=== PATIENT | male | born 1940 | race Caucasian/White ===

== ENCOUNTER 2017-09-09 20:33 | Observation (INO) | payer MEDICARE ==
[2017-09-09] MEDS ORDERED: ASPIRIN 81 MG PO STA (21:13)
[2017-09-09 21:38] LABS: Basophils % (A) 1 %; Eosinophils # (A) 0.2 k/uL (0-0.7); Eosinophils % (A) 3 %; HCT 48.9 % (39.0-53.0); HGB 17.1 gm/dL (13.0-17.5); Lymphocytes # (A) 2.1 k/uL (1.0-4.8); Lymphocytes % (A) 27 %; MCH 33.2 pg (25.0-35.0); MCV 94.9 fL (80.0-100.0); Mean Platelet Volume 7.1; Monocytes # (A) 0.6 k/uL (0-1.0); Monocytes % (A) 8 %; Neutrophils # (A) 4.5 k/uL (1.3-7.7); Neutrophils % (A) 59 %; Platelet Count 186 k/uL (150-450); RBC 5.15 m/uL (4.30-5.90); RDW 12.4 % (11.5-15.5); WBC 7.6 k/uL (3.8-10.6)
[2017-09-09 21:47] LABS: Partial Thromboplastin Time 24.9 sec (22.0-30.0); Prothrombin Time 10.1 sec (9.0-12.0)
--- NOTE | 2017-09-09 21:57 | XR ---
EXAMINATION TYPE: XR chest 2V DATE OF EXAM: 09/09/2017 COMPARISON: NONE HISTORY: Chest pain TECHNIQUE: Frontal and lateral views of the chest are obtained. FINDINGS: Heart is normal. Lungs are clear of consolidation. Costophrenic angles are clear. Thoracic aorta is atheromatous. There is relative poor inspiration. IMPRESSION: Poor inspiration. Otherwise negative exam.
[2017-09-09 22:01] LABS: Albumin 4.1 g/dL (3.5-5.0); Calcium 10.6 mg/dL (8.4-10.2); Potassium 4.4 mmol/L (3.5-5.1); Total Bilirubin 0.5 mg/dL (0.2-1.3); Total Protein 6.6 g/dL (6.3-8.2)
--- NOTE | 2017-09-09 22:06 | ED ---
Chest Pain HPI - General Chief Complaint: Chest Pain Stated Complaint: Chest pain Time Seen by Provider: 09/09/17 20:59 Source: patient, family Mode of arrival: wheelchair Limitations: no limitations - History of Present Illness Initial Comments: This is a 77-year-old male with no past medical history who presents emergency department for right-sided chest pain. He states it started earlier today. He states it feels like a pulled muscle in his right chest. He states it's worse with movements of his right arm and twisting of his body. He states that one away however then returned this evening. It is not associated with exertion. He has no shortness of breath. He states he decided he wanted to get checked for acute coronary syndrome. He decided to come emergency department. His last stress test was over 5 years ago - Related Data Home Medications Medication Instructions Recorded Confirmed Citalopram Hydrobromide [CeleXA] 10 mg PO DAILY 09/09/17 09/09/17 Allergies Allergy/AdvReac Type Severity Reaction Status Date / Time No Known Allergies Allergy Verified 09/09/17 21:45 Review of Systems ROS Statement: Those systems with pertinent positive or pertinent negative responses have been documented in the HPI. ROS Other: All systems not noted in ROS Statement are negative. EKG Findings - EKG Comments: EKG Findings:: EKG showing normal sinus rhythm with a rate of 84. No abnormal ST segment changes or T-wave inversions. QTC is 441. Other intervals normal. No ectopy. Past Medical History Past Medical History: No Reported History History of Any Multi-Drug Resistant Organisms: None Reported Past Surgical History: Appendectomy, Orthopedic Surgery, Prostate Surgery Past Psychological History: No Psychological Hx Reported Smoking Status: Former smoker Past Alcohol Use History: None Reported Past Drug Use History: None Reported General Exam - General Exam Comments Initial Comments: Constitutional: [Awake alert] [Appears comfortable] Head: [Normocephalic atraumatic] Eyes: [no conjunctival injection] [No scleral icterus] [EOMI] Neck: [No JVD] [Supple] Heart: [Regular rate rhythm] [normal S1-S2] [no murmurs] Lungs: [Clear to auscultation bilaterally] [No wheezing] [No rales] Abdomen: [Soft] [nondistended] [nontender] Extremities: [Non edematous] [DP pulses intact] [Radial pulses intact] Neuro: [A&Ox3] [No focal neurologic deficits] Psych: [Appropriate mood and affect] Limitations: no limitations Course Vital Signs 09/09/17 20:35 Temperature 97.9 F Pulse Rate 77 Respiratory 16 Rate Blood Pressure 140/74 O2 Sat by Pulse 96 Oximetry Chest Pain MDM - MDM This is a 77-year-old male who presents emergency report for intermittent right- sided chest discomfort. The patient did have intermittent episodes while in the emergency department. Troponin was negative. EKG was unremarkable. Due to the patient's age I feel that it's prudent to keep him in the hospital for further cardiac workup. It's atypical chest pain however unable to completely rule out acute coronary syndrome based on testing done tonight. I spoke with the patient and his family at length about this and they agreed with staying overnight for further evaluation. The patient will be admitted. Disposition Clinical Impression: Chest pain Disposition: ADMITTED IP TO THIS HOSP Condition: Stable
[2017-09-09 22:35] LABS: Creatine Kinase MB 1.2 ng/mL (0.0-2.4); Troponin I <0.012 ng/mL (0.000-0.034)
[2017-09-09] MEDS ORDERED: NITROGLYCERIN SL TABS 0.4 MG TAB SUBLINGUAL PRN (23:02)
[2017-09-09] MEDS ORDERED: HEPARIN SOD,PORK IN 0.45% NACL 25,000 UNIT in 0.45% NACL 1 500ML.BAG IV SCH (23:15)
[2017-09-09] MEDS ORDERED: HEPARIN SODIUM,PORCINE 5,000 UNIT/ML 1 ML VIAL IV PRN (23:30)
[2017-09-10 03:01] LABS: Creatine Kinase 34 U/L (55-170)
[2017-09-10 03:10] LABS: Cholesterol 131 mg/dL (<200); HDL Cholesterol 44 mg/dL (40-60); LDL Cholesterol,Calculated 67 mg/dL (0-99); Triglycerides 98 mg/dL (<150)
[2017-09-10 03:14] LABS: Troponin I <0.012 ng/mL (0.000-0.034)
[2017-09-10 07:56] LABS: Creatine Kinase 37 U/L (55-170)
[2017-09-10 08:06] LABS: Creatine Kinase MB 1.2 ng/mL (0.0-2.4); Troponin I <0.012 ng/mL (0.000-0.034)
[2017-09-10 08:53] VITALS: TEMP 97.5
[2017-09-10] MEDS ORDERED: CITALOPRAM HYDROBROMIDE 10 MG TAB PO SCH (09:00)
[2017-09-10] MEDS ORDERED: ASPIRIN 325 MG TAB PO SCH (09:00)
[2017-09-10] MEDS ORDERED: RX INFO: IV CONTRAST WAS GIVEN 1 EACH MISC MISCELLANE PRN (11:37)
[2017-09-10 12:30] VITALS: BP 156/80; PULSE 72; RESP 18
--- NOTE | 2017-09-10 13:01 | CT ---
EXAMINATION TYPE: CT chest angio for PE DATE OF EXAM: 09/10/2017 COMPARISON: NONE HISTORY: Patient complains of episode of left shoulder pain. CT DLP: 572 mGycm. Automated Exposure Control for Dose Reduction was Utilized. CONTRAST: CTA scan of the thorax is performed with IV Contrast, patient injected with 80 mL of Visipaque 320, p ulmonary embolism protocol. MIP Images are created on CT scanner and reviewed. FINDINGS: LUNGS: There is some patchy bibasilar linear scarring and/or atelectasis. No suspicious consolidation is seen. No concerning parenchymal nodularity or masses. No pleural effusion or pneumothorax is pres ent. Tracheobronchial tree is patent. MEDIASTINUM: There is satisfactory enhancement of the pulmonary artery and its branches, there is no CT evidence for pulmonary embolism. There are no greater than 1 cm hilar or mediastinal lymph nodes. No cardiomegaly or pericardial effusion is seen. There is coronary artery calcification in the LAD which is noted marker for coronary artery disease. There is calcification at level of aortic valve. OTHER: There are multiple simple appearing cysts scattered throughout visualized liver. There is smal l left hepatic lobe There are a few simple appearing cysts in the left kidney. Suspect some vascular calcification in left kidney, nonobstructing calculus felt less likely. There is small size hiatal he rnia. There is moderate to advanced degenerative change bilateral glenohumeral joints, left worse tucker n right. Small degree of bilateral gynecomastia is seen. Slight underlying scoliosis is present. IMPRESSION: 1. No CT evidence for acute pulmonary embolism. No suspicious acute pulmonary process.
--- NOTE | 2017-09-10 13:16 | CONS ---
CONSULTATION Mr. Varghese is a 77-year-old male patient who started having right-sided chest discomfort off and on and since it was recurrent, he came to the hospital because he was worried about having a heart attack. In the hospital, he has been pain free. His cardiac enzymes have been normal x3. His ECGs were completely normal. His electrolytes are normal. Hemoglobin is 17.1, BUN is 25, creatinine is 1.2. REVIEW OF SYSTEMS: No fever, chills, or rigors. No cough or expectoration. No nausea, vomiting, diarrhea, hematuria, dysuria. No strokes, seizures or skin lesions. No musculoskeletal complaints. PAST HISTORY: He denies any hypertension, diabetes on dyslipidemia. MEDICATIONS: He is on Celexa. ALLERGIES: No known drug allergies. PAST HISTORY: He was a former smoker. He stopped smoking in the 1970s. PAST SURGICAL HISTORY: Appendectomy, orthopedic surgery, prostate surgery. He has an enlarged prostate with an elevated PSA level and is seeing urologist next week. EXAMINATION: His blood pressure is 126/83 mmHg. Pulse rate in the 50s. Afebrile 97.5 degrees Fahrenheit. Head and neck examination are normal. Heart sounds are normal. Lungs are clear to auscultation. Extremities are warm. No edema. IMPRESSION: Right-sided atypical chest discomfort. His cardiac enzymes are normal. ECGs are normal. I sent a D-dimer, which is abnormal. He does have a high PSA level according to him and seeing the urologist for this. The CT scan has been ordered by his admitting physician. If this is normal, he may go home from a cardiac standpoint and follow up with me as an outpatient. Lipid panel has been ordered. MMODL / IJN: [id number] /
--- NOTE | 2017-09-10 13:18 | HP ---
HISTORY AND PHYSICAL DATE OF ADMISSION: 09/09/17. PRESENTING COMPLAINT: Chest pain. HISTORY OF PRESENTING COMPLAINT: This is a pleasant 77-year-old patient of Dr. Pandey. Unremarkable past medical history except patient has stable condition includes depression. The patient yesterday during his regular chores developed right upper chest wall pain and pain was much worse with moving his arms reproducible. No short of breath. No dizziness. No lightheadedness. No nausea. No perspiration. The pain went away, came back again, much worse with moving his particular arm, able to reproduce the pain. The patient was able to get around and do his activity. Not worse with activity. The patient was admitted to rule out a cardiac cause. REVIEW OF SYSTEMS: CONSTITUTIONAL: None. HEENT: None. RESPIRATORY: None. CARDIOVASCULAR: No precordial pain. GASTROINTESTINAL: None. MUSCULOSKELETAL: As above. DERMATOLOGICAL, HEMATOLOGIC, LYMPHATICS: None. PSYCHIATRY: Depression controlled. NEUROLOGICAL: None. PAST HISTORY: Prostate cancer treated with laser surgery, depression. PAST SURGICAL HISTORY: Appendectomy, prostate surgery. SOCIAL HISTORY: The patient smoked for about 25 years, stopped 40 years ago. . 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 FAMILY HISTORY: Possible coronary artery disease. HOME MEDICATIONS: Celexa 10 mg a day. ALLERGIES: None. PHYSICAL EXAMINATION: Temperature 97.5, pulse 92, respiratory 18, blood pressure 126/83, pulse ox 97% on room air. GENERAL APPEARANCE: Average built, sitting up, comfortable. EYES: Pupils equal. Conjunctivae normal. HEENT: External appearance of nose and ears normal. Oral cavity normal. NECK: JVD not raised. Mass not palpable. RESPIRATORY: Effort, lungs are clear. CARDIOVASCULAR: First and second sounds normal. No edema. ABDOMEN: Soft, nontender. Liver and spleen not palpable. LYMPHATIC: No lymph node palpable in neck or axillae. PSYCHIATRY: Alert and oriented x3. Mood and affect normal. NEUROLOGICAL: Pupils equal. Cranial nerves grossly intact. Power and sensation grossly intact. INVESTIGATIONS: White count 7.6, hemoglobin 7.1, platelets 26, potassium 4.4, BUN 25, creatinine 1.20, troponin x3 negative. LDL 57. D-dimer 1.13. ASSESSMENT: 1. Right chest wall pain, reproducible by the patient, probably musculoskeletal. Does not appear to be cardiac in nature. The patient has a negative troponin and unremarkable EKG. 2. Elevated D-dimer. The patient has clinical low probability of pulmonary embolism, but we will rule out pulmonary emboli via CT scan. 3. Depression, not otherwise specified, controlled. PLAN: Cardiology was consulted. Dr. Yu ordered a D-dimer. We will order a CT scan of the chest to rule out a PE. Home medications are to continue. MMODL / IJN: [id number] /
--- NOTE | 2017-09-11 11:43 | DS ---
DISCHARGE SUMMARY DATE OF ADMISSION: 09/09/2017. DATE OF DISCHARGE: 09/10/2017. FINAL DIAGNOSES: 1. Right chest wall pain probably musculoskeletal. 2. Pulmonary embolism ruled out. 3. Depression not otherwise specified. HOSPITAL COURSE: This patient presents with right-sided history chest wall pain that was reproducible by moving his arm. Troponins were negative. CT angiogram was negative for PE. Seen by Dr. Yu from Cardiology. Okayed the patient to be discharged. Care was discussed with the patient. EXAM: Lungs are clear. Cardiovascular: First and second sounds normal. DC MEDICATIONS: Celexa 10 mg a day. FOLLOWUP: Follow up with Dr. Jacinto Pandey in 3 days, follow Dr. Yu in 1 week. MMODL / IJN: [id number] /
== END 2017-09-10 13:37 | disposition home or self-care (01) ==
LOC: EC 20:33 → 3OBS 23:02
PROVIDERS: ADMIT Hospitalist; ATTEND Hospitalist
DX: R07.89 Other chest pain (principal); R79.89 Other specified abnormal findings of blood chemistry; F32.9 Major depressive disorder, single episode, unspecified; N40.0 Benign prostatic hyperplasia without lower urinary tract symptoms; R97.20 Elevated prostate specific antigen [PSA]; Z85.46 Personal history of malignant neoplasm of prostate; Z79.899 Other long term (current) drug therapy; Z87.891 Personal history of nicotine dependence
CPT/HCPCS: 99285 ×2; 96365; 96366; 36415; 93005; 85379; 80061; 80053; 82550; 82553 ×2; 84484 ×2; 85025; 85610; 85730 ×2; 71046; 71275; G0378 ×2; Q9967; J1644

== ENCOUNTER → 2017-09-12 | Outpatient (CLI) | payer MEDICARE | END | disposition home or self-care (01) | LOC: LABWHC1 12:35 | PROVIDERS: ATTEND Radiology Radiation Oncology | DX: C61 Malignant neoplasm of prostate (principal) | CPT/HCPCS: 36415; 84153 ==

== ENCOUNTER → 2017-09-15 | Outpatient (CLI) | payer MEDICARE ==
--- NOTE | 2017-09-15 23:22 | MR ---
EXAMINATION TYPE: MR pelvis wo/w con DATE OF EXAM: 09/15/2017 COMPARISON: NONE HISTORY: Malignant neoplasm of prostate CONTRAST: Standard multiplanar, multisequence MRI departmental protocol utilizing 8.5 mL intravenous Gadavist g adolinium contrast. FINDINGS: Urinary bladder appears normal. Prostate gland appears small and consistent with surgery. T here is no evidence of a bladder mass. I see no pelvic lymphadenopathy. Bowel in the pelvis appears n ormal. There is no free fluid. I see no bony destructive process. There is a first-degree L5-S1 spond ylolisthesis. I see no pathologic enhancement. IMPRESSION: Negative MR scan of the pelvis. No evidence of metastatic disease or recurrent tumor. There is a firs t-degree L5-S1 spondylolisthesis.
== END | disposition home or self-care (01) ==
LOC: RADMRIMAIN 11:56
PROVIDERS: ATTEND Radiology Radiation Oncology
DX: C61 Malignant neoplasm of prostate (principal); Z90.79 Acquired absence of other genital organ(s)
CPT/HCPCS: 72197; A9581

== ENCOUNTER → 2017-09-19 | Outpatient (CLI) | payer MEDICARE ==
--- NOTE | 2017-09-19 14:13 | NM ---
EXAMINATION TYPE: NM bone scan whole body DATE OF EXAM: 09/19/2017 COMPARISON: NONE HISTORY: Prostate cancer Delayed whole-body scanning was performed following the injection of 25.1 mCi Tc 99m MDP. Images acq uired 3 hours post injection. FINDINGS: There is abnormal uptake involving the shoulders and sternoclavicular joint greater on the right comp atible with post arthritic changes. Abnormal uptake throughout the lower lumbar, thoracic spine, and lower cervical spine is nonspecific but likely degenerative and could be correlated with x-ray. Photopenic defect involving left knee compatible with previous surgery. Normal uptake involving the right femoral neck is nonspecific. There is heterogeneous uptake througho ut the rib cage.. This is a nonspecific finding. Recent CT scan demonstrated no diagnostic evidence o f metastases in this region. IMPRESSION: 1. Abnormal uptake throughout the cervical thoracic and lumbar spine is nonspecific. Findings are mos t likely degenerative and could be correlated with x-ray recent CT scan didn't demonstrate hypertroph ic and degenerative disc disease involving the thoracic spine. 2. Nonspecific uptake involving the right femoral neck. Recent MRI report demonstrate no diagnostic e vidence of metastases. 3. Heterogeneous pattern of the rib cage is nonspecific. Recent CT scan demonstrates no diagnostic ev idence of metastases.
== END | disposition home or self-care (01) ==
LOC: RADNMMAIN 09:46
PROVIDERS: ATTEND Radiology Radiation Oncology
DX: C61 Malignant neoplasm of prostate (principal)
CPT/HCPCS: 78306; A9503

== ENCOUNTER → 2018-03-22 | Outpatient (CLI) | payer MEDICARE | END | disposition home or self-care (01) | LOC: LABWHC1 10:06 | PROVIDERS: ATTEND Radiology Radiation Oncology | DX: C61 Malignant neoplasm of prostate (principal) | CPT/HCPCS: 36415; 84153 ==

== ENCOUNTER 2018-08-24 08:18 | Day surgery (SDC) | payer MEDICARE ==
[2018-08-22 15:46] VITALS: BMI 25.1
[~2018-08-24 08:18] MED LIST: LACTATED RINGERS 1,000 ML IV SCH
[2018-08-24 08:55] VITALS: TEMP 97.6
[2018-08-24] MEDS ORDERED: LIDOCAINE 1% 20 ML VIAL (10MG/ML) FOR IV START INTRADERMA ONE (09:01)
[2018-08-24] MEDS ORDERED: PROPOFOL 10 MG/ML 20 ML VIAL IV ONE (09:54)
[2018-08-24] MEDS ORDERED: LIDOCAINE 1% INJ 10MG/ML (20 ML MDV) ONE (09:54)
--- NOTE | 2018-08-24 10:20 | P.PCN ---
Date of Procedure: 08/24/18 Procedure(s) Performed: Procedure: Esophagogastroduodenoscopy and biopsy. Preoperative diagnosis: Abdominal pain and suspected peptic ulcer disease. Postoperative diagnosis: 1. Small hiatal hernia with no obvious esophagitis or complicated reflux disease. 2. Mild gastritis and duodenitis. 3. Multiple biopsies obtained from the duodenum, antrum and esophagus. Preparation and sedation: Was provided by anesthesia. Brief clinical history: The patient is a 78-year-old male with history of chronic reflux for which he self medicated with [id number] antacids over the years. The patient is referred because of history of abdominal pain few weeks ago that has since subsided. He has been started on acid suppressive therapy. He has no alarm symptoms including any evidence of bleeding. This evaluation is to assess for possible peptic ulcer disease. Procedure: With the patient on his left lateral decubitus position and after informed consent and adequate sedation, I passed the Olympus GIF-H 190 video upper endoscope through the cricopharyngeus down the esophagus. GE junction was around 40 cm from the incisors and there was a small sliding hiatal hernia but no obvious esophagitis or complicated reflux disease. The endoscope was then passed into the stomach which was insufflated with air and inspected in detail including the retroflex view in the cardia. There was minimal mottling and erythema in the antrum but no ulcers or erosions. Pyloric channel did not show any ulcers. Duodenal bulb showed erythema and some mottling but no ulcers , erosions or bleeding. Post bulbar area and descending duodenum did not show obvious abnormalities. I obtained biopsies from the duodenum, antrum and esophagus then the endoscope was withdrawn. The patient tolerated the procedure well. Plan: The patient was reassured. He will continue antireflux diet and measures. Will await biopsy results and make additional recommendations. He will follow up with you as planned and I'll be happy to see in the office of his symptoms recur.
[2018-08-24 10:55] VITALS: BP 112/72; PULSE 72; RESP 18
== END 2018-08-24 10:55 | disposition home or self-care (01) ==
LOC: ORWHC2ENDO 08:18
DX: K44.9 Diaphragmatic hernia without obstruction or gangrene (principal); K29.50 Unspecified chronic gastritis without bleeding; K29.80 Duodenitis without bleeding; K21.0 Gastro-esophageal reflux disease with esophagitis; F39 Unspecified mood [affective] disorder; Z79.899 Other long term (current) drug therapy
CPT/HCPCS: 88305; 43239; J2001; J2704

== ENCOUNTER → 2018-09-26 | Outpatient (CLI) | payer MEDICARE ==
--- NOTE | 2018-09-26 23:29 | CONS ---
CONSULTATION . REASON FOR CONSULTATION: Secondary erythrocytosis. This 78-year-old male patient, currently being investigated for secondary erythrocytosis. The patient was found to have elevated hemoglobin and for that reason, he was referred to me. He denies having any symptoms to suggest obstructive sleep apnea. He denies having any snore. No witnessed apneas. No waking up in the middle of night choking or gasping for air. No nocturia no hypersomnia or sleepiness during the day. He goes to bed around 10:30 p.m., wakes up 7:00 am in the morning. He is not obese and denies having any recent weight gain or weight loss. Furthermore, the patient does not have any chronic lung disease. His room-air pulse ox is 96%. No history of cardiac disease. No history of disease. No history of any restrictive lung disease such as scoliosis or any other form of neuromuscular weakness. PAST MEDICAL HISTORY: Depression currently on anti depression therapy and the patient is using Celexa on a daily basis. He has also osteoarthritis and impaired hearing an the patient wearing a hearing aid in his right ear. SURGICAL HISTORY: Knee replacement surgery. Appendectomy and prostate surgery for BPH. DRUG ALLERGIES: Not known. OUTPATIENT MEDICATION LIST: Includes Celexa. SOCIAL HISTORY: The patient is a nonsmoker. No history of alcohol. No history of IV drugs. 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 FAMILY HISTORY: Negative for sleep apnea. REVIEW OF SYSTEMS: 12-point review of system was done. No reported excessive fatigue or sleepiness. No grinding of the teeth. No sleepwalking or sleep talking. No restlessness in lower extremities. No problems with memory or concentration. No irritability or depression. No falling asleep during the day. No claustrophobia, anxiety or anxiety. REVIEW OF SYMPTOMS: 14-point review of system was done and positive findings as mentioned above in history of present illness. PHYSICAL EXAMINATION: His current vitals BP is 140/82, pulse is 70, respirations 16, temperature 98.1, saturation 96% on room air. Height is 5 feet 7 inches weight is 179, and BMI is 28.0, neck size 15.5 inches. GENERAL APPEARANCE is calm and comfortable. Head is atraumatic, normocephalic. NECK: Supple. No JVD. No goiter or neck masses. Mallampati class I. LUNGS: Clear to auscultation. HEART: Sounds regular rate and rhythm. Normal S1, S2. No S3. No murmurs. ABDOMEN: Soft, nontender. No organomegaly. EXTREMITIES: No edema. No cyanosis or clubbing. NEUROLOGIC: Alert and oriented x3. No focal neurological deficits. PSYCHIATRIC: Negative for anxiety or depression. SKIN: Negative for any wounds or ulceration. IMPRESSION: 1. 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 Rule out nocturnal oxygen desaturation. 2. Chronic depression currently on Celexa. 3. Degenerative arthritis. 4. Impaired hearing. PLAN: We will proceed with a home sleep study. Overall suspicion for obstructive sleep apnea or nocturnal oxygen desaturation is low. We will investigate this patient and will make further recommendations should there be any abnormalities in the home sleep study. MMHOWARDL / IJN: [id number] /
== END ==
LOC: SLEEP 14:52
PROVIDERS: ATTEND Internal Medicine Critical Care Medicine
DX: D75.1 Secondary polycythemia (principal); F32.9 Major depressive disorder, single episode, unspecified; M19.90 Unspecified osteoarthritis, unspecified site; H91.90 Unspecified hearing loss, unspecified ear; Z79.899 Other long term (current) drug therapy
CPT/HCPCS: 99211

== ENCOUNTER → 2018-11-20 | Day surgery (SDC) | payer MEDICARE ==
[2018-11-17 13:24] VITALS: BMI 26.6
[~2018-11-20] MED LIST changes: +GLYCOPYRROLATE 0.2 MG/ML 2 ML VIAL ONE; +LIDOCAINE 1% 20 ML VIAL (10MG/ML) FOR IV START INTRADERMA ONE; +ONDANSETRON 4 MG/2 ML VIAL ONE; +PROPOFOL 10 MG/ML 20 ML VIAL IV ONE
[2018-11-20 09:29] VITALS: RESP 16; TEMP 97.8
--- NOTE | 2018-11-20 11:17 | P.PCN ---
Date of Procedure: 11/20/18 Description of Procedure: BRIEF HISTORY: Pleasant 78-year-old male who presents for outpatient colonoscopy for evaluation of a positive cologuard. The patient reports multiple attempts at colonoscopies in the past which he was unable to perform secondary to intolerance the prep. He denies any family history of colon cancer. He denies any abdominal pain and change in bowel habits or blood per rectum. PROCEDURE PERFORMED: Colonoscopy with polypectomy. PREOPERATIVE DIAGNOSIS: Positive Cologuard, No prior colonoscopy. ESTIMATED BLOOD LOSS: Minimal. IV sedation per Anesthesia. PROCEDURE: After informed consent was obtained, the patient, was brought into the endoscopy unit. IV sedation was administered by Anesthesia under continuous monitoring. Digital rectal examination was normal. Initially the Olympus CF-190 flexible video colonoscope was then inserted in the rectum, gradually advanced into the cecum without any difficulty. Careful examination was performed as the scope was gradually being withdrawn. Ileocecal valve and the appendiceal orifice were visualized and appeared normal. Prep was poor with a large amount of liquid and solid stool throughout the colon, copious lavage was attempted however the stool continually clogged the endoscope. Visualized mucosa of the cecum, ascending colon, transverse colon, descending colon, sigmoid colon, and rectum appeared normal. One diminutive 6 mm sessile sigmoid polyp with cold snare polypectomy. Retroflexion was performed in the rectum and no lesions were seen. The patient tolerated the procedure well. IMPRESSION: Poor prep, severely limiting visualization of the colon mucosa. Sigmoid polyp removed with cold snare polypectomy. Radiation proctitis. RECOMMENDATIONS: Findings of this examination were discussed with the patient and his . Recommend repeat colonoscopy in 3-6 months with prolonged prep. Await pathology from biopsies. Follow up as previously scheduled.
[2018-11-20 11:45] VITALS: BP 156/79; PULSE 82
== END | disposition home or self-care (01) ==
LOC: ORWHC2ENDO 09:15
PROVIDERS: ATTEND Internal Medicine
DX: K62.7 Radiation proctitis (principal); D12.5 Benign neoplasm of sigmoid colon; Z85.46 Personal history of malignant neoplasm of prostate; K21.9 Gastro-esophageal reflux disease without esophagitis; Z79.899 Other long term (current) drug therapy
CPT/HCPCS: 88305; 45385; J2405; J2704

== ENCOUNTER → 2019-02-01 | Outpatient (CLI) | payer MEDICARE ==
--- NOTE | 2019-02-01 12:09 | SFUN ---
SLEEP CENTER FOLLOW UP NOTE DATE OF SERVICE: 02/01/2019 A 78-year-old gentleman who has been followed in the Sleep Center for treatment of obstructive sleep apnea-hypopnea syndrome. Recently, patient had a home sleep apnea test which showed severe sleep apnea with apnea-hypopnea index 37.9. Also test demonstrated 200 obstructive apneas but is also 74 mixed apneas. The patient was started on treatment with the AutoPap with a range of pressure 5-20 cm of water. Today is his first visit after he was started on treatment with machine. He is using a full-face mask. He believes that he sleeps better with the machine and he feels better during the day, [place] Sleepiness Scale today is 3. I checked patient's CPAP unit, range of the pressure 5-20, average pressure for the last month 13.3. Apnea-hypopnea index reading for the last 9.9 with acceptable leak 14 L/minute. From the 9.9 index, 6.2 related to central apnea index. MEDICATIONS: Celexa, anticholesterol medication, simvastatin, medication for acid reflux. PHYSICAL EXAM: Patient in no distress. BP 129/84, HR 64, RR 16, weight 192 pounds. Temp 98.0, oxygen saturation at room air 97%. OROPHARYNX: Low position of soft palate. Mallampati 3 - 4. Neck Supple, no JVD. Thyroid is not palpable. LUNGS Clear to percussion and to auscultation. Good air exchange. No wheezing or rhonchi. HEART S1, S2 regular. No murmurs, gallops, or rubs. ABDOMEN Soft and nontender. Bowel sounds are present. No organomegaly appreciated. EXTREMITIES No clubbing or cyanosis. 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 Cranial nerves 2 to 7 intact. There is no fasciculation or atrophy. noted. No focal deficits observed. IMPRESSION: 1. 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 Patient demonstrated great compliance with treatment, 100% usage of the machine for more than 4 hours with average usage 8.3 hours. Breathing on CPAP improved but not fully normalized because patient still has some central apneas by reading from the CPAP unit. 2. History of erythrocytosis. 3. Acid reflux. 4. History of depression. 5. History of degenerative arthritis. 6. History of impaired hearing. PLAN: 1. Patient will continue to use CPAP equipment every night for the whole night. I will change maximal CPAP pressure down to 15 cm of water. 2. Patient should have CPAP if necessary BiPAP titration for correction of central abnormalities of respiration during the sleep, which was documented during the home sleep apnea test and also by the reading from his machine at the present time. 3. Precautions related to driving. No driving if feeling sleepiness. 4. Sleep hygiene with regular time in bed for at least 7.5 hours. Thank you very much for allowing me to participate in the management of your patient. Sincerely, Rai Fried MD, PhD, FAASM Diplomat of [employer] Program Proposals Coordinator of [facility] [place] MMODL / IJN: [id number] /
== END | disposition home or self-care (01) ==

== ENCOUNTER → 2019-03-20 | Outpatient (CLI) | payer MEDICARE | END | disposition home or self-care (01) | LOC: LABWHC1 10:03 | PROVIDERS: ATTEND Radiology Radiation Oncology | DX: C61 Malignant neoplasm of prostate (principal); F17.220 Nicotine dependence, chewing tobacco, uncomplicated; Z00.6 Encounter for examination for normal comparison and control in clinical research program | CPT/HCPCS: 36415; 84153 ==

== ENCOUNTER 2019-05-16 11:37 | Day surgery (SDC) | payer MEDICARE ==
[2019-05-14 14:16] VITALS: BMI 26.6
[~2019-05-16 11:37] MED LIST changes: -GLYCOPYRROLATE 0.2 MG/ML 2 ML VIAL ONE; -LIDOCAINE 1% 20 ML VIAL (10MG/ML) FOR IV START INTRADERMA ONE; +LIDOCAINE 1% 20 ML VIAL (10MG/ML) FOR IV START INTRADERMA PRN; +MOXIFLOXACIN HCL 0.5% DROPS 3 ML BTL OP ONE; -ONDANSETRON 4 MG/2 ML VIAL ONE; -PROPOFOL 10 MG/ML 20 ML VIAL IV ONE; +TETRACAINE 0.5% OPHTH (PF) DROPS 4 ML BTL OP NR; +TIMOLOL 0.5% OPHTH DROPS 5 ML BTL OP ONE
[2019-05-16 12:26] VITALS: TEMP 97.4
[2019-05-16] MEDS: CYCLOPENTOLATE 1% OPHTH SOLN 2 ML BTL OP NR ×3 (12:29→12:43)
[2019-05-16] MEDS: PHENYLEPHRINE 2.5% OPHTH DRP 2ML OP NR ×3 (12:33→12:46)
[2019-05-16] MEDS ORDERED: MIDAZOLAM 2 MG/2 ML VIAL ONE (14:12)
[2019-05-16] MEDS ORDERED: fentaNYL (PF) 50 MCG/ML 2 ML AMP ONE (14:12)
[2019-05-16] MEDS ORDERED: BALANCED SALT IRRIG SOLN COMB2 15 ML IRRIG.SOLN IRRIGATION ONE (14:15)
[2019-05-16] MEDS ORDERED: HYALURONATE SODIUM INTRAOCULAR 1 EACH SYRINGE (12MG/ML) INTRAOCULA ONE (14:15)
[2019-05-16] MEDS ORDERED: LIDOCAINE 1% (PF) 10MG/ML VIAL SQ ONE (14:16)
[2019-05-16] MEDS ORDERED: EPINEPHrine (PF) 0.3 ML in BALANCED SALT IRRIG SOLN COMB2 500 ML IRRIGATION ONE (14:26)
[2019-05-16] MEDS ORDERED: EPINEPHrine 1 MG/ML 1 ML AMP IRRIGATION ONE (14:28)
--- NOTE | 2019-05-16 14:40 | P.OP ---
Date of Procedure: 05/16/19 Preoperative Diagnosis: NS & CS Postoperative Diagnosis: same Procedure(s) Performed: PIOL, OS Implants: PCB00 24.00 Anesthesia: MAC Surgeon: Guero Rao Estimated Blood Loss (ml): 0 Pathology: none sent Condition: stable Disposition: same day Indications for Procedure: blurry vision Operative Findings: no complications
[2019-05-16 14:48] VITALS: RESP 16
[2019-05-16 14:59] VITALS: BP 129/80; PULSE 61
--- NOTE | 2019-05-17 06:23 | OP ---
OPERATIVE REPORT DATE OF SURGERY: 05/16/2019. SURGEON: Guero Rao MD PREOPERATIVE DIAGNOSIS: Nuclear sclerosis. POSTOPERATIVE DIAGNOSIS: Same. OPERATION: Phacoemulsification of cataract and intraocular lens implant of the left eye. ESTIMATED BLOOD LOSS: Zero. SPECIMEN TAKEN: None. NARRATIVE: After obtaining the appropriate consent, the patient was brought to the Operating Room where the patient was placed under cardiac monitoring and prepped and draped in the usual sterile manner. At the 5 o'clock position a 15 degree super sharp blade was used to create a paracentesis followed by instillation of 1% lidocaine MPF with 1:1000 epinephrine MPF and balanced salt solution in a ratio of 1:2:1 into the anterior chamber. This was followed by Amvisc to stabilize the anterior chamber. At the 3 o'clock position a self-sealing corneal flap incision was created using 2.8 mm fredrick keratome. A cystotome was used to initiate a continuous tear capsulorrhexis which was completed with the Utrata forceps. A Binkhorst cannula was used to hydrodissect the lens nucleus followed by hydrodelineation. Phacoemulsification of the lens was performed utilizing phaco chop in 9.46 seconds at 19% power. The remaining cortical material was removed using the irrigation aspiration mode followed by additional 1% lidocaine MPF into the anterior chamber followed by viscoelastic to stabilize the capsular bag. An Ankush and Ankush [id number], 24.0 diopters posterior chamber lens was placed into the capsular bag without difficulty. The remaining viscoelastic material was removed from the anterior chamber with the irrigation/aspiration. Balanced salt solution was used to normalize the intraocular pressure. The incision was checked for watertight integrity. The patient then received two drops of 0.5% timolol followed by two drops Vigamox, was lightly patched and shielded in the usual manner. There were no complications from the procedure. The patient tolerated the procedure well and was returned to recovery in good condition. MMODL / IJN: [id number] /
== END 2019-05-16 15:27 | disposition home or self-care (01) ==
LOC: OR 11:37
PROVIDERS: ATTEND Ophthalmology
DX: H25.13 Age-related nuclear cataract, bilateral (principal); H25.013 Cortical age-related cataract, bilateral; H35.033 Hypertensive retinopathy, bilateral; H52.03 Hypermetropia, bilateral; H52.4 Presbyopia; K21.9 Gastro-esophageal reflux disease without esophagitis; F32.9 Major depressive disorder, single episode, unspecified; H91.90 Unspecified hearing loss, unspecified ear; Z97.3 Presence of spectacles and contact lenses; Z85.46 Personal history of malignant neoplasm of prostate; Z87.891 Personal history of nicotine dependence; Z96.652 Presence of left artificial knee joint; Z90.79 Acquired absence of other genital organ(s); Z79.899 Other long term (current) drug therapy
CPT/HCPCS: 66984; C1780; J2250; J0171 ×2; J3010; J2001

== ENCOUNTER → 2019-07-09 | Outpatient (CLI) | payer MEDICARE ==
--- NOTE | 2019-07-09 09:12 | CT ---
EXAMINATION TYPE: CT chest w con DATE OF EXAM: 07/09/2019 COMPARISON: 09/10/2017 HISTORY: 79-year-old male Pneumonia, cough TECHNIQUE: Contiguous axial scanning of the chest after the administration of 80 mL of Isovue 300. C oronal/sagittal reconstructions performed. CT DLP: 341.1mGycm. Automatic exposure control utilized for a dose reduction. FINDINGS: Heart normal size. There is a small pericardial effusion measuring 9 mm thick. Scattered coronary ves barrett calcifications. 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 Conventional) benign. Possible necrotic subcarinal lymph node showing central low density measuring 1.4 cm. Some calcified right hilar lymph nodes compatible with prior granulomatous disease. Enlarged left tracheobronchial angle and AP window lymph nodes measure 1.4 and 1.6 cm, respectively. Prevascular space lymph nodes measure up to 1.0 cm and right peritracheal lymph nodes measure up to 1 .3 cm. Left hilar lymph node measuring 1.5 cm. 1.1 cm lower right paraesophageal Extensive right hilar, suprahilar, and medial right upper lobe opacity. Density encases the right kyle nstem bronchus, right upper lobe and segmental bronchi, in the bronchus medius as well. Some interstitial changes and septal lines throughout the right lung. No pleural effusion. Tiny hiatal hernia. Multiple hepatic cysts redemonstrated measuring up to 7.5 cm, increased from 09/10 where it measured up to 5.5 cm. Bilateral renal cysts measuring up to 3.5 cm on the left. Partially visualized large right renal cyst measuring up to 5.7 cm and appears simple back on the 10/16/2010 renal ultrasound. This is only parti ally visualized currently. Nonobstructive left renal calculus measuring 5 years. Moderate stool burde n. Bones: Moderate degenerative disc disease throughout the thoracic spine. No osseous destructive proce ss. IMPRESSION: 1. New extensive opacity right hilar, right suprahilar, and medial right upper lobe encasing the righ t mainstem and right upper lobe bronchi as well as the bronchus intermedius and segmental right upper lobe branches. While some of the consolidation may represent pneumonia, underlying concurrent neopla sm needs to be excluded. 2. Mediastinal and left hilar lymphadenopathy measuring up to 1.6 cm. Reactive versus metastatic dise ase. 3. Small pericardial effusion measuring 9 mm thick. 4. Septal lines throughout the right lung may reflect mild venous congestion.
== END | disposition home or self-care (01) ==
LOC: RADCTMAIN 06:49
PROVIDERS: ATTEND Internal Medicine
DX: R59.0 Localized enlarged lymph nodes (principal); I31.3 Pericardial effusion (noninflammatory); J98.4 Other disorders of lung
CPT/HCPCS: 82565; 84520; 71260; 36415; Q9967

== ENCOUNTER 2019-07-12 15:14 | Inpatient (IN) | payer MEDICARE ==
[2019-07-12] MEDS ORDERED: cefTRIAXone IN SWFI 1,000 MG/10 ML SYRINGE IVP STA (16:12)
[2019-07-12] MEDS ORDERED: AZITHROMYCIN 500 MG in SODIUM CHLORIDE 0.9% 250 ML IVPB STA (16:12)
[2019-07-12 16:58] LABS: Albumin 3.8 g/dL (3.5-5.0); Calcium 9.3 mg/dL (8.4-10.2); Potassium 4.5 mmol/L (3.5-5.1); Total Bilirubin 0.6 mg/dL (0.2-1.3); Total Protein 6.2 g/dL (6.3-8.2)
[2019-07-12 17:03] LABS: Partial Thromboplastin Time 25.4 sec (22.0-30.0); Prothrombin Time 10.8 sec (9.0-12.0)
--- NOTE | 2019-07-12 17:15 | XR ---
EXAMINATION: XR chest 2V DATE AND TIME: 07/12/2019 4:48 PM CLINICAL INDICATION: PHH; cough TECHNIQUE: Departmental protocol COMPARISON: CT 07/09/2019 and 09/09/2017 radiograph FINDINGS: Demonstration of the mass-like consolidation extending from right suprahilar position upward into the right upper lobe, characterized on CT 07/09/2019. There is a fine reticular pattern of increased density, which can correlate with a clinical diagnosis of mild interstitial phase pulmonary edema. No other lung parenchymal findings. The pleural spaces are negative. The cardiac silhouette is not enlarged. The skeletal structures and soft tissues are negative for acute findings. IMPRESSION: 1. Right suprahilar/right upper lobe process demonstrated. 2. Subtle bilateral interstitial pattern.
[2019-07-12] MEDS: SODIUM CHLORIDE 0.9% 500 ML 500 ML IV SCH (17:18)
--- NOTE | 2019-07-12 17:36 | ED ---
General Adult HPI - General Chief complaint: Upper Respiratory Infection Stated complaint: pneumonia/abd pain Time Seen by Provider: 07/12/19 15:42 Source: patient, RN notes reviewed Mode of arrival: wheelchair Limitations: no limitations - History of Present Illness Initial comments: 79-year-old male with a past medical history of prostate cancer, hyperlipidemia, GERD presents to the emergency determine for chief complaint of cough. Patient states he has had a cough for about 2 weeks. States he saw his primary care provider and was initially given an antacid minutes did not help. States when he saw his primary care provider again they did a chest x-ray and saw pneumonia however got a CT to further evaluate. Patient is on his sixth day of Levaquin without improvement in symptoms. He has not had any fevers. He has had mild shortness of breath and his cough has been unimproved. No chest pain.Patient has no other complaints at this time including chest pain, abdominal pain, nausea or vomiting, headache, or visual changes. - Related Data Home Medications Medication Instructions Recorded Confirmed Citalopram Hydrobromide [CeleXA] 20 mg PO DAILY 09/09/17 05/14/19 Multivitamins, Thera [Multivitamin 1 tab PO DAILY 08/22/18 05/14/19 (formulary)] Atorvastatin [Lipitor] 20 mg PO HS 11/17/18 05/14/19 Ranitidine HCl [Zantac] 150 mg PO BID 05/14/19 05/14/19 Allergies Allergy/AdvReac Type Severity Reaction Status Date / Time No Known Allergies Allergy Verified 07/12/19 15:38 Review of Systems ROS Statement: Those systems with pertinent positive or pertinent negative responses have been documented in the HPI. ROS Other: All systems not noted in ROS Statement are negative. Past Medical History Past Medical History: Cancer, GERD/Reflux, Hyperlipidemia, Prostate Disorder Additional Past Medical History / Comment(s): Prostate cancer with surgery (2012) & radiation tx spring 2017, History of Any Multi-Drug Resistant Organisms: None Reported Past Surgical History: Appendectomy, Joint Replacement, Prostate Surgery Additional Past Surgical History / Comment(s): TOTAL LEFT KNEE, EGD, colonoscopy. Past Anesthesia/Blood Transfusion Reactions: Motion Sickness Past Psychological History: Anxiety Smoking Status: Former smoker Past Alcohol Use History: None Reported Past Drug Use History: None Reported - Past Family History Mother Family Medical History: No Reported History Additional Family Medical History / Comment(s): passed in her 90's Father Family Medical History: Coronary Artery Disease (CAD) Sister(s) Family Medical History: No Reported History Son(s) Family Medical History: No Reported History Daughter(s) Family Medical History: No Reported History General Exam Limitations: no limitations General appearance: alert, in no apparent distress Head exam: Present: atraumatic, normocephalic, normal inspection Eye exam: Present: normal appearance, PERRL, EOMI. Absent: scleral icterus, co njunctival injection, periorbital swelling ENT exam: Present: normal exam, mucous membranes moist Neck exam: Present: normal inspection, full ROM. Absent: tenderness, meningismus, lymphadenopathy Respiratory exam: Present: normal lung sounds bilaterally, wheezes (Wheezing noted in left lung). Absent: respiratory distress, rales, rhonchi, stridor Cardiovascular Exam: Present: regular rate, normal rhythm, normal heart sounds. Absent: systolic murmur, diastolic murmur, rubs, gallop, clicks GI/Abdominal exam: Present: soft, normal bowel sounds. Absent: distended, tende rness, guarding, rebound, rigid Neurological exam: Present: alert Course Vital Signs 07/12/19 07/12/19 07/12/19 15:32 17:11 17:31 Temperature 98.2 F 98.1 F Pulse Rate 96 73 Respiratory 22 16 Rate Blood Pressure 124/77 117/76 O2 Sat by Pulse 96 93 L 92 L Oximetry EKG Findings - EKG Comments: EKG Findings:: Normal sinus rhythm, ventricular rate 81, [place] interval 152, QTC 427 Medical Decision Making - Medical Decision Making Chest CT from 3 days ago shows a new extensive opacity right hilar, right suprahilar, medial right upper lobe encasing the right mainstem and right upper lobe bronchi as well as the bronchus intermedius and segmental right upper lobe branches. While some of the consolidation may represent pneumonia, underlying concurrent neoplasm needs to be excluded. There are also evidence of lymphadenopathy and a small pericardial effusion Chest x-ray was repeated today which shows a right suprahilar/right upper lobe process. Subtle bilateral interstitial pattern noted. CBC shows a left shift with a neutrophil count of 8.5. CMP shows evidence of dehydration. Influenza is negative. Patient was initially started on azithromycin and Rocephin however will be changed to Vanc/cefepime. Patient will be admitted for failure of outpatient treatment. Patient also in acute hypoxic respiratory failure within 92% pulse ox on room air, started on oxygen. - Lab Data Result diagrams: 07/12/19 16:37 07/12/19 16:37 Lab Results 07/12/19 07/12/19 07/12/19 Range/Units 16:37 16:37 16:37 WBC 9.9 (3.8-10.6) k/uL RBC 4.62 (4.30-5.90) m/uL Hgb 15.7 (13.0-17.5) gm/dL Hct 45.1 (39.0-53.0) % MCV 97.6 (80.0-100.0) fL MCH 34.0 (25.0-35.0) pg MCHC 34.8 (31.0-37.0) g/dL RDW 12.5 (11.5-15.5) % Plt Count 244 (150-450) k/uL Neutrophils % 86 % Lymphocytes % 5 % Monocytes % 7 % Eosinophils % 1 % Basophils % 0 % Neutrophils # 8.5 H (1.3-7.7) k/uL Lymphocytes # 0.5 L (1.0-4.8) k/uL Monocytes # 0.7 (0-1.0) k/uL Eosinophils # 0.1 (0-0.7) k/uL Basophils # 0.0 (0-0.2) k/uL PT (9.0-12.0) sec INR (<1.2) APTT (22.0-30.0) sec Sodium 136 L (137-145) mmol/L Potassium 4.5 (3.5-5.1) mmol/L Chloride 103 (98-107) mmol/L Carbon Dioxide 27 (22-30) mmol/L Anion Gap 6 mmol/L BUN 28 H (9-20) mg/dL Creatinine 1.11 (0.66-1.25) mg/dL Est GFR (CKD-EPI)AfAm 73 (>60 ml/min/1.73 sqM) Est GFR (CKD-EPI)NonAf 63 (>60 ml/min/1.73 sqM) Glucose 105 H (74-99) mg/dL Plasma Lactic Acid Segun (0.7-2.0) mmol/L Calcium 9.3 (8.4-10.2) mg/dL Total Bilirubin 0.6 (0.2-1.3) mg/dL AST 31 (17-59) U/L ALT 17 (4-49) U/L Alkaline Phosphatase 77 (38-126) U/L Total Protein 6.2 L (6.3-8.2) g/dL Albumin 3.8 (3.5-5.0) g/dL Influenza Type A RNA Not Detected (Not Detectd) Influenza Type B (PCR) Not Detected (Not Detectd) 07/12/19 07/12/19 Range/Units 16:37 16:37 WBC (3.8-10.6) k/uL RBC (4.30-5.90) m/uL Hgb (13.0-17.5) gm/dL Hct (39.0-53.0) % MCV (80.0-100.0) fL MCH (25.0-35.0) pg MCHC (31.0-37.0) g/dL RDW (11.5-15.5) % Plt Count (150-450) k/uL Neutrophils % % Lymphocytes % % Monocytes % % Eosinophils % % Basophils % % Neutrophils # (1.3-7.7) k/uL Lymphocytes # (1.0-4.8) k/uL Monocytes # (0-1.0) k/uL Eosinophils # (0-0.7) k/uL Basophils # (0-0.2) k/uL PT 10.8 (9.0-12.0) sec INR 1.0 (<1.2) APTT 25.4 (22.0-30.0) sec Sodium (137-145) mmol/L Potassium (3.5-5.1) mmol/L Chloride (98-107) mmol/L Carbon Dioxide (22-30) mmol/L Anion Gap mmol/L BUN (9-20) mg/dL Creatinine (0.66-1.25) mg/dL Est GFR (CKD-EPI)AfAm (>60 ml/min/1.73 sqM) Est GFR (CKD-EPI)NonAf (>60 ml/min/1.73 sqM) Glucose (74-99) mg/dL Plasma Lactic Acid Segun 1.3 (0.7-2.0) mmol/L Calcium (8.4-10.2) mg/dL Total Bilirubin (0.2-1.3) mg/dL AST (17-59) U/L ALT (4-49) U/L Alkaline Phosphatase (38-126) U/L Total Protein (6.3-8.2) g/dL Albumin (3.5-5.0) g/dL Influenza Type A RNA (Not Detectd) Influenza Type B (PCR) (Not Detectd) Disposition Clinical Impression: Pneumonia, Failure of outpatient treatment Disposition: ADMITTED IP TO THIS HOSP Condition: Fair Is patient prescribed a controlled substance at d/c from ED?: No Referrals: Jacinto Pandey MD [Primary Care Provider] - 1-2 days Time of Disposition: 18:27
[2019-07-12 17:40] LABS: Basophils % (A) 0 %; Eosinophils # (A) 0.1 k/uL (0-0.7); Eosinophils % (A) 1 %; HCT 45.1 % (39.0-53.0); HGB 15.7 gm/dL (13.0-17.5); Lymphocytes # (A) 0.5 k/uL (1.0-4.8); Lymphocytes % (A) 5 %; MCHC 34.8 g/dL (31.0-37.0); MCV 97.6 fL (80.0-100.0); Mean Platelet Volume 7.3; Monocytes # (A) 0.7 k/uL (0-1.0); Monocytes % (A) 7 %; Neutrophils # (A) 8.5 k/uL (1.3-7.7); Neutrophils % (A) 86 %; Platelet Count 244 k/uL (150-450); RBC 4.62 m/uL (4.30-5.90); RDW 12.5 % (11.5-15.5); WBC 9.9 k/uL (3.8-10.6)
[2019-07-12] MEDS ORDERED: PNEUMONIA PROTOCOL UTILIZED 1 EACH MISC PO PRN (18:14)
[2019-07-12] MEDS ORDERED: VANCOMYCIN IV PER PHARMACY 1 EACH MISC MISCELLANE PRN (18:24)
[2019-07-12] MEDS ORDERED: VANCOMYCIN 1,500 MG in SODIUM CHLORIDE 0.9% 250 ML IVPB ONE (18:45)
[2019-07-12] MEDS: IPRATROPIUM-ALBUTEROL 3 ML NEB INHALATION SCH (19:54)
[2019-07-12] MEDS: SODIUM CHLORIDE 0.9% 1,000 ML IV SCH (20:22)
[2019-07-12] MEDS: CEFEPIME 2 GM in SODIUM CHLORIDE 0.9% 100 ML IVPB SCH (23:50)
[2019-07-13] MEDS ORDERED: PIPERACILLIN-TAZOBACTAM 3.375 GM in SODIUM CHLORIDE 0.9% 100 ML IVPB SCH ×2
[2019-07-13] MEDS: IPRATROPIUM-ALBUTEROL 3 ML NEB INHALATION SCH ×4 (07:02→19:43)
[2019-07-13] MEDS: CEFEPIME 2 GM in SODIUM CHLORIDE 0.9% 100 ML IVPB SCH ×2 (07:34→20:14)
[2019-07-13] MEDS: VANCOMYCIN 1,500 MG in SODIUM CHLORIDE 0.9% 250 ML IVPB SCH (11:05)
[2019-07-13 13:50] VITALS: BMI 25.8
[2019-07-13] MEDS: SODIUM CHLORIDE 0.9% 1,000 ML IV SCH (14:08)
[2019-07-13] MEDS ORDERED: ONDANSETRON 4 MG/2 ML VIAL IVP PRN (14:52)
--- NOTE | 2019-07-13 17:33 | P.CNPUL ---
History of Present Illness Consult date: 07/13/19 Reason for consult: lung mass History of present illness: 79-year-old male patient was been having respiratory difficulties for almost a month. His June of last year, the patient has been having episodes of cough and congestion and shortness of breath and wheeze. He has seen his primary care physician. He was given antibiotics. He was given an outpatient chest x-ray and he was told to have pneumonia. His condition was getting worse and he came into the hospital. Note that prior to his hospitalization had a CAT scan of the chest that was done on 07/09/2019 and a CAT scan showed an extensive opacity in the right hilar and suprahilar area and the medial right upper lobe encasing the right mainstem and right upper lobe bronchi as well as the bronchus intermedius and the segmental right upper lobe branches. There was some consolidation in the right upper lobe. There was also evidence of mediastinal lymphadenopathy, left hilar lymphadenopathy as large as 1.6 cm and a small pericardial effusion measuring 9 mm in size. The findings are very much worsen for malignancy. Currently, the patient is in a combination of bronchodilators steroids and antibiotics. No hemoptysis. No other constitutional symptoms. He is an ex-sm oker. He quit smoking 40 years ago. No nausea. No vomiting. No abdominal pain. No chest pain. No altered mentation. Review of Systems Constitutional: Reports weakness Eyes: denies as per HPI, denies blurred vision, denies bulging eye, denies decreased vision, denies diplopia, denies discharge, denies dry eye, denies irritation, denies itching, denies pain, denies photophobia, denies loss of peripheral vision, denies loss of vision, denies tunnel vision/blind spots Ears: deny: decreased hearing, ear discharge, earache, tinnitus Ears, nose, mouth and throat: Reports as per HPI Breasts: absent: as per HPI, gynecomastia Cardiovascular: Reports decreased exercise tolerance, Reports dyspnea on exertion Respiratory: Reports cough, Reports dyspnea, Reports wheezing Gastrointestinal: Reports as per HPI Genitourinary: Reports as per HPI Musculoskeletal: Reports as per HPI Musculoskeletal: absent: ankle pain, ankle stiffness, ankle swelling, as per HPI, elbow pain, elbow stiffness, elbow swelling, foot pain, foot stiffness, foot swelling, hand pain, hand stiffness, hand swelling, hip pain, hip stif fness, hip swelling, knee pain, knee stiffness, knee swelling, shoulder pain, shoulder stiffness, shoulder swelling, wrist pain, wrist stiffness, wrist swelling Integumentary: Reports as per HPI Neurological: Reports as per HPI Psychiatric: Reports as per HPI Endocrine: Reports as per HPI Hematologic/Lymphatic: Reports as per HPI Allergic/Immunologic: Reports as per HPI Past Medical History Past Medical History: Cancer, COPD, GERD/Reflux, Hyperlipidemia, Prostate Disorder Additional Past Medical History / Comment(s): Prostate cancer with surgery (2012) & radiation tx spring 2017, History of Any Multi-Drug Resistant Organisms: None Reported Past Surgical History: Appendectomy, Joint Replacement, Prostate Surgery Additional Past Surgical History / Comment(s): TOTAL LEFT KNEE, EGD, colonoscopy. Past Anesthesia/Blood Transfusion Reactions: Motion Sickness Past Psychological History: Anxiety Smoking Status: Former smoker Past Alcohol Use History: None Reported Additional Past Alcohol Use History / Comment(s): QUIT SMOKING 1979, SMOKED 1 PPD, SMOKED 20-25 YEARS. Past Drug Use History: None Reported - Past Family History Mother Family Medical History: No Reported History Additional Family Medical History / Comment(s): passed in her 90's Father Family Medical History: Coronary Artery Disease (CAD) Sister(s) Family Medical History: No Reported History Son(s) Family Medical History: No Reported History Daughter(s) Family Medical History: No Reported History Medications and Allergies Home Medications Medication Instructions Recorded Confirmed Type Atorvastatin [Lipitor] 20 mg PO HS 11/17/18 07/12/19 History Benzonatate [Tessalon Perles] 200 mg PO TID PRN 07/12/19 07/12/19 History Citalopram Hydrobromide [CeleXA] 20 mg PO DIRECTED 07/12/19 07/12/19 History Levofloxacin [Levaquin] 500 mg PO DAILY 07/12/19 07/12/19 History Allergies Allergy/AdvReac Type Severity Reaction Status Date / Time No Known Allergies Allergy Verified 07/12/19 18:40 Physical Exam Vitals: Vital Signs Temp Pulse Pulse Resp BP Pulse Ox 07/13/19 16:04 72 07/13/19 16:00 80 16 07/13/19 15:45 68 07/13/19 12:12 98.1 F 80 16 132/62 95 07/13/19 11:20 72 07/13/19 11:14 72 07/13/19 08:00 68 16 07/13/19 07:15 76 07/13/19 07:04 72 07/13/19 05:00 97.5 F L 68 16 112/69 93 L 07/12/19 20:28 98.0 F 79 18 126/60 92 L 07/12/19 20:04 76 07/12/19 19:54 73 97 07/12/19 17:31 92 L Intake and Output 07/13/19 07/13/19 07/13/19 06:59 14:59 22:59 Intake Total 400 2630 Balance 400 2630 Intake: Intake, IV Titration 400 950 Amount Cefepime 2 gm In Sodium 100 Chloride 0.9% 100 ml @ 200 mls/hr IVPB Q12HR [facility] Rx#:[id number] Sodium Chloride 0.9% 1, 400 600 000 ml @ 50 mls/hr IV . Q20H [facility] Rx#:[id number] Vancomycin 1,500 mg In 250 Sodium Chloride 0.9% 250 ml @ 125 mls/hr IVPB Q16H [facility] Rx#:[id number] Oral 1680 Other: Voiding Method Toilet Toilet Toilet # Voids 3 3 Weight 79.379 kg Gen. appearance, comfortable not in acute distress Head exam was generally normal. There was no scleral icterus or corneal arcus. Mucous membranes were moist. Neck examination reveals lymphadenopathy in his right supraclavicular area and the patient has several enlarged rubbery lymph nodes the largest probably measuring around 1-1-1/2 cm in size and a small lymph node in the left supraclavicular area. Lungs sounds are diminished and there is scattered expiratory wheezing throughout the lung mccracken bilaterally. Some few expiratory rhonchi and prolongation of exhalation phase of breathing. Cardiac exam revealed the PMI to be normally situated and sized. The rhythm was regular and no extrasystoles were noted during several minutes of auscultation. The first and second heart sounds were normal and physiologic splitting of the second heart sound was noted. There were no murmurs, rubs, clicks, or gallops. Abdominal exam revealed normal bowel sounds. The abdomen was soft, non-tender, and without masses, organomegaly, or appreciable enlargement of the abdominal aorta. Examination of the extremities revealed easily palpable radial, femoral and pedal pulses. There was no cyanosis, clubbing or edema. Examination of the skin revealed no evidence of significant rashes, suspicious appearing nevi or other concerning lesions. Neurologically is awake and alert and there is no focal neurological deficit. Examination of the skin revealed no evidence of significant rashes, suspicious appearing nevi or other concerning lesions. Results - Laboratory Findings CBC and BMP: 07/12/19 16:37 07/12/19 16:37 ABG WBC 9.9 k/uL (3.8-10.6) 07/12/19 16:37 RBC 4.62 m/uL (4.30-5.90) 07/12/19 16:37 Hgb 15.7 gm/dL (13.0-17.5) 07/12/19 16:37 Hct 45.1 % (39.0-53.0) 07/12/19 16:37 MCV 97.6 fL (80.0-100.0) 07/12/19 16:37 MCH 34.0 pg (25.0-35.0) 07/12/19 16:37 MCHC 34.8 g/dL (31.0-37.0) 07/12/19 16:37 RDW 12.5 % (11.5-15.5) 07/12/19 16:37 Plt Count 244 k/uL (150-450) 07/12/19 16:37 Neutrophils % 86 % 07/12/19 16:37 Lymphocytes % 5 % 07/12/19 16: Monocytes % 7 % 07/12/19 16:37 Eosinophils % 1 % 07/12/19 16:37 Basophils % 0 % 07/12/19 16:37 Neutrophils # 8.5 k/uL (1.3-7.7) H 07/12/19 16:37 Lymphocytes # 0.5 k/uL (1.0-4.8) L 07/12/19 16:37 Monocytes # 0.7 k/uL (0-1.0) 07/12/19 16:37 Eosinophils # 0.1 k/uL (0-0.7) 07/12/19 16:37 Basophils # 0.0 k/uL (0-0.2) 07/12/19 16:37 PT 10.8 sec (9.0-12.0) 07/12/19 16:37 INR 1.0 (<1.2) 07/12/19 16:37 APTT 25.4 sec (22.0-30.0) 07/12/19 16:37 Sodium 136 mmol/L (137-145) L 07/12/19 16:37 Potassium 4.5 mmol/L (3.5-5.1) 07/12/19 16:37 Chloride 103 mmol/L (98-107) 07/12/19 16:37 Carbon Dioxide 27 mmol/L (22-30) 07/12/19 16:37 Anion Gap 6 mmol/L 07/12/19 16:37 BUN 28 mg/dL (9-20) H 07/12/19 16:37 Creatinine 1.11 mg/dL (0.66-1.25) 07/12/19 16:37 Est GFR (CKD-EPI)AfAm 73 (>60 ml/min/1.73 sqM) 07/12/19 16:37 Est GFR (CKD-EPI)NonAf 63 (>60 ml/min/1.73 sqM) 07/12/19 16:37 Glucose 105 mg/dL (74-99) H 07/12/19 16:37 Plasma Lactic Acid Segun 1.3 mmol/L (0.7-2.0) 07/12/19 16:37 Calcium 9.3 mg/dL (8.4-10.2) 07/12/19 16:37 Total Bilirubin 0.6 mg/dL (0.2-1.3) 07/12/19 16:37 AST 31 U/L (17-59) 07/12/19 16:37 ALT 17 U/L (4-49) 07/12/19 16:37 Alkaline Phosphatase 77 U/L (38-126) 07/12/19 16:37 Total Protein 6.2 g/dL (6.3-8.2) L 07/12/19 16:37 Albumin 3.8 g/dL (3.5-5.0) 07/12/19 16:37 Influenza Type A RNA Not Detected (Not Detectd) 07/12/19 16:37 Influenza Type B (PCR) Not Detected (Not Detectd) 07/12/19 16:37 PT/INR, D-dimer PT 10.8 sec (9.0-12.0) 07/12/19 16:37 INR 1.0 (<1.2) 07/12/19 16:37 Abnormal lab findings: Abnormal Labs 07/12/19 07/12/19 16:37 16:37 Neutrophils # 8.5 H Lymphocytes # 0.5 L Sodium 136 L BUN 28 H Glucose 105 H Total Protein 6.2 L Assessment and Plan Plan: 1 right lung opacity involving the right hilar and suprahilar area encasing the right main stem and the right upper lobe bronchi as well as the bronchus intermedius with possible endobronchial extension addition to mediastinal lymphadenopathy and the findings are very much worsen for lung cancer 2 right upper lobe consolidation apical segment, could be a combination of tumor versus postobstructive pneumonia 3 bilateral supraclavicular lymphadenopathy highly suggestive of malignancy 4 COPD exacerbation secondary to above 5 history of ex-smoker 6 hyperlipidemia Plan Continue current antibiotic coverage IV Solu-Medrol Flexible bronchoscopy in a.m. with airway inspection and biopsies and lavage of the right upper lobe. We'll may need fluoroscopy at the time of the biopsy. Procedure including the potential complication with extended to the patient at length. My concern for malignancy was discussed with the patient and he understands the purpose of the procedure and he is willing to undertake the procedure. He is going to contact his family members who will come in the morning and have further information about the procedure. His son is a surgical endoscopist that works locally in [facility] and I'm going to communicate with him. Further recommendations are to follow based on the findings
[2019-07-13] MEDS: methylPREDNISolone SOD SUCCI 125 MG/2 ML VIAL IV SCH ×2 (18:07→23:37)
[2019-07-13] MEDS: ATORVASTATIN 20 MG TAB PO SCH (20:14)
[2019-07-13] MEDS ORDERED: RX INFO: IV CONTRAST WAS GIVEN 1 EACH MISC MISCELLANE PRN (23:56)
--- NOTE | 2019-07-14 00:07 | P.HPIM ---
History of Present Illness H&P Date: 07/13/19 Chief Complaint: Cough History of presenting complaint: This is a pleasant 79-year-old patient of Dr. Jacinto Hermosillo. Normally in good health. 3 weeks ago started of with bouts of coughing. Is fluent. No obvious fever and chills. Decreased appetite. Patient was prescribed Levaquin by his family doctor. Not much help. Continues to have bouts of coughing. Some shortness of breath and some wheezing. Patient checks x-ray was abnormal. Admitted for the same. Started antibiotics bronchodilator steroids. Review of systems: GEN.: Tired, decreased appetite EYES: None HEENT: [Decreased hearing NECK: None RESPIRATORY: As above CARDIOVASCULAR: None GASTROINTESTINAL: None GENITOURINARY: None MUSCULOSKELETAL: None LYMPHATICS: None HEMATOLOGICAL: None PSYCHIATRY: None NEUROLOGICAL: None Past medical history to include: COPD, GERD, hyperlipidemia, prostate cancer with surgery and radiation in 2018 Social history: , smoked for 25 years in the past. 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 EYES: Pupils equal. Conjunctiva normal. HEENT: External appearance of nose and ears normal, oral cavity grossly normal. Decreased hearing NECK: JVD not raised; masses not palpable. HEART: First and second heart sounds are normal; no edema. LUNGS: Respiratory rate increased, decreased breath sounds posteriorly. ABDOMEN: Soft, nontender, liver spleen not palpable, no masses palpable. PSYCH: Alert and oriented x3; mood and affect normal. NEUROLOGICAL: Cranial nerves grossly intact; no facial asymmetry, power and sensation grossly intact. 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 Does know white count no fever. Patient has been having clear sputum . Has decreased appetite. Clinical picture and x-ray findings are strongly suggestive underlying malignancy. Post obstructive pneumonia possible -Possible postobstructive pneumonia -COPD in an ex-smoker Plan: Pulmonary was consulted. Patient is put on IV antibiotics. Patient being scheduled for bronchoscopy tomorrow. We'll also do computed tomography scan of the chest with contrast. Lovenox for DVT prophylaxis. Care was discussed with the patient. Past Medical History Past Medical History: Cancer, GERD/Reflux, Hyperlipidemia, Prostate Disorder Additional Past Medical History / Comment(s): Prostate cancer with surgery (2012) & radiation tx spring 2017, History of Any Multi-Drug Resistant Organisms: None Reported Past Surgical History: Appendectomy, Joint Replacement, Prostate Surgery Additional Past Surgical History / Comment(s): TOTAL LEFT KNEE, EGD, colonoscopy. Past Anesthesia/Blood Transfusion Reactions: Motion Sickness Past Psychological History: Anxiety Smoking Status: Former smoker Past Alcohol Use History: None Reported Additional Past Alcohol Use History / Comment(s): QUIT SMOKING 1979, SMOKED 1 PPD, SMOKED 20-25 YEARS. Past Drug Use History: None Reported - Past Family History Mother Family Medical History: No Reported History Additional Family Medical History / Comment(s): passed in her 90's Father Family Medical History: Coronary Artery Disease (CAD) Sister(s) Family Medical History: No Reported History Son(s) Family Medical History: No Reported History Daughter(s) Family Medical History: No Reported History Medications and Allergies Home Medications Medication Instructions Recorded Confirmed Type Atorvastatin [Lipitor] 20 mg PO HS 11/17/18 07/12/19 History Benzonatate [Tessalon Perles] 200 mg PO TID PRN 07/12/19 07/12/19 History Citalopram Hydrobromide [CeleXA] 20 mg PO DIRECTED 07/12/19 07/12/19 History Levofloxacin [Levaquin] 500 mg PO DAILY 07/12/19 07/12/19 History Allergies Allergy/AdvReac Type Severity Reaction Status Date / Time No Known Allergies Allergy Verified 07/12/19 18:40 Physical Exam Vitals: Vital Signs Temp Pulse Pulse Resp BP BP Pulse Ox 07/13/19 08:00 68 16 07/13/19 07:15 76 07/13/19 07:04 72 07/13/19 05:00 97.5 F L 68 16 112/69 93 L 07/12/19 20:28 98.0 F 79 18 126/60 92 L 07/12/19 20:04 76 07/12/19 19:54 73 97 07/12/19 17:31 92 L 07/12/19 17:11 98.1 F 73 16 117/76 93 L 07/12/19 15:32 98.2 F 96 22 124/77 96 Intake and Output 07/12/19 07/13/19 07/13/19 22:59 06:59 14:59 Intake Total 250 400 480 Balance 250 400 480 Intake: Intake, IV Titration 250 400 Amount Sodium Chloride 0.9% 1, 400 000 ml @ 50 mls/hr IV . Q20H [facility] Rx#:[id number] Vancomycin 1,500 mg In 250 Sodium Chloride 0.9% 250 ml @ 125 mls/hr IVPB Q16H [facility] Rx#:[id number] Oral 480 Other: Voiding Method Toilet Toilet Weight 79.379 kg Results CBC & Chem 7: 07/12/19 16:37 07/12/19 16:37 Labs: Abnormal Lab Results - Last 24 Hours (Table) 07/12/19 07/12/19 Range/Units 16:37 16:37 Neutrophils # 8.5 H (1.3-7.7) k/uL Lymphocytes # 0.5 L (1.0-4.8) k/uL Sodium 136 L (137-145) mmol/L BUN 28 H (9-20) mg/dL Glucose 105 H (74-99) mg/dL Total Protein 6.2 L (6.3-8.2) g/dL Thrombosis Risk Factor Assmnt - Choose All That Apply Any of the Below Risk Factors Present?: Yes Each Factor Represents 1 point: Abnormal pulmonary function (COPD) Other Risk Factors: Yes Each Risk Factor Represents 2 Points: Malignancy Each Risk Factor Represents 3 Points: Age 75 years or older Thrombosis Risk Factor Assessment Total Risk Factor Score: 6 Thrombosis Risk Factor Assessment Level: High Risk
[2019-07-14] MEDS: ENOXAPARIN 40 MG/0.4 ML SYRINGE SQ SCH ×2 (00:12→21:13)
[2019-07-14] MEDS: VANCOMYCIN 1,500 MG in SODIUM CHLORIDE 0.9% 250 ML IVPB SCH ×2 (02:36→13:11)
[2019-07-14] MEDS: methylPREDNISolone SOD SUCCI 125 MG/2 ML VIAL IV SCH ×4 (05:39→23:46)
[2019-07-14 07:14] LABS: African American GFR (CKD) >90 (>60 ml/min/1.73 sqM); Non-African American GFR(CKD) 83 (>60 ml/min/1.73 sqM)
--- NOTE | 2019-07-14 08:01 | CT ---
EXAMINATION TYPE: CT chest w con DATE OF EXAM: 07/14/2019 COMPARISON: Previous study dated 07/09/2019. HISTORY: Persistent Cough CT DLP: 344.9 mGycm Automated exposure control for dose reduction was used. CONTRAST: CT scan of the chest is performed with IV Contrast, patient injected with 100 mL of Isovue 300. FINDINGS: Diffuse right-sided suprahilar prominence remains and has worsened from previous. This is e ncasing the main bronchi on the right and narrowing the right middle lobe bronchus. There is diffuse interstitial change within the right lung which May represent lymphangitic spread of carcinoma. There is mild atelectatic change at the left lung base. There are small, bilateral pleural effusions. Ther e is a stable, 9 mm pericardial effusion. The heart is not enlarged. There is mediastinal adenopathy, particularly in the aortopulmonary window. The largest of these krish ures 10.7 mm. There are multiple lytic lesions throughout all lobes of the liver. The largest measures 7.4 cm, unch anged from previous. There is a large, 6 cm simple appearing cyst in the lower pole of the right kidney which is incomplet olivier imaged on the previous study. There is hypertrophic spondylosis within the spine. IMPRESSION: 1. WORSENING OPACITY IN THE RIGHT SUPRAHILAR REGION WITH ENCASEMENT AND NARROWING OF THE BRONCHI. 2. STABLE AORTOPULMONARY WINDOW ADENOPATHY. 3. INTERSTITIAL CHANGE IN THE RIGHT LUNG MAY REPRESENT LYMPHANGITIC SPREAD OF CARCINOMA. 4. CYSTIC DISEASE OF THE LIVER AND RIGHT KIDNEY. 5. SMALL PERICARDIAL EFFUSION. 6. DEGENERATIVE CHANGES WITHIN THE SPINE.
[2019-07-14] MEDS: IPRATROPIUM-ALBUTEROL 3 ML NEB INHALATION SCH ×4 (08:17→20:52)
[2019-07-14] MEDS: CEFEPIME 2 GM in SODIUM CHLORIDE 0.9% 100 ML IVPB SCH ×2 (08:57→21:12)
--- NOTE | 2019-07-14 11:52 | P.PN ---
Subjective Progress Note Date: 07/14/19 79-year-old male patient was been having respiratory difficulties for almost a month. His June last year, the patient has been having episodes of cough and congestion and shortness of breath and wheeze. He has seen his primary care physician. He was given antibiotics. He was given an outpatient chest x-ray and he was told to have pneumonia. His condition was getting worse and he came into the hospital. Note that prior to his hospitalization had a CAT scan of the chest that was done on 07/09/2019 and a CAT scan showed an extensive opacity in the right hilar and suprahilar area and the medial right upper lobe encasing the right mainstem and right upper lobe bronchi as well as the bronchus intermedius and the segmental right upper lobe branches. There was some consolidation in the right upper lobe. There was also evidence of mediastinal lymphadenopathy, left hilar lymphadenopathy as large as 1.6 cm and a small pericardial effusion measuring 9 mm in size. The findings are very much worsen for malignancy. Currently, the patient is in a combination of bronchodilators steroids and antibiotics. No hemoptysis. No other constitutional symptoms. He is an ex- smoker. He quit smoking 40 years ago. No nausea. No vomiting. No abdominal pain. No chest pain. No altered mentation. On 07/14/2019, the patient is feeling slightly better compared to yesterday and less bronchospastic and wheezy. A repeat CAT scan of the chest was done that showed worsening in the pneumonic changes in the right upper lobe and as mentioned earlier does not obvious concern for malignancy based on the findings on the CAT scan of the chest. There is worsening of the opacity in the right suprahilar region along with encasement and narrowing of the bronchi. The patient is to undergo bronchoscopy today. No hemoptysis. He is still nothing by mouth. Objective - Vital Signs Vital signs: Vital Signs Temp 97.9 F 07/14/19 10:13 Pulse 89 07/14/19 10:13 Resp 17 07/14/19 10:13 BP 136/77 07/14/19 10:13 Pulse Ox 95 07/14/19 10:13 Intake & Output 07/13/19 07/14/19 07/14/19 18:59 06:59 18:59 Intake Total 2630 Balance 2630 Weight 79.379 kg Intake: Intake, IV Titration 950 Amount Cefepime 2 gm In Sodium 100 Chloride 0.9% 100 ml @ 200 mls/hr IVPB Q12HR [facility] Rx#:[id number] Sodium Chloride 0.9% 1, 600 000 ml @ 50 mls/hr IV . Q20H [facility] Rx#:[id number] Vancomycin 1,500 mg In 250 Sodium Chloride 0.9% 250 ml @ 125 mls/hr IVPB Q16H [facility] Rx#:[id number] Oral 1680 Other: Voiding Method Toilet Toilet Toilet # Voids 3 1 - Exam Gen. appearance, comfortable not in acute distress Head exam was generally normal. There was no scleral icterus or corneal arcus. Mucous membranes were moist. Neck examination reveals lymphadenopathy in his right supraclavicular area and the patient has several enlarged rubbery lymph nodes the largest probably m easuring around 1-1-1/2 cm in size and a small lymph node in the left supraclavicular area. Lungs sounds are diminished and there is scattered expiratory wheezing throughout the lung mccracken bilaterally. Some few expiratory rhonchi and prolongation of exhalation phase of breathing. Cardiac exam revealed the PMI to be normally situated and sized. The rhythm was regular and no extrasystoles were noted during several minutes of auscultation. The first and second heart sounds were normal and physiologic splitting of the second heart sound was noted. There were no murmurs, rubs, clicks, or gallops. Abdominal exam revealed normal bowel sounds. The abdomen was soft, non-tender, and without masses, organomegaly, or appreciable enlargement of the abdominal aorta. Examination of the extremities revealed easily palpable radial, femoral and pedal pulses. There was no cyanosis, clubbing or edema. Examination of the skin revealed no evidence of significant rashes, suspicious appearing nevi or other concerning lesions. Neurologically is awake and alert and there is no focal neurological deficit. Examination of the skin revealed no evidence of significant rashes, suspicious appearing nevi or other concerning lesions. - Labs CBC & Chem 7: 07/12/19 16:37 07/14/19 06:22 Labs: Microbiology - Last 24 Hours (Table) 07/13/19 11:00 Gram Stain - Preliminary Sputum Sputum Culture - Preliminary 07/12/19 16:37 Blood Culture - Preliminary Blood No Growth after 24 hours Assessment and Plan Plan: 1 right lung opacity involving the right hilar and suprahilar area encasing the right main stem and the right upper lobe bronchi as well as the bronchus intermedius with possible endobronchial extension addition to mediastinal lymphadenopathy and the findings are very much worsen for lung cancer 2 right upper lobe consolidation apical segment, could be a combination of tumor versus postobstructive pneumonia 3 bilateral supraclavicular lymphadenopathy highly suggestive of malignancy 4 COPD exacerbation secondary to above 5 history of ex-smoker 6 hyperlipidemia Plan Today same treatment. The patient has developed some skeletal pain over the right lower abdominal area related to cough . The follow-up CAT scan of the chest ordered by primary care team was noted and reviewed. We are going to proceed with a bronchoscopy. The patient is nothing by mouth. Further recommendations to follow based on the findings.
[2019-07-14] MEDS ORDERED: IV FLUID CONTINUATION 600 ML IV ONE (11:58)
[2019-07-14] MEDS ORDERED: PROPOFOL 10 MG/ML 20 ML VIAL IV ONE (12:08)
[2019-07-14] MEDS ORDERED: MIDAZOLAM 2 MG/2 ML VIAL ONE (12:08)
[2019-07-14] MEDS ORDERED: KETAMINE 10 MG/ML 20 ML VIAL ONE (12:08)
[2019-07-14] MEDS ORDERED: fentaNYL (PF) 50 MCG/ML 2 ML AMP ONE (12:08)
[2019-07-14] MEDS ORDERED: LIDOCAINE 2% INJ 20 MG/ML INTRATRACH ONE (12:14)
[2019-07-14] MEDS: SODIUM CHLORIDE 0.9% 1,000 ML IV SCH ×2 (12:22→13:09)
--- NOTE | 2019-07-14 12:31 | P.PCN ---
Date of Procedure: 07/14/19 Preoperative Diagnosis: Right upper lobe mass Postoperative Diagnosis: Right upper lobe mass Procedure(s) Performed: Flexible bronchoscopy right upper lobe bronchoalveolar lavage, right upper lobe endobronchial biopsy, right upper lobe endobronchial brushings Anesthesia: MAC Surgeon: Sav Reyna Barn Hand #1: Nely Guan Estimated Blood Loss (ml): 0 Pathology: other Condition: stable Disposition: floor Operative Findings: THIS PROCEDURE WAS DONE IN THE ENDOSCOPY ROOM. PROCEDURE INCLUDING THE POTENTIAL COMPLICATION WITH BASHIR THE PATIENT AT LENGTH. After achieving adequate sedation, the flexible bronchoscope was introduced through the right nostril was advanced into the upper airway. Examination of the posterior oropharynx, larynx, epiglottis, arytenoids, vallecula and the vocal cords was done. All of the upper airway structures were within normal limits. a total of 2 mL of 1% lidocaine was applied to the vocal cords and following that the bronchoscope was advanced into the upper trachea. Airway inspection was done. The tracheobronchial tree was INSPECTED. Trachea was within normal limits. The bilateral mainstem bronchi were patent and within normal limits. Right upper lobe bronchus was extrinsically compressed and he h as a bronchus with an in the distal right upper lobe bronchus, there was endobronchial irregularities that was extending into the radius segments of the right upper lobe. These endobronchial irregularities and abnormalities were consistent with possible malignancy as there was friable tissue, vascularity, mucosal lumps and lesions consistent with possible cancer. Bronchus intermedius, right middle lobe bronchus, the right lower lobe bronchus, the left mainstem bronchus, left upper bronchus and left lower lobe bronchus were all patent within normal limits. The bronchus was then moved to the right upper lobe and a BAL was done. A total of 80 mL of fluid was infused and 25-30 mL of aspirate was obtained. Under direct visualization, endobronchial biopsies of the irregularities in the right upper lobe was done and a total of 8-9 biopsies were obtained. At the completion of the procedure, endobronchial brushings of the right upper lobe was also done. The residual secretions were all suctioned out with the was completed without any complications. The patient will be chest and back to his room. We'll continue to follow make further recommendations based on results. High likelihood for malignancy.
[2019-07-14] MEDS: CITALOPRAM HYDROBROMIDE 20 MG TAB PO SCH (13:04)
[2019-07-14 13:31] LABS: Appearance,BF Blood Tinged
[2019-07-14 13:32] LABS: Color,BF Pink; Nucleated Cells, Body Fluid 40 /uL; RBC, Body Fluid 8020 /uL
[2019-07-14 13:35] LABS: Mononuclear WBC,Body Fluid 27 %; Polynuclear WBC,Body Fluid 73 %; Total Cells Counted,Body Fluid 100
[2019-07-14] MEDS: ATORVASTATIN 20 MG TAB PO SCH (21:13)
--- NOTE | 2019-07-14 23:25 | P.PN ---
Progress Note - Text Progress Note Date: 07/14/19 Chief Complaint: Cough interval history: This is a pleasant 79-year-old patient of Dr. Jacinto Hermosillo. Normally in good health. 3 weeks ago started of with bouts of coughing. Is fluent. No obvious fever and chills. Decreased appetite. Patient was prescribed Levaquin by his family doctor. Not much help. Continues to have bouts of coughing. Some shortness of breath and some wheezing. Patient checks x-ray was abnormal. Admitted for the same. Started antibiotics bronchodilator steroids. today-patient esophagus" on for bronchoscopy. Still getting bouts of coughing. Patient's and daughter the bedside. Findings are strongly suggestive of underlying malignancy with possible underlying postobstructive pneumonia. Progress review of systems Active Medications Albuterol/Ipratropium (Duoneb 0.5 Mg-3 Mg/3 Ml Soln) 3 ml INHALATION RT-QID [facility] Last Admin: 07/14/19 20:52 Dose: 3 ml Documented by: Atorvastatin Calcium (Lipitor) 20 mg PO HS [facility] Last Admin: 07/14/19 21:13 Dose: 20 mg Documented by: Citalopram Hydrobromide (Celexa) 20 mg PO DAILY [facility] Last Admin: 07/14/19 13:04 Dose: Not Given Documented by: Enoxaparin Sodium (Lovenox) 40 mg SQ DAILY@2100 [facility] Last Admin: 07/14/19 21:13 Dose: 40 mg Documented by: Sodium Chloride (Saline 0.9%) 1,000 mls @ 50 mls/hr IV .Q20H [facility] Last Admin: 07/14/19 13:09 Dose: 50 mls/hr Documented by: Cefepime HCl 2 gm/ Sodium (Chloride) 100 mls @ 200 mls/hr IVPB Q12HR [facility] Last Admin: 07/14/19 21:12 Dose: 200 mls/hr Documented by: Vancomycin HCl 1,500 mg/ (Sodium Chloride) 250 mls @ 125 mls/hr IVPB Q12H [facility] Last Admin: 07/14/19 13:11 Dose: 125 mls/hr Documented by: Methylprednisolone Sodium Succinate (Solu-Medrol) 60 mg IV Q6HR [facility] Last Admin: 07/14/19 17:47 Dose: 60 mg Documented by: Miscellaneous Information (Pneumonia Protocol Utilized) 1 each PO ONCE PRN PRN Reason: Per Protocol Miscellaneous Information (Rx Info: Iv Contrast Was Given) 1 each MISCELLANE DAILY PRN PRN Reason: Per Protocol Stop: 07/15/19 23:57 Miscellaneous Information (Vancomycin Trough Due) 0 each MISCELLANE DIRECTED ONE Stop: 07/15/19 13:01 Ondansetron HCl (Zofran) 4 mg IVP Q6HR PRN PRN Reason: Nausea And Vomiting Last Admin: 07/13/19 15:11 Dose: 4 mg Documented by: Physical examination: VITAL SIGNS: 97.7, 90, 20, 140/95, 93% room air GENERAL: laying in bed comfortable EYES: Pupils equal. Conjunctiva normal. HEENT: External appearance of nose and ears normal, oral cavity grossly normal. Decreased hearing NECK: JVD not raised; masses not palpable. HEART: First and second heart sounds are normal; no edema. LUNGS: Respiratory rate increased, decreased breath sounds posteriorly. ABDOMEN: Soft, nontender, liver spleen not palpable, no masses palpable. PSYCH: Alert and oriented x3; mood and affect normal. 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 Does know white count no fever. Patient has been having clear sputum. Has decreased appetite. Clinical picture and x-ray findings are strongly suggestive underlying malignancy. Post obstructive pneumonia possible -Possible postobstructive pneumonia -COPD in an ex-smoker -Lung cancer evident on bronchoscopy done later this afternoon. As discussed with Dr. Reyna Plan: continue current medication treatment plan. Status post bronchoscopy done later this afternoon. Possible discharge home tomorrow and follow up with results as an outpatient. bronchial washings were carried out. Earlier care was discussed with the patient and his and daughter. Also discussed with Dr. Reyna followed after procedure. Total time spent today was about 40 minutes with over 25 minutes of discussion.
[2019-07-15] MEDS: VANCOMYCIN 1,500 MG in SODIUM CHLORIDE 0.9% 250 ML IVPB SCH ×2 (02:40→13:12)
[2019-07-15] MEDS: methylPREDNISolone SOD SUCCI 125 MG/2 ML VIAL IV SCH ×2 (05:58→12:13)
[2019-07-15] MEDS: IPRATROPIUM-ALBUTEROL 3 ML NEB INHALATION SCH ×2 (07:44→13:31)
[2019-07-15 07:57] LABS: African American GFR (CKD) >90 (>60 ml/min/1.73 sqM); Non-African American GFR(CKD) 83 (>60 ml/min/1.73 sqM)
[2019-07-15] MEDS: CEFEPIME 2 GM in SODIUM CHLORIDE 0.9% 100 ML IVPB SCH (08:55)
[2019-07-15] MEDS: CITALOPRAM HYDROBROMIDE 20 MG TAB PO SCH (08:55)
[2019-07-15 11:53] VITALS: BP 151/80; PULSE 72; RESP 20; TEMP 97.8
[2019-07-15] MEDS ORDERED: VANCOMYCIN TROUGH DUE 1 EACH MISC MISCELLANE ONE (13:00)
[2019-07-15] MEDS ORDERED: predniSONE 20 MG TAB PO SCH (14:00)
--- NOTE | 2019-07-15 14:05 | P.PN ---
Subjective Progress Note Date: 07/15/19 Principal diagnosis: Right upper lobe mass 79-year-old male patient was been having respiratory difficulties for almost a month. His June last year, the patient has been having episodes of cough and congestion and shortness of breath and wheeze. He has seen his primary care physician. He was given antibiotics. He was given an outpatient chest x-ray and he was told to have pneumonia. His condition was getting worse and he came into the hospital. Note that prior to his hospitalization had a CAT scan of the chest that was done on 07/09/2019 and a CAT scan showed an extensive opacity in the right hilar and suprahilar area and the medial right upper lobe encasing the right mainstem and right upper lobe bronchi as well as the bronchus intermedius and the segmental right upper lobe branches. There was some consolidation in the right upper lobe. There was also evidence of mediastinal lymphadenopathy, left hilar lymphadenopathy as large as 1.6 cm and a small pericardial effusion measuring 9 mm in size. The findings are very much worsen for malignancy. Cur rently, the patient is in a combination of bronchodilators steroids and antibiotics. No hemoptysis. No other constitutional symptoms. He is an ex- smoker. He quit smoking 40 years ago. No nausea. No vomiting. No abdominal pain. No chest pain. No altered mentation. On 07/14/2019, the patient is feeling slightly better compared to yesterday and less bronchospastic and wheezy. A repeat CAT scan of the chest was done that showed worsening in the pneumonic changes in the right upper lobe and as mentioned earlier does not obvious concern for malignancy based on the findings on the CAT scan of the chest. There is worsening of the opacity in the right suprahilar region along with encasement and narrowing of the bronchi. The patient is to undergo bronchoscopy today. No hemoptysis. He is still nothing by mouth. The patient is seen today 07/15/2019 in follow-up on the regular medical floor. He is awake and alert in no acute distress. No worsening shortness of breath, cough or congestion. He did undergo bronchoscopy with biopsies of the right upper lobe mass. No hemoptysis. Maintaining good O2 saturations in the mid 90s on 2 L/m per nasal cannula. Afebrile. Hemodynamically stable. Blood and sputum culture reveals no growth. Pathology pending. He has been maintained on DuoNeb inhalations, prednisone, cefepime, vancomycin. Objective - Vital Signs Vital signs: Vital Signs Temp 97.8 F 07/15/19 11:52 Pulse 72 07/15/19 11:52 Resp 20 07/15/19 11:52 BP 151/80 07/15/19 11:52 Pulse Ox 95 07/15/19 11:52 Intake & Output 07/14/19 07/15/19 07/15/19 18:59 06:59 18:59 Intake Total 1000 2150 625 Balance 1000 2150 625 Intake: IV 550 Intake, IV Titration 450 950 625 Amount Cefepime 2 gm In Sodium 100 100 100 Chloride 0.9% 100 ml @ 200 mls/hr IVPB Q12HR [facility] Rx#:[id number] Sodium Chloride 0.9% 1, 350 600 275 000 ml @ 50 mls/hr IV . Q20H [facility] Rx#:[id number] Vancomycin 1,500 mg In 250 250 Sodium Chloride 0.9% 250 ml @ 125 mls/hr IVPB Q12H [facility] Rx#:[id number] Oral 1200 Other: Voiding Method Toilet Toilet # Voids 3 # Bowel Movements 1 - Labs CBC & Chem 7: 07/12/19 16:37 07/15/19 07:19 Labs: Microbiology - Last 24 Hours (Table) 07/13/19 11:00 Gram Stain - Final Sputum Sputum Culture - Final 07/12/19 16:37 Blood Culture - Preliminary Blood No Growth after 48 hours Assessment and Plan Assessment: 1 right lung opacity involving the right hilar and suprahilar area encasing the right main stem and the right upper lobe bronchi as well as the bronchus intermedius with possible endobronchial extension addition to mediastinal lymphadenopathy and the findings are very much worsen for lung cancer 2 right upper lobe consolidation apical segment, could be a combination of tumor versus postobstructive pneumonia 3 bilateral supraclavicular lymphadenopathy highly suggestive of malignancy 4 COPD exacerbation secondary to above 5 history of ex-smoker 6 hyperlipidemia Plan The patient was seen and evaluated by Dr. Reyna. He is cleared for discharge from the pulmonary standpoint. Follow-up in our office next week to review the biopsy results. He is aware that cancer is within the differential. I, the cosigning physician, performed a history & physical examination of the patient. Lungs sounds are clear. Maintaining good O2 saturations in the 90s on 2 L/m per nasal cannula. I discussed the assessment and plan of care with my nurse practitioner, Nely Guan. I attest to the above note as dictated by her.
--- NOTE | 2019-07-16 00:03 | P.DS ---
Providers Date of admission: 07/12/19 18:20 Expected date of discharge: 07/15/19 Attending physician: Jimbo Pickett Consults: 07/12/19 18:14 Consult Physician Routine Consulting Provider: Sav Reyna Consult Reason/Comments: consolidation vs mass Do you want consulting provider notified?: Yes Primary care physician: [facility] Course: Chief Complaint: Cough Hospital course: This is a pleasant 79-year-old patient of Dr. Jacinto Hermosillo. Normally in good health. 3 weeks ago started of with bouts of coughing. Is fluent. No obvious fever and chills. Decreased appetite. Patient was prescribed Levaquin by his family doctor. Not much help. Continues to have bouts of coughing. Some shortness of breath and some wheezing. Patient checks x-ray was abnormal. Admitted for the same. Started antibiotics bronchodilator steroids. Head bronchoscopy-Findings are strongly suggestive of underlying malignancy with possible underlying postobstructive pneumonia. Today-care was discussed with the patient and his daughter. Also Dr. Reyna. Patient's symptoms are much improved. He will follow with Dr. Reyna the office next week when results available. Questions were answered. Also follows with oncology. Discussion and discharge planning more than 35 minutes Consultation: Dr. Reyna from pulmonary Physical examination: VITAL SIGNS: At: 97.8, 72, 20, 151/80, 95% on 2 L GENERAL: Sitting up comfortable EYES: Pupils equal. Conjunctiva normal. HEENT: External appearance of nose and ears normal, oral cavity grossly normal. Decreased hearing NECK: JVD not raised; masses not palpable. HEART: First and second heart sounds are normal; no edema. LUNGS: Respiratory rate increased, decreased breath sounds posteriorly. ABDOMEN: Soft, nontender, liver spleen not palpable, no masses palpable. PSYCH: Alert and oriented x3; mood and affect normal. LYMPHATICS: supraclavicular lymph nodes palpable on both sides MUSCULOSKELETAL: Evidence of OA especially in the hands INVESTIGATIONS, reviewed in the clinical context: White count 9.9 hemoglobin 15.7 potassium 4.5 crit 1.11 Chest x-ray film personally reviewed by me shows possible presented right upper lobe/infiltrate and mass EKG tracing personally reviewed by me shows normal sinus rhythm Bronchoscopy-bronchial washings were done. Right upper bronchus externally compressed, more findings in Dr. Reyna's notes. Assessment: -Lung cancer. Type unknown. Pending biopsy results, POA - postobstructive pneumonia, POA -Acute COPD exacerbation in an ex-smoker Disposition: Home Patient Condition at Discharge: Undetermined Plan - Discharge Summary Discharge Rx Participant: No New Discharge Prescriptions: New Cefuroxime Axetil [Ceftin] 500 mg PO BID #14 tab Ipratropium-Albuterol Nebulize [Duoneb 0.5 mg-3 mg/3 ml Soln] 3 ml INHALATION TID #90 ampul.neb predniSONE 10 mg PO DAILY #30 tab Continue Atorvastatin [Lipitor] 20 mg PO HS Citalopram Hydrobromide [CeleXA] 20 mg PO DIRECTED Discontinued Levofloxacin [Levaquin] 500 mg PO DAILY Benzonatate [Tessalon Perles] 200 mg PO TID PRN PRN Reason: Cough Discharge Medication List Atorvastatin [Lipitor] 20 mg PO HS 11/17/18 [History] Citalopram Hydrobromide [CeleXA] 20 mg PO DIRECTED 07/12/19 [History] Cefuroxime Axetil [Ceftin] 500 mg PO BID #14 tab 07/15/19 [Rx] Ipratropium-Albuterol Nebulize [Duoneb 0.5 mg-3 mg/3 ml Soln] 3 ml INHALATION TID #90 ampul.neb 07/15/19 [Rx] predniSONE 10 mg PO DAILY #30 tab 07/15/19 [Rx] Follow up Appointment(s)/Referral(s): Chriss Peguero MD [STAFF PHYSICIAN] - 1 Week (Patient to call Dr. Peguero's office Tuesday to schedule follow up appointment. The office is closed at time of discharge. ) Jacinto Pandey MD [Primary Care Provider] - 1 Week (Patient to call Dr. Pandey's office Tuesday to schedule follow up appointment. The office is closed at time of discharge. ) Sav Reyna MD [STAFF PHYSICIAN] - 3 Days (Patient to call Dr. Reyna's office Tuesday to schedule follow up appointment. The office is closed at time of discharge. ) Patient Instructions/Handouts: Cefuroxime (By mouth), Prednisone (By mouth), Ipratropium/Albuterol (By breathing), Pneumonia (DC) Discharge Disposition: HOME SELF-CARE
== END 2019-07-15 15:30 | disposition home or self-care (01) | DRG 194 ==
LOC: EC 15:14 → 5NMEDONC 18:20
PROVIDERS: ADMIT Hospitalist; ATTEND Hospitalist
PROC: 0BB48ZX Excision of Right Upper Lobe Bronchus, Via Natural or Artificial Opening Endoscopic, Diagnostic (ICD-10-PCS; principal; 2019-07-14 10:30)
PROC: 0B9C8ZX Drainage of Right Upper Lung Lobe, Via Natural or Artificial Opening Endoscopic, Diagnostic (ICD-10-PCS; principal; 2019-07-14 10:30)
DX: J18.9 Pneumonia, unspecified organism (principal); J44.0 Chronic obstructive pulmonary disease with (acute) lower respiratory infection; J44.1 Chronic obstructive pulmonary disease with (acute) exacerbation; C34.90 Malignant neoplasm of unspecified part of unspecified bronchus or lung; I31.3 Pericardial effusion (noninflammatory); E78.5 Hyperlipidemia, unspecified; E86.0 Dehydration; F41.9 Anxiety disorder, unspecified; Z79.52 Long term (current) use of systemic steroids; Z79.899 Other long term (current) drug therapy; Z82.49 Family history of ischemic heart disease and other diseases of the circulatory system; Z85.46 Personal history of malignant neoplasm of prostate; Z87.891 Personal history of nicotine dependence
CPT/HCPCS: 31623; 31624; 31625; 36415; 71046; 71260; 80053; 80202; 82565; 83605; 85025; 85610; 85730; 87040; 87070; 87102; 87116; 87205; 87206; 87252; 87496; 87498; 87502; 87529; 87634; 87798; 88104; 88108; 88305; 88341; 88342; 89050; 93005; 94640; 94760; 96365; 96375; 99285

== ENCOUNTER → 2019-07-21 | Outpatient (CLI) | payer MEDICARE ==
--- NOTE | 2019-07-23 08:01 | PE ---
EXAMINATION TYPE: PET CT fusion skull to thigh DATE OF EXAM: 07/21/2019 COMPARISON: Chest CT July 14, 2019 and older CTs. HISTORY: Lung cancer TECHNIQUE: Following the intravenous administration of 13.608 mCi of F-18 FDG, whole body images are performed from the skull base to the midthigh. Images are reviewed on the computer in the coronal, axial, and sagittal planes. Reconstructed rotating images are created on independent workstation and reviewed on the computer. A noncontrast CT is performed in conjunction with the PET scan. SCAN: Initial Scan FINDINGS: SKULL BASE AND NECK: Prominent slightly hyper vascular but subcentimeter posterior cervical triangle s lymph nodes near level of vocal cord, for reference 9 x 7 mm lymph node on the left axial image 43 posteriorly with max SUV of 3.27. Additional prominent hypervascular lymph node posterior to the clav icle near thyroid gland level axial image 49, Max SUV is 3.38. CHEST, MEDIASTINUM, AND HILAR REGION: Large right suprahilar medial mass shows abnormal hypermetaboli c uptake extending to right lung apex measuring approximately 8.7 x 3.5 cm axial image 66, max SUV is 7.9. There are abnormal hypermetabolic lymph nodes, for reference AP window lymph node measures 2.0 x 1.0 cm axial image 78, max SUV is 6.31. There are abnormal hypermetabolic bilateral hilar lymph nodes for reference left hilar lymph node axial image 89 measures approximately 1.8 x 1.4 cm, max SUV is 5.42. Abnormal right hilar adenopathy is likely present. Suspicious prominent but subcentimeter prevascula r and paratracheal lymph nodes are also seen. Enlarged ametabolic subcarinal lymph node axial image 8 5 noted. Suspicious paraEsophageal lymph node just above the diaphragm axial image 113 measures 1.2 x 0.7 cm, max SUV is 2.98. ABDOMEN AND PELVIS: Single suspicious subcentimeter lymph node posterior to IVC axial image 130 measu ring 1.4 x 0.5 cm, max SUV 2.96. No additional areas of suspicious hypermetabolic uptake. No suspicious adrenal masses. OSSEOUS STRUCTURES: No areas of suspicious hypermetabolic uptake. OTHER CT: Background moderate emphysematous change with some moderate scattered pulmonary fibrotic ch anges bilaterally redemonstrated. Evidence of old granulomatous disease with calcified lymph nodes in the right hilar region. Ascending aortic aneurysm measures up to 4.2 cm diameter redemonstrated. Sma ll pericardial effusion is redemonstrated. There are multiple simple appearing thin-walled hepatic cysts and several simple-appearing thin-chad d renal cysts including few small nonobstructing bilateral renal calculi. Prominent 4.2 cm AAA at common iliac bifurcation. Small sized fat-containing umbilical hernia. Small sized fat-containing left inguinal hernia. Multilevel spurring in the spine. Grade 2 anterolisthesis of L5 on S1. IMPRESSION: High stage pulmonary neoplasm with large right hilar mass. Abnormal thoracic adenopathy w ith supraclavicular and neck adenopathy spread. Additional suspicious lymph nodes lower paraesophagea l region and upper abdominal retroperitoneum.
== END | disposition home or self-care (01) ==
LOC: RADPETMAIN 14:47
PROVIDERS: ATTEND Internal Medicine Critical Care Medicine
DX: C34.90 Malignant neoplasm of unspecified part of unspecified bronchus or lung (principal); C34.11 Malignant neoplasm of upper lobe, right bronchus or lung
CPT/HCPCS: 78815; A9552

== ENCOUNTER → 2019-07-23 | Outpatient (CLI) | payer MEDICARE ==
--- NOTE | 2019-07-23 20:29 | MR ---
EXAMINATION TYPE: MR brain wo/w con DATE OF EXAM: 07/23/2019 COMPARISON: None HISTORY: Lung ca TECHNIQUE: Multiplanar, multisequence images of the brain and brainstem is performed without and with IV contras t, utilizing 7.5 mL intravenous Gadavist . FINDINGS: Diffusion weighted images demonstrate no evidence of a recent infarct or other diffusion ab normality. Osas-an-vioqdndf generalized degenerative change. Confluent and focal areas of abnormal signal the white matter are nonspecific but most typical of rem ote microvascular ischemic change. Midline structures demonstrate normal morphology. The craniocervical junction appears within normal limits. Post contrast images demonstrate no abnormal enhancement. The dural venous sinuses appear pa tent. Changes of chronic sinusitis noted. Abnormal signal noted within the basal ganglia may represent prominent Virchow-Cuco space or remote lacunar infarct. IMPRESSION: 1. Degenerative and nonspecific white matter changes most typical remote ischemia. 2. No evidence of enhancing mass. No diagnostic evidence of metastases.
== END | disposition home or self-care (01) ==
LOC: RADMRIMAIN 18:56
PROVIDERS: ATTEND Internal Medicine Hematology & Oncology
DX: C34.90 Malignant neoplasm of unspecified part of unspecified bronchus or lung (principal); R90.82 White matter disease, unspecified
CPT/HCPCS: 70553; A9585

== ENCOUNTER 2019-07-31 13:35 | Inpatient (IN) | payer MEDICARE ==
[2019-07-31] MEDS ORDERED: IPRATROPIUM-ALBUTEROL 3 ML NEB INHALATION STA (14:12)
[2019-07-31] MEDS ORDERED: methylPREDNISolone SOD SUCCI 125 MG/2 ML VIAL IV STA (14:12)
[2019-07-31 14:36] LABS: Basophils # (A) 0.1 k/uL (0-0.2); Basophils % (A) 1 %; Eosinophils # (A) 0.1 k/uL (0-0.7); Eosinophils % (A) 1 %; HCT 48.2 % (39.0-53.0); HGB 15.9 gm/dL (13.0-17.5); Lymphocytes # (A) 0.6 k/uL (1.0-4.8); Lymphocytes % (A) 7 %; MCV 99.8 fL (80.0-100.0); Mean Platelet Volume 7.9; Monocytes # (A) 0.5 k/uL (0-1.0); Monocytes % (A) 6 %; Neutrophils # (A) 7.5 k/uL (1.3-7.7); Neutrophils % (A) 84 %; Platelet Count 162 k/uL (150-450); RBC 4.83 m/uL (4.30-5.90); RDW 13.1 % (11.5-15.5); WBC 8.9 k/uL (3.8-10.6)
[2019-07-31 14:52] LABS: Partial Thromboplastin Time 22.7 sec (22.0-30.0); Prothrombin Time 10.8 sec (9.0-12.0)
[2019-07-31 14:57] LABS: Albumin 3.5 g/dL (3.5-5.0); Calcium 9.5 mg/dL (8.4-10.2); Total Bilirubin 1.1 mg/dL (0.2-1.3); Total Protein 6.6 g/dL (6.3-8.2)
--- NOTE | 2019-07-31 14:58 | XR ---
EXAMINATION TYPE: XR chest 2V DATE OF EXAM: 07/31/2019 COMPARISON: Prior chest x-ray 07/12/2019 HISTORY: Difficulty breathing, shortness of breath TECHNIQUE: Frontal and lateral views of the chest are obtained. FINDINGS: Pleural parenchymal changes are similar to prior exam. Right paratracheal abnormal attenua tion persists extending from the right hilar region. No evident pneumothorax or pleural effusion. Int erstitium is diffusely increased. The heart is enlarged. IMPRESSION: Findings are similar to prior exam. Findings compatible with patient's history of lung c arcinoma.
[2019-07-31 15:01] LABS: Magnesium 2.1 mg/dL (1.6-2.3)
[2019-07-31] MEDS ORDERED: SODIUM CHLORIDE 0.9% 500 ML 500 ML IV STA (15:01)
[2019-07-31] MEDS ORDERED: ALBUTEROL NEBULIZED (CONC) 20 MG, SODIUM CHLORIDE 0.9% NEBULIZ 3 ML INHALATION ONE ×2 (15:01)
[2019-07-31] MEDS ORDERED: INSULIN REGULAR 100 UNIT/ML VIAL IV ONE (15:01)
[2019-07-31] MEDS ORDERED: CALCIUM CHLORIDE 100 MG/ML 10 ML SYRINGE IVP STA (15:02)
[2019-07-31] MEDS ORDERED: DEXTROSE 50% SYRINGE 50 ML IVP STA (15:02)
[2019-07-31] MEDS ORDERED: SODIUM BICARB 8.4% 50 ML SYR (1 MEQ/ML) IV STA (15:04)
--- NOTE | 2019-07-31 15:09 | ED ---
SOB HPI - General Chief Complaint: Shortness of Breath Stated Complaint: SOB-sent by Dr. Peguero Time Seen by Provider: 07/31/19 13:52 Source: patient, RN notes reviewed Mode of arrival: wheelchair Limitations: no limitations - History of Present Illness Initial Comments: Is a 79-year-old male with a history of recently diagnosed lung cancer who presents from his doctor's office with complaints of shortness of breath for the last week and he progressively worse with exertional dyspnea and not sleeping clear phlegm no fevers chills sweats or other symptoms some chest discomfort because of deep breathing and coughing. MD Complaint: shortness of breath - Related Data Home Medications Medication Instructions Recorded Confirmed Atorvastatin [Lipitor] 20 mg PO HS 11/17/18 07/31/19 Citalopram Hydrobromide [CeleXA] 20 mg PO DAILY 07/12/19 07/31/19 Omeprazole 40 mg PO DAILY 07/31/19 07/31/19 Allergies Allergy/AdvReac Type Severity Reaction Status Date / Time No Known Allergies Allergy Verified 07/31/19 16:23 Review of Systems ROS Statement: Those systems with pertinent positive or pertinent negative responses have been documented in the HPI. ROS Other: All systems not noted in ROS Statement are negative. Past Medical History Past Medical History: Cancer, GERD/Reflux, Hyperlipidemia, Prostate Disorder Additional Past Medical History / Comment(s): Prostate cancer with surgery (2012) & radiation tx spring 2017, lung CA History of Any Multi-Drug Resistant Organisms: None Reported Past Surgical History: Appendectomy, Joint Replacement, Prostate Surgery Additional Past Surgical History / Comment(s): TOTAL LEFT KNEE, EGD, colonoscopy. Past Anesthesia/Blood Transfusion Reactions: Motion Sickness Past Psychological History: Anxiety Smoking Status: Former smoker Past Alcohol Use History: None Reported Past Drug Use History: None Reported - Past Family History Mother Family Medical History: No Reported History Additional Family Medical History / Comment(s): passed in her 90's Father Family Medical History: Coronary Artery Disease (CAD) Sister(s) Family Medical History: No Reported History Son(s) Family Medical History: No Reported History Daughter(s) Family Medical History: No Reported History General Exam - General Exam Comments Initial Comments: This is a well-developed asthenic awake alert oriented 3 male Limitations: no limitations General appearance: alert, in no apparent distress Head exam: Present: atraumatic, normocephalic, normal inspection Eye exam: Present: normal appearance, PERRL, EOMI. Absent: scleral icterus, conjunctival injection, periorbital swelling ENT exam: Present: mucous membranes dry Neck exam: Present: normal inspection. Absent: tenderness, meningismus, lymphadenopathy Respiratory exam: Present: wheezes, decreased breath sounds. Absent: respiratory distress, rales, rhonchi, stridor Cardiovascular Exam: Present: regular rate, normal rhythm, normal heart sounds. Absent: systolic murmur, diastolic murmur, rubs, gallop, clicks GI/Abdominal exam: Present: soft, normal bowel sounds. Absent: distended, tenderness, guarding, rebound, rigid Extremities exam: Present: normal inspection, full ROM, normal capillary refill. Absent: tenderness, pedal edema, joint swelling, calf tenderness Back exam: Present: normal inspection Neurological exam: Present: alert, oriented X3, CN II-XII intact Psychiatric exam: Present: normal affect, normal mood Skin exam: Present: warm, dry, intact, normal color. Absent: rash Course Vital Signs 07/31/19 07/31/19 07/31/19 13:37 14:12 14:19 Pulse Rate 73 98 Respiratory 91 H 22 Rate Blood Pressure 111/71 O2 Sat by Pulse 97 Oximetry 07/31/19 07/31/19 14:28 17:18 Pulse Rate 92 86 Respiratory 16 Rate Blood Pressure 115/76 O2 Sat by Pulse 99 Oximetry - Reevaluation(s) Reevaluation #1: 07/31/19 17:53 I did discuss [employer] the patient multiple family members. Patient was seen by Dr. Goyal. Procedures - [place] Protocol (Time Out) Nurse: Fide Ortega Medical Decision Making - Lab Data Result diagrams: 07/31/19 14:03 07/31/19 14:03 Lab Results 07/31/19 07/31/19 07/31/19 Range/Units 14:03 14:03 14:03 WBC 8.9 (3.8-10.6) k/uL RBC 4.83 (4.30-5.90) m/uL Hgb 15.9 (13.0-17.5) gm/dL Hct 48.2 (39.0-53.0) % MCV 99.8 (80.0-100.0) fL MCH 33.0 (25.0-35.0) pg MCHC 33.0 (31.0-37.0) g/dL RDW 13.1 (11.5-15.5) % Plt Count 162 (150-450) k/uL Neutrophils % 84 % Lymphocytes % 7 % Monocytes % 6 % Eosinophils % 1 % Basophils % 1 % Neutrophils # 7.5 (1.3-7.7) k/uL Lymphocytes # 0.6 L (1.0-4.8) k/uL Monocytes # 0.5 (0-1.0) k/uL Eosinophils # 0.1 (0-0.7) k/uL Basophils # 0.1 (0-0.2) k/uL PT 10.8 (9.0-12.0) sec INR 1.0 (<1.2) APTT 22.7 (22.0-30.0) sec D-Dimer 12.18 H (<0.60) mg/L FEU Sodium 137 (137-145) mmol/L Potassium (3.5-5.1) mmol/L Chloride 104 (98-107) mmol/L Carbon Dioxide 23 (22-30) mmol/L Anion Gap 10 mmol/L BUN 24 H (9-20) mg/dL Creatinine 0.97 (0.66-1.25) mg/dL Est GFR (CKD-EPI)AfAm 86 (>60 ml/min/1.73 sqM) Est GFR (CKD-EPI)NonAf 75 (>60 ml/min/1.73 sqM) Glucose 102 H (74-99) mg/dL Plasma Lactic Acid Segun (0.7-2.0) mmol/L Calcium 9.5 (8.4-10.2) mg/dL Magnesium 2.1 (1.6-2.3) mg/dL Total Bilirubin 1.1 (0.2-1.3) mg/dL AST 53 (17-59) U/L ALT 30 (4-49) U/L Alkaline Phosphatase 79 (38-126) U/L Creatine Kinase 55 (55-170) U/L Troponin I (0.000-0.034) ng/mL NT-Pro-B Natriuret Pep pg/mL Total Protein 6.6 (6.3-8.2) g/dL Albumin 3.5 (3.5-5.0) g/dL 07/31/19 07/31/19 07/31/19 Range/Units 14:03 14:03 14:03 WBC (3.8-10.6) k/uL RBC (4.30-5.90) m/uL Hgb (13.0-17.5) gm/dL Hct (39.0-53.0) % MCV (80.0-100.0) fL MCH (25.0-35.0) pg MCHC (31.0-37.0) g/dL RDW (11.5-15.5) % Plt Count (150-450) k/uL Neutrophils % % Lymphocytes % % Monocytes % % Eosinophils % % Basophils % % Neutrophils # (1.3-7.7) k/uL Lymphocytes # (1.0-4.8) k/uL Monocytes # (0-1.0) k/uL Eosinophils # (0-0.7) k/uL Basophils # (0-0.2) k/uL PT (9.0-12.0) sec INR (<1.2) APTT (22.0-30.0) sec D-Dimer (<0.60) mg/L FEU Sodium (137-145) mmol/L Potassium (3.5-5.1) mmol/L Chloride (98-107) mmol/L Carbon Dioxide (22-30) mmol/L Anion Gap mmol/L BUN (9-20) mg/dL Creatinine (0.66-1.25) mg/dL Est GFR (CKD-EPI)AfAm (>60 ml/min/1.73 sqM) Est GFR (CKD-EPI)NonAf (>60 ml/min/1.73 sqM) Glucose (74-99) mg/dL Plasma Lactic Acid Segun 2.1 H* (0.7-2.0) mmol/L Calcium (8.4-10.2) mg/dL Magnesium (1.6-2.3) mg/dL Total Bilirubin (0.2-1.3) mg/dL AST (17-59) U/L ALT (4-49) U/L Alkaline Phosphatase (38-126) U/L Creatine Kinase (55-170) U/L Troponin I 0.384 H* (0.000-0.034) ng/mL NT-Pro-B Natriuret Pep 1570 pg/mL Total Protein (6.3-8.2) g/dL Albumin (3.5-5.0) g/dL - EKG Data -: EKG Interpreted by Me EKG shows normal: sinus rhythm EKG Comments: EKG shows sinus rhythm a 97 appear interval 136 QRS duration 82 QT since QTC 356/[address]-T wave changes are seen. - Radiology Data Radiology results: report reviewed (I did review the imaging and report is evidence of left side pulmonary embolism.), image reviewed Critical Care Time Critical Care Time: Yes Critical Care Time: 40 minutes of critical care time which includes initial presentation with history physical labs x-rays multiple reevaluation to responsive therapy and to discuss the findings with the multiple family members. I also discussed case with Dr. Montiel. Also Dr. Reyna. Disposition Clinical Impression: Pulmonary embolism on left, Metastatic non-small cell lung cancer, Non-STEMI (n on-ST elevated myocardial infarction) Disposition: ADMITTED IP TO THIS HOSP Condition: Fair Referrals: Jacinto Pandey MD [Primary Care Provider] - 1-2 days
[2019-07-31 15:11] LABS: D-Dimer 12.18 mg/L FEU (<0.60)
--- NOTE | 2019-07-31 16:16 | CT ---
EXAMINATION TYPE: CT angio chest DATE OF EXAM: 07/31/2019 COMPARISON: 07/14/2019 HISTORY: Shortness of breath. CT DLP: 346.5 mGycm CONTRAST: CT chest with contrast and 3D reconstruction with MIP imaging is performed with IV Contrast, patient injected with 100 mL of Isovue 370. Contrast-enhanced CT of the chest was performed through the course of the pulmonary arteries with marcie g and mediastinal window settings submitted. 3D reconstruction with MIP imaging was also performed. PULMONARY ARTERIES: There is thrombus noted within the distal left main pulmonary artery extending in to secondary and tertiary branches of the left upper and left lower lobes. No evidence for saddle com ponent. No right-sided PE seen at this time. LUNGS: Diffuse right-sided suprahilar prominence remains and has worsened from previous. This is enca sing the main bronchi on the right and narrowing the right middle lobe bronchus. There is diffuse int erstitial change within the right lung which May represent lymphangitic spread of carcinoma. There is mild atelectatic change at the left lung base. There are small, bilateral pleural effusions. There i s a stable, 9 mm pericardial effusion. MEDIASTINUM: There is mediastinal adenopathy, particularly in the aortopulmonary window. The largest of these measures 10.7 mm. HILAR STRUCTURES: No evidence for mass. No hilar lymph nodes greater than 1 cm. UPPER ABDOMEN: No significant abnormality is seen. IMPRESSION: 1. Interval development of left-sided pulmonary embolism as discussed above. 2. Stable opacity right suprahilar region with encasement and narrowing of the bronchi. Stable adenop athy since prior study.
[2019-07-31] MEDS ORDERED: ACETAMINOPHEN TAB 325 MG TAB PO PRN (17:39)
[2019-07-31] MEDS ORDERED: NALOXONE 0.4 MG/ML 1 ML VIAL IV PRN (17:39)
[2019-07-31] MEDS ORDERED: ALBUTEROL NEBULIZED 2.5 MG/3 ML INHALATION PRN (17:51)
--- NOTE | 2019-07-31 18:42 | P.HPIM ---
History of Present Illness Chief Complaint: Shortness of breath This is a very pleasant 79-year-old male who was unfortunately diagnosed with metastatic lung adenocarcinoma about a week ago after episode of protracted cough. He was today his oncologist office to discuss plan of care when it was noted that he is shortness of breath is worse than usual and he was sent to emergency department. He underwent CT angiogram of the chest that showed left main pulmonary artery embolus and also redemonstrated previously diagnosed lung cancer. Patient himself was slightly hypoxic emergency department but improved significantly with 2 L of nasal cannula. His blood pressure was stable without tachycardia. He had elevated troponin and lactic acid and proBNP. Currently he appears comfortable he has dry cough he denies any expectoration fever chills or malaise. He states that he has chronic shortness of breath that actually worsened over the last 1 week. Review of Systems Review of system was performed and is negative except mentioned in HPI Past Medical History Past Medical History: Cancer, GERD/Reflux, Hyperlipidemia, Prostate Disorder Additional Past Medical History / Comment(s): Prostate cancer with surgery (2012) & radiation tx spring 2017, lung CA History of Any Multi-Drug Resistant Organisms: None Reported Past Surgical History: Appendectomy, Joint Replacement, Prostate Surgery Additional Past Surgical History / Comment(s): TOTAL LEFT KNEE, EGD, colonoscopy. Past Anesthesia/Blood Transfusion Reactions: Motion Sickness Past Psychological History: Anxiety Smoking Status: Former smoker Past Alcohol Use History: None Reported Past Drug Use History: None Reported - Past Family History Mother Family Medical History: No Reported History Additional Family Medical History / Comment(s): passed in her 90's Father Family Medical History: Coronary Artery Disease (CAD) Sister(s) Family Medical History: No Reported History Son(s) Family Medical History: No Reported History Daughter(s) Family Medical History: No Reported History Medications and Allergies Home Medications Medication Instructions Recorded Confirmed Type Atorvastatin [Lipitor] 20 mg PO HS 11/17/18 07/31/19 History Citalopram Hydrobromide [CeleXA] 20 mg PO DAILY 07/12/19 07/31/19 History Omeprazole 40 mg PO DAILY 07/31/19 07/31/19 History Allergies Allergy/AdvReac Type Severity Reaction Status Date / Time No Known Allergies Allergy Verified 07/31/19 16:23 Physical Exam Vitals: Vital Signs Pulse Resp BP Pulse Ox 07/31/19 17:18 86 16 115/76 99 07/31/19 14:28 92 07/31/19 14:19 98 07/31/19 14:12 22 07/31/19 13:37 73 91 H 111/71 97 Intake and Output 07/31/19 07/31/19 07/31/19 06:59 14:59 22:59 Other: Weight 75.296 kg Vital Signs: I have reviewed the vital signs. GENERAL: Emaciated, mild distress due to cough, cooperative Eyes: PERRL, extraoculry movements intact, clear conjunctiva Head: : Atraumatic external nose and ears, oropharyngeal mucosa is moist without lesions or exudates Neck: Symmetric, trachea midline, No thyromegaly, no masses or neck vain pulsation, no neck rigidity, with bilateral supraclavicular lymph nodes CVS: +S1/S2, No murmurs or gallops. Peripheral pulses 2+ and equal in all extre mities. RESP: Unlabored respiratory effort. Clear to auscultation bilaterally. Abdomen: Bowel sounds present in all 4 quadrants, Soft to palpation, Nontender/Nondistended, No hepatosplenomegaly, no hernias or masses, no CVA tnderness Musculoskeletal: Extremities w/o deformity, No cyanosis or clubbing, no joint swelling Skin: Warm, Dry. No rashes or lesions Neuro: switch adjuster II-XII grossly intact, motor strenght 5/5 i upper and lower extremities, no clonus, patellar DTRs 2+ and sympetrical Psych: Awake, Alert, & Oriented (AAO) x3 Appropriate mood and affect Results CBC & Chem 7: 07/31/19 14:03 07/31/19 14:03 Labs: Abnormal Lab Results - Last 24 Hours (Table) 07/31/19 07/31/19 07/31/19 Range/Units 14:03 14:03 14:03 Lymphocytes # 0.6 L (1.0-4.8) k/uL D-Dimer 12.18 H (<0.60) mg/L FEU BUN 24 H (9-20) mg/dL Glucose 102 H (74-99) mg/dL Plasma Lactic Acid Segun (0.7-2.0) mmol/L Troponin I (0.000-0.034) ng/mL 07/31/19 07/31/19 Range/Units 14:03 14:03 Lymphocytes # (1.0-4.8) k/uL D-Dimer (<0.60) mg/L FEU BUN (9-20) mg/dL Glucose (74-99) mg/dL Plasma Lactic Acid Segun 2.1 H* (0.7-2.0) mmol/L Troponin I 0.384 H* (0.000-0.034) ng/mL Assessment and Plan Assessment: 1. Pulmonary embolism 2. Acute hypoxic respiratory failure 3. Stage IV adenocarcinoma of the lung 4. COPD on Plan: We'll start patient on Lovenox, dose is discussed with pharmacist Discussed with the pulmonary critical care service for admission to stepdown unit Consultation to oncology Echocardiogram Trend troponin Repeat lactic acid Supplemental oxygen Bronchodilators when necessary anti-tussics Patient is a full code is surrogate decision maker 2 or more midnights stay expected Plan of care was discussed with the patient's family, daughter and son and the vital syndrome
--- NOTE | 2019-07-31 19:10 | P.CNPUL ---
History of Present Illness Consult date: 07/31/19 Reason for consult: dyspnea, pulmonary embolism History of present illness: A 79-year-old male patient who got recently diagnosed with stage IV adenocarcinoma of the lung. I saw him in consultation approximately 3 weeks ago here in the hospital. He has a right upper lobe mass in addition to bilateral supraclavicular lymphadenopathy and mediastinal lymphadenopathy. Further workup with a biopsy of the right upper lobe confirmed the diagnosis of adenocarcinoma. PET scan indicated metastatic disease. MRI of the brain was negative. The p atient was being worked up by oncology and he has not initiated his treatment yet and he was being considered for immunotherapy. At this point the patient started getting progressively more short of breath over the week and he was having difficulty with breathing especially with limited amount of activity. He was sent over to the emergency department by his oncologist as his breathing was getting worse in the CAT scan of the chest was done and showed pulmonary embolism in the distal left main pulmonary artery extending into the secondary and tertiary branches of the left upper lobe and the left lower lobe. No pulmonary embolism on the right. There was findings consistent with lung cancer including a mass in the right suprahilar area causing narrowing of the right upper lobe and the right middle lobe bronchus. There was also interstitial changes in the right lung consistent with lymphangitic spread. There was 9 mm pericardial effusion. noted the patient also has abnormalities lymphadenopathy. The patient was started on Lovenox. He has no tachycardia. No pleurisy. No hemoptysis. No calf pain or tenderness. No previous history of DVT or pulmonary embolism. He is currently on 2 L of oxygen by nasal cannula. Lactic acid was 2.1. Down to 1.5. Aggressive blood work are all within normal limits. He is able to speak in full sentences. Review of Systems Constitutional: Reports weakness and along with that he has diminished appetite and weight loss Eyes: denies as per HPI, denies blurred vision, denies bulging eye, denies decreased vision, denies diplopia, denies discharge, denies dry eye, denies irritation, denies itching, denies pain, denies photophobia, denies loss of peripheral vision, denies loss of vision, denies tunnel vision/blind spots Ears: deny: decreased hearing, ear discharge, earache, tinnitus Ears, nose, mouth and throat: Reports as per HPI Breasts: absent: as per HPI, gynecomastia Cardiovascular: Reports decreased exercise tolerance, Reports dyspnea on exertion Respiratory: Reports cough, Reports dyspnea, Reports wheezing, the patient reports worsening shortness of breath over the past 24 hours mainly and was progressively getting worse over the past 1 week. Gastrointestinal: Reports as per HPI Genitourinary: Reports as per HPI Musculoskeletal: Reports as per HPI Musculoskeletal: absent: ankle pain, ankle stiffness, ankle swelling, as per HPI, elbow pain, elbow stiffness, elbow swelling, foot pain, foot stiffness, f oot swelling, hand pain, hand stiffness, hand swelling, hip pain, hip stiffness, hip swelling, knee pain, knee stiffness, knee swelling, shoulder pain, shoulder stiffness, shoulder swelling, wrist pain, wrist stiffness, wrist swelling Integumentary: Reports as per HPI Neurological: Reports as per HPI Psychiatric: Reports as per HPI Endocrine: Reports as per HPI Hematologic/Lymphatic: Reports as per HPI Allergic/Immunologic: Reports as per HPI Past Medical History Past Medical History: Cancer, GERD/Reflux, Hyperlipidemia, Prostate Disorder Additional Past Medical History / Comment(s): Prostate cancer with surgery (2012) & radiation tx spring 2017, stage IV adenocarcinoma of the lung, COPD, hyperlipidemia History of Any Multi-Drug Resistant Organisms: None Reported Past Surgical History: Appendectomy, Joint Replacement, Prostate Surgery Additional Past Surgical History / Comment(s): TOTAL LEFT KNEE, EGD, colonoscopy. Past Anesthesia/Blood Transfusion Reactions: Motion Sickness Past Psychological History: Anxiety Smoking Status: Former smoker Past Alcohol Use History: None Reported Past Drug Use History: None Reported - Past Family History Mother Family Medical History: No Reported History Additional Family Medical History / Comment(s): passed in her 90's Father Family Medical History: Coronary Artery Disease (CAD) Sister(s) Family Medical History: No Reported History Son(s) Family Medical History: No Reported History Daughter(s) Family Medical History: No Reported History Medications and Allergies Home Medications Medication Instructions Recorded Confirmed Type Atorvastatin [Lipitor] 20 mg PO HS 11/17/18 07/31/19 History Citalopram Hydrobromide [CeleXA] 20 mg PO DAILY 07/12/19 07/31/19 History Omeprazole 40 mg PO DAILY 07/31/19 07/31/19 History Allergies Allergy/AdvReac Type Severity Reaction Status Date / Time No Known Allergies Allergy Verified 07/31/19 16:23 Physical Exam Vitals: Vital Signs Pulse Resp BP Pulse Ox 07/31/19 18:51 94 18 116/84 95 07/31/19 17:18 86 16 115/76 99 07/31/19 14:28 92 07/31/19 14:19 98 07/31/19 14:12 22 07/31/19 13:37 73 91 H 111/71 97 Intake and Output 07/31/19 07/31/19 07/31/19 06:59 14:59 22:59 Other: Weight 75.296 kg Gen. appearance, comfortable not in acute distress Head exam was generally normal. There was no scleral icterus or corneal arcus. Mucous membranes were moist. Neck examination reveals lymphadenopathy in his right supraclavicular area and the patient has several enlarged rubbery lymph nodes the largest probably measuring around 1-1-1/2 cm in size and a small lymph node in the left supraclavicular area. Lungs sounds are diminished and there is scattered expiratory wheezing throughout the lung mccracken bilaterally. Some few expiratory rhonchi and prolongation of exhalation phase of breathing. Cardiac exam revealed the PMI to be normally situated and sized. The rhythm was regular and no extrasystoles were noted during several minutes of auscultation. The first and second heart sounds were normal and physiologic splitting of the second heart sound was noted. There were no murmurs, rubs, clicks, or gallops. Abdominal exam revealed normal bowel sounds. The abdomen was soft, non-tender, and without masses, organomegaly, or appreciable enlargement of the abdominal aorta. Examination of the extremities revealed easily palpable radial, femoral and pedal pulses. There was no cyanosis, clubbing or edema. Examination of the skin revealed no evidence of significant rashes, suspicious appearing nevi or other concerning lesions. Neurologically is awake and alert and there is no focal neurological deficit. Examination of the skin revealed no evidence of significant rashes, suspicious appearing nevi or other concerning lesions. Results - Laboratory Findings CBC and BMP: 07/31/19 14:03 07/31/19 14:03 PT/INR, D-dimer PT 10.8 sec (9.0-12.0) 07/31/19 14: INR 1.0 (<1.2) 07/31/19 14:03 D-Dimer 12.18 mg/L FEU (<0.60) H 07/31/19 14:03 Abnormal lab findings: Abnormal Labs 07/31/19 07/31/19 07/31/19 14:03 14:03 14:03 Lymphocytes # 0.6 L D-Dimer 12.18 H BUN 24 H Glucose 102 H Plasma Lactic Acid Segun Troponin I 07/31/19 07/31/19 14:03 14:03 Lymphocytes # D-Dimer BUN Glucose Plasma Lactic Acid Segun 2.1 H* Troponin I 0.384 H* - Diagnostic Findings CT scan - chest: image reviewed Assessment and Plan Plan: 1 acute pulmonary embolism involving the left lung with secondary shortness of breath causing further worsening in his chronic dyspnea and further decompensation in his overall pulmonary status. Consider underlying DVT. The patient is likely hypercoagulable secondary to his underlying malignancy. 2 stage IV adenocarcinoma of the lung, recent diagnosis, treatment has not been initiated 3 acute hypoxic respiratory failure currently on 2 L of oxygen by nasal cannula 4 COPD 5 hyperlipidemia 6 prostate cancer 7 ex-smoker 8 troponin leak secondary to pulmonary embolism 9 mild lactic acidosis, improved Plan Agree on Lovenox 1 mg per KG every 12 hours Doppler of the lower extremities Echocardiogram in a.m. Oxygen therapy at 2 L per minute nasal cannula Bronchodilators We'll follow, NO NEED FOR ICU TRANSFER, THE PATIENT CAN GO TO MEDICAL FLOOR WITH TELEMETRY.
[2019-07-31] MEDS: ALBUTEROL NEBULIZED 2.5 MG/3 ML INHALATION SCH (20:56)
--- NOTE | 2019-07-31 22:02 | US ---
EXAMINATION TYPE: US venous doppler duplex LE DATE OF EXAM: 07/31/2019 9:51 PM COMPARISON: CT angio chest for suspected PE CLINICAL HISTORY: PE. PE. SIDE PERFORMED: Bilateral TECHNIQUE: The lower extremity deep venous system is examined utilizing real time linear array sonog patito with graded compression, doppler sonography and color-flow sonography. VESSELS IMAGED: External Iliac Vein (EIV) Common Femoral Vein Deep Femoral Vein Greater Saphenous Vein * Femoral Vein Popliteal Vein Small Saphenous Vein * Proximal Calf Veins (* superficial vessels) Right Leg: No evidence of DVT at this time in veins imaged from prox calf veins to EIV. Left Leg: No evidence of DVT at this time in veins imaged from prox calf veins to EIV. IMPRESSION: No evidence of deep venous thrombosis in both legs.
[2019-07-31] MEDS: ENOXAPARIN 80 MG/0.8 ML SYRINGE SQ SCH (22:18)
[2019-08-01] MEDS: BENZONATATE 100 MG CAP PO PRN ×2 (06:11→14:35)
[2019-08-01] MEDS: PANTOPRAZOLE 40 MG TABLET PO SCH (06:11)
[2019-08-01] MEDS: ALBUTEROL NEBULIZED 2.5 MG/3 ML INHALATION SCH ×2 (07:27→11:09)
[2019-08-01 08:30] LABS: African American GFR (CKD) >90 (>60 ml/min/1.73 sqM); Anion Gap 8 mmol/L; Blood Urea Nitrogen 27 mg/dL (9-20); Carbon Dioxide 24 mmol/L (22-30); Chloride 104 mmol/L (98-107); Glucose 122 mg/dL (74-99); Magnesium 2.2 mg/dL (1.6-2.3); Non-African American GFR(CKD) 82 (>60 ml/min/1.73 sqM); Potassium 5.3 mmol/L (3.5-5.1); Sodium 136 mmol/L (137-145)
[2019-08-01 09:04] LABS: Basophils % (A) 0 %; Eosinophils # (A) 0.1 k/uL (0-0.7); Eosinophils % (A) 1 %; HCT 47.4 % (39.0-53.0); HGB 15.3 gm/dL (13.0-17.5); Lymphocytes # (A) 0.3 k/uL (1.0-4.8); Lymphocytes % (A) 3 %; MCH 32.4 pg (25.0-35.0); MCHC 32.3 g/dL (31.0-37.0); MCV 100.2 fL (80.0-100.0); Mean Platelet Volume 7.9; Monocytes # (A) 0.3 k/uL (0-1.0); Monocytes % (A) 3 %; Neutrophils # (A) 9.4 k/uL (1.3-7.7); Neutrophils % (A) 93 %; Platelet Count 168 k/uL (150-450); RBC 4.73 m/uL (4.30-5.90); WBC 10.1 k/uL (3.8-10.6)
[2019-08-01] MEDS: ENOXAPARIN 80 MG/0.8 ML SYRINGE SQ SCH ×2 (09:32→20:05)
[2019-08-01] MEDS ORDERED: CYANOCOBALAMIN 1,000 MCG/ML 1 ML VIAL IM ONE (09:45)
[2019-08-01] MEDS: ALPRAZolam 0.25 MG TAB PO PRN ×2 (10:05→20:05)
--- NOTE | 2019-08-01 13:00 | ECHOF ---
Referral Reason:PE MEASUREMENTS -------- HEIGHT: 175.3 cm WEIGHT: 74.8 kg BP: 113/86 RVIDd: 3.8 cm (< 3.3) IVSd: 1.5 cm (0.6 - 1.1) LVIDd: 4.2 cm (3.9 - 5.3) LVPWd: 1.3 cm (0.6 - 1.1) IVSs: 1.7 cm LVIDs: 3.0 cm LVPWs: 1.4 cm Ao Diam: 3.6 cm (2.0 - 3.7) MV EXCURSION: 17.180 mm (> 18.000) MV EF SLOPE: 63 mm/s (70 - 150) EPSS: 0.2 cm MV E Matt: 0.60 m/s MV DecT: 206 ms MV A Matt: 0.57 m/s MV E/A Ratio: 1.05 RAP: 5.00 mmHg RVSP: 34.27 mmHg FINDINGS -------- Sinus rhythm. This was a technically adequate study. LV size, wall thickness and systolic function are normal, with an EF greater than 55%. The left cecily tricular size is normal. Overall left ventricular systolic function is normal with, an EF between 5 5 - 60 %. The right ventricle is moderately enlarged. The left atrial size is normal. The right atrial size is normal. There is mild aortic valve sclerosis. There is no evidence of aortic regurgitation. Mild mitral annular calcification present. Mild mitral regurgitation is present. Mild tricuspid regurgitation present. Right ventricular systolic pressure is normal at < 35 mmHg. There is mild pulmonary hypertension. The pulmonic valve was not well visualized. The aortic root size is normal. There is a small, generalized pericardial effusion present. CONCLUSIONS -------- 1. Sinus rhythm. 2. This was a technically adequate study. 3. LV size, wall thickness and systolic function are normal, with an EF greater than 55%. 4. The left ventricular size is normal. 5. Overall left ventricular systolic function is normal with, an EF between 55 - 60 %. 6. The right ventricle is moderately enlarged. 7. The left atrial size is normal. 8. The right atrial size is normal. 9. There is mild aortic valve sclerosis. 10. Mild mitral annular calcification present. 11. Mild mitral regurgitation is present. 12. Mild tricuspid regurgitation present. 13. Right ventricular systolic pressure is normal at < 35 mmHg. 14. There is mild pulmonary hypertension. 15. The pulmonic valve was not well visualized. 16. The aortic root size is normal. 17. There is a small, generalized pericardial effusion present. DIET AID: Shawanda Layton RDCS
[2019-08-01] MEDS: FOLIC ACID 1 MG TAB PO SCH (14:28)
[2019-08-01] MEDS: BENZOCAINE/MENTHOL LOZENG 1 EACH LOZENGE MUCOUS MEM PRN (14:35)
--- NOTE | 2019-08-01 15:24 | P.PN ---
Subjective Progress Note Date: 08/01/19 A 79-year-old male patient who got recently diagnosed with stage IV adenocarcinoma of the lung. I saw him in consultation approximately 3 weeks ago here in the hospital. He has a right upper lobe mass in addition to bilateral supraclavicular lymphadenopathy and mediastinal lymphadenopathy. Further workup with a biopsy of the right upper lobe confirmed the diagnosis of adenocarcinoma. PET scan indicated metastatic disease. MRI of the brain was negative. The patient was being worked up by oncology and he has not initiated his treatment yet and he was being considered for immunotherapy. At this point the patient started getting progressively more short of breath over the week and he was having difficulty with breathing especially with limited amount of activity. He was sent over to the emergency department by his oncologist as his breathing was getting worse in the CAT scan of the chest was done and showed pulmonary embolism in the distal left main pulmonary artery extending into the secondary and tertiary branches of the left upper lobe and the left lower lobe. No pulmonary embolism on the right. There was findings consistent with lung cancer including a mass in the right suprahilar area causing narrowing of the right upper lobe and the right middle lobe bronchus. There was also interstitial changes in the right lung consistent with lymphangitic spread. There was 9 mm pericardial effusion. noted the patient also has abnormalities lymphadenopathy. The patient was started on Lovenox. He has no tachycardia. No pleurisy. No hemoptysis. No calf pain or tenderness. No previous history of DVT or pulmonary embolism. He is currently on 2 L of oxygen by nasal cannula. Lactic acid was 2.1. Down to 1.5. Aggressive blood work are all within normal limits. He is able to speak in full sentences. On 08/01/2019 the patient is being seen for a follow-up. The patient is feeling essentially the same probably slightly better compared to yesterday. Still on oxygen 2 L per minute nasal cannula. The patient is on Lovenox 1 mg per KG twice a day injections regarding a new onset left-sided pulmonary embolism. Doppler lower extremity is been negative. The echo was within normal limits. Echo shows no right ventricular strain pattern with significant pulmonary. They LV function is within normal limits. Valvular function is normal limits. Objective - Vital Signs Vital signs: Vital Signs Temp 97.0 F L 08/01/19 12:00 Pulse 96 08/01/19 12:00 Resp 20 08/01/19 12:00 BP 96/73 08/01/19 12:00 Pulse Ox 94 L 08/01/19 12:00 Intake & Output 07/31/19 08/01/19 08/01/19 18:59 06:59 18:59 Weight 75.296 kg 75 kg Other: # Voids 1 # Bowel Movements 1 - Exam Gen. appearance, comfortable not in acute distress Head exam was generally normal. There was no scleral icterus or corneal arcus. Mucous membranes were moist. Neck examination reveals lymphadenopathy in his right supraclavicular area and the patient has several enlarged rubbery lymph nodes the largest probably measuring around 1-1-1/2 cm in size and a small lymph node in the left supraclavicular area. Lungs sounds are diminished and there is scattered expiratory wheezing throughout the lung mccracken bilaterally. Some few expiratory rhonchi and prolongation of exhalation phase of breathing. Cardiac exam revealed the PMI to be normally situated and sized. The rhythm was regular and no extrasystoles were noted during several minutes of auscultation. The first and second heart sounds were normal and physiologic splitting of the second heart sound was noted. There were no murmurs, rubs, clicks, or gallops. Abdominal exam revealed normal bowel sounds. The abdomen was soft, non-tender, and without masses, organomegaly, or appreciable enlargement of the abdominal aorta. Examination of the extremities revealed easily palpable radial, femoral and pedal pulses. There was no cyanosis, clubbing or edema. Examination of the skin revealed no evidence of significant rashes, suspicious appearing nevi or other concerning lesions. Neurologically is awake and alert and there is no focal neurological deficit. Examination of the skin revealed no evidence of significant rashes, suspicious appearing nevi or other concerning lesions. - Labs CBC & Chem 7: 08/01/19 07:35 08/01/19 07:35 Labs: Abnormal Lab Results - Last 24 Hours (Table) 07/31/19 07/31/19 07/31/19 Range/Units 14:03 14:03 14:03 MCV (80.0-100.0) fL Neutrophils # (1.3-7.7) k/uL Lymphocytes # 0.6 L (1.0-4.8) k/uL D-Dimer 12.18 H (<0.60) mg/L FEU Sodium (137-145) mmol/L Potassium (3.5-5.1) mmol/L BUN 24 H (9-20) mg/dL Glucose 102 H (74-99) mg/dL Plasma Lactic Acid Segun (0.7-2.0) mmol/L Troponin I (0.000-0.034) ng/mL 07/31/19 07/31/19 07/31/19 Range/Units 14:03 14:03 19:15 MCV (80.0-100.0) fL Neutrophils # (1.3-7.7) k/uL Lymphocytes # (1.0-4.8) k/uL D-Dimer (<0.60) mg/L FEU Sodium (137-145) mmol/L Potassium (3.5-5.1) mmol/L BUN (9-20) mg/dL Glucose (74-99) mg/dL Plasma Lactic Acid Segun 2.1 H* (0.7-2.0) mmol/L Troponin I 0.384 H* 0.282 H* (0.000-0.034) ng/mL 08/01/19 08/01/19 Range/Units 07:35 07:35 MCV 100.2 H (80.0-100.0) fL Neutrophils # 9.4 H (1.3-7.7) k/uL Lymphocytes # 0.3 L (1.0-4.8) k/uL D-Dimer (<0.60) mg/L FEU Sodium 136 L (137-145) mmol/L Potassium 5.3 H (3.5-5.1) mmol/L BUN 27 H (9-20) mg/dL Glucose 122 H (74-99) mg/dL Plasma Lactic Acid Segun (0.7-2.0) mmol/L Troponin I (0.000-0.034) ng/mL Assessment and Plan Plan: 1 acute pulmonary embolism involving the left lung with secondary shortness of breath causing further worsening in his chronic dyspnea and further decompensation in his overall pulmonary status. Consider underlying DVT. The patient is likely hypercoagulable secondary to his underlying malignancy. 2 stage IV adenocarcinoma of the lung, recent diagnosis, treatment has not been initiated 3 acute hypoxic respiratory failure currently on 2 L of oxygen by nasal cannula 4 COPD 5 hyperlipidemia 6 prostate cancer 7 ex-smoker 8 troponin leak secondary to pulmonary embolism 9 mild lactic acidosis, improved Plan Doppler of the lower extremities negative. Echocardiogram also noted and there is no signs of any right-sided heart failure. Ejection fraction is within normal limits. Continue anticoagulation. Would like to put this patient on Xarelto on Eliquis time of discharge. We'll try to get authorization for this medication. We'll continue to follow.
[2019-08-01] MEDS: IPRATROPIUM-ALBUTEROL 3 ML NEB INHALATION SCH ×3 (15:49→23:21)
--- NOTE | 2019-08-01 20:12 | P.PN ---
Progress Note - Text Progress Note Date: 08/01/19 Presenting complaint: Short of breath Interval history: This is a pleasant 79-year-old patient of Dr. Jacinto Hermosillo. Was admitted here in in early July. Had a bronchoscopy. For lung mass. 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 Patient presents with increasing shortness of breath. Chest CTA confirmed left- sided palmar embolism. Started on Lovenox. Patient also has a cough. Today-feels a bit tired. Decreased appetite. On Lovenox. Some shortness of breath. Review of systems: Was done for constitutional, cardiovascular, GI, pulmonary. relevant finding as above Active Medications Acetaminophen (Tylenol Tab) 650 mg PO Q6HR PRN PRN Reason: Mild Pain or Fever > 100.5 Albuterol/Ipratropium (Duoneb 0.5 Mg-3 Mg/3 Ml Soln) 3 ml INHALATION RT-QID [facility] Last Admin: 08/01/19 19:13 Dose: 3 ml Documented by: Alprazolam (Xanax) 0.25 mg PO BID PRN PRN Reason: Anxiety Last Admin: 08/01/19 10:05 Dose: 0.25 mg Documented by: Benzocaine/Menthol (Cepacol Lozenge) 1 each MUCOUS MEM Q4HR PRN PRN Reason: Sore Throat Last Admin: 08/01/19 14:35 Dose: 1 each Documented by: Benzonatate (Tessalon Perles) 100 mg PO TID PRN PRN Reason: Cough Last Admin: 08/01/19 14:35 Dose: 100 mg Documented by: Enoxaparin Sodium (Lovenox) 75 mg SQ Q12HR [facility] Last Admin: 08/01/19 09:32 Dose: 75 mg Documented by: Folic Acid (Folic Acid) 1 mg PO DAILY [facility] Last Admin: 08/01/19 14:28 Dose: 1 mg Documented by: Naloxone HCl (Narcan) 0.2 mg IV Q2M PRN PRN Reason: Opioid Reversal Pantoprazole Sodium (Protonix) 40 mg PO AC-BRKFST [facility] Last Admin: 08/01/19 06:11 Dose: 40 mg Documented by: Physical examination: VITAL SIGNS: 97, 96, 20, 96/73, 94% on 2.5 L GENERAL: Sitting up tired, short of breath EYES: Pupils equal. Conjunctiva normal. HEENT: External appearance of nose and ears normal, oral cavity grossly normal. Decreased hearing NECK: JVD not raised; masses not palpable. HEART: First and second heart sounds are normal; no edema. LUNGS: Respiratory rate increased, decreased breath sounds posteriorly. Some wheezing ABDOMEN: Soft, nontender, liver spleen not palpable, no masses palpable. PSYCH: Alert and oriented x3; mood and affect normal. LYMPHATICS: supraclavicular lymph nodes palpable on both sides MUSCULOSKELETAL: Evidence of OA especially in the hands INVESTIGATIONS, reviewed in the clinical context: White count 10.1 hemoglobin 15.3 potassium 5.3 creatinine 0.87 Previous testing: Troponin I 0.282 2-D echo-EF 55-60%, right ventricular pressures normal CT angios a chest-encasing the main bronchi of the right and narrowing the right middle lobe bronchus. Diffuse his interstitial changes in the right lung. Small bilateral pleural effusion adenopathy in the mediastinum present. Thrombus in the distal left main pulmonary artery extending into the secondary and tertiary branches of the left upper and left lower lobes. Assessment: -Acute pulmonary embolism, and the distal left main pulmonary artery extending into the secondary and tertiary branches, slow to respond, patient should short of breath -Poorly differentiated adenocarcinoma of the lung, pending chemotherapy -Hyperkalemia -Acute COPD exacerbation in an ex-smoker Plan: DuoNeb as been added. We'll also add inhaled steroids. Other medications to continue. Lovenox for DVT prophylaxis. Patient is concerned about his functional status. We'll get PTOT involved. 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 Care was discussed with the patient. Oncology is already. Following the patient. And patient was due to start treatment shortly.
--- NOTE | 2019-08-01 22:53 | P.CONS ---
History of Present Illness - Reason for Consult Consult date: 08/01/19 Lung ca, PE - History of Present Illness Mr Varghese is a pleasant white male, with overall minor and well-controlled medical problems. The patient had routine labs done on 05/30/18 with his PCP, revealing hemoglobin of 17, with MCV 102 and MCH 34.5. Other CBC indices were within normal limits. Patient's hemoglobin had been borderline high since 09/18 at least, when it had been 17.1. On 05/20/18 it had been 16.4 with MCV 101.5. Other labs on 05/29/18 showed reticulocyte percentage to be 1.51, high B12 and folate. He was thus referred here for further evaluation and recommendation The patient quit smoking in 1972. He does use chewing tobacco off and on. No history of any chronic lung disease, or heart disease. No family history of any blood related problems. He denied any history of testosterone use. He had extensive w/u including gene testing , epo level, Hgb EP, and CO levels, which were all WNL. 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 Since early 06/21 he had been having episodes of cough, chest congestion, and increasing shortness of breath with wheezing. He was seen by his primary care physician and given a course of antibiotic and steroid with an outpatient chest x-ray felt to represent pneumonia. The patient however did not improve, and came into the hospital. Due to persistent symptoms he had a CT scan of the chest done on 07/09/19 that showed extensive consolidation in the right hilar and suprahilar area with encasement of the right mainstem, right upper lobe and segmental bronchi, and bronchus intermedius. He also had mediastinal adenopathy with the largest in the left hilar area measuring 1.6 cm. The patient was seen by pulmonary medicine, Dr. Reyna, and had a bronchoscopy on 07/14/19. This revealed evidence of compression an endobronchial lesion in the right upper lobe bronchi. Biopsies were positive for adenocarcinoma. The patient was therefore referred here. He had a PET scan done which showed uptake in the large right suprahilar medial mass measuring 8.7 x 3.5 cm. Other areas of uptake included left posterior cervical node, 9 x 7 mm with SUV 3.27, node posterior to the clavicle near thyroid gland with a CBC 0.38, multiple mediastinal nodes, including AP window by 1 cm, bilateral hilar nodes the left one measuring 1.8-1.4 cm with SUV of 5.42, along with likely abnormal right hilar adenopathy. In addition p rominent but subcentimeter prevascular and paratracheal nodes were also seen. Subcarinal node was enlarged but a metabolic. There was a paraesophageal node just above the diaphragm, 1.2 x 0.7 cm with SUV of 2.98. In addition there was a single suspicious node posterior to the IVC in the upper abdomen measuring 1.4 x 0.5 cm. No other areas of uptake were seen. The patient had a history of smoking about a pack a day for about 20 years, but quit in 1973. He did have subsequent secondhand smoking history for approximately on the 20 years after that from his . MRI of the brain was negative His case was discussed in the [facility] thoracic M[facility]. The upper abdominal node was felt to be borderline, but the paraesophageal notable definitely felt to be suspicious . Case was discussed with radiation oncology. The conclusion was thus, that the patient did seem to have distant disease, but probably limited He had noted marked increase in shortness of breath, as well as upper chest pressure over the last several hours, when seen in the office on 07/31/19. He was c/o increased weakness, and marked decrease in appetite. He was sent into the ER, and case d/w the ER physician in detail. He was found to have elevated troponins , and subsequently EDGAR PE on CTA. He was thus admitted for further management and consult placed. Review of Systems Constitutional: Reports fatigue, Reports poor appetite, Reports weakness Eyes: denies blurred vision, denies pain Ears: deny: decreased hearing, ear discharge, earache, tinnitus Ears, nose, mouth and throat: Denies headache, Denies sore throat Cardiovascular: Reports chest pain, Reports palpitations, Reports shortness of breath Respiratory: Reports cough with sputum, Reports dyspnea Gastrointestinal: Denies abdominal pain, Denies diarrhea, Denies nausea, Denies vomiting Genitourinary: Reports as per HPI Musculoskeletal: Reports muscle weakness Integumentary: Denies pruritus, Denies rash Neurological: Reports weakness Psychiatric: Reports anxiety Endocrine: Reports fatigue Hematologic/Lymphatic: Reports as per HPI Past Medical History Past Medical History: Cancer, GERD/Reflux, Hyperlipidemia, Prostate Disorder Additional Past Medical History / Comment(s): Prostate cancer with surgery (2012) & radiation tx spring 2017, stage IV adenocarcinoma of the lung- diagnosed 3 weeks ago, COPD, hyperlipidemia History of Any Multi-Drug Resistant Organisms: None Reported Past Surgical History: Appendectomy, Joint Replacement, Prostate Surgery Additional Past Surgical History / Comment(s): TOTAL LEFT KNEE, EGD, colonoscopy. Past Anesthesia/Blood Transfusion Reactions: Motion Sickness Smoking Status: Never smoker Past Alcohol Use History: None Reported Additional Past Alcohol Use History / Comment(s): QUIT SMOKING 1979, SMOKED 1 PPD, SMOKED 20-25 YEARS. Past Drug Use History: None Reported - Past Family History Mother Family Medical History: No Reported History Additional Family Medical History / Comment(s): passed in her 90's Father Family Medical History: Coronary Artery Disease (CAD) Sister(s) Family Medical History: No Reported History Son(s) Family Medical History: No Reported History Daughter(s) Family Medical History: No Reported History Medications and Allergies Home Medications Medication Instructions Recorded Confirmed Type Atorvastatin [Lipitor] 20 mg PO HS 11/17/18 07/31/19 History Citalopram Hydrobromide [CeleXA] 20 mg PO DAILY 07/12/19 07/31/19 History Omeprazole 40 mg PO DAILY 07/31/19 07/31/19 History Folic Acid 1 mg PO DAILY #90 tablet 08/01/19 Rx Rivaroxaban [Xarelto Starter Pack] 0 mg PO DIRECTED 30 Days #1 pack 08/01/19 Rx Allergies Allergy/AdvReac Type Severity Reaction Status Date / Time No Known Allergies Allergy Verified 07/31/19 16:23 Physical Exam Vitals: Vital Signs Temp Pulse Pulse Resp BP BP Pulse Ox 08/01/19 12:00 97.0 F L 96 20 96/73 94 L 08/01/19 11:18 89 08/01/19 11:09 90 08/01/19 08:00 96.9 F L 100 26 H 133/78 97 08/01/19 07:38 88 08/01/19 07:27 90 08/01/19 04:00 97.2 F L 89 16 113/86 94 L 07/31/19 23:30 97.6 F 96 16 117/79 93 L 07/31/19 21:09 94 16 07/31/19 20:57 97.0 F L 96 19 122/76 95 07/31/19 20:56 97 16 95 07/31/19 20:46 97.0 F L 96 18 122/76 95 07/31/19 18:51 94 18 116/84 95 07/31/19 17:18 86 16 115/76 99 07/31/19 14:28 92 07/31/19 14:19 98 07/31/19 14:12 22 07/31/19 13:37 73 91 H 111/71 97 Intake and Output 07/31/19 08/01/19 08/01/19 22:59 06:59 14:59 Other: # Voids 1 # Bowel Movements 1 Weight 75 kg - Constitutional General appearance: mild distress - EENT Eyes: EOMI, PERRLA ENT: hearing grossly normal, normal oropharynx - Neck Neck: no lymphadenopathy Thyroid: bilateral: normal size - Respiratory Respiratory: bilateral: diminished, prolonged expiration - Cardiovascular Rhythm: regular Heart sounds: normal: S1, S2 - Gastrointestinal General gastrointestinal: normal bowel sounds, soft - Integumentary Integumentary: normal - Neurologic Neurologic: CNII-XII intact - Musculoskeletal Musculoskeletal: generalized weakness, strength equal bilaterally - Psychiatric Psychiatric: A&O x's 3, appropriate affect Results CBC & Chem 7: 08/01/19 07:35 08/01/19 07:35 Labs: Abnormal Lab Results - Last 24 Hours (Table) 07/31/19 07/31/19 07/31/19 Range/Units 14:03 14:03 14:03 MCV (80.0-100.0) fL Neutrophils # (1.3-7.7) k/uL Lymphocytes # 0.6 L (1.0-4.8) k/uL D-Dimer 12.18 H (<0.60) mg/L FEU Sodium (137-145) mmol/L Potassium (3.5-5.1) mmol/L BUN 24 H (9-20) mg/dL Glucose 102 H (74-99) mg/dL Plasma Lactic Acid Segun (0.7-2.0) mmol/L Troponin I (0.000-0.034) ng/mL 07/31/19 07/31/19 07/31/19 Range/Units 14:03 14:03 19:15 MCV (80.0-100.0) fL Neutrophils # (1.3-7.7) k/uL Lymphocytes # (1.0-4.8) k/uL D-Dimer (<0.60) mg/L FEU Sodium (137-145) mmol/L Potassium (3.5-5.1) mmol/L BUN (9-20) mg/dL Glucose (74-99) mg/dL Plasma Lactic Acid Segun 2.1 H* (0.7-2.0) mmol/L Troponin I 0.384 H* 0.282 H* (0.000-0.034) ng/mL 08/01/19 08/01/19 Range/Units 07:35 07:35 MCV 100.2 H (80.0-100.0) fL Neutrophils # 9.4 H (1.3-7.7) k/uL Lymphocytes # 0.3 L (1.0-4.8) k/uL D-Dimer (<0.60) mg/L FEU Sodium 136 L (137-145) mmol/L Potassium 5.3 H (3.5-5.1) mmol/L BUN 27 H (9-20) mg/dL Glucose 122 H (74-99) mg/dL Plasma Lactic Acid Segun (0.7-2.0) mmol/L Troponin I (0.000-0.034) ng/mL Chest x-ray: report reviewed CT scan - chest: report reviewed Venous US: report reviewed Assessment and Plan (1) Pulmonary embolism on left Narrative/Plan: This appears to be the etiology of his new onset respiratory failures leading to his new symptoms, and this admission. The pt is still SOB, but improved, since starting Lovenox. Dopplers were negative. - Current choice of AC is appropriate. We will switch to one of the DOACs, depending on coverage, prior to discharge, based on efficacy data in cancer pts, as well as convenience. As the pt has advanced malignancy, he will need indefnite AC as long as he tolerates it well Current Visit: Yes Status: Acute Code(s): I26.99 - OTHER PULMONARY EMBOLISM WITHOUT ACUTE COR PULMONALE SNOMED Code(s): 22207778 (2) Non-STEMI (non-ST elevated myocardial infarction) Narrative/Plan: The pt had elevated troponins as noted, possibly due to rt heart strain from her PE, vs true NSTEMI. Cardiology on consult Current Visit: Yes Status: Acute Code(s): I21.4 - NON-ST ELEVATION (NSTEMI) MYOCARDIAL INFARCTION SNOMED Code(s): 16422400 (3) Metastatic non-small cell lung cancer Narrative/Plan: The pt has very limited metastatic disease ( 1 -2 sites only). After d/w Rad Onc it is felt that he can be a candidate for treatment with a curative intent. The plan is to start chemo with Carboplatin and Alimta ( + possibly Keytruda , depending on biomarkers) for about 4 cycles. If he has a good response, he would be considered for definitive RT to the involved sites. Plan d/w pt and family. He will be started on B12 IM, and folate Po in preparation for Alimta. He will start treatment post d/c, once acute condition is adequately resolved Current Visit: Yes Status: Acute Code(s): C34.90 - MALIGNANT NEOPLASM OF UNSP PART OF UNSP BRONCHUS OR LUNG SNOMED Code(s): 383946102
[2019-08-01] MEDS: BUDESONIDE 1 MG/2 ML NEBU INHALATION SCH (23:21)
[2019-08-02] MEDS: PANTOPRAZOLE 40 MG TABLET PO SCH (06:25)
[2019-08-02 07:09] LABS: Basophils % (A) 0 %; Eosinophils # (A) 0.1 k/uL (0-0.7); Eosinophils % (A) 1 %; Lymphocytes # (A) 0.7 k/uL (1.0-4.8); Lymphocytes % (A) 7 %; MCH 33.6 pg (25.0-35.0); MCHC 33.3 g/dL (31.0-37.0); MCV 100.8 fL (80.0-100.0); Macrocytosis Slight; Mean Platelet Volume 8.3; Monocytes # (A) 0.5 k/uL (0-1.0); Monocytes % (A) 5 %; Neutrophils % (A) 86 %; Platelet Count 166 k/uL (150-450); RBC 4.47 m/uL (4.30-5.90); RDW 13.2 % (11.5-15.5); WBC 9.3 k/uL (3.8-10.6)
[2019-08-02 07:23] LABS: Calcium 8.6 mg/dL (8.4-10.2); Magnesium 2.3 mg/dL (1.6-2.3); Potassium 4.6 mmol/L (3.5-5.1)
[2019-08-02] MEDS: IPRATROPIUM-ALBUTEROL 3 ML NEB INHALATION SCH ×4 (08:00→20:18)
[2019-08-02] MEDS: BUDESONIDE 1 MG/2 ML NEBU INHALATION SCH ×2 (08:01→20:18)
[2019-08-02] MEDS: BENZOCAINE/MENTHOL LOZENG 1 EACH LOZENGE MUCOUS MEM PRN (08:59)
[2019-08-02] MEDS: ENOXAPARIN 80 MG/0.8 ML SYRINGE SQ SCH (09:00)
[2019-08-02] MEDS: BENZONATATE 100 MG CAP PO PRN (09:00)
[2019-08-02] MEDS: ALPRAZolam 0.25 MG TAB PO PRN (09:00)
[2019-08-02] MEDS: FOLIC ACID 1 MG TAB PO SCH (09:00)
--- NOTE | 2019-08-02 10:11 | P.CRDCN ---
History of Present Illness History of present illness: This is Divine Gaytan PA-C dictating a consult on this patient The patient was interviewed and examined by me as well as by Dr. Yu Case discussed with Dr. Yu and he agrees with the plan of care HPI Patient is a 79-year-old male who was recently diagnosed with lung cancer and presented with shortness of breath. He is a patient of Dr. Yu. Patient has had a cough for the last month and has been undergoing workup and was recently found to have lung cancer. For the last week he has had progressively worsening shortness of breath especially on exertion. He was having difficulty climbing the stairs as he was so short of breath. Denied any chest pain, chest pressure, back pain, jaw pain, arm pain, palpitations, dizziness or syncope. Denies lower extremity edema. He was at Dr. Peguero's office and he continued to have these symptoms along with productive cough with clear phlegm so he was sent to the emergency department for further evaluation. EKG showed sinus mechanism with no acute ST or T-wave abnormalities. Chest CTA showed a left-sided pulmonary embolism. He has been started on IV Lovenox. Cardiology is consulted because he had an abnormal troponin. Patient seen and examined resting in bed. Continues to cough. States his breathing is about the same. Denies any chest pain, chest pressure, back pain, arm pain, neck pain, jaw pain. ROS: No fevers, chills or rigors, Positive for productive cough no nausea, vomiting or diarrhea, no hematuria, dysuria, no musculoskeletal complaints, no strokes or seizures, no skin lesions. EXAMINATION: Patient is afebrile, pulse in the 90s, respirations 18, blood pressure 113/72, oxygen saturation 95% on 3 L nasal cannula Patient seen and examined resting in bed, in no acute distress Lungs with few scattered rhonchi bilaterally Heart is regular, normal S1-S2, no audible murmurs No elevated JVD No lower extremity edema Abdomen soft and nontender to palpation REVIEW OF LABS, ECG & MEDICAL DATA WBC 9.3, hemoglobin 15.0, platelets 166, potassium 4.6, BUN 31, creatinine 0.95 Troponin 0.282, 0.34 Echocardiogram shows EF 55-60%, RV and large which is consistent with pulmonary embolism, mild generalized pericardial effusion Venous Doppler showed no evidence of DVT in both legs IMPRESSION / ASSESSMENT: Progressive worsening shortness of breath secondary to acute pulmonary embolism Abnormal troponins likely secondary to above, no EKG changes Recently diagnosed adenocarcinoma of the lung COPD Dyslipidemia Recent 2-D echo showing preserved LV systolic function, no regional wall motion abnormalities PLAN: No further cardiac workup at this time Management of multiple medical problems per primary care team and multiple consultants Past Medical History Past Medical History: Cancer, GERD/Reflux, Hyperlipidemia, Prostate Disorder Additional Past Medical History / Comment(s): Prostate cancer with surgery (2012) & radiation tx spring 2017, stage IV adenocarcinoma of the lung- diagnosed 3 weeks ago, COPD, hyperlipidemia History of Any Multi-Drug Resistant Organisms: None Reported Past Surgical History: Appendectomy, Joint Replacement, Prostate Surgery Additional Past Surgical History / Comment(s): TOTAL LEFT KNEE, EGD, colonoscopy. Past Anesthesia/Blood Transfusion Reactions: Motion Sickness Smoking Status: Never smoker Past Alcohol Use History: None Reported Additional Past Alcohol Use History / Comment(s): QUIT SMOKING 1979, SMOKED 1 PPD, SMOKED 20-25 YEARS. Past Drug Use History: None Reported - Past Family History Mother Family Medical History: No Reported History Additional Family Medical History / Comment(s): passed in her 90's Father Family Medical History: Coronary Artery Disease (CAD) Sister(s) Family Medical History: No Reported History Son(s) Family Medical History: No Reported History Daughter(s) Family Medical History: No Reported History Medications and Allergies Home Medications Medication Instructions Recorded Confirmed Type Atorvastatin [Lipitor] 20 mg PO HS 11/17/18 07/31/19 History Citalopram Hydrobromide [CeleXA] 20 mg PO DAILY 07/12/19 07/31/19 History Omeprazole 40 mg PO DAILY 07/31/19 07/31/19 History Folic Acid 1 mg PO DAILY #90 tablet 08/01/19 Rx Rivaroxaban [Xarelto Starter Pack] 0 mg PO DIRECTED 30 Days #1 pack 08/01/19 Rx Allergies Allergy/AdvReac Type Severity Reaction Status Date / Time No Known Allergies Allergy Verified 07/31/19 16:23 Physical Exam Vitals: Vital Signs Temp Pulse Pulse Resp BP Pulse Ox 08/02/19 08:18 92 08/02/19 08:03 90 95 08/02/19 03:10 98 F 73 18 113/72 93 L 08/01/19 23:10 98 F 84 20 108/71 93 L 08/01/19 19:50 97.8 F 95 24 109/54 94 L 08/01/19 19:26 90 08/01/19 19:15 88 08/01/19 16:06 92 08/01/19 15:51 88 95 08/01/19 14:19 96 18 107/72 95 08/01/19 12:00 97.0 F L 96 20 96/73 94 L 08/01/19 11:18 89 08/01/19 11:09 90 Intake and Output 08/01/19 08/02/19 08/02/19 22:59 06:59 14:59 Intake Total 120 225 Balance 120 225 Intake: Oral 120 225 Other: Weight 72.6 kg Results 08/02/19 06:10 08/02/19 06:10 CBC 08/02/19 Range/Units 06:10 WBC 9.3 (3.8-10.6) k/uL RBC 4.47 (4.30-5.90) m/uL Hgb 15.0 (13.0-17.5) gm/dL Hct 45.0 (39.0-53.0) % Plt Count 166 (150-450) k/uL Comprehensive Metabolic Panel 08/02/19 Range/Units 06:10 Sodium 139 (137-145) mmol/L Potassium 4.6 (3.5-5.1) mmol/L Chloride 108 H (98-107) mmol/L Carbon Dioxide 23 (22-30) mmol/L BUN 31 H (9-20) mg/dL Creatinine 0.95 (0.66-1.25) mg/dL Glucose 91 (74-99) mg/dL Calcium 8.6 (8.4-10.2) mg/dL Current Medications Generic Name Dose Route Start Last Admin Trade Name Freq PRN Reason Stop Dose Admin Acetaminophen 650 mg 07/31/19 17:39 Tylenol Tab PO Q6HR PRN Mild Pain or Fever > 100.5 Albuterol/Ipratropium 3 ml 08/01/19 14:00 08/02/19 08:00 Duoneb 0.5 Mg-3 Mg/3 Ml Soln INHALATION 3 ml RT-QID YASIR Administration Alprazolam 0.25 mg 08/01/19 09:44 08/02/19 09:00 Xanax PO 0.25 mg BID PRN Administration Anxiety Benzocaine/Menthol 1 each 07/31/19 17:39 08/02/19 08:59 Cepacol Lozenge MUCOUS MEM 1 each Q4HR PRN Administration Sore Throat Benzonatate 100 mg 07/31/19 18:36 08/02/19 09:00 Tessalon Perles PO 100 mg TID PRN Administration Cough Budesonide 1 mg 08/01/19 20:12 08/02/19 08:01 Pulmicort INHALATION 1 mg RT-BID YASIR Administration Enoxaparin Sodium 75 mg 07/31/19 21:00 08/02/19 09:00 Lovenox SQ 75 mg Q12HR YAS[facility] Administration Folic Acid 1 mg 08/01/19 09:45 08/02/19 09:00 Folic Acid PO 1 mg DAILY [facility] Administration Naloxone HCl 0.2 mg 07/31/19 17:39 Narcan IV Q2M PRN Opioid Reversal Pantoprazole Sodium 40 mg 08/01/19 07:30 08/02/19 06:25 Protonix PO 40 mg AC-BRKFST YASIR Administration Intake and Output 08/01/19 08/02/19 08/02/19 22:59 06:59 14:59 Intake Total 120 225 Balance 120 225 Intake: Oral 120 225 Other: Weight 72.6 kg 08/02/19 06:10 08/02/19 06:10
--- NOTE | 2019-08-02 12:11 | P.PN ---
Subjective Progress Note Date: 08/02/19 A 79-year-old male patient who got recently diagnosed with stage IV adenocarcinoma of the lung. I saw him in consultation approximately 3 weeks ago here in the hospital. He has a right upper lobe mass in addition to bilateral supraclavicular lymphadenopathy and mediastinal lymphadenopathy. Further workup with a biopsy of the right upper lobe confirmed the diagnosis of adenocarcinoma. PET scan indicated metastatic disease. MRI of the brain was negative. The patient was being worked up by oncology and he has not initiated his treatment yet and he was being considered for immunotherapy. At this point the patient started getting progressively more short of breath over the week and he was having difficulty with breathing especially with limited amount of activity. He was sent over to the emergency department by his oncologist as his breathing was getting worse in the CAT scan of the chest was done and showed pulmonary embolism in the distal left main pulmonary artery extending into the secondary and tertiary branches of the left upper lobe and the left lower lobe. No pulmonary embolism on the right. There was findings consistent with lung cancer including a mass in the right suprahilar area causing narrowing of the right upper lobe and the right middle lobe bronchus. There was also interstitial changes in the right lung consistent with lymphangitic spread. There was 9 mm pericardial effusion. noted the patient also has abnormalities lymphadenopathy. The patient was started on Lovenox. He has no tachycardia. No pleurisy. No hemoptysis. No calf pain or tenderness. No previous history of DVT or pulmonary embolism. He is currently on 2 L of oxygen by nasal cannula. Lactic acid was 2.1. Down to 1.5. Aggressive blood work are all within normal limits. He is able to speak in full sentences. On 08/01/2019 the patient is being seen for a follow-up. The patient is feeling essentially the same probably slightly better compared to yesterday. Still on oxygen 2 L per minute nasal cannula. The patient is on Lovenox 1 mg per KG twice a day injections regarding a new onset left-sided pulmonary embolism. Doppler lower extremity is been negative. The echo was within normal limits. Echo shows no right ventricular strain pattern with significant pulmonary. They LV function is within normal limits. Valvular function is normal limits. On 08/02/2019 and seeing the patient for a follow-up. He is anxious. He is weak. He desaturates with activity. He is unable to go home. The plan is to send him to rehabilitation. Note that he has stage IV non-small cell lung cancer in his prognosis is poor. There is very emotional and anxious as stated. He is on Lovenox regarding his new onset pulmonary embolism. The patient will be switched to Xarelto today and following that the Lovenox will be discontinued. Discharge planning is in progress. I'm not sure he'll be a good candidate systemic treatment regarding his lung cancer stage. Objective - Vital Signs Vital signs: Vital Signs Temp 98 F 08/02/19 03:10 Pulse 96 08/02/19 11:56 Resp 18 08/02/19 03:10 BP 113/72 08/02/19 03:10 Pulse Ox 95 08/02/19 08:03 Intake & Output 08/01/19 08/02/19 08/02/19 18:59 06:59 18:59 Intake Total 120 225 Output Total 100 Balance 20 225 Weight 72.6 kg Intake: Oral 120 225 Output: Urine 100 Other: # Bowel Movements 1 - Exam Gen. appearance, comfortable not in acute distress Head exam was generally normal. There was no scleral icterus or corneal arcus. Mucous membranes were moist. Neck examination reveals lymphadenopathy in his right supraclavicular area and the patient has several enlarged rubbery lymph nodes the largest probably measuring around 1-1-1/2 cm in size and a small lymph node in the left supraclavicular area. Lungs sounds are diminished and there is scattered expiratory wheezing throughout the lung mccracken bilaterally. Some few expiratory rhonchi and prolongation of exhalation phase of breathing. Cardiac exam revealed the PMI to be normally situated and sized. The rhythm was regular and no extrasystoles were noted during several minutes of auscultation. The first and second heart sounds were normal and physiologic splitting of the second heart sound was noted. There were no murmurs, rubs, clicks, or gallops. Abdominal exam revealed normal bowel sounds. The abdomen was soft, non-tender, and without masses, organomegaly, or appreciable enlargement of the abdominal aorta. Examination of the extremities revealed easily palpable radial, femoral and pedal pulses. There was no cyanosis, clubbing or edema. Examination of the skin revealed no evidence of significant rashes, suspicious appearing nevi or other concerning lesions. Neurologically is awake and alert and there is no focal neurological deficit. Examination of the skin revealed no evidence of significant rashes, suspicious appearing nevi or other concerning lesions. - Labs CBC & Chem 7: 08/02/19 06:10 08/02/19 06:10 Labs: Abnormal Lab Results - Last 24 Hours (Table) 08/02/19 08/02/19 Range/Units 06:10 06:10 MCV 100.8 H (80.0-100.0) fL Neutrophils # 8.0 H (1.3-7.7) k/uL Lymphocytes # 0.7 L (1.0-4.8) k/uL Chloride 108 H (98-107) mmol/L BUN 31 H (9-20) mg/dL Assessment and Plan Plan: 1 acute pulmonary embolism involving the left lung with secondary shortness of breath causing further worsening in his chronic dyspnea and further decompe nsation in his overall pulmonary status. Consider underlying DVT. The patient is likely hypercoagulable secondary to his underlying malignancy. 2 stage IV adenocarcinoma of the lung, recent diagnosis, treatment has not been initiated 3 acute hypoxic respiratory failure currently on 2 L of oxygen by nasal cannula 4 COPD 5 hyperlipidemia 6 prostate cancer 7 ex-smoker 8 troponin leak secondary to pulmonary embolism 9 mild lactic acidosis, improved Plan Doppler of the lower extremities negative. Echocardiogram also noted and there is no signs of any right-sided heart failure. Ejection fraction is within normal limits. Start Xarelto 50 mg twice a day for 3 weeks and then 20 mg by mouth daily Stop Lovenox Discharge planning is in progress to a rehabilitation Probably not a good candidate for systemic treatment based on progressive weakness and debility related to underlying stage IV lung cancer. We'll follow. Prognosis poor accordingly.
[2019-08-02] MEDS: RIVAROXABAN 15 MG TAB PO SCH ×2 (17:23→18:33)
--- NOTE | 2019-08-02 19:00 | P.PN ---
Progress Note - Text Progress Note Date: 08/02/19 Presenting complaint: Short of breath Interval history: This is a pleasant 79-year-old patient of Dr. Jacinto Hermosillo. Was admitted here in in early July. Had a bronchoscopy. For lung mass. 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 Patient presents with increasing shortness of breath. Chest CTA confirmed left- sided pulmonary embolism. Started on Lovenox. Patient also has a cough. Today-laying in bed. A bit tired. Breathing a bit better. Is being switched over to Xarelto. Review of systems: Was done for constitutional, cardiovascular, GI, pulmonary. relevant finding as above Active Medications Acetaminophen (Tylenol Tab) 650 mg PO Q6HR PRN PRN Reason: Mild Pain or Fever > 100.5 Albuterol/Ipratropium (Duoneb 0.5 Mg-3 Mg/3 Ml Soln) 3 ml INHALATION RT-QID [facility] Last Admin: 08/02/19 16:26 Dose: 3 ml Documented by: Alprazolam (Xanax) 0.25 mg PO BID PRN PRN Reason: Anxiety Last Admin: 08/02/19 09:00 Dose: 0.25 mg Documented by: Benzocaine/Menthol (Cepacol Lozenge) 1 each MUCOUS MEM Q4HR PRN PRN Reason: Sore Throat Last Admin: 08/02/19 08:59 Dose: 1 each Documented by: Benzonatate (Tessalon Perles) 100 mg PO TID PRN PRN Reason: Cough Last Admin: 08/02/19 09:00 Dose: 100 mg Documented by: Budesonide (Pulmicort) 1 mg INHALATION RT-BID [facility] Last Admin: 08/02/19 08:01 Dose: 1 mg Documented by: Folic Acid (Folic Acid) 1 mg PO DAILY [facility] Last Admin: 08/02/19 09:00 Dose: 1 mg Documented by: Naloxone HCl (Narcan) 0.2 mg IV Q2M PRN PRN Reason: Opioid Reversal Pantoprazole Sodium (Protonix) 40 mg PO AC-BRKFST [facility] Last Admin: 08/02/19 06:25 Dose: 40 mg Documented by: Rivaroxaban (Xarelto) 15 mg PO BID-W/MEALS [facility] Last Admin: 08/02/19 18:33 Dose: 15 mg Documented by: Physical examination: VITAL SIGNS: 98, 96, 18, 135/74, 95% on 2 L GENERAL: Propped up in bed, less short of breath. EYES: Pupils equal. Conjunctiva normal. HEENT: External appearance of nose and ears normal, oral cavity grossly normal. Decreased hearing NECK: JVD not raised; masses not palpable. HEART: First and second heart sounds are normal; no edema. LUNGS: Respiratory rate increased, decreased breath sounds posteriorly. Some wheezing ABDOMEN: Soft, nontender, liver spleen not palpable, no masses palpable. PSYCH: Alert and oriented x3; mood and affect normal. LYMPHATICS: supraclavicular lymph nodes palpable on both sides MUSCULOSKELETAL: Evidence of OA especially in the hands INVESTIGATIONS, reviewed in the clinical context: White count 9.3 hemoglobin 15 potassium 4.6 creatinine 0.95 Previous testing: Troponin I 0.282 2-D echo-EF 55-60%, right ventricular pressures normal CT angios a chest-encasing the main bronchi of the right and narrowing the right middle lobe bronchus. Diffuse his interstitial changes in the right lung. Small bilateral pleural effusion adenopathy in the mediastinum present. Thrombus in the distal left main pulmonary artery extending into the secondary and tertiary branches of the left upper and left lower lobes. Assessment: -Acute pulmonary embolism, and the distal left main pulmonary artery extending into the secondary and tertiary branches, slow to respond, patient should short of breath -Poorly differentiated adenocarcinoma of the lung,- for radiation and chemotherapy when patient stable from acute PE. -Hyperkalemia -Acute COPD exacerbation in an ex-smoker -Troponin leak from acute PE. No evidence of acute coronary syndrome. Plan: Continue current medication treatment. Patient has been switched over to to Xarelto. Awaiting placement at [facility]. We also will consult Dr. Wu for rehab. Care was discussed with the patient and Dr. Reyna.
--- NOTE | 2019-08-03 06:24 | P.CONS ---
History of Present Illness - Chief Complaint Medical debility - History of Present Illness I had the opportunity to see patient for inpatient rehab consultation with regard to medical debility. He was admitted to [facility] July 31 with shortness of breath and recently diagnosed pulmonary cancer, metastatic and no CVA. Admitted by Dr. Pickett and seen by Dr. Reyna who notes right upper lobe mass and left side PE. Seen by Dr. Peguero for same. Also seen by cardiology. Workup includes venous Doppler which was negative right and left leg. CTA consistent with a left PE and a right-sided lung mass. OT reports supervision for upper dressing, moderate assistance for lower dressing and minimal kade tance for bathing and functional debility and transfers. Previous functional history as elicited from patient: 79-year-old right-handed white male who is lives and 2 floor home with . on oxygen. Patient retired. does most of the cooking. They share the laundry. Patient independent with driving, standing shower, gait without device. PMD Dr. Pandey. Denies tobacco or alcohol. Family history father with cardiac disease. Review of Systems Review of systems: ENT: Denies sneezes or discharge. Eyes: Denies discharge or photophobia. Cardiac: Denies chest pain or palpitation. Pulmonary: Denies cough or shortness of breath. Gastrointestinal: Denies nausea, emesis, constipation, diarrhea. Genitourinary: Denies discharge or frequency. Musculoskeletal: Denies muscle or bone aches. Neurologic: Denies motor or sensory change. Endocrine: Denies shakes or sweats. Oncology: Denies cancers. Dermatologic: Denies rash, itching, pruritus. ALLERGY/immunology: Denies sneezes, rashes. Past Medical History Past Medical History: Cancer, GERD/Reflux, Hyperlipidemia, Prostate Disorder Additional Past Medical History / Comment(s): Prostate cancer with surgery (2012) & radiation tx spring 2017, stage IV adenocarcinoma of the lung- diagnosed 3 weeks ago, COPD, hyperlipidemia History of Any Multi-Drug Resistant Organisms: None Reported Past Surgical History: Appendectomy, Joint Replacement, Prostate Surgery Additional Past Surgical History / Comment(s): TOTAL LEFT KNEE, EGD, colonoscopy. Past Anesthesia/Blood Transfusion Reactions: Motion Sickness Smoking Status: Never smoker Past Alcohol Use History: None Reported Additional Past Alcohol Use History / Comment(s): QUIT SMOKING 1979, SMOKED 1 PPD, SMOKED 20-25 YEARS. Past Drug Use History: None Reported - Past Family History Mother Family Medical History: No Reported History Additional Family Medical History / Comment(s): passed in her 90's Father Family Medical History: Coronary Artery Disease (CAD) Sister(s) Family Medical History: No Reported History Son(s) Family Medical History: No Reported History Daughter(s) Family Medical History: No Reported History Medications and Allergies Home Medications Medication Instructions Recorded Confirmed Type Atorvastatin [Lipitor] 20 mg PO HS 11/17/18 07/31/19 History Citalopram Hydrobromide [CeleXA] 20 mg PO DAILY 07/12/19 07/31/19 History Omeprazole 40 mg PO DAILY 07/31/19 07/31/19 History Folic Acid 1 mg PO DAILY #90 tablet 08/01/19 Rx Rivaroxaban [Xarelto Starter Pack] 0 mg PO DIRECTED 30 Days #1 pack 08/01/19 Rx Allergies Allergy/AdvReac Type Severity Reaction Status Date / Time No Known Allergies Allergy Verified 07/31/19 16:23 Physical Exam Vitals: Vital Signs Temp Pulse Pulse Resp BP Pulse Ox 08/03/19 03:30 98.3 F 84 18 115/68 94 L 08/02/19 23:30 97.7 F 90 18 114/67 93 L 08/02/19 20:28 88 08/02/19 20:18 86 08/02/19 19:56 97.9 F 90 22 106/64 95 08/02/19 19:35 22 08/02/19 16:39 86 08/02/19 16:26 88 08/02/19 16:00 97.7 F 99 18 114/64 98 08/02/19 12:00 98.0 F 96 18 135/74 95 08/02/19 11:56 96 08/02/19 11:42 88 08/02/19 08:18 92 08/02/19 08:03 90 95 08/02/19 08:00 98.1 F 88 20 107/64 96 Intake and Output 08/02/19 08/02/19 08/03/19 14:59 22:59 06:59 Intake Total 447 80 Balance 447 80 Intake: Oral 447 80 Other: # Voids 3 Weight 72.9 kg Skin: Atrophic, intact. General: Medium build and comfortable appearance. Head: Normocephalic, atraumatic. Eyes: Symmetric. Pupils equal round. Ears: Symmetric. Hearing within normal limits. Mouth: Clear. Neck: Supple. Carotid without bruit. Cardiac: Regular rate and rhythm. Lungs: Clear anteriorly and posteriorly. Abdomen: Soft active nontender. Extremities: Normal tone. Neurological: Mental status: Alert, cooperative, pleasant. Perhaps mildly confused this a.m. Cranial nerves: Symmetric facial tone and trapezius. Motor: Normal strength and isolation all 4 limbs. Sensation: Intact throughout. DTRs: Symmetric and equal throughout. Mobility: Did not attempt to sit or stand this early a.m. Results CBC & Chem 7: 08/02/19 06:10 08/02/19 06:10 Labs: Abnormal Lab Results - Last 24 Hours (Table) 08/02/19 08/02/19 Range/Units 06:10 06:10 MCV 100.8 H (80.0-100.0) fL Neutrophils # 8.0 H (1.3-7.7) k/uL Lymphocytes # 0.7 L (1.0-4.8) k/uL Chloride 108 H (98-107) mmol/L BUN 31 H (9-20) mg/dL Assessment and Plan (1) Metastatic non-small cell lung cancer Current Visit: Yes Status: Acute Code(s): C34.90 - MALIGNANT NEOPLASM OF UNSP PART OF UNSP BRONCHUS OR LUNG SNOMED Code(s): 273777315 (2) Non-STEMI (non-ST elevated myocardial infarction) Current Visit: Yes Status: Acute Code(s): I21.4 - NON-ST ELEVATION (NSTEMI) MYOCARDIAL INFARCTION SNOMED Code(s): 72019334 (3) Pulmonary embolism on left Current Visit: Yes Status: Acute Code(s): I26.99 - OTHER PULMONARY EMBOLISM WITHOUT ACUTE COR PULMONALE SNOMED Code(s): 98355737 Plan: Impression: 1. Medical debility. 2. Pulmonary and no CVA, metastatic. 3. Non-STEMI. 4. Left-sided PE. 5. Dyslipidemia. 6. GERD. Comes and plan: At this time OT ongoing in PT prescribed. Follow therapies with yourself. I discussed possible inpatient rehab with patient.
[2019-08-03] MEDS: PANTOPRAZOLE 40 MG TABLET PO SCH (06:29)
[2019-08-03] MEDS: RIVAROXABAN 15 MG TAB PO SCH ×2 (06:29→17:26)
[2019-08-03 06:36] LABS: Basophils % (A) 0 %; Eosinophils # (A) 0.1 k/uL (0-0.7); Eosinophils % (A) 2 %; HGB 14.2 gm/dL (13.0-17.5); Lymphocytes # (A) 0.5 k/uL (1.0-4.8); Lymphocytes % (A) 8 %; MCH 32.2 pg (25.0-35.0); MCHC 32.2 g/dL (31.0-37.0); MCV 100.2 fL (80.0-100.0); Monocytes # (A) 0.3 k/uL (0-1.0); Monocytes % (A) 5 %; Neutrophils # (A) 5.2 k/uL (1.3-7.7); Neutrophils % (A) 84 %; Platelet Count 173 k/uL (150-450); RBC 4.39 m/uL (4.30-5.90); RDW 13.2 % (11.5-15.5); WBC 6.2 k/uL (3.8-10.6)
[2019-08-03 06:58] LABS: African American GFR (CKD) >90 (>60 ml/min/1.73 sqM); Anion Gap 7 mmol/L; Blood Urea Nitrogen 28 mg/dL (9-20); Calcium 8.1 mg/dL (8.4-10.2); Carbon Dioxide 23 mmol/L (22-30); Chloride 107 mmol/L (98-107); Glucose 91 mg/dL (74-99); Magnesium 2.2 mg/dL (1.6-2.3); Non-African American GFR(CKD) 83 (>60 ml/min/1.73 sqM); Potassium 4.4 mmol/L (3.5-5.1); Sodium 137 mmol/L (137-145)
[2019-08-03] MEDS: ALPRAZolam 0.25 MG TAB PO PRN (08:48)
[2019-08-03] MEDS: FOLIC ACID 1 MG TAB PO SCH (08:48)
[2019-08-03] MEDS: BUDESONIDE 1 MG/2 ML NEBU INHALATION SCH (08:49)
[2019-08-03] MEDS: IPRATROPIUM-ALBUTEROL 3 ML NEB INHALATION SCH ×3 (08:49→16:25)
--- NOTE | 2019-08-03 13:44 | P.PN ---
Subjective Progress Note Date: 08/03/19 A 79-year-old male patient who got recently diagnosed with stage IV adenocarcinoma of the lung. I saw him in consultation approximately 3 weeks ago here in the hospital. He has a right upper lobe mass in addition to bilateral supraclavicular lymphadenopathy and mediastinal lymphadenopathy. Further workup with a biopsy of the right upper lobe confirmed the diagnosis of adenocarcinoma. PET scan indicated metastatic disease. MRI of the brain was negative. The patient was being worked up by oncology and he has not initiated his treatment yet and he was being considered for immunotherapy. At this point the patient started getting progressively more short of breath over the week and he was having difficulty with breathing especially with limited amount of activity. He was sent over to the emergency department by his oncologist as his breathing was getting worse in the CAT scan of the chest was done and showed pulmonary embolism in the distal left main pulmonary artery extending into the secondary and tertiary branches of the left upper lobe and the left lower lobe. No pulmonary embolism on the right. There was findings consistent with lung cancer including a mass in the right suprahilar area causing narrowing of the right upper lobe and the right middle lobe bronchus. There was also interstitial changes in the right lung consistent with lymphangitic spread. There was 9 mm pericardial effusion. noted the patient also has abnormalities lymphadenopathy. The patient was started on Lovenox. He has no tachycardia. No pleurisy. No hemoptysis. No calf pain or tenderness. No previous history of DVT or pulmonary embolism. He is currently on 2 L of oxygen by nasal cannula. Lactic acid was 2.1. Down to 1.5. Aggressive blood work are all within normal limits. He is able to speak in full sentences. On 08/01/2019 the patient is being seen for a follow-up. The patient is feeling essentially the same probably slightly better compared to yesterday. Still on oxygen 2 L per minute nasal cannula. The patient is on Lovenox 1 mg per KG twice a day injections regarding a new onset left-sided pulmonary embolism. Doppler lower extremity is been negative. The echo was within normal limits. Echo shows no right ventricular strain pattern with significant pulmonary. They LV function is within normal limits. Valvular function is normal limits. On 08/02/2019 and seeing the patient for a follow-up. He is anxious. He is weak. He desaturates with activity. He is unable to go home. The plan is to send him to rehabilitation. Note that he has stage IV non-small cell lung cancer in his prognosis is poor. There is very emotional and anxious as stated. He is on Lovenox regarding his new onset pulmonary embolism. The patient will be switched to Xarelto today and following that the Lovenox will be discontinued. Discharge planning is in progress. I'm not sure he'll be a good candidate systemic treatment regarding his lung cancer stage. On 08/03/2019 patient seen in follow-up on selective care unit, he is awake and alert, in no acute distress, he has been transitioned to oral Xarelto for anticoagulation for his recent history of pulmonary embolism. Vital signs are stable, patient does have exertional dyspnea, occasional cough, production of clear sputum. Appetite is poor, and patient states that overall he has lost 25 pounds since [place]. Generally weak, but did sit up in the chair, discharge planning is in progress for transfer to [facility] and rehab today if a bed is available. Objective - Vital Signs Vital signs: Vital Signs Temp 97.5 F L 08/03/19 08:00 Pulse 88 08/03/19 12:18 Resp 20 08/03/19 08:00 BP 114/68 08/03/19 08:00 Pulse Ox 92 L 08/03/19 08:52 Intake & Output 08/02/19 08/03/19 08/03/19 18:59 06:59 18:59 Intake Total 527 220 Balance 527 220 Weight 72.9 kg Intake: Oral 527 220 Other: # Voids 3 - Exam Gen. appearance, comfortable not in acute distress Head exam was generally normal. There was no scleral icterus or corneal arcus. Mucous membranes were moist. Neck examination reveals lymphadenopathy in his right supraclavicular area and the patient has several enlarged rubbery lymph nodes the largest probably measuring around 1-1-1/2 cm in size and a small lymph node in the left supraclavicular area. Lungs sounds are diminished and there is scattered expiratory wheezing throughout the lung mccracken bilaterally. Some few expiratory rhonchi and prolong ation of exhalation phase of breathing. Cardiac exam revealed the PMI to be normally situated and sized. The rhythm was regular and no extrasystoles were noted during several minutes of auscultation. The first and second heart sounds were normal and physiologic splitting of the second heart sound was noted. There were no murmurs, rubs, clicks, or gallops. Abdominal exam revealed normal bowel sounds. The abdomen was soft, non-tender, and without masses, organomegaly, or appreciable enlargement of the abdominal aorta. Examination of the extremities revealed easily palpable radial, femoral and pe darren pulses. There was no cyanosis, clubbing or edema. Examination of the skin revealed no evidence of significant rashes, suspicious appearing nevi or other concerning lesions. Neurologically is awake and alert and there is no focal neurological deficit. Examination of the skin revealed no evidence of significant rashes, suspicious appearing nevi or other concerning lesions. - Labs CBC & Chem 7: 08/03/19 05:20 08/03/19 05:20 Labs: Abnormal Lab Results - Last 24 Hours (Table) 08/03/19 08/03/19 Range/Units 05:20 05:20 MCV 100.2 H (80.0-100.0) fL Lymphocytes # 0.5 L (1.0-4.8) k/uL BUN 28 H (9-20) mg/dL Calcium 8.1 L (8.4-10.2) mg/dL Assessment and Plan Plan: Assessment: 1 acute pulmonary embolism involving the left lung with secondary shortness of breath causing further worsening in his chronic dyspnea and further decompensation in his overall pulmonary status. Consider underlying DVT. The patient is likely hypercoagulable secondary to his underlying malignancy. 2 stage IV adenocarcinoma of the lung, recent diagnosis, treatment has not been initiated 3 acute hypoxic respiratory failure currently on 2 L of oxygen by nasal cannula 4 COPD 5 hyperlipidemia 6 prostate cancer 7 ex-smoker 8 troponin leak secondary to pulmonary embolism 9 mild lactic acidosis, improved Plan: Continue oral anticoagulation and form of Xarelto, vital signs are stable, patient is generally weak, does have exertional dyspnea, but no acute distress, from pulmonary perspective patient is stable for discharge to [facility] Rehab today. I performed a history & physical examination of the patient and discussed their management with my nurse practitioner, Gunjan Benson. I reviewed the nurse practitioner's note and agree with the documented findings and plan of care. Lung sounds are positive for diminished breath sounds. The findings and the impression was discussed with the patient. I attest to the documentation by the nurse practitioner. Time with Patient: Less than 30
--- NOTE | 2019-08-03 14:46 | P.PN ---
Subjective Progress Note Date: 08/03/19 Principal diagnosis: MUNIRA, PE In f/u today pt has no acute c/o, breathing is improved and stable, mild/moderate weakness, no bleeding to report, tolerating Xarelto Objective - Vital Signs Vital signs: Vital Signs Temp 97.5 F L 08/03/19 08:00 Pulse 88 08/03/19 12:18 Resp 20 08/03/19 12:00 BP 114/68 08/03/19 08:00 Pulse Ox 92 L 08/03/19 08:52 Intake & Output 08/02/19 08/03/19 08/03/19 18:59 06:59 18:59 Intake Total 527 220 Balance 527 220 Weight 72.9 kg Intake: Oral 527 220 Other: # Voids 3 - Constitutional General appearance: Present: average body habitus, cooperative, no acute distress - EENT Eyes: Present: anicteric sclerae, EOMI ENT: Present: hearing grossly normal - Respiratory Respiratory: bilateral: diminished - Cardiovascular Heart sounds: normal: S1, S2 - Peripheral edema leg Peripheral Edema: bilateral: None - Gastrointestinal General gastrointestinal: Present: normal bowel sounds, soft - Neurologic Neurologic: Present: CNII-XII intact - Musculoskeletal Musculoskeletal: Present: generalized weakness - Psychiatric Psychiatric: Present: A&O x's 3, appropriate affect, intact judgment & insight - Labs CBC & Chem 7: 08/03/19 05:20 08/03/19 05:20 Labs: Abnormal Lab Results - Last 24 Hours (Table) 08/03/19 08/03/19 Range/Units 05:20 05:20 MCV 100.2 H (80.0-100.0) fL Lymphocytes # 0.5 L (1.0-4.8) k/uL BUN 28 H (9-20) mg/dL Calcium 8.1 L (8.4-10.2) mg/dL Assessment and Plan (1) Metastatic non-small cell lung cancer Narrative/Plan: Plan is to start treatment after rehabilitation. We want pt os as good a shape as he can be. He also takes care of his so all advantages are going to be recommended. We are still pending biomarker studies on tumor tissue. Then we will get insurance approval for treatment. Again, no treatment to start until pt DC from rehab. This was explained to pt, will call daughter to update Current Visit: Yes Status: Acute Priority: High Code(s): C34.90 - MALIGNANT NEOPLASM OF UNSP PART OF UNSP BRONCHUS OR LUNG SNOMED Code(s): 960073262 (2) Pulmonary embolism on left Narrative/Plan: Xarelto Rx, bleeding precautions touched upon. Symptoms are better Current Visit: Yes Status: Acute Priority: High Code(s): I26.99 - OTHER PULMONARY EMBOLISM WITHOUT ACUTE COR PULMONALE SNOMED Code(s): 98166707 Plan: Case discussed with CM
[2019-08-03 16:12] VITALS: BP 111/72; RESP 18; TEMP 97.6
[2019-08-03 16:37] VITALS: PULSE 86
--- NOTE | 2019-08-03 22:08 | P.DS ---
Providers Date of admission: 07/31/19 17:43 Expected date of discharge: 08/03/19 Attending physician: Jimbo Pickett Consults: 07/31/19 17:48 Consult Physician Routine Consulting Provider: Sav Reyna Consult Reason/Comments: hypoxia, PE Do you want consulting provider notified?: Yes Consult Physician Routine Consulting Provider: Chriss Peguero Consult Reason/Comments: lung cancer, PE Do you want consulting provider notified?: Yes 08/01/19 17:29 Consult Physician Routine Consulting Provider: Johnny Yu Consult Reason/Comments: elevated trop Do you want consulting provider notified?: Yes, Notify in am 08/02/19 18:56 Consult Physician Routine Consulting Provider: Angus Wu Consult Reason/Comments: [facility] Do you want consulting provider notified?: Yes Primary care physician: [facility] Course: Presenting complaint: Short of breath Interval history: This is a pleasant 79-year-old patient of Dr. Jacinto Hermosillo. Was admitted here in in early July. Had a bronchoscopy. For lung mass. 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 Patient presents with increasing shortness of breath. Chest CTA confirmed left- sided pulmonary embolism. Started on Lovenox. Patient also has a cough. Today-feeling bit better. Slightly short of breath. Tolerated diet. After the patient is little bit stable. The patient will undergo treatment by oncology. Care was discussed with the patient. Questions were answered. Discussed with BSO from [facility] and the social sciences research scientist. Discussion and discharge planning more than 35 minutes Consultation: Dr. Peguero from oncology Dr. Reyna from pulmonary Physical examination: VITAL SIGNS: 97.6, 92, 18, 1132, 94% on 3 L GENERAL: Sitting up in a chair, slightly short of breath EYES: Pupils equal. Conjunctiva normal. HEENT: External appearance of nose and ears normal, oral cavity grossly normal. Decreased hearing NECK: JVD not raised; masses not palpable. HEART: First and second heart sounds are normal; no edema. LUNGS: Respiratory rate increased, decreased breath sounds posteriorly. Some wheezing ABDOMEN: Soft, nontender, liver spleen not palpable, no masses palpable. PSYCH: Alert and oriented x3; mood and affect normal. LYMPHATICS: supraclavicular lymph nodes palpable on both sides MUSCULOSKELETAL: Evidence of OA especially in the hands INVESTIGATIONS, reviewed in the clinical context: White count 6.2 hemoglobin 40.2 potassium 4.4 creatinine 0.85 Previous testing: Troponin I 0.282 2-D echo-EF 55-60%, right ventricular pressures normal CT angios a chest-encasing the main bronchi of the right and narrowing the right middle lobe bronchus. Diffuse his interstitial changes in the right lung. Small bilateral pleural effusion adenopathy in the mediastinum present. Thrombus in the distal left main pulmonary artery extending into the secondary and tertiary branches of the left upper and left lower lobes. Assessment: -Acute pulmonary embolism, and the distal left main pulmonary artery extending into the secondary and tertiary branches, slow to respond, patient should short of breath -Poorly differentiated adenocarcinoma of the lung,- for radiation and chemotherapy when patient stable from acute PE. -Hyperkalemia -Acute COPD exacerbation in an ex-smoker -Troponin leak from acute PE. No evidence of acute coronary syndrome. Disposition: ECF/[place] Plan - Discharge Summary Discharge Rx Participant: No New Discharge Prescriptions: New Folic Acid 1 mg PO DAILY #90 tablet Rivaroxaban [Xarelto Starter Pack] 0 mg PO DIRECTED 30 Days #1 pack Ipratropium-Albuterol Nebulize [Duoneb 0.5 mg-3 mg/3 ml Soln] 3 ml INHALATION RT-QID ml Budesonide [Pulmicort] 1 mg INHALATION RT-BID ml Acetaminophen Tab [Tylenol] 650 mg PO Q6HR PRN tab PRN Reason: Mild Pain Or Fever > 100.5 Continue Citalopram Hydrobromide [CeleXA] 20 mg PO DAILY Omeprazole 40 mg PO DAILY Discontinued Atorvastatin [Lipitor] 20 mg PO HS Discharge Medication List Citalopram Hydrobromide [CeleXA] 20 mg PO DAILY 07/12/19 [History] Omeprazole 40 mg PO DAILY 07/31/19 [History] Folic Acid 1 mg PO DAILY #90 tablet 08/01/19 [Rx] Rivaroxaban [Xarelto Starter Pack] 0 mg PO DIRECTED 30 Days #1 pack 08/01/19 [Rx] Acetaminophen Tab [Tylenol] 650 mg PO Q6HR PRN tab 08/03/19 [Rx] Budesonide [Pulmicort] 1 mg INHALATION RT-BID ml 08/03/19 [Rx] Ipratropium-Albuterol Nebulize [Duoneb 0.5 mg-3 mg/3 ml Soln] 3 ml INHALATION RT-QID ml 08/03/19 [Rx] Follow up Appointment(s)/Referral(s): Chriss Peguero MD [STAFF PHYSICIAN] - 2 Weeks Jacinto Pandey MD [Primary Care Provider] - 1-2 days Sav Reyna MD [STAFF PHYSICIAN] - 4 Weeks Patient Instructions/Handouts: Pulmonary Embolism (DC), Safe Use of Anticoagulants (DC) Activity/Diet/Wound Care/Special Instructions: ECF on D/C SNF meeting/event planner - oncologist recommending patient be set up with home care upon discharge from rehab - thank you Discharge Disposition: TRANSFER TO SNF/ECF
== END 2019-08-03 17:35 | DRG 175 ==
LOC: EC 13:35 → 3SCARD 17:43
PROVIDERS: ADMIT Hospitalist; ATTEND Hospitalist
DX: I26.99 Other pulmonary embolism without acute cor pulmonale (principal); J96.01 Acute respiratory failure with hypoxia; C34.01 Malignant neoplasm of right main bronchus; C79.9 Secondary malignant neoplasm of unspecified site; E87.2 Acidosis; I31.3 Pericardial effusion (noninflammatory); J44.1 Chronic obstructive pulmonary disease with (acute) exacerbation; E78.5 Hyperlipidemia, unspecified; E87.5 Hyperkalemia; F41.9 Anxiety disorder, unspecified; K21.9 Gastro-esophageal reflux disease without esophagitis; R59.0 Localized enlarged lymph nodes; R79.89 Other specified abnormal findings of blood chemistry; F17.220 Nicotine dependence, chewing tobacco, uncomplicated; Z79.899 Other long term (current) drug therapy; Z85.46 Personal history of malignant neoplasm of prostate; Z90.49 Acquired absence of other specified parts of digestive tract; Z96.652 Presence of left artificial knee joint; Z92.3 Personal history of irradiation; Z82.49 Family history of ischemic heart disease and other diseases of the circulatory system
CPT/HCPCS: 36415; 71046; 71275; 80048; 80053; 82550; 83605; 83735; 83880; 84132; 84484; 85025; 85379; 85610; 85730; 93005; 93306; 93970; 94640; 94760; 96361; 96372; 96374; 99291

== ENCOUNTER 2019-08-04 21:06 | Inpatient (IN) | payer MEDICARE ==
[2019-08-04] MEDS ORDERED: methylPREDNISolone SOD SUCCI 125 MG/2 ML VIAL IV STA (21:32)
[2019-08-04] MEDS ORDERED: SODIUM CHLORIDE 0.9% 1,000 ML IV STA ×2 (21:32→22:58)
--- NOTE | 2019-08-04 21:32 | ED ---
SOB HPI - General Chief Complaint: Shortness of Breath Stated Complaint: MUNIRA Time Seen by Provider: 08/04/19 21:18 Source: patient, RN notes reviewed, old records reviewed Mode of arrival: EMS Limitations: no limitations - History of Present Illness Initial Comments: This is a 79-year-old male here for evaluation presents for evaluation regards to cough and increased sputum production and blood-tinged sputum. Patient is a complex recent medical history including diagnosis of non-small cell lung cancer blood clot, pulmonary embolism his lungs again on blood thinners. This was all been over the last month to month and a half. Patient recently discharged from the hospital today and sent back for evaluation regards to shortness of breath as well as spitting up blood, patient states she has history of shortness of breath cough and pain with cough. The difficulty breathing comfortably has a coughing fit was unable to catch his breath. Otherwise no fevers MD Complaint: shortness of breath, cough, anxiety -: minutes(s) Severity: moderate Severity scale (1-10): 4 Consistency: constant Improves With: nothing, oxygen Worsens With: nothing Known History Of: COPD, congestive heart failure Context: recent URI Associated Symptoms: denies other symptoms Treatments Prior to Arrival: none - Related Data Home Medications Medication Instructions Recorded Confirmed Citalopram Hydrobromide [CeleXA] 20 mg PO DAILY@0800 07/12/19 08/04/19 Bisacodyl 10 mg RECTAL DAILY PRN 08/04/19 08/04/19 Folic Acid 1 mg PO DAILY@1700 08/04/19 08/04/19 Magnesium Hydroxide [Milk of 2,400 mg PO DAILY PRN 08/04/19 08/04/19 Magnesia] Na Phos,M-B/Na Phos,Di-Ba [Fleet 133 ml RECTAL ONCE PRN 08/04/19 08/04/19 Adult] Omeprazole [PriLOSEC] 40 mg PO DAILY@0700 08/04/19 08/04/19 Rivaroxaban [Xarelto] 15 mg PO BID@0800,1700 08/04/19 08/04/19 Rivaroxaban [Xarelto] 20 mg PO DAILY@0800 08/04/19 08/04/19 Previous Rx's Medication Instructions Recorded Acetaminophen Tab [Tylenol] 650 mg PO Q6HR PRN tab 08/03/19 Budesonide [Pulmicort] 1 mg INHALATION RT-BID ml 08/03/19 Ipratropium-Albuterol Nebulize 3 ml INHALATION RT-QID ml 08/03/19 [Duoneb 0.5 mg-3 mg/3 ml Soln] Allergies Allergy/AdvReac Type Severity Reaction Status Date / Time No Known Allergies Allergy Verified 08/04/19 22:28 Review of Systems ROS Statement: Those systems with pertinent positive or pertinent negative responses have been documented in the HPI. ROS Other: All systems not noted in ROS Statement are negative. Past Medical History Past Medical History: Cancer, GERD/Reflux, Hyperlipidemia, Prostate Disorder Additional Past Medical History / Comment(s): Prostate cancer with surgery (2012) & radiation tx spring 2017, stage IV adenocarcinoma of the lung- diagnosed 3 weeks ago, COPD, hyperlipidemia History of Any Multi-Drug Resistant Organisms: None Reported Past Surgical History: Appendectomy, Joint Replacement, Prostate Surgery Additional Past Surgical History / Comment(s): TOTAL LEFT KNEE, EGD, colonoscopy. Past Anesthesia/Blood Transfusion Reactions: Motion Sickness Past Psychological History: Anxiety Smoking Status: Former smoker Past Alcohol Use History: None Reported Past Drug Use History: None Reported - Past Family History Mother Family Medical History: No Reported History Additional Family Medical History / Comment(s): passed in her 90's Father Family Medical History: Coronary Artery Disease (CAD) Sister(s) Family Medical History: No Reported History Son(s) Family Medical History: No Reported History Daughter(s) Family Medical History: No Reported History General Exam General appearance: alert, in no apparent distress Head exam: Present: atraumatic, normocephalic, normal inspection Eye exam: Present: normal appearance, PERRL, EOMI. Absent: scleral icterus, conjunctival injection, periorbital swelling ENT exam: Present: normal exam, mucous membranes moist Neck exam: Present: normal inspection. Absent: tenderness, meningismus, lymphadenopathy Respiratory exam: Present: normal lung sounds bilaterally. Absent: respiratory distress, wheezes, rales, rhonchi, stridor Cardiovascular Exam: Present: normal rhythm, tachycardia, normal heart sounds. Absent: systolic murmur, diastolic murmur, rubs, gallop, clicks GI/Abdominal exam: Present: soft, normal bowel sounds. Absent: distended, tenderness, guarding, rebound, rigid Extremities exam: Present: normal inspection, full ROM, normal capillary refill. Absent: tenderness, pedal edema, joint swelling, calf tenderness Back exam: Present: normal inspection Neurological exam: Present: alert, oriented X3, CN II-XII intact Psychiatric exam: Present: normal affect, normal mood Skin exam: Present: warm, dry, intact, normal color. Absent: rash Course Vital Signs 08/04/19 08/04/19 21:13 22:30 Temperature 98 F Pulse Rate 110 H 88 Respiratory 26 H 20 Rate Blood Pressure 112/69 115/63 O2 Sat by Pulse 4 L 95 Oximetry - Reevaluation(s) Reevaluation #1: 08/04/19 21:30 Medical records reviewed including pmedication list, on blood thinners Reevaluation #2: 08/04/19 22:59 Patient feeling better here in the ER although still with significant cough no active hemoptysis - Consultations Consultation #1: spoke w DR Piyush le for admission Medical Decision Making - Medical Decision Making 79 male to the ED co cough, shortness of breath. Patient will be admitted for pneumonia patient has recurrent pneumonia at this point community acquired, will be placed on antibiotics - Lab Data Result diagrams: 08/04/19 21:50 08/04/19 21:50 Lab Results 08/04/19 08/04/19 08/04/19 Range/Units 21:50 21:50 21:50 WBC 6.8 (3.8-10.6) k/uL RBC 4.43 (4.30-5.90) m/uL Hgb 14.6 (13.0-17.5) gm/dL Hct 43.9 (39.0-53.0) % MCV 98.9 (80.0-100.0) fL MCH 33.0 (25.0-35.0) pg MCHC 33.3 (31.0-37.0) g/dL RDW 13.1 (11.5-15.5) % Plt Count 193 (150-450) k/uL Neutrophils % 85 % Lymphocytes % 6 % Monocytes % 6 % Eosinophils % 2 % Basophils % 1 % Neutrophils # 5.7 (1.3-7.7) k/uL Lymphocytes # 0.4 L (1.0-4.8) k/uL Monocytes # 0.4 (0-1.0) k/uL Eosinophils # 0.1 (0-0.7) k/uL Basophils # 0.1 (0-0.2) k/uL PT (9.0-12.0) sec INR (<1.2) APTT (22.0-30.0) sec Sodium 133 L (137-145) mmol/L Potassium 4.2 (3.5-5.1) mmol/L Chloride 107 (98-107) mmol/L Carbon Dioxide 20 L (22-30) mmol/L Anion Gap 6 mmol/L BUN 27 H (9-20) mg/dL Creatinine 0.98 (0.66-1.25) mg/dL Est GFR (CKD-EPI)AfAm 85 (>60 ml/min/1.73 sqM) Est GFR (CKD-EPI)NonAf 74 (>60 ml/min/1.73 sqM) Glucose 116 H (74-99) mg/dL Plasma Lactic Acid Segun 1.2 (0.7-2.0) mmol/L Calcium 8.1 L (8.4-10.2) mg/dL Magnesium 2.3 (1.6-2.3) mg/dL Total Bilirubin 0.9 (0.2-1.3) mg/dL AST 47 (17-59) U/L ALT 38 (4-49) U/L Alkaline Phosphatase 77 (38-126) U/L Troponin I (0.000-0.034) ng/mL NT-Pro-B Natriuret Pep pg/mL Total Protein 5.1 L (6.3-8.2) g/dL Albumin 2.7 L (3.5-5.0) g/dL 08/04/19 08/04/19 08/04/19 Range/Units 21:50 21:50 21:50 WBC (3.8-10.6) k/uL RBC (4.30-5.90) m/uL Hgb (13.0-17.5) gm/dL Hct (39.0-53.0) % MCV (80.0-100.0) fL MCH (25.0-35.0) pg MCHC (31.0-37.0) g/dL RDW (11.5-15.5) % Plt Count (150-450) k/uL Neutrophils % % Lymphocytes % % Monocytes % % Eosinophils % % Basophils % % Neutrophils # (1.3-7.7) k/uL Lymphocytes # (1.0-4.8) k/uL Monocytes # (0-1.0) k/uL Eosinophils # (0-0.7) k/uL Basophils # (0-0.2) k/uL PT 14.0 H (9.0-12.0) sec INR 1.4 H (<1.2) APTT 30.6 H (22.0-30.0) sec Sodium (137-145) mmol/L Potassium (3.5-5.1) mmol/L Chloride (98-107) mmol/L Carbon Dioxide (22-30) mmol/L Anion Gap mmol/L BUN (9-20) mg/dL Creatinine (0.66-1.25) mg/dL Est GFR (CKD-EPI)AfAm (>60 ml/min/1.73 sqM) Est GFR (CKD-EPI)NonAf (>60 ml/min/1.73 sqM) Glucose (74-99) mg/dL Plasma Lactic Acid Segun (0.7-2.0) mmol/L Calcium (8.4-10.2) mg/dL Magnesium (1.6-2.3) mg/dL Total Bilirubin (0.2-1.3) mg/dL AST (17-59) U/L ALT (4-49) U/L Alkaline Phosphatase (38-126) U/L Troponin I 0.050 H* (0.000-0.034) ng/mL NT-Pro-B Natriuret Pep 716 pg/mL Total Protein (6.3-8.2) g/dL Albumin (3.5-5.0) g/dL - EKG Data -: EKG Interpreted by Me (EKG shows sinus rhythm rate 97,ID 148, QRS 82, QTc 441) - Radiology Data Radiology results: report reviewed (Chest x-rays positive for pneumonia), image reviewed Disposition Clinical Impression: Hemoptysis, Nosocomial pneumonia Disposition: ADMITTED IP TO THIS [facility] Condition: Good Is patient prescribed a controlled substance at d/c from ED?: No Referrals: Basilio Johnson DO [Primary Care Provider] - 1-2 days
[2019-08-04] MEDS ORDERED: MORPHINE SULFATE 4 MG/ML SYRINGE IVP STA (21:33)
[2019-08-04 22:06] LABS: Basophils # (A) 0.1 k/uL (0-0.2); Basophils % (A) 1 %; Eosinophils # (A) 0.1 k/uL (0-0.7); Eosinophils % (A) 2 %; HCT 43.9 % (39.0-53.0); HGB 14.6 gm/dL (13.0-17.5); Lymphocytes # (A) 0.4 k/uL (1.0-4.8); Lymphocytes % (A) 6 %; MCHC 33.3 g/dL (31.0-37.0); MCV 98.9 fL (80.0-100.0); Mean Platelet Volume 7.9; Monocytes # (A) 0.4 k/uL (0-1.0); Monocytes % (A) 6 %; Neutrophils # (A) 5.7 k/uL (1.3-7.7); Neutrophils % (A) 85 %; Platelet Count 193 k/uL (150-450); RBC 4.43 m/uL (4.30-5.90); RDW 13.1 % (11.5-15.5); WBC 6.8 k/uL (3.8-10.6)
--- NOTE | 2019-08-04 22:07 | XR ---
EXAMINATION TYPE: XR chest 2V DATE OF EXAM: 08/04/2019 COMPARISON: 07/31/2019 HISTORY: Difficulty breathing TECHNIQUE: FINDINGS: There is extensive airspace consolidation right upper lobe. There is coarse interstitial density in t he other lung mccracken. There are chest leads. There is no gross heart failure. No definite pleural eff usion. IMPRESSION: Significant increased right upper lobe pneumonia compared to recent exam. There is probab ly underlying pulmonary interstitial fibrosis.
[2019-08-04 22:14] LABS: INR 1.4 (<1.2); Partial Thromboplastin Time 30.6 sec (22.0-30.0)
[2019-08-04 22:28] LABS: Albumin 2.7 g/dL (3.5-5.0); Calcium 8.1 mg/dL (8.4-10.2); Magnesium 2.3 mg/dL (1.6-2.3); Potassium 4.2 mmol/L (3.5-5.1); Total Bilirubin 0.9 mg/dL (0.2-1.3); Total Protein 5.1 g/dL (6.3-8.2)
[2019-08-04] MEDS ORDERED: PNEUMONIA PROTOCOL UTILIZED 1 EACH MISC PO PRN (22:54)
[2019-08-04] MEDS ORDERED: PIPERACILLIN-TAZOBACTAM 3.375 GM in SODIUM CHLORIDE 0.9% 100 ML IVPB STA (22:54)
[2019-08-04] MEDS ORDERED: LEVOFLOXACIN 750MG-D5W PMX 750 MG in DEXTROSE/WATER 1 150ML.BAG IVPB STA (22:54)
[2019-08-05] MEDS: SODIUM CHLORIDE 0.9% 1,000 ML IV SCH ×3 (01:30→20:33)
--- NOTE | 2019-08-05 07:43 | XR ---
EXAMINATION TYPE: XR chest 2V DATE OF EXAM: 08/05/2019 HISTORY: pneumonia. REFERENCE: Previous study dated 08/04/2019 there is continuing right upper lobe consolidation. I could not exclude an underlying mass. There is increased interstitial change in comparison with the previou s study. There is increased volume loss in the right lung. The heart is mildly prominent. Pleural spa demond are clear.. FINDINGS: Bilateral lobe consolidation. Volume loss in the right lung and shift of the trachea toward s the right makes it impossible to exclude underlying mass. Increased interstitial change in this jaoo rt period likely represents either interstitial edema or atypical pneumonia. Please correlate clinica lly. IMPRESSION:
[2019-08-05] MEDS: BENZONATATE 100 MG CAP PO SCH ×3 (08:48→22:12)
[2019-08-05] MEDS: PIPERACILLIN-TAZOBACTAM 3.375 GM in SODIUM CHLORIDE 0.9% 100 ML IVPB SCH ×3 (08:48→23:56)
[2019-08-05] MEDS: ALPRAZolam 0.5 MG TAB PO PRN ×2 (11:46→20:28)
--- NOTE | 2019-08-05 11:54 | P.CNPUL ---
History of Present Illness Consult date: 08/05/19 Requesting physician: Jimbo Pickett Reason for consult: other (Hemoptysis) Chief complaint: Coughing up blood History of present illness: A very [id number] male patient who got recently diagnosed with stage IV adenocarcinoma of the lung. We saw him in consultation approximately 3 weeks ago here in the hospital. He has a right upper lobe mass in addition to bilateral supraclavicular lymphadenopathy and mediastinal lymphadenopathy. Further workup with a biopsy of the right upper lobe confirmed the diagnosis of adenocarcinoma. PET scan indicated metastatic disease. MRI of the brain was negative. The patient was being worked up by oncology and he has not initiated his treatment yet and he was being considered for immunotherapy. He had been readmitted and discharged on 08/03/2018 for worsening shortness of breath and was found to have acute pulmonary emboli and discharged on Xarelto. He was discharged to an extended care facility. He was brought back here again yesterd ay to 08/04/2019 with episodes of hemoptysis. He is seen today in consultation on the regular medical floor. He is awake and alert in no acute distress. He states he had 2 or 3 episodes of hemoptysis about the size of a quarter bright red blood. This morning he's only had some dark old blood. He coughed well we were in the room in his sputum is clear. History of x-ray reveals evidence of bilateral lobe consolidation. Volume loss in the right lung and shift trachea towards the right makes it impossible to exclude underlying mass and increased interstitial changes in the short. Represents either interstitial edema or atypical pneumonia. He is more dyspneic on minimal exertion. Loose productive cough. White count 6.8. Hemoglobin 14.6. INR 1.4. Sodium 133. Creatinine 0.98. Troponin 0.050. ProBNP 716. He is currently afebrile. Maintaining O2 saturation in the mid 90s on 2 L/m per nasal cannula. Hemodynamically stable. Review of Systems REVIEW OF SYSTEMS: CONSTITUTIONAL: Denies any recent significant weight loss or weight gain. EYES: Denies change in vision. EARS, NOSE, MOUTH, THROAT: Denies headaches, denies sore throat. CARDIOVASCULAR: Denies chest pain, palpitations or syncopal episodes. RESPIRATORY: Positive shortness of breath, cough, congestion and hemoptysis. GASTROINTESTINAL: Denies change in appetite, denies abdominal pain GENITOURINARY: Denies hematuria, denies infections. MUSKULOSKELETAL: Denies pain, denies swelling. INTEGUMENTARY: Denies rash, denies eczema. NEUROLOGICAL: Denies recent memory loss, no recent seizure activity. PSYCHIATRIC: Denies anxiety, denies depression. HEMATOLOGIC/LYMPHATIC: Denies anemia, denies enlarged lymph nodes. Past Medical History Past Medical History: Cancer, GERD/Reflux, Hyperlipidemia, Prostate Disorder, Pulmonary Embolus (PE) Additional Past Medical History / Comment(s): Prostate cancer with surgery (2012) & radiation tx spring 2017, stage IV adenocarcinoma of the lung- diagnosed 3 weeks ago, COPD, hyperlipidemia, Recent PE on xarelto History of Any Multi-Drug Resistant Organisms: None Reported Past Surgical History: Appendectomy, Joint Replacement, Prostate Surgery Additional Past Surgical History / Comment(s): TOTAL LEFT KNEE, EGD, co lonoscopy. Past Anesthesia/Blood Transfusion Reactions: Motion Sickness Past Psychological History: Anxiety Smoking Status: Never smoker Past Alcohol Use History: None Reported Additional Past Alcohol Use History / Comment(s): QUIT SMOKING 1979, SMOKED 1 PPD, SMOKED 20-25 YEARS. Past Drug Use History: None Reported - Past Family History Mother Family Medical History: No Reported History Additional Family Medical History / Comment(s): passed in her 90's Father Family Medical History: Coronary Artery Disease (CAD) Sister(s) Family Medical History: No Reported History Son(s) Family Medical History: No Reported History Daughter(s) Family Medical History: No Reported History Medications and Allergies Home Medications Medication Instructions Recorded Confirmed Type Citalopram Hydrobromide [CeleXA] 20 mg PO DAILY@0800 07/12/19 08/04/19 History Acetaminophen Tab [Tylenol] 650 mg PO Q6HR PRN tab 08/03/19 08/04/19 Rx Budesonide [Pulmicort] 1 mg INHALATION RT-BID ml 08/03/19 08/04/19 Rx Ipratropium-Albuterol Nebulize 3 ml INHALATION RT-QID ml 08/03/19 08/04/19 Rx [Duoneb 0.5 mg-3 mg/3 ml Soln] Bisacodyl 10 mg RECTAL DAILY PRN 08/04/19 08/04/19 History Folic Acid 1 mg PO DAILY@1700 08/04/19 08/04/19 History Magnesium Hydroxide [Milk of 2,400 mg PO DAILY PRN 08/04/19 08/04/19 History Magnesia] Na Phos,M-B/Na Phos,Di-Ba [Fleet 133 ml RECTAL ONCE PRN 08/04/19 08/04/19 History Adult] Omeprazole [PriLOSEC] 40 mg PO DAILY@0700 08/04/19 08/04/19 History Rivaroxaban [Xarelto] 15 mg PO BID@0800,1700 08/04/19 08/04/19 History Rivaroxaban [Xarelto] 20 mg PO DAILY@0800 08/04/19 08/04/19 History Allergies Allergy/AdvReac Type Severity Reaction Status Date / Time No Known Allergies Allergy Verified 08/04/19 22:28 Physical Exam Vitals: Vital Signs Temp Pulse Pulse Resp BP BP Pulse Ox 08/05/19 04:39 97.3 F L 83 16 111/72 95 08/05/19 02:01 95 08/05/19 01:38 98.2 F 85 16 109/71 94 L 08/05/19 00:30 83 18 110/62 95 08/04/19 23:30 84 18 113/63 94 L 08/04/19 22:30 88 20 115/63 95 08/04/19 21:13 98 F 110 H 26 H 112/69 4 L Intake and Output 08/04/19 08/05/19 08/05/19 22:59 06:59 14:59 Intake Total 590 Balance 590 Intake: Oral 590 Other: Voiding Method Toilet # Voids 2 Weight 72.575 kg 72.575 kg GENERAL EXAM: Alert, pleasant 79-year-old gentleman, on 2 L nasal cannula, comfortable in no apparent distress. HEAD: Normocephalic. EYES: Normal reaction of pupils, equal size. NOSE: Clear with pink turbinates. THROAT: No erythema or exudates. NECK: No masses, no JVD. CHEST: No chest wall deformity. LUNGS: Equal air entry with bilateral scattered rhonchi. CVS: S1 and S2 normal with no audible murmur, regular rhythm. ABDOMEN: No hepatosplenomegaly, normal bowel sounds, no guarding or rigidity. SPINE: No scoliosis or deformity SKIN: No rashes CENTRAL NERVOUS SYSTEM: No focal deficits, tone is normal in all 4 extremities. EXTREMITIES: There is no peripheral edema. No clubbing, no cyanosis. Peripheral pulses are intact. Results - Laboratory Findings CBC and BMP: 08/04/19 21:50 08/04/19 21:50 PT/INR, D-dimer PT 14.0 sec (9.0-12.0) H 08/04/19 21:50 INR 1.4 (<1.2) H 08/04/19 21:50 Abnormal lab findings: Abnormal Labs 08/04/19 08/04/19 08/04/19 21:50 21:50 21:50 Lymphocytes # 0.4 L PT 14.0 H INR 1.4 H APTT 30.6 H Sodium 133 L Carbon Dioxide 20 L BUN 27 H Glucose 116 H Calcium 8.1 L Troponin I Total Protein 5.1 L Albumin 2.7 L 08/04/19 21:50 Lymphocytes # PT INR APTT Sodium Carbon Dioxide BUN Glucose Calcium Troponin I 0.050 H* Total Protein Albumin - Diagnostic Findings Chest x-ray: image reviewed Assessment and Plan Assessment: 1 Hemoptysis in a patient recently admitted for acute pulmonary embolism involving the left lung with secondary shortness of breath causing further worsening in his chronic dyspnea and further decompensation in his overall pulmonary status. The patient is likely hypercoagulable secondary to his underlying malignancy. Recently started on Xarelto. 2 Stage IV adenocarcinoma of the lung, recent diagnosis, treatment has not been initiated 3 Acute hypoxic respiratory failure currently on 2 L of oxygen by nasal cannula 4 COPD 5 Hyperlipidemia 6 Prostate cancer 7 Ex-smoker Plan The patient was seen and evaluated by Dr. Reyna. Chest x-ray and labs reviewed. He did have a small amount of hemoptysis. Patient had a recent pulmonary embolism was started on Xarelto. Would recommending continuing the Xarelto for now.Continue to observe another 24 hours, if any significant hemoptysis may need to discontinue Xarelto. The patient is in a hypercoagulable state doing to his underlying malignancy. I, the cosigning physician, performed a history & physical examination of the patient. Lungs sounds bilateral scattered rhonci. Maintaining good O2 saturations in the 90s on 2L/min per nasal canula. I discussed the assessment and plan of care with my nurse practitioner, Nely Guan. I attest to the above n ote as dictated by her.
[2019-08-05 13:39] VITALS: BMI 24.3
[2019-08-05] MEDS ORDERED: BISACODYL 10 MG SUPP RECTAL PRN (15:00)
[2019-08-05] MEDS ORDERED: ACETAMINOPHEN TAB 325 MG TAB PO PRN (15:00)
[2019-08-05] MEDS ORDERED: MAGNESIUM HYDROXIDE 2,400 MG/10 ML CUP PO PRN (15:00)
[2019-08-05] MEDS: IPRATROPIUM-ALBUTEROL 3 ML NEB INHALATION SCH ×2 (17:08→20:45)
[2019-08-05] MEDS: RIVAROXABAN 15 MG TAB PO SCH (17:40)
[2019-08-05] MEDS: FOLIC ACID 1 MG TAB PO SCH (17:40)
[2019-08-05] MEDS: guaiFENesin-Coden 100-10MG/5ML 10 ML CUP PO PRN (18:04)
[2019-08-05] MEDS: BUDESONIDE 1 MG/2 ML NEBU INHALATION SCH (20:45)
--- NOTE | 2019-08-05 22:49 | P.HPIM ---
History of Present Illness H&P Date: 08/05/19 Chief Complaint: short of breath history of presenting complaint: This is a pleasant 79-year-old patient of Dr. Jacinto Hermosillo. Was admitted here in in early July. Had a bronchoscopy. For lung mass. 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 patient was admitted to the hospital from July 31 through August 03. diagnosed with acute pulmonary embolism.discharge on Xarelto.plan was to patient to improve from this acute event then come back for treatment of the lung cancer. Patient returns with increasing shortness of breath some wheezing. No cough. No production. No fever no chills. Appetite is not very good. Gets is the short winded. Tired. Patient was at [facility] for above days. Review of systems: GEN.: Tired EYES: None HEENT: Decreased hearing NECK: None RESPIRATORY: As above CARDIOVASCULAR: None GASTROINTESTINAL: None GENITOURINARY: None MUSCULOSKELETAL: None LYMPHATICS: None HEMATOLOGICAL: None PSYCHIATRY: None NEUROLOGICAL: None Past medical history to include: Newly diagnosed lung cancer poorly differentiated adenocarcinoma, COPD Social history: Patient smoked for about 25 years stopped in 1979. . No significant alcohol history. Had been at [facility] moderate for last 3 days. Family history: Reviewed, noncontributory to presentation Consultation: Dr. Peguero from oncology Dr. Reyna from pulmonary Physical examination: VITAL SIGNS: 97.3-83-16-111/72-95% on 2 L GENERAL: propped up in bed, anxious short of breath EYES: Pupils equal. Conjunctiva normal. HEENT: External appearance of nose and ears normal, oral cavity grossly normal. Decreased hearing NECK: JVD not raised; masses not palpable. HEART: First and second heart sounds are normal; no edema. LUNGS: Respiratory rate increased, decreased breath sounds , prolonged expiration. wheezing ABDOMEN: Soft, nontender, liver spleen not palpable, no masses palpable. PSYCH: Alert and oriented x3; mood and affect very anxious. 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 Diffuse his interstitial changes in the right lung. Small bilateral pleural effusion adenopathy in the mediastinum present. Thrombus in the distal left main pulmonary artery extending into the secondary and tertiary branches of the left upper and left lower lobes. Assessment: -Suspect right upper lobe, collapse from underlying malignancy -Possible postobstructive pneumonia -Acute pulmonary embolism, and the distal left main pulmonary artery extending into the secondary and tertiary branches, on Xarelto, diagnosed on July 31 -Poorly differentiated adenocarcinoma of the lung,- for radiation and chemotherapy when patient stable -Acute COPD exacerbation in an ex-smoker, POA -Troponin leak from acute PE. No evidence of acute coronary syndrome. Plan: patient on bronchodilators every 4 hours, also on IV antibiotics for possible postobstructive pneumonia, we'll add IV Solu-Medrol. Continue with Xarelto. Prognosis is not good.pulmonary was consulted Advanced care planning: Care was discussed at length with the patient and daughter the bedside. Patient makes his own decisions. It was reemphasized that he has to be clinically stable and somewhat strong for treatmentto start. Also currently antibiotic steroids bronchodilators will be used. Also indicated that if things were not to improve and his clinical status gets worse then,hospice may be the option.we'll also wait for oncology input. Several questions were answered.patient's CODE STATUS is DO NOT RESUSCITATE About 25 minutes was spent for this. Past Medical History Past Medical History: Cancer, GERD/Reflux, Hyperlipidemia, Prostate Disorder, Pulmonary Embolus (PE) Additional Past Medical History / Comment(s): Prostate cancer with surgery (2012) & radiation tx spring 2017, stage IV adenocarcinoma of the lung- diagnosed 3 weeks ago, COPD, hyperlipidemia, Recent PE on xarelto History of Any Multi-Drug Resistant Organisms: None Reported Past Surgical History: Appendectomy, Joint Replacement, Prostate Surgery Additional Past Surgical History / Comment(s): TOTAL LEFT KNEE, EGD, colonoscopy. Past Anesthesia/Blood Transfusion Reactions: Motion Sickness Past Psychological History: Anxiety Smoking Status: Never smoker Past Alcohol Use History: None Reported Additional Past Alcohol Use History / Comment(s): QUIT SMOKING 1979, SMOKED 1 PPD, SMOKED 20-25 YEARS. Past Drug Use History: None Reported - Past Family History Mother Family Medical History: No Reported History Additional Family Medical History / Comment(s): passed in her 90's Father Family Medical History: Coronary Artery Disease (CAD) Sister(s) Family Medical History: No Reported History Son(s) Family Medical History: No Reported History Daughter(s) Family Medical History: No Reported History Medications and Allergies Home Medications Medication Instructions Recorded Confirmed Type Citalopram Hydrobromide [CeleXA] 20 mg PO DAILY@0800 07/12/19 08/04/19 History Acetaminophen Tab [Tylenol] 650 mg PO Q6HR PRN tab 08/03/19 08/04/19 Rx Budesonide [Pulmicort] 1 mg INHALATION RT-BID ml 08/03/19 08/04/19 Rx Ipratropium-Albuterol Nebulize 3 ml INHALATION RT-QID ml 08/03/19 08/04/19 Rx [Duoneb 0.5 mg-3 mg/3 ml Soln] Bisacodyl 10 mg RECTAL DAILY PRN 08/04/19 08/04/19 History Folic Acid 1 mg PO DAILY@1700 08/04/19 08/04/19 History Magnesium Hydroxide [Milk of 2,400 mg PO DAILY PRN 08/04/19 08/04/19 History Magnesia] Na Phos,M-B/Na Phos,Di-Ba [Fleet 133 ml RECTAL ONCE PRN 08/04/19 08/04/19 History Adult] Omeprazole [PriLOSEC] 40 mg PO DAILY@0700 08/04/19 08/04/19 History Rivaroxaban [Xarelto] 15 mg PO BID@0800,1700 08/04/19 08/04/19 History Rivaroxaban [Xarelto] 20 mg PO DAILY@0800 08/04/19 08/04/19 History Allergies Allergy/AdvReac Type Severity Reaction Status Date / Time No Known Allergies Allergy Verified 08/04/19 22:28 Physical Exam Vitals: Vital Signs Temp Pulse Pulse Resp BP BP Pulse Ox 08/05/19 11:25 97.6 F 84 18 109/73 96 08/05/19 04:39 97.3 F L 83 16 111/72 95 08/05/19 02:01 95 08/05/19 01:38 98.2 F 85 16 109/71 94 L 08/05/19 00:30 83 18 110/62 95 08/04/19 23:30 84 18 113/63 94 L 08/04/19 22:30 88 20 115/63 95 08/04/19 21:13 98 F 110 H 26 H 112/69 4 L Intake and Output 08/04/19 08/05/19 08/05/19 22:59 06:59 14:59 Intake Total 590 Balance 590 Intake: Oral 590 Other: Voiding Method Toilet Toilet # Voids 2 Weight 72.575 kg 72.575 kg 72.575 kg Results CBC & Chem 7: 08/04/19 21:50 08/04/19 21:50 Labs: Abnormal Lab Results - Last 24 Hours (Table) 08/04/19 08/04/19 08/04/19 Range/Units 21:50 21:50 21:50 Lymphocytes # 0.4 L (1.0-4.8) k/uL PT 14.0 H (9.0-12.0) sec INR 1.4 H (<1.2) APTT 30.6 H (22.0-30.0) sec Sodium 133 L (137-145) mmol/L Carbon Dioxide 20 L (22-30) mmol/L BUN 27 H (9-20) mg/dL Glucose 116 H (74-99) mg/dL Calcium 8.1 L (8.4-10.2) mg/dL Troponin I (0.000-0.034) ng/mL Total Protein 5.1 L (6.3-8.2) g/dL Albumin 2.7 L (3.5-5.0) g/dL 08/04/19 Range/Units 21:50 Lymphocytes # (1.0-4.8) k/uL PT (9.0-12.0) sec INR (<1.2) APTT (22.0-30.0) sec Sodium (137-145) mmol/L Carbon Dioxide (22-30) mmol/L BUN (9-20) mg/dL Glucose (74-99) mg/dL Calcium (8.4-10.2) mg/dL Troponin I 0.050 H* (0.000-0.034) ng/mL Total Protein (6.3-8.2) g/dL Albumin (3.5-5.0) g/dL Thrombosis Risk Factor Assmnt - Choose All That Apply Each Risk Factor Represents 3 Points: Age 75 years or older, History of DVT/PE Thrombosis Risk Factor Assessment Total Risk Factor Score: 6 Thrombosis Risk Factor Assessment Level: High Risk
[2019-08-05] MEDS ORDERED: LEVOFLOXACIN 750MG-D5W PMX 750 MG in DEXTROSE/WATER 1 150ML.BAG IVPB SCH (23:00)
[2019-08-06] MEDS: guaiFENesin-Coden 100-10MG/5ML 10 ML CUP PO PRN ×3 (01:29→22:18)
[2019-08-06] MEDS: IPRATROPIUM-ALBUTEROL 3 ML NEB INHALATION SCH ×6 (01:40→19:37)
[2019-08-06] MEDS: SODIUM CHLORIDE 0.9% 1,000 ML IV SCH ×2 (06:24→14:11)
[2019-08-06] MEDS: PIPERACILLIN-TAZOBACTAM 3.375 GM in SODIUM CHLORIDE 0.9% 100 ML IVPB SCH ×3 (07:28→23:50)
[2019-08-06] MEDS: PANTOPRAZOLE 40 MG TABLET PO SCH (07:28)
[2019-08-06] MEDS: CITALOPRAM HYDROBROMIDE 20 MG TAB PO SCH ×2 (07:29→07:30)
[2019-08-06] MEDS: BENZONATATE 100 MG CAP PO SCH ×3 (07:29→22:18)
[2019-08-06] MEDS: ALPRAZolam 0.5 MG TAB PO PRN ×3 (07:37→20:13)
[2019-08-06] MEDS: BUDESONIDE 1 MG/2 ML NEBU INHALATION SCH ×2 (07:38→19:37)
--- NOTE | 2019-08-06 10:32 | P.PN ---
Subjective Progress Note Date: 08/06/19 Principal diagnosis: Hemoptysis A very [id number] male patient who got recently diagnosed with stage IV adenocarcinoma of the lung. We saw him in consultation approximately 3 weeks ago here in the hospital. He has a right upper lobe mass in addition to bilateral supraclavicular lymphadenopathy and mediastinal lymphadenopathy. Further workup with a biopsy of the right upper lobe confirmed the diagnosis of adenocarcinoma. PET scan indicated metastatic disease. MRI of the brain was negative. The patient was being worked up by oncology and he has not initiated his treatment yet and he was being considered for immunotherapy. He had been readmitted and discharged on 08/03/2018 for worsening shortness of breath and was found to have acute pulmonary emboli and discharged on Xarelto. He was discharged to an extended care facility. He was brought back here again yesterday to 08/04/2019 with episodes of hemoptysis. He is seen today in consultation on the regular medical floor. He is awake and alert in no acute distress. He states he had 2 or 3 episodes of hemoptysis about the size of a quarter bright red blood. This morning he's only had some dark old blood. He coughed well we were in the room in his sputum is clear. History of x-ray reveals evidence of bilateral lobe consolidation. Volume loss in the right lung and shift trachea towards the right makes it impossible to exclude underlying mass and increased interstitial changes in the short. Represents either interstitial edema or atypical pneumonia. He is more dyspneic on minimal exertion. Loose productive cough. White count 6.8. Hemoglobin 14.6. INR 1.4. Sodium 133. Creatinine 0.98. Troponin 0.050. ProBNP 716. He is currently afebrile. Maintaining O2 saturation in the mid 90s on 2 L/m per nasal cannula. Hemodynamically stable. The patient is seen today 08/06/2019 in follow-up on the regular medical floor. Awake and alert in no acute distress. Maintaining good O2 saturations in the 90s on 2 L/m per nasal cannula, he's been afebrile. Blood culture reveals no growth. No further hemoptysis. Congested cough this morning with clear sputum. He remains on bronchodilators, Tessalon Perles, antibiotics in the form of Zosyn and Levaquin. Remains on Xarelto. Objective - Vital Signs Vital signs: Vital Signs Temp 97.4 F L 08/06/19 05:43 Pulse 80 08/06/19 07:52 Resp 20 08/06/19 05:43 BP 125/77 08/06/19 05:43 Pulse Ox 97 08/06/19 08:53 Intake & Output 08/05/19 08/06/19 08/06/19 18:59 06:59 18:59 Intake Total 500 840 Balance 500 840 Weight 72.575 kg Intake: Intake, IV Titration 500 250 Amount Levofloxacin 750Mg-D5w 150 Pmx 750 mg In Dextrose/ Water 1 150ml.bag @ 100 mls/hr IVPB Q24H [facility] Rx#: [id number] Piperacillin-Tazobactam 3 100 100 .375 gm In Sodium Chloride 0.9% 100 ml @ 25 mls/hr IVPB Q8HR [facility] Rx# :[id number] Sodium Chloride 0.9% 1, 400 000 ml @ 100 mls/hr IV . Q10H [facility] Rx#:[id number] Oral 590 Other: Voiding Method Toilet Toilet # Voids 3 - Exam GENERAL EXAM: Alert, pleasant 79-year-old gentleman, on 2 L nasal cannula, comfortable in no apparent distress. HEAD: Normocephalic. EYES: Normal reaction of pupils, equal size. NOSE: Clear with pink turbinates. THROAT: No erythema or exudates. NECK: No masses, no JVD. CHEST: No chest wall deformity. LUNGS: Equal air entry with bilateral scattered rhonchi. CVS: S1 and S2 normal with no audible murmur, regular rhythm. ABDOMEN: No hepatosplenomegaly, normal bowel sounds, no guarding or rigidity. SPINE: No scoliosis or deformity SKIN: No rashes CENTRAL NERVOUS SYSTEM: No focal deficits, tone is normal in all 4 extremities. EXTREMITIES: There is no peripheral edema. No clubbing, no cyanosis. Peripheral pulses are intact. - Labs CBC & Chem 7: 08/04/19 21:50 08/04/19 21:50 Labs: Microbiology - Last 24 Hours (Table) 08/04/19 23:30 Blood Culture - Preliminary Blood No Growth after 24 hours 08/04/19 23:00 Blood Culture - Preliminary Blood No Growth after 24 hours Assessment and Plan Assessment: 1 Hemoptysis in a patient recently admitted for acute pulmonary embolism involving the left lung with secondary shortness of breath causing further worsening in his chronic dyspnea and further decompensation in his overall pulmonary status. The patient is likely hypercoagulable secondary to his underlying malignancy. Recently started on Xarelto. 2 Stage IV adenocarcinoma of the lung, recent diagnosis, treatment has not been initiated 3 Acute hypoxic respiratory failure currently on 2 L of oxygen by nasal cannula 4 COPD 5 Hyperlipidemia 6 Prostate cancer 7 Ex-smoker Plan The patient was seen and evaluated by . No further hemoptysis. Remains on Xarelto. Remains on antibiotics and bronchodilators. Improved today compared to yesterday. We'll continue the current treatment plan. Repeat a chest x-ray in the a.m. Probable discharge in the a.m. We'll continue to fol low. I, the cosigning physician, performed a history & physical examination of the patient. Lungs sounds bilateral scattered rhonci. Maintaining good O2 saturations in the 90s on 2L/min per nasal canula. I discussed the assessment and plan of care with my nurse practitioner, Nely Guan. I attest to the above note as dictated by her.
[2019-08-06] MEDS: RIVAROXABAN 15 MG TAB PO SCH ×2 (10:54→16:28)
[2019-08-06] MEDS: predniSONE 20 MG TAB PO SCH (11:18)
[2019-08-06] MEDS: FOLIC ACID 1 MG TAB PO SCH (16:28)
--- NOTE | 2019-08-06 17:23 | P.CONS ---
History of Present Illness - Reason for Consult Consult date: 08/06/19 NSCLC Requesting physician: [place] - Chief Complaint hemoptysis - History of Present Illness Please refer to medical consult dated 08/01/23 for full malignancy details. Patient is admitted from rehabilitation with recurrent hemoptysis, patient states he has not coughed up any blood since yesterday. Patient has complaints of strong cough that causes him to be short of breath and have chest discomfort, he just doesn't feel well. He is currently being treated for postobstructive pneumonia, anti-tussives ordered. He c/o secretions, worse in the AM, denies fever, chills, appetite is poor, no dysphagia, odynophagia, abd pain, cramping, dysuria, hematuria, diarrhea, constipation, swelling. We had encouraged patient to participate in rehabilitation as we were pending some biomarkers on his tumor and holding off on treatment until he had completed the same Review of Systems 14 point review of systems is negative except as stated in HPI Past Medical History Past Medical History: Cancer, GERD/Reflux, Hyperlipidemia, Prostate Disorder, Pulmonary Embolus (PE) Additional Past Medical History / Comment(s): Prostate cancer with surgery (2012) & radiation tx spring 2017, stage IV adenocarcinoma of the lung- diagnosed 3 weeks ago, COPD, hyperlipidemia, Recent PE on xarelto History of Any Multi-Drug Resistant Organisms: None Reported Past Surgical History: Appendectomy, Joint Replacement, Prostate Surgery Additional Past Surgical History / Comment(s): TOTAL LEFT KNEE, EGD, colonos copy. Past Anesthesia/Blood Transfusion Reactions: Motion Sickness Past Psychological History: Anxiety Smoking Status: Never smoker Past Alcohol Use History: None Reported Additional Past Alcohol Use History / Comment(s): QUIT SMOKING 1979, SMOKED 1 PPD, SMOKED 20-25 YEARS. Past Drug Use History: None Reported - Past Family History Mother Family Medical History: No Reported History Additional Family Medical History / Comment(s): passed in her 90's Father Family Medical History: Coronary Artery Disease (CAD) Sister(s) Family Medical History: No Reported History Son(s) Family Medical History: No Reported History Daughter(s) Family Medical History: No Reported History Medications and Allergies Home Medications Medication Instructions Recorded Confirmed Type Citalopram Hydrobromide [CeleXA] 20 mg PO DAILY@0800 07/12/19 08/04/19 History Acetaminophen Tab [Tylenol] 650 mg PO Q6HR PRN tab 08/03/19 08/04/19 Rx Budesonide [Pulmicort] 1 mg INHALATION RT-BID ml 08/03/19 08/04/19 Rx Ipratropium-Albuterol Nebulize 3 ml INHALATION RT-QID ml 08/03/19 08/04/19 Rx [Duoneb 0.5 mg-3 mg/3 ml Soln] Bisacodyl 10 mg RECTAL DAILY PRN 08/04/19 08/04/19 History Folic Acid 1 mg PO DAILY@1700 08/04/19 08/04/19 History Magnesium Hydroxide [Milk of 2,400 mg PO DAILY PRN 08/04/19 08/04/19 History Magnesia] Na Phos,M-B/Na Phos,Di-Ba [Fleet 133 ml RECTAL ONCE PRN 08/04/19 08/04/19 History Adult] Omeprazole [PriLOSEC] 40 mg PO DAILY@0700 08/04/19 08/04/19 History Rivaroxaban [Xarelto] 15 mg PO BID@0800,1700 08/04/19 08/04/19 History Rivaroxaban [Xarelto] 20 mg PO DAILY@0800 08/04/19 08/04/19 History Allergies Allergy/AdvReac Type Severity Reaction Status Date / Time No Known Allergies Allergy Verified 08/04/19 22:28 Physical Exam Vitals: Vital Signs Temp Pulse Pulse Resp BP Pulse Ox 08/06/19 16:00 78 18 08/06/19 15:36 80 08/06/19 15:22 84 08/06/19 13:00 97.3 F L 78 18 115/71 99 08/06/19 12:08 80 08/06/19 11:59 76 08/06/19 08:53 97 08/06/19 08:00 20 08/06/19 07:52 80 08/06/19 07:38 84 97 08/06/19 05:43 97.4 F L 93 20 125/77 95 08/06/19 01:50 80 08/06/19 01:40 80 08/05/19 23:00 97.0 F L 89 20 117/69 93 L 08/05/19 21:01 78 08/05/19 20:45 80 08/05/19 17:20 82 08/05/19 17:08 86 96 Intake and Output 08/06/19 08/06/19 08/06/19 06:59 14:59 22:59 Intake Total 250 1480 Balance 250 1480 Intake: Intake, IV Titration 250 900 Amount Levofloxacin 750Mg-D5w 150 Pmx 750 mg In Dextrose/ Water 1 150ml.bag @ 100 mls/hr IVPB Q24H [facility] Rx#: [id number] Piperacillin-Tazobactam 3 100 100 .375 gm In Sodium Chloride 0.9% 100 ml @ 25 mls/hr IVPB Q8HR [facility] Rx# :[id number] Sodium Chloride 0.9% 1, 800 000 ml @ 100 mls/hr IV . Q10H [facility] Rx#:[id number] Oral 580 Other: Voiding Method Toilet Toilet Toilet # Voids 3 3 - Constitutional General appearance: cooperative, mild distress, thin - EENT Eyes: anicteric sclerae, EOMI ENT: hearing grossly normal, normal oropharynx - Neck Neck: no lymphadenopathy - Respiratory Respiratory: bilateral: diminished, wheezing (scattered) - Cardiovascular Rhythm: regular Heart sounds: normal: S1, S2 Abnormal Heart Sounds: no systolic murmur, no diastolic murmur, no rub, no S3 Gallop, no S4 Gallop, no click, no other leg Peripheral Edema: bilateral: None - Gastrointestinal General gastrointestinal: no absent bowel sounds, no decreased bowel sounds, no distended, no hepatomegaly, no hyperactive bowel sounds, normal bowel sounds, no organomegaly, no rigid, no scaphoid, soft, no splenomegaly, no tenderness, no umbilical hernia, no ventral hernia - Neurologic Neurologic: CNII-XII intact - Musculoskeletal Musculoskeletal: generalized weakness - Psychiatric Psychiatric: A&O x's 3, appropriate affect, intact judgment & insight Results CBC & Chem 7: 08/04/19 21:50 08/04/19 21:50 Labs: Microbiology - Last 24 Hours (Table) 08/04/19 23:30 Blood Culture - Preliminary Blood No Growth after 24 hours 08/04/19 23:00 Blood Culture - Preliminary Blood No Growth after 24 hours Chest x-ray: report reviewed Assessment and Plan (1) Cough Narrative/Plan: Persistent, most distressing symptom to the patient. Pulmonary consuled. Anti- tussives ordered. Medications to decrease secretions ordered. Steroids initiated. Current Visit: Yes Status: Acute Priority: High Code(s): R05 - COUGH SNOMED Code(s): 80743657 (2) Hemoptysis Narrative/Plan: Tumor erosion vs irritation from coughing, possibly both. Rad Onc consulted. Hemoptysis is not persistent or progressive from my understanding of the description at this time. Pt will continue to save sputum for RN monitoring Pulmonary consulted. Current Visit: Yes Status: Acute Priority: Medium Code(s): R04.2 - HEMOPTYSIS SNOMED Code(s): 26804554 (3) Metastatic non-small cell lung cancer Narrative/Plan: PET scan on 07/22/19 impression was large right hilar pulmonary neoplasm, abnormal thoracic adenopathy, supraclavicular, lower paraesophageal and upper abdominal retroperitoneal adenopathy. Pending biomarkers to see if there is a targeted agent that is more appropriate for the patient. If not, chemotherapy has already been approved. Patient's [place] [facility]. Being that the patient is symptomatic, and feeling quite terrible, it may be a ppropriate to begin some radiation for symptoms and to give an initial cycle of chemotherapy while inpatient. Case was discussed with Radiation Oncology who has been consulted. They will see the patient and we will further discuss how we are going to proceed. Going to plan a family meeting, will contact daughter Current Visit: No Status: Acute Priority: High Code(s): C34.90 - MALIGNANT NEOPLASM OF UNSP PART OF UNSP BRONCHUS OR LUNG SNOMED Code(s): 410764748 Plan: Attests: I preformed history and physical examination of this patient, developed impression and plan of care, discussed with dictator. Agree with best alexander's note, documented as described
[2019-08-06] MEDS: SCOPOLAMINE 1.5MG/72HR PATCH TRANSDERM SCH (18:18)
--- NOTE | 2019-08-06 20:38 | P.PN ---
Progress Note - Text Progress Note Date: 08/06/19 Chief Complaint: short of breath history of presenting complaint: This is a pleasant 79-year-old patient of Dr. Jacinto Hermosillo. Was admitted here in in early July. Had a bronchoscopy. For lung mass. 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 patient was admitted to the hospital from July 31 through August 03. diagnosed with acute pulmonary embolism.discharge on Xarelto.plan was to patient to improve from this acute event then come back for treatment of the lung cancer. Patient returns with increasing shortness of breath some wheezing. No cough. No production. No fever no chills. Appetite is not very good. Gets is the short winded. Tired. Patient was at [facility] for above days. Admitted with-acute COPD exacerbation, postobstructive pneumonia, acute respiratory failure. Today-a little bit more restful. A bit less short of breath. Some cough. Clear sputum. Did tolerate some diet. Laying in bed. Review of systems: Was done for constitutional, cardiovascular, GI, pulmonary. relevant finding as above Active Medications Acetaminophen (Tylenol Tab) 650 mg PO Q6HR PRN PRN Reason: Mild Pain or Fever > 100.5 Albuterol/Ipratropium (Duoneb 0.5 Mg-3 Mg/3 Ml Soln) 3 ml INHALATION RT-Q4H [facility] Last Admin: 08/06/19 19:37 Dose: 3 ml Documented by: Alprazolam (Xanax) 0.5 mg PO TID PRN PRN Reason: Anxiety Last Admin: 08/06/19 20:13 Dose: 0.5 mg Documented by: Benzonatate (Tessalon Perles) 200 mg PO TID [facility] Last Admin: 08/06/19 16:28 Dose: 200 mg Documented by: Bisacodyl (Dulcolax) 10 mg RECTAL DAILY PRN PRN Reason: Constipation Budesonide (Pulmicort) 1 mg INHALATION RT-BID [facility] Last Admin: 08/06/19 19:37 Dose: 1 mg Documented by: Citalopram Hydrobromide (Celexa) 20 mg PO DAILY@0800 [facility] Last Admin: 08/06/19 07:30 Dose: 20 mg Documented by: Folic Acid (Folic Acid) 1 mg PO DAILY@1700 [facility] Last Admin: 02/03/20 16:28 Dose: 1 mg Documented by: Guaifenesin/Codeine Phosphate (Robitussin Ac) 10 ml PO Q6H PRN PRN Reason: Cough Last Admin: 08/06/19 16:28 Dose: 10 ml Documented by: Sodium Chloride (Saline 0.9%) 1,000 mls @ 100 mls/hr IV .Q10H [facility] Last Admin: 08/06/19 14:11 Dose: 100 mls/hr Documented by: Piperacillin Sod/Tazobactam (Sod 3.375 gm/ Sodium Chloride) 100 mls @ 25 mls/hr IVPB Q8HR [facility] Stop: 08/15/19 08:01 Last Admin: 08/06/19 16:28 Dose: 25 mls/hr Documented by: Levofloxacin (Levaquin) 750 mg PO 2300 [facility] Magnesium Hydroxide (Milk Of Magnesia) 2,400 mg PO DAILY PRN PRN Reason: Constipation Miscellaneous Information (Pneumonia Protocol Utilized) 1 each PO ONCE PRN PRN Reason: Per Protocol Morphine Sulfate (Morphine Sulfate (Inj)) 4 mg IVP Q6HR PRN PRN Reason: Pain Pantoprazole Sodium (Protonix) 40 mg PO DAILY@0700 [facility] Last Admin: 08/06/19 07:28 Dose: 40 mg Documented by: Prednisone () 60 mg PO DAILY [facility] Last Admin: 08/06/19 11:18 Dose: 60 mg Documented by: Rivaroxaban (Xarelto) 15 mg PO BID@0800,1700 [facility] Last Admin: 08/06/19 16:28 Dose: 15 mg Documented by: Scopolamine (Transderm-Scop 1.5mg/72hr Patch) 1 patch TRANSDERM Q72H [facility] Last Admin: 08/06/19 18:18 Dose: 1 patch Documented by: Physical examination: VITAL SIGNS: 97.3, 78, 18, 115/71, 99% on 3 L GENERAL: propped up in bed, a bit less short of breath EYES: Pupils equal. Conjunctiva normal. HEENT: External appearance of nose and ears normal, oral cavity grossly normal. Decreased hearing NECK: JVD not raised; masses not palpable. HEART: First and second heart sounds are normal; no edema. LUNGS: Respiratory rate increased, decreased breath sounds , prolonged expiration. Less wheezing ABDOMEN: Soft, nontender, liver spleen not palpable, no masses palpable. PSYCH: Alert and oriented x3; mood and affect very anxious. 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 Diffuse his interstitial changes in the right lung. Small bilateral pleural effusion adenopathy in the mediastinum present. Thrombus in the distal left main pulmonary artery extending into the secondary and tertiary branches of the left upper and left lower lobes. Assessment: -Suspect right upper lobe, collapse from underlying malignancy -Possible postobstructive pneumonia, POA slow to respond -Acute pulmonary embolism, and the distal left main pulmonary artery extending into the secondary and tertiary branches, on Xarelto, diagnosed on July 31 -Poorly differentiated adenocarcinoma of the lung,- for radiation and chemotherapy when patient stable -Acute COPD exacerbation in an ex-smoker, POA, slow to respond -Troponin leak from acute PE. No evidence of acute coronary syndrome. Plan: -on bronchodilators every 4 hours, also on IV Zosyn IV Solu-Medrol, Xarelto. Continue current treatment plan. Discussed with patient went. Also with Anais from oncology team. We'll see how the patient does for next 24-48 hours. Go from there.
[2019-08-06] MEDS: LEVOFLOXACIN 750 MG TAB PO SCH (22:21)
[2019-08-07] MEDS: IPRATROPIUM-ALBUTEROL 3 ML NEB INHALATION SCH ×7 (01:39→23:21)
[2019-08-07] MEDS: SODIUM CHLORIDE 0.9% 1,000 ML IV SCH ×3 (02:00→20:52)
[2019-08-07] MEDS: BUDESONIDE 1 MG/2 ML NEBU INHALATION SCH ×2 (06:50→19:42)
[2019-08-07] MEDS: predniSONE 20 MG TAB PO SCH (07:16)
[2019-08-07] MEDS: RIVAROXABAN 15 MG TAB PO SCH ×2 (07:17→16:46)
[2019-08-07] MEDS: BENZONATATE 100 MG CAP PO SCH ×3 (07:17→22:26)
[2019-08-07] MEDS: PANTOPRAZOLE 40 MG TABLET PO SCH (07:17)
[2019-08-07] MEDS: CITALOPRAM HYDROBROMIDE 20 MG TAB PO SCH (07:17)
[2019-08-07] MEDS: ALPRAZolam 0.5 MG TAB PO PRN (07:19)
[2019-08-07] MEDS: PIPERACILLIN-TAZOBACTAM 3.375 GM in SODIUM CHLORIDE 0.9% 100 ML IVPB SCH ×3 (08:17→23:18)
--- NOTE | 2019-08-07 09:07 | XR ---
EXAMINATION TYPE: XR chest 2V DATE OF EXAM: 08/07/2019 COMPARISON: Prior chest x-ray 08/05/2019 HISTORY: Pneumonia, lung cancer TECHNIQUE: Frontal and lateral views of the chest are obtained. FINDINGS: Persistent abnormal increased density present in the right upper lobe. Interstitium is thi ckened. Abnormal soft tissue extends along the paratracheal location, right hilar region. No evident pneumothorax or pleural effusion. There is eventration of the right hemidiaphragm. Right hemidiaphrag m is elevated. Arthropathy noted in the left shoulder. IMPRESSION: Correlate for possible lung carcinoma, interstitial spread of tumor. Pneumonia not exclu ded.
--- NOTE | 2019-08-07 10:15 | P.PN ---
Subjective Progress Note Date: 08/07/19 Principal diagnosis: Hemoptysis A very -[id number] male patient who got recently diagnosed with stage IV adenocarcinoma of the lung. We saw him in consultation approximately 3 weeks ago here in the hospital. He has a right upper lobe mass in addition to bilateral supraclavicular lymphadenopathy and mediastinal lymphadenopathy. Further workup with a biopsy of the right upper lobe confirmed the diagnosis of adenocarcinoma. PET scan indicated metastatic disease. MRI of the brain was negative. The patient was being worked up by oncology and he has not initiated his treatment yet and he was being considered for immunotherapy. He had been readmitted and discharged on 08/03/2018 for worsening shortness of breath and was found to have acute pulmonary emboli and discharged on Xarelto. He was discharged to an extended care facility. He was brought back here again yesterday to 08/04/2019 with episodes of hemoptysis. He is seen today in consultation on the regular medical floor. He is awake and alert in no acute distress. He states he had 2 or 3 episodes of hemoptysis about the size of a quarter bright red blood. This morning he's only had some dark old blood. He coughed well we were in the room in his sputum is clear. History of x-ray reveals evidence of bilateral lobe consolidation. Volume loss in the right lung and shift trachea towards the right makes it impossible to exclude underlying mass and increased interstitial changes in the short. Represents either interstitial edema or atypical pneumonia. He is more dyspneic on minimal exertion. Loose productive cough. White count 6.8. Hemoglobin 14.6. INR 1.4. Sodium 133. Creatinine 0.98. Troponin 0.050. ProBNP 716. He is currently afebrile. Maintaining O2 saturation in the mid 90s on 2 L/m per nasal cannula. Hemodynamically stable. The patient is seen today 08/06/2019 in follow-up on the regular medical floor. Awake and alert in no acute distress. Maintaining good O2 saturations in the 90s on 2 L/m per nasal cannula, he's been afebrile. Blood culture reveals no growth. No further hemoptysis. Congested cough this morning with clear sputum. He remains on bronchodilators, Tessalon Perles, antibiotics in the form of Zosyn and Levaquin. Remains on Xarelto. The patient is seen today 08/07/2019 in follow-up on the regular medical floor. He is currently resting comfortably in bed. Awake and alert in no acute distress. He has had a rare blood-tinged sputum but no significant hemoptysis. He is maintaining good O2 saturations in the 90s on 2 L/m per nasal cannula. Afebrile. Hemodynamically stable. Blood cultures reveal no growth to date. Chest x-ray reveals persistent abnormal increased density in the right upper lobe. Interstitium is thickened. Abnormal soft tissue extends along the paratracheal location, right hilar region. No evidence of pneumothorax or pleural effusion. There is some eventration the right hemidiaphragm slightly elevated. Patient has a known history of metastatic non-small cell lung carcinoma with possible interstitial spread of tumor. Pneumonia not completely excluded. He is continued on DuoNeb inhalations, Pulmicort inhalations, antibiotics in the form of Zosyn and Levaquin. Anticoagulated with Xarelto. Objective - Vital Signs Vital signs: Vital Signs Temp 98.2 F 08/07/19 07:44 Pulse 86 08/07/19 07:44 Resp 24 08/07/19 07:44 BP 132/78 08/07/19 07:44 Pulse Ox 95 08/07/19 07:44 Intake & Output 08/06/19 08/07/19 08/07/19 18:59 06:59 18:59 Intake Total 1480 900 Output Total 1 Balance 1480 899 Intake: Intake, IV Titration 900 900 Amount Levofloxacin 750Mg-D5w 800 Pmx 750 mg In Dextrose/ Water 1 150ml.bag @ 100 mls/hr IVPB Q24H [facility] Rx#: [id number] Piperacillin-Tazobactam 3 100 100 .375 gm In Sodium Chloride 0.9% 100 ml @ 25 mls/hr IVPB Q8HR [facility] Rx# :[id number] Sodium Chloride 0.9% 1, 800 000 ml @ 100 mls/hr IV . Q10H [facility] Rx#:[id number] Oral 580 Output: Urine 1 Other: Voiding Method Toilet Toilet # Voids 1 - Exam GENERAL EXAM: Alert, pleasant 79-year-old gentleman, on 2 L nasal cannula, comfortable in no apparent distress. HEAD: Normocephalic. EYES: Normal reaction of pupils, equal size. NOSE: Clear with pink turbinates. THROAT: No erythema or exudates. NECK: No masses, no JVD. CHEST: No chest wall deformity. LUNGS: Equal air entry with bilateral scattered rhonchi. CVS: S1 and S2 normal with no audible murmur, regular rhythm. ABDOMEN: No hepatosplenomegaly, normal bowel sounds, no guarding or rigidity. SPINE: No scoliosis or deformity SKIN: No rashes CENTRAL NERVOUS SYSTEM: No focal deficits, tone is normal in all 4 extremities. EXTREMITIES: There is no peripheral edema. No clubbing, no cyanosis. Periph eral pulses are intact. - Labs CBC & Chem 7: 08/04/19 21:50 08/04/19 21:50 Labs: Microbiology - Last 24 Hours (Table) 08/04/19 23:00 Blood Culture - Preliminary Blood No Growth after 48 hours 08/04/19 23:30 Blood Culture - Preliminary Blood No Growth after 48 hours Assessment and Plan Assessment: 1 Hemoptysis in a patient recently admitted for acute pulmonary embolism involving the left lung with secondary shortness of breath causing further worsening in his chronic dyspnea and further decompensation in his overall pulmonary status. The patient is likely hypercoagulable secondary to his underlying malignancy. Recently started on Xarelto. 2 Adenocarcinoma of the lung, recent diagnosis, treatment has not been initiated 3 Acute hypoxic respiratory failure currently on 2 L of oxygen by nasal cannula 4 COPD 5 Hyperlipidemia 6 Prostate cancer 7 Ex-smoker Plan The patient was seen and evaluated by . Chest x-ray reviewed. No further significant hemoptysis. Remains on Xarelto. Remains on antibiotics and bronchodilators. Improved today compared to yesterday. We'll continue the current treatment plan. Plan is for possible radiation treatments with subsequent chemotherapy/immunotherapy. Medical oncology is planning to meet with the patient and family at 10:30 this morning. We'll continue to follow. I, the cosigning physician, performed a history & physical examination of the patient. Lungs sounds bilateral scattered rhonci. Maintaining good O2 saturations in the 90s on 2L/min per nasal canula. I discussed the assessment and plan of care with my nurse practitioner, Nely Guan. I attest to the above note as dictated by her.
[2019-08-07] MEDS: LORATADINE 10 MG TAB PO SCH (10:34)
[2019-08-07] MEDS: ALPRAZolam 0.5 MG TAB PO SCH ×3 (10:34→22:26)
--- NOTE | 2019-08-07 11:47 | P.CONS ---
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 She presents secondary to intractable cough and hemoptysis. The patient's oncologic history began just after the holidays when he was complaining of persistent cough. He ultimately underwent a CT scan of the chest on July 09 showing extensive disease involving the right hilum and right upper lobe with encasement of the right mainstem bronchus. There was bilateral mediastinal adenopathy including left hilar adenopathy. The patient was taken for bronchoscopy on July 16 and was found to have endobronchial disease involving the right upper lobe. Biopsy of this region revealed adenocarcinoma. He subsequently had an outpatient PET CT on July 22 which showed the right hilar mass measuring 8.7 x 3.5 cm with an SUV of 8. There is bilateral mediastinal and supraclavicular adenopathy appreciated as well as a lower paraesophageal and upper retro-peritoneal lymph node which were suspicious. The patient had an MRI of the brain on July 23 which was unremarkable. The patient was considered to have stage IV disease, with the plan of initiating sy stemic therapy followed by restaging. We're waiting on the molecular subtyping of the patient's tumor prior to initiation of treatment. Unfortunately the patient was recently hospitalized with pulmonary embolism. He was subsequent restarted on Xarelto and discharged on August 03. He is now requiring oxygen, and was sent to [facility] for rehabilitation. During his rehabilitation stay, the patient's cough became worse and he began coughing up blood. He was subsequently readmitted. At this time the patient is having constant coughing which is productive of clear phlegm which is occasionally streaked with blood. He does not appear to have high volume hemoptysis at this time. This coughing does seem worse when he is lying flat. The family feels his cough is much worse than it was one month previous. He denies chest pain or discomfort, but is quite distressed by this cough. He has been able to ambulate short distances wall holding the IV pole. Review of Systems Constitutional: Denies chills, Denies fever Eyes: denies blurred vision Ears: deny: decreased hearing Ears, nose, mouth and throat: Denies headache Cardiovascular: Reports dyspnea on exertion, Denies chest pain Respiratory: Reports cough, Reports cough with sputum, Reports dyspnea, Reports excessive sputum, Reports hemoptysis Gastrointestinal: Denies abdominal pain Genitourinary: Denies flank pain Musculoskeletal: Reports muscle weakness Integumentary: Denies rash Neurological: Reports confusion Psychiatric: Reports anxiety Past Medical History Past Medical History: Cancer, GERD/Reflux, Hyperlipidemia, Prostate Disorder, Pulmonary Embolus (PE) Additional Past Medical History / Comment(s): Prostate cancer with surgery (2012) & radiation tx spring 2017, stage IV adenocarcinoma of the lung- diagnosed 3 weeks ago, COPD, hyperlipidemia, Recent PE on xarelto History of Any Multi-Drug Resistant Organisms: None Reported Past Surgical History: Appendectomy, Joint Replacement, Prostate Surgery Additional Past Surgical History / Comment(s): TOTAL LEFT KNEE, EGD, colonoscopy. Past Anesthesia/Blood Transfusion Reactions: Motion Sickness Past Psychological History: Anxiety Smoking Status: Never smoker Past Alcohol Use History: None Reported Additional Past Alcohol Use History / Comment(s): QUIT SMOKING 1979, SMOKED 1 PPD, SMOKED 20-25 YEARS. Past Drug Use History: None Reported - Past Family History Mother Family Medical History: No Reported History Additional Family Medical History / Comment(s): passed in her 90's Father Family Medical History: Coronary Artery Disease (CAD) Sister(s) Family Medical History: No Reported History Son(s) Family Medical History: No Reported History Daughter(s) Family Medical History: No Reported History Medications and Allergies Home Medications Medication Instructions Recorded Confirmed Type Citalopram Hydrobromide [CeleXA] 20 mg PO DAILY@0800 07/12/19 08/04/19 History Acetaminophen Tab [Tylenol] 650 mg PO Q6HR PRN tab 08/03/19 08/04/19 Rx Budesonide [Pulmicort] 1 mg INHALATION RT-BID ml 08/03/19 08/04/19 Rx Ipratropium-Albuterol Nebulize 3 ml INHALATION RT-QID ml 08/03/19 08/04/19 Rx [Duoneb 0.5 mg-3 mg/3 ml Soln] Bisacodyl 10 mg RECTAL DAILY PRN 08/04/19 08/04/19 History Folic Acid 1 mg PO DAILY@1700 08/04/19 08/04/19 History Magnesium Hydroxide [Milk of 2,400 mg PO DAILY PRN 08/04/19 08/04/19 History Magnesia] Na Phos,M-B/Na Phos,Di-Ba [Fleet 133 ml RECTAL ONCE PRN 08/04/19 08/04/19 History Adult] Omeprazole [PriLOSEC] 40 mg PO DAILY@0700 08/04/19 08/04/19 History Rivaroxaban [Xarelto] 15 mg PO BID@0800,1700 08/04/19 08/04/19 History Rivaroxaban [Xarelto] 20 mg PO DIRECTED 08/04/19 08/07/19 History Allergies Allergy/AdvReac Type Severity Reaction Status Date / Time No Known Allergies Allergy Verified 08/04/19 22:28 Physical Exam Vitals: Vital Signs Temp Pulse Pulse Resp BP Pulse Ox 08/07/19 10:39 70 08/07/19 07:44 98.2 F 86 24 132/78 95 08/07/19 07:06 88 08/07/19 06:50 72 08/07/19 05:00 97.8 F 90 20 126/67 93 L 08/07/19 03:42 84 08/07/19 03:35 94 L 08/07/19 03:33 80 08/06/19 20:59 97.8 F 88 18 118/73 92 L 08/06/19 19:52 82 08/06/19 19:38 82 95 08/06/19 16:00 78 18 08/06/19 15:36 80 08/06/19 15:22 84 08/06/19 13:00 97.3 F L 78 18 115/71 99 08/06/19 12:08 80 08/06/19 11:59 76 Intake and Output 08/06/19 08/07/19 08/07/19 22:59 06:59 14:59 Intake Total 900 Output Total 1 Balance -1 900 Intake: Intake, IV Titration 900 Amount Levofloxacin 750Mg-D5w 800 Pmx 750 mg In Dextrose/ Water 1 150ml.bag @ 100 mls/hr IVPB Q24H [facility] Rx#: [id number] Piperacillin-Tazobactam 3 100 .375 gm In Sodium Chloride 0.9% 100 ml @ 25 mls/hr IVPB Q8HR [facility] Rx# :[id number] Output: Urine 1 Other: Voiding Method Toilet Toilet # Voids 1 - Constitutional General appearance: mild distress - EENT Eyes: EOMI, PERRLA - Neck Neck: no lymphadenopathy - Respiratory Respiratory: right: diminished, left: CTA - Cardiovascular Rhythm: regular - Gastrointestinal General gastrointestinal: no distended, no tenderness - Integumentary Integumentary: no calor, no cellulitis - Neurologic Neurologic: CNII-XII intact - Musculoskeletal Musculoskeletal: generalized weakness - Psychiatric Psychiatric: A&O x's 3, appropriate affect Results CBC & Chem 7: 08/04/19 21:50 08/04/19 21:50 Labs: Microbiology - Last 24 Hours (Table) 08/04/19 23:00 Blood Culture - Preliminary Blood No Growth after 48 hours 08/04/19 23:30 Blood Culture - Preliminary Blood No Growth after 48 hours Chest x-ray: report reviewed, image reviewed Assessment and Plan Plan: The patient is a 79-year-old male with a history of a recently diagnosed stage I V adenocarcinoma of the right upper lung with limited distant metastasis involving upper abdominal adenopathy. She presents secondary to intractable cough and hemoptysis. The patient was recently hospitalized with DVT, and has developed low volume hemoptysis after starting Xarelto. 1. Persistent cough: this is likely multifactorial, but the most likely underlying reason is the right upper lung cancer. This has an endobronchial component, and it is possible that this is causing some postobstructive pneumonia or at minimum persistently activating his cough reflex. His cough has gradually progressed over the past month. I discussed with the patient that a palliative course of radiotherapy may offer him some benefit, but that typically radiotherapy take some time to start working. I explained the radiotherapy was typically quite effective at decreasing hemoptysis, and may provide some benefit with regards to his cough if we are able to shrink the disease involving the airways. I discussed that he would first undergo CT simulation for treatment planning. Treatment will be delivered Tuesday through Tuesday, 5 days a week for approximately 1-2 weeks. I discussed typical side effects this treatment which include, but are not limited to; fatigue, skin irritation, dysphagia, odyno phagia and low risk of long-term toxicity at palliative doses. The patient is willing to initiate this treatment if he feels it will help him. I am concerned will be difficult for him to lie flat for this treatment. I will recommend the patient undergo premedication to help him relax. 2. Stage IV Adenocarcinoma of the lung: Medical oncology is planning on initiating the patient on a regimen of Carbo, Alimta and Keytruda. 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 These results or expected back this week. Time with Patient: Greater than 30
[2019-08-07] MEDS: DRONABINOL 2.5 MG CAP PO SCH ×2 (12:38→16:46)
[2019-08-07] MEDS: SALT AND SODA MOUTHWASH 1,000 ML PO SCH ×4 (12:38→23:18)
[2019-08-07] MEDS: guaiFENesin-Coden 100-10MG/5ML 10 ML CUP PO PRN (12:46)
[2019-08-07] MEDS: FOLIC ACID 1 MG TAB PO SCH (16:46)
--- NOTE | 2019-08-07 17:07 | P.PN ---
Subjective Progress Note Date: 08/07/19 Principal diagnosis: Intractable cough from NSCLC In f/u today pt continues to have debilitating cough, no recent hemoptysis, the cough keeps him from eating, moving around and sleeping. He is visibly anxious. Objective - Vital Signs Vital signs: Vital Signs Temp 97.6 F 08/07/19 13:20 Pulse 85 08/07/19 16:03 Resp 22 08/07/19 13:20 BP 136/75 08/07/19 13:20 Pulse Ox 93 L 08/07/19 13:20 Intake & Output 08/06/19 08/07/19 08/07/19 18:59 06:59 18:59 Intake Total 6071 654 1206 Output Total 1 Balance 4960 462 7292 Weight 72.575 kg Intake: Intake, IV Titration 900 900 800 Amount Levofloxacin 750Mg-D5w 800 Pmx 750 mg In Dextrose/ Water 1 150ml.bag @ 100 mls/hr IVPB Q24H [facility] Rx#: [id number] Piperacillin-Tazobactam 3 100 100 .375 gm In Sodium Chloride 0.9% 100 ml @ 25 mls/hr IVPB Q8HR [facility] Rx# :[id number] Sodium Chloride 0.9% 1, 800 800 000 ml @ 100 mls/hr IV . Q10H [facility] Rx#:[id number] Oral 580 1080 Output: Urine 1 Other: Voiding Method Toilet Toilet # Voids 1 3 - Constitutional General appearance: Present: average body habitus, cooperative, severe distress - EENT Eyes: Present: anicteric sclerae, EOMI ENT: Present: hearing grossly normal - Respiratory Details: severe dry cough Respiratory: bilateral: diminished - Cardiovascular Rhythm: regular Heart sounds: normal: S1, S2 Abnormal Heart Sounds: Absent: systolic murmur, diastolic murmur, rub, S3 Gall op, S4 Gallop, click, other - Peripheral edema leg Peripheral Edema: bilateral: None - Gastrointestinal General gastrointestinal: Present: normal bowel sounds, soft - Neurologic Neurologic: Present: CNII-XII intact - Musculoskeletal Musculoskeletal: Present: generalized weakness - Psychiatric Psychiatric Comment(s): tearful, trembling during discussion Psychiatric: Present: A&O x's 3 - Labs CBC & Chem 7: 08/04/19 21:50 08/04/19 21:50 Labs: Microbiology - Last 24 Hours (Table) 08/04/19 23:00 Blood Culture - Preliminary Blood No Growth after 48 hours 08/04/19 23:30 Blood Culture - Preliminary Blood No Growth after 48 hours Assessment and Plan (1) Cough Narrative/Plan: Persistent, most distressing symptom to the patient. Pulmonary consulted. Anti-tussives ordered. Medications to decrease secretions ordered. Steroids initiated. Current Visit: Yes Status: Acute Priority: High Code(s): R05 - COUGH SNOMED Code(s): 82958325 (2) Hemoptysis Current Visit: Yes Status: Resolved Priority: Medium Code(s): R04.2 - HEMOPTYSIS SNOMED Code(s): 30398249 (3) Metastatic non-small cell lung cancer Narrative/Plan: PET scan on 07/22/19 impression was large right hilar pulmonary neoplasm, abnormal thoracic adenopathy, supraclavicular, lower paraesophageal and upper abdominal retroperitoneal adenopathy. Pending biomarkers Patient's case was reviewed by [facility] thoracic tumor board. Being that the patient is symptomatic, and feeling quite terrible, we had a long discussion today with pt and family about treatment options. Symptoms are r/t cancer, have to treat cancer before symptoms are going to improve. Chemotherapy is the best choice when pt is experiencing severe symptoms/visceral crisis. Also, discussed it is appropriate to begin some radiation concurrently to incr ease response. This plan has the best potential to treat symptoms acutely. We discussed SE of chemo drugs and that pt has to be motivated because he needs to willing to participate in his recovery. Pt and family agree and want to proceed. Chemo orders for carbo/alimta will be sent to unit and Pharmacy Current Visit: No Status: Acute Priority: High Code(s): C34.90 - MALIGNANT NEOPLASM OF UNSP PART OF UNSP BRONCHUS OR LUNG SNOMED Code(s): 665095339 Plan: Appetite stimulant ordered Salt and soda for oral care Anxiety meds prescribed ATC
[2019-08-07] MEDS: LEVOFLOXACIN 750 MG TAB PO SCH (22:26)
--- NOTE | 2019-08-07 23:37 | P.PN ---
Progress Note - Text Progress Note Date: 08/07/19 Chief Complaint: short of breath history of presenting complaint: This is a pleasant 79-year-old patient of Dr. Jacinto eHrmosillo. Was admitted here in in early July. Had a bronchoscopy. For lung mass. 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 patient was admitted to the hospital from July 31 through August 03. diagnosed with acute pulmonary embolism.discharge on Xarelto.plan was to patient to improve from this acute event then come back for treatment of the lung cancer. Patient returns with increasing shortness of breath some wheezing. No cough. No production. No fever no chills. Appetite is not very good. Gets is the short winded. Tired. Patient was at [facility] for above days. Admitted with-acute COPD exacerbation, postobstructive pneumonia, acute respiratory failure. Today-remains short of breath. Slight cough with clear sputum. Anxious. Intermittent coughing. Review of systems: Was done for constitutional, cardiovascular, GI, pulmonary. relevant finding as above Active Medications Acetaminophen (Tylenol Tab) 650 mg PO Q6HR PRN PRN Reason: Mild Pain or Fever > 100.5 Albuterol/Ipratropium (Duoneb 0.5 Mg-3 Mg/3 Ml Soln) 3 ml INHALATION RT-Q4H [facility] Last Admin: 08/07/19 23:21 Dose: 3 ml Documented by: Alprazolam (Xanax) 0.5 mg PO TID [facility] Last Admin: 08/07/19 22:26 Dose: 0.5 mg Documented by: Benzonatate (Tessalon Perles) 200 mg PO TID [facility] Last Admin: 08/07/19 22:26 Dose: 200 mg Documented by: Bisacodyl (Dulcolax) 10 mg RECTAL DAILY PRN PRN Reason: Constipation Budesonide (Pulmicort) 1 mg INHALATION RT-BID [facility] Last Admin: 08/07/19 19:42 Dose: 1 mg Documented by: Citalopram Hydrobromide (Celexa) 20 mg PO DAILY@0800 [facility] Last Admin: 08/07/19 07:17 Dose: 20 mg Documented by: Dexamethasone Sodium Phosphate (Decadron) 10 mg IV ONCE@1600 ONE Stop: 08/08/19 16:01 Dronabinol (Marinol) 2.5 mg PO AC-BID [facility] Last Admin: 08/07/19 16:46 Dose: 2.5 mg Documented by: Famotidine (Pepcid) 20 mg IVP ONCE@1600 ONE Stop: 08/08/19 16:01 Folic Acid (Folic Acid) 1 mg PO DAILY@1700 [facility] Last Admin: 08/07/19 16:46 Dose: 1 mg Documented by: Guaifenesin/Codeine Phosphate (Robitussin Ac) 10 ml PO Q6H PRN PRN Reason: Cough Last Admin: 08/07/19 12:46 Dose: 10 ml Documented by: Sodium Chloride (Saline 0.9%) 1,000 mls @ 100 mls/hr IV .Q10H [facility] Last Admin: 08/07/19 20:52 Dose: 100 mls/hr Documented by: Piperacillin Sod/Tazobactam (Sod 3.375 gm/ Sodium Chloride) 100 mls @ 25 mls/hr IVPB Q8HR [facility] Stop: 08/15/19 08:01 Last Admin: 08/07/19 23:18 Dose: 25 mls/hr Documented by: Pemetrexed 900 mg/ Sodium (Chloride) 136 mls @ 408 mls/hr IV ONCE@1600 ONE Stop: 08/08/19 16:19 Carboplatin 420 mg/ Sodium (Chloride) 292 mls @ 292 mls/hr IV ONCE@1600 ONE Stop: 08/08/19 16:59 Ondansetron HCl 16 mg/ Sodium (Chloride) 58 mls @ 232 mls/hr IVPB ONCE@1600 ONE Stop: 08/08/19 16:14 Levofloxacin (Levaquin) 750 mg PO 2300 [facility] Last Admin: 08/07/19 22:26 Dose: 750 mg Documented by: Loratadine (Claritin) 10 mg PO DAILY [facility] Last Admin: 08/07/19 10:34 Dose: 10 mg Documented by: Magnesium Hydroxide (Milk Of Magnesia) 2,400 mg PO DAILY PRN PRN Reason: Constipation Miscellaneous Information (Pneumonia Protocol Utilized) 1 each PO ONCE PRN PRN Reason: Per Protocol Morphine Sulfate (Morphine Sulfate (Inj)) 4 mg IVP Q6HR PRN PRN Reason: Pain Pantoprazole Sodium (Protonix) 40 mg PO DAILY@0700 [facility] Last Admin: 08/07/19 07:17 Dose: 40 mg Documented by: Prednisone () 60 mg PO DAILY [facility] Last Admin: 08/07/19 07:16 Dose: 60 mg Documented by: Rivaroxaban (Xarelto) 15 mg PO BID@0800,1700 [facility] Last Admin: 08/07/19 16:46 Dose: 15 mg Documented by: Scopolamine (Transderm-Scop 1.5mg/72hr Patch) 1 patch TRANSDERM Q72H [facility] Last Admin: 08/06/19 18:18 Dose: 1 patch Documented by: Sodium Bicarbonate () 5 ml PO 5XD [facility] Last Admin: 08/07/19 23:18 Dose: 5 ml Documented by: Physical examination: VITAL SIGNS: 98.2-86-24-132/78-95% on 2 L GENERAL: propped up in bed, a bit less short of breath EYES: Pupils equal. Conjunctiva normal. HEENT: External appearance of nose and ears normal, oral cavity grossly normal. Decreased hearing NECK: JVD not raised; masses not palpable. HEART: First and second heart sounds are normal; no edema. LUNGS: Respiratory rate increased, decreased breath sounds , prolonged expiration. Occasional wheezing ABDOMEN: Soft, nontender, liver spleen not palpable, no masses palpable. PSYCH: Alert and oriented x3; mood and affect-anxious. 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 Diffuse his interstitial changes in the right lung. Small bilateral pleural effusion adenopathy in the mediastinum present. Thrombus in the distal left main pulmonary artery extending into the secondary and tertiary branches of the left upper and left lower lobes. Assessment: -Suspect right upper lobe, collapse from underlying malignancy -Possible postobstructive pneumonia, POA slow to respond -Acute pulmonary embolism, and the distal left main pulmonary artery extending into the secondary and tertiary branches, on Xarelto, diagnosed on July 31 -Poorly differentiated adenocarcinoma of the lung,- for radiation and chemotherapy when patient stable -Acute COPD exacerbation in an ex-smoker, POA, slow to respond -Troponin leak from acute PE. No evidence of acute coronary syndrome. Plan: Prognosis remains guarded. Patient has been seen by oncology who awaiting for tumor markers and will commence treatment accordingly. Also seen by radiation oncologist. Was preparing for radiation treatment. Care was discussed with the patient. No other current medication treatment plan.
[2019-08-08] MEDS: IPRATROPIUM-ALBUTEROL 3 ML NEB INHALATION SCH ×5 (04:17→20:16)
[2019-08-08] MEDS: SALT AND SODA MOUTHWASH 1,000 ML PO SCH ×4 (05:37→20:22)
[2019-08-08] MEDS: guaiFENesin-Coden 100-10MG/5ML 10 ML CUP PO PRN ×2 (05:49→11:12)
[2019-08-08] MEDS: SODIUM CHLORIDE 0.9% 1,000 ML IV SCH ×3 (05:49→18:28)
[2019-08-08] MEDS: PANTOPRAZOLE 40 MG TABLET PO SCH (07:27)
[2019-08-08] MEDS: RIVAROXABAN 15 MG TAB PO SCH ×2 (07:28→18:28)
[2019-08-08] MEDS: DRONABINOL 2.5 MG CAP PO SCH ×2 (07:28→18:27)
[2019-08-08] MEDS: ALPRAZolam 0.5 MG TAB PO SCH ×3 (07:29→21:09)
[2019-08-08] MEDS: BENZONATATE 100 MG CAP PO SCH ×3 (07:29→21:09)
[2019-08-08] MEDS: LORATADINE 10 MG TAB PO SCH (07:30)
[2019-08-08] MEDS: predniSONE 20 MG TAB PO SCH (07:30)
[2019-08-08] MEDS: CITALOPRAM HYDROBROMIDE 20 MG TAB PO SCH (07:31)
[2019-08-08 07:50] LABS: HCT 39.9 % (39.0-53.0); HGB 13.3 gm/dL (13.0-17.5); MCH 33.5 pg (25.0-35.0); MCHC 33.2 g/dL (31.0-37.0); MCV 100.7 fL (80.0-100.0); Mean Platelet Volume 7.5; Platelet Count 257 k/uL (150-450); RBC 3.96 m/uL (4.30-5.90); RDW 13.3 % (11.5-15.5); WBC 7.9 k/uL (3.8-10.6)
[2019-08-08 08:05] LABS: ALT 28 U/L (4-49); AST 31 U/L (17-59); African American GFR (CKD) >90 (>60 ml/min/1.73 sqM); Albumin 2.6 g/dL (3.5-5.0); Alkaline Phosphatase 52 U/L (38-126); Anion Gap 5 mmol/L; Blood Urea Nitrogen 19 mg/dL (9-20); Calcium 8.5 mg/dL (8.4-10.2); Carbon Dioxide 25 mmol/L (22-30); Chloride 109 mmol/L (98-107); Glucose 90 mg/dL (74-99); Non-African American GFR(CKD) 84 (>60 ml/min/1.73 sqM); Potassium 4.1 mmol/L (3.5-5.1); Sodium 139 mmol/L (137-145); Total Bilirubin 0.8 mg/dL (0.2-1.3); Total Protein 5.1 g/dL (6.3-8.2)
[2019-08-08] MEDS: BUDESONIDE 1 MG/2 ML NEBU INHALATION SCH ×2 (08:14→20:16)
[2019-08-08] MEDS: PIPERACILLIN-TAZOBACTAM 3.375 GM in SODIUM CHLORIDE 0.9% 100 ML IVPB SCH ×2 (09:31→16:24)
[2019-08-08] MEDS: MORPHINE SULFATE 4 MG/ML SYRINGE IVP PRN (11:12)
--- NOTE | 2019-08-08 13:03 | P.PN ---
Subjective Progress Note Date: 08/08/19 Principal diagnosis: Intractable cough from NSCLC In f/u today pt looks much more at ease, he feels calmer, he is not struggling to breathe as much, cough is a little less. He states feeling a little better, no recent hemoptysis. Objective - Vital Signs Vital signs: Vital Signs Temp 97.7 F 08/08/19 12:13 Pulse 83 08/08/19 12:13 Resp 18 08/08/19 12:13 BP 135/80 08/08/19 12:13 Pulse Ox 97 08/08/19 12:13 Intake & Output 08/07/19 08/08/19 08/08/19 18:59 06:59 18:59 Intake Total 2240 1540 Output Total 1 Balance 2239 1540 Weight 72.575 kg Intake: Intake, IV Titration 800 1300 Amount Piperacillin-Tazobactam 3 100 .375 gm In Sodium Chloride 0.9% 100 ml @ 25 mls/hr IVPB Q8HR [facility] Rx# :[id number] Sodium Chloride 0.9% 1, 800 1200 000 ml @ 100 mls/hr IV . Q10H [facility] Rx#:[id number] Oral 1440 240 Output: Urine 1 Other: Voiding Method Toilet Bedside Commode Bedside Commode # Voids 3 3 1 - Constitutional General appearance: Present: average body habitus, cooperative, no acute distress - EENT Eyes: Present: anicteric sclerae, EOMI ENT: Present: hearing grossly normal - Respiratory Respiratory: bilateral: diminished - Cardiovascular Heart sounds: normal: S1, S2 - Peripheral edema leg Peripheral Edema: bilateral: None - Gastrointestinal General gastrointestinal: Present: normal bowel sounds, soft - Integumentary Integumentary: Present: normal - Neurologic Neurologic: Present: CNII-XII intact - Musculoskeletal Musculoskeletal: Present: generalized weakness, strength equal bilaterally - Psychiatric Psychiatric: Present: A&O x's 3, appropriate affect, intact judgment & insight - Labs CBC & Chem 7: 08/08/19 07:22 08/08/19 07:22 Labs: Abnormal Lab Results - Last 24 Hours (Table) 08/08/19 08/08/19 08/08/19 Range/Units 07:22 07:22 07:22 RBC 3.96 L (4.30-5.90) m/uL MCV 100.7 H (80.0-100.0) fL Chloride 109 H (98-107) mmol/L Total Protein 5.1 L (6.3-8.2) g/dL Albumin 2.6 L (3.5-5.0) g/dL Procalcitonin 7.66 H (0.02-0.09) ng/mL Microbiology - Last 24 Hours (Table) 08/04/19 23:30 Blood Culture - Preliminary Blood No Growth after 72 hours 08/04/19 23:00 Blood Culture - Preliminary Blood No Growth after 72 hours Assessment and Plan (1) Cough Narrative/Plan: Persistent, most distressing symptom to the patient. Pulmonary consulted. Anti-tussives ordered. Medications to decrease secretions ordered. Steroids initiated. Cough is a little better today Current Visit: Yes Status: Acute Priority: High Code(s): R05 - COUGH SNOMED Code(s): 43236636 (2) Hemoptysis Narrative/Plan: Tumor erosion vs irritation from coughing, possibly both. Rad Onc consulted, pt has started XRT. Hemoptysis is not persistent or progressive at this time. Pt will continue to save sputum for RN monitoring Current Visit: Yes Status: Resolved Priority: Medium Code(s): R04.2 - HEMOPTYSIS SNOMED Code(s): 14142959 (3) Metastatic non-small cell lung cancer Narrative/Plan: PET scan on 07/22/19 impression was large right hilar pulmonary neoplasm, abnormal thoracic adenopathy, supraclavicular, lower paraesophageal and upper abdominal retroperitoneal adenopathy. Pending biomarker report Patient's case was reviewed by [facility] thoracic tumor board. Being that the patient is symptomatic, and feeling quite terrible, we had a long discussion today with pt and family about treatment options. Symptoms are r/t cancer, have to treat cancer before symptoms are going to improve. Chemotherapy with carbo/alimta starts today. He is having XRT today as well. Case was reviewed with Rad Onc and Dr. Peguero. Pt does want to proceed. we discussed common side effects, encouraged fluids, self care and mobility. Current Visit: No Status: Acute Priority: High Code(s): C34.90 - MALIGNANT NEOPLASM OF UNSP PART OF UNSP BRONCHUS OR LUNG SNOMED Code(s): 739774057 Plan: Appetite stimulant ordered Salt and soda for oral care Anxiety meds prescribed ATC (improvement)
--- NOTE | 2019-08-08 14:21 | P.PN ---
Subjective Progress Note Date: 08/08/19 Principal diagnosis: Stage IV non-small cell lung cancer. A very [id number] male patient who got recently diagnosed with stage IV adenocarcinoma of the lung. We saw him in consultation approximately 3 weeks ago here in the hospital. He has a right upper lobe mass in addition to bilateral supraclavicular lymphadenopathy and mediastinal lymphadenopathy. Further workup with a biopsy of the right upper lobe confirmed the diagnosis of adenocarcinoma. PET scan indicated metastatic disease. MRI of the brain was negative. The patient was being worked up by oncology and he has not initiated his treatment yet and he was being considered for immunotherapy. He had been readmitted and discharged on 08/03/2018 for worsening shortness of breath and was found to have acute pulmonary emboli and discharged on Xarelto. He was discharged to an extended care facility. He was brought back here again yesterday to 08/04/2019 with episodes of hemoptysis. He is seen today in consultation on the regular medical floor. He is awake and alert in no acute distress. He states he had 2 or 3 episodes of hemoptysis about the size of a quarter bright red blood. This morning he's only had some dark old blood. He coughed well we were in the room in his sputum is clear. History of x-ray reveals evidence of bilateral lobe consolidation. Volume loss in the right lung and shift trachea towards the right makes it impossible to exclude underlying mass and increased interstitial changes in the short. Represents either interstitial edema or atypical pneumonia. He is more dyspneic on minimal exertion. Loose productive cough. White count 6.8. Hemoglobin 14.6. INR 1.4. Sodium 133. Creatinine 0.98. Troponin 0.050. ProBNP 716. He is currently afebrile. Maintaining O2 saturation in the mid 90s on 2 L/m per nasal cannula. Hemodynamically stable. The patient is seen today 08/06/2019 in follow-up on the regular medical floor. Awake and alert in no acute distress. Maintaining good O2 saturations in the 90s on 2 L/m per nasal cannula, he's been afebrile. Blood culture reveals no growth. No further hemoptysis. Congested cough this morning with clear sputum. He remains on bronchodilators, Tessalon Perles, antibiotics in the form of Zosyn and Levaquin. Remains on Xarelto. The patient is seen today 08/07/2019 in follow-up on the regular medical floor. He is currently resting comfortably in bed. Awake and alert in no acute distress. He has had a rare blood-tinged sputum but no significant hemoptysis. He is maintaining good O2 saturations in the 90s on 2 L/m per nasal cannula. Afebrile. Hemodynamically stable. Blood cultures reveal no growth to date. Chest x-ray reveals persistent abnormal increased density in the right upper lobe. Interstitium is thickened. Abnormal soft tissue extends along the paratracheal location, right hilar region. No evidence of pneumothorax or pleural effusion. There is some eventration the right hemidiaphragm slightly elevated. Patient has a known history of metastatic non-small cell lung carcinoma with possible interstitial spread of tumor. Pneumonia not completely excluded. He is continued on DuoNeb inhalations, Pulmicort inhalations, antibiotics in the form of Zosyn and Levaquin. Anticoagulated with Xarelto. Patient was reevaluated today on 08/08/2019 he is comfortable, continues to have some slightly blood-tinged sputum, less shortness of breath, no chest pain, continues to have intermittent episodes of cough. A be started on radiation therapy as per radiation oncology on the case. Remains on DuoNeb updrafts, Pulmicort, antibiotics, and remains on Xarelto. Objective - Vital Signs Vital signs: Vital Signs Temp 97.7 F 08/08/19 12:13 Pulse 83 08/08/19 12:13 Resp 18 08/08/19 12:13 BP 135/80 08/08/19 12:13 Pulse Ox 97 08/08/19 12:13 Intake & Output 08/07/19 08/08/19 08/08/19 18:59 06:59 18:59 Intake Total 2240 1540 600 Output Total 1 Balance 2239 1540 600 Weight 72.575 kg Intake: Intake, IV Titration 800 1300 600 Amount Piperacillin-Tazobactam 3 100 .375 gm In Sodium Chloride 0.9% 100 ml @ 25 mls/hr IVPB Q8HR [facility] Rx# :[id number] Sodium Chloride 0.9% 1, 800 1200 600 000 ml @ 100 mls/hr IV . Q10H [facility] Rx#:[id number] Oral 1440 240 Output: Urine 1 Other: Voiding Method Toilet Bedside Commode Bedside Commode # Voids 3 3 1 - Exam GENERAL EXAM: Alert, pleasant 79-year-old gentleman, on 2 L nasal cannula, comfortable in no apparent distress. HEAD: Normocephalic. EYES: Normal reaction of pupils, equal size. NOSE: Clear with pink turbinates. THROAT: No erythema or exudates. NECK: No masses, no JVD. CHEST: No chest wall deformity. LUNGS: Equal air entry with bilateral scattered rhonchi. CVS: S1 and S2 normal with no audible murmur, regular rhythm. ABDOMEN: No hepatosplenomegaly, normal bowel sounds, no guarding or rigidity. SKIN: No rashes CENTRAL NERVOUS SYSTEM: Alert oriented 3 no gross focal deficit. EXTREMITIES: No clubbing, edema or cyanosis. Psychiatric: Normal mood affect and normal mental status examination. - Labs CBC & Chem 7: 08/08/19 07:22 08/08/19 07:22 Labs: Abnormal Lab Results - Last 24 Hours (Table) 08/08/19 08/08/19 08/08/19 Range/Units 07:22 07:22 07:22 RBC 3.96 L (4.30-5.90) m/uL MCV 100.7 H (80.0-100.0) fL Chloride 109 H (98-107) mmol/L Total Protein 5.1 L (6.3-8.2) g/dL Albumin 2.6 L (3.5-5.0) g/dL Procalcitonin 7.66 H (0.02-0.09) ng/mL Microbiology - Last 24 Hours (Table) 08/04/19 23:30 Blood Culture - Preliminary Blood No Growth after 72 hours 08/04/19 23:00 Blood Culture - Preliminary Blood No Growth after 72 hours Assessment and Plan Assessment: 1 Hemoptysis in a patient recently admitted for acute pulmonary embolism involving the left lung with secondary shortness of breath causing further worsening in his chronic dyspnea and further decompensation in his overall pulmonary status. The patient is likely hypercoagulable secondary to his underlying malignancy. Recently started on Xarelto. 2 Adenocarcinoma of the lung, recent diagnosis, treatment has not been initiated 3 Acute hypoxic respiratory failure currently on 2 L of oxygen by nasal cannula 4 COPD 5 Hyperlipidemia 6 Prostate cancer 7 Ex-smoker Recommendation: Continue present treatment plan including antibiotics, bronchodilators, steroids, continue Xarelto unless hemoptysis gets extremely worse. We will continue to follow. Time with Patient: Less than 30
[2019-08-08] MEDS ORDERED: ONDANSETRON 16 MG in SODIUM CHLORIDE 0.9% 50 ML IVPB ONE (16:00)
[2019-08-08] MEDS ORDERED: PEMETREXED DISODIUM IV ONE (16:00)
[2019-08-08] MEDS ORDERED: CARBOplatin 420 MG in SODIUM CHLORIDE 0.9% 250 ML IV ONE (16:00)
[2019-08-08] MEDS ORDERED: SODIUM CHLORIDE 0.9% IV ONE (16:00)
[2019-08-08] MEDS ORDERED: FAMOTIDINE 20 MG/2 ML VIAL IVP ONE (16:00)
[2019-08-08] MEDS ORDERED: DEXAMETHASONE SOD PHOSPHATE 10 MG/ML 1 ML VIAL IV ONE (16:00)
[2019-08-08] MEDS: FOLIC ACID 1 MG TAB PO SCH (18:27)
[2019-08-08] MEDS: LEVOFLOXACIN 750 MG TAB PO SCH (21:09)
--- NOTE | 2019-08-09 00:14 | P.PN ---
Progress Note - Text Progress Note Date: 08/08/19 Chief Complaint: short of breath history of presenting complaint: This is a pleasant 79-year-old patient of Dr. Jacinto Hermosillo. Was admitted here in in early July. Had a bronchoscopy. For lung mass. 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 patient was admitted to the hospital from July 31 through August 03. diagnosed with acute pulmonary embolism.discharge on Xarelto.plan was to patient to improve from this acute event then come back for treatment of the lung cancer. Patient returns with increasing shortness of breath some wheezing. No cough. No production. No fever no chills. Appetite is not very good. Gets is the short winded. Tired. Patient was at [facility] for above days. Admitted with-acute COPD exacerbation, postobstructive pneumonia, acute respiratory failure. Today-slight improvement in shortness of breath. A bit less anxious. Plan is to start chemotherapy and radiation hopefully today.. Review of systems: Was done for constitutional, cardiovascular, GI, pulmonary. relevant finding as above Active Medications Acetaminophen (Tylenol Tab) 650 mg PO Q6HR PRN PRN Reason: Mild Pain or Fever > 100.5 Albuterol/Ipratropium (Duoneb 0.5 Mg-3 Mg/3 Ml Soln) 3 ml INHALATION RT-Q4H [facility] Last Admin: 08/08/19 20:16 Dose: 3 ml Documented by: Alprazolam (Xanax) 0.[address] [facility] Last Admin: 08/08/19 21:09 Dose: 0.5 mg Documented by: Benzonatate (Tessalon Perles) [address] [facility] Last Admin: 08/08/19 21:09 Dose: 200 mg Documented by: Bisacodyl (Dulcolax) 10 mg RECTAL DAILY PRN PRN Reason: Constipation Budesonide (Pulmicort) 1 mg INHALATION RT-BID [facility] Last Admin: 08/08/19 20:16 Dose: 1 mg Documented by: Citalopram Hydrobromide (Celexa) 20 mg PO DAILY@0800 [facility] Last Admin: 08/08/19 07:31 Dose: 20 mg Documented by: Dronabinol (Marinol) 2.5 mg PO AC-BID [facility] Last Admin: 08/08/19 18:27 Dose: 2.5 mg Documented by: Folic Acid (Folic Acid) 1 mg PO DAILY@1700 [facility] Last Admin: 08/08/19 18:27 Dose: 1 mg Documented by: Guaifenesin/Codeine Phosphate (Robitussin Ac) 10 ml PO Q6H PRN PRN Reason: Cough Last Admin: 08/08/19 11:12 Dose: 10 ml Documented by: Sodium Chloride (Saline 0.9%) 1,000 mls @ 100 mls/hr IV .Q10H [facility] Last Admin: 08/08/19 18:28 Dose: 100 mls/hr Documented by: Piperacillin Sod/Tazobactam (Sod 3.375 gm/ Sodium Chloride) 100 mls @ 25 mls/hr IVPB Q8HR [facility] Stop: 08/15/19 08:01 Last Admin: 08/08/19 16:24 Dose: 25 mls/hr Documented by: Levofloxacin (Levaquin) [address] [facility] Last Admin: 08/08/19 21:09 Dose: 750 mg Documented by: Loratadine (Claritin) [address] [facility] Last Admin: 08/08/19 07:30 Dose: 10 mg Documented by: Magnesium Hydroxide (Milk Of Magnesia) 2,400 mg PO DAILY PRN PRN Reason: Constipation Miscellaneous Information (Pneumonia Protocol Utilized) 1 each PO ONCE PRN PRN Reason: Per Protocol Morphine Sulfate (Morphine Sulfate (Inj)) 4 mg IVP Q6HR PRN PRN Reason: Pain Last Admin: 08/08/19 11:12 Dose: 4 mg Documented by: Pantoprazole Sodium (Protonix) 40 mg PO DAILY@0700 [facility] Last Admin: 08/08/19 07:27 Dose: 40 mg Documented by: Prednisone () [address] [facility] Last Admin: 08/08/19 07:30 Dose: 60 mg Documented by: Rivaroxaban (Xarelto) 15 mg PO BID@0800,1700 [facility] Last Admin: 08/08/19 18:28 Dose: 15 mg Documented by: Scopolamine (Transderm-Scop 1.5mg/72hr Patch) [address] [facility] Last Admin: 08/06/19 18:18 Dose: 1 patch Documented by: Sodium Bicarbonate () [address] [facility] Last Admin: 08/08/19 20:22 Dose: 5 ml Documented by: Physical examination: VITAL SIGNS: 97.7-83-18-135/80-87% on 3 L GENERAL: propped up in bed, a bit less short of breath EYES: Pupils equal. Conjunctiva normal. HEENT: External appearance of nose and ears normal, oral cavity grossly normal. Decreased hearing NECK: JVD not raised; masses not palpable. HEART: First and second heart sounds are normal; no edema. LUNGS: Respiratory rate increased, decreased breath sounds , prolonged expiration. Occasional wheezing ABDOMEN: Soft, nontender, liver spleen not palpable, no masses palpable. PSYCH: Alert and oriented x3; mood and affect-anxious. 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 Diffuse his interstitial changes in the right lung. Small bilateral pleural effusion adenopathy in the mediastinum present. Thrombus in the distal left main pulmonary artery extending into the secondary and tertiary branches of the left upper and left lower lobes. Assessment: -Suspect right upper lobe, collapse from underlying malignancy -Possible postobstructive pneumonia, POA slow to respond -Acute pulmonary embolism, and the distal left main pulmonary artery extending into the secondary and tertiary branches, on Xarelto, diagnosed on July 31 -Poorly differentiated adenocarcinoma of the lung,- for radiation and chemotherapy, to be started as per oncology and radiation oncology -Acute COPD exacerbation in an ex-smoker, POA, slow to respond -Troponin leak from acute PE. No evidence of acute coronary syndrome. Plan: Discussed with the patient. Continue current medication treatment plan. Follow with oncology.
[2019-08-09] MEDS: IPRATROPIUM-ALBUTEROL 3 ML NEB INHALATION SCH ×6 (00:17→19:43)
[2019-08-09] MEDS: PIPERACILLIN-TAZOBACTAM 3.375 GM in SODIUM CHLORIDE 0.9% 100 ML IVPB SCH ×3 (00:31→15:30)
[2019-08-09] MEDS: SALT AND SODA MOUTHWASH 1,000 ML PO SCH ×6 (00:31→23:29)
[2019-08-09] MEDS: SODIUM CHLORIDE 0.9% 1,000 ML IV SCH ×3 (06:05→23:33)
[2019-08-09] MEDS: PANTOPRAZOLE 40 MG TABLET PO SCH (08:26)
[2019-08-09] MEDS: LORATADINE 10 MG TAB PO SCH (08:26)
[2019-08-09] MEDS: RIVAROXABAN 15 MG TAB PO SCH ×2 (08:26→16:30)
[2019-08-09] MEDS: ALPRAZolam 0.5 MG TAB PO SCH ×3 (08:26→22:16)
[2019-08-09] MEDS: DRONABINOL 2.5 MG CAP PO SCH ×2 (08:26→16:30)
[2019-08-09] MEDS: predniSONE 20 MG TAB PO SCH (08:28)
[2019-08-09] MEDS: CITALOPRAM HYDROBROMIDE 20 MG TAB PO SCH (08:32)
[2019-08-09] MEDS: BENZONATATE 100 MG CAP PO SCH ×3 (08:34→22:16)
[2019-08-09] MEDS: BUDESONIDE 1 MG/2 ML NEBU INHALATION SCH ×2 (09:11→19:43)
[2019-08-09 11:37] LABS: Basophils # (A) 0.1 k/uL (0-0.2); Basophils % (A) 1 %; Eosinophils # (A) 0.1 k/uL (0-0.7); Eosinophils % (A) 1 %; HCT 44.6 % (39.0-53.0); HGB 14.7 gm/dL (13.0-17.5); Lymphocytes # (A) 0.3 k/uL (1.0-4.8); Lymphocytes % (A) 3 %; MCH 32.8 pg (25.0-35.0); MCHC 32.9 g/dL (31.0-37.0); MCV 99.6 fL (80.0-100.0); Mean Platelet Volume 7.6; Monocytes # (A) 0.4 k/uL (0-1.0); Monocytes % (A) 4 %; Neutrophils # (A) 10.2 k/uL (1.3-7.7); Neutrophils % (A) 92 %; Platelet Count 267 k/uL (150-450); RBC 4.48 m/uL (4.30-5.90); RDW 13.3 % (11.5-15.5)
--- NOTE | 2019-08-09 14:49 | P.PN ---
Subjective Progress Note Date: 08/09/19 Principal diagnosis: Stage IV non-small cell lung cancer. A very -guvj-xhy male patient who got recently diagnosed with stage IV adenocarcinoma of the lung. We saw him in consultation approximately 3 weeks ago here in the hospital. He has a right upper lobe mass in addition to bilateral supraclavicular lymphadenopathy and mediastinal lymphadenopathy. Further workup with a biopsy of the right upper lobe confirmed the diagnosis of adenocarcinoma. PET scan indicated metastatic disease. MRI of the brain was negative. The patient was being worked up by oncology and he has not initiated his treatment yet and he was being considered for immunotherapy. He had been readmitted and discharged on 08/03/2018 for worsening shortness of breath and was found to have acute pulmonary emboli and discharged on Xarelto. He was discharged to an extended care facility. He was brought back here again yesterday to 08/04/2019 with episodes of hemoptysis. He is seen today in consultation on the regular medical floor. He is awake and alert in no acute distress. He states he had 2 or 3 episodes of hemoptysis about the size of a quarter bright red blood. This morning he's only had some dark old blood. He coughed well we were in the room in his sputum is clear. History of x-ray reveals evidence of bilateral lobe consolidation. Volume loss in the right lung and shift trachea towards the right makes it impossible to exclude underlying mass and increased interstitial changes in the short. Represents either interstitial edema or atypical pneumonia. He is more dyspneic on minimal exertion. Loose productive cough. White count 6.8. Hemoglobin 14.6. INR 1.4. Sodium 133. Creatinine 0.98. Troponin 0.050. ProBNP 716. He is currently afebrile. Maintaining O2 saturation in the mid 90s on 2 L/m per nasal cannula. Hemodynamically stable. The patient is seen today 08/06/2019 in follow-up on the regular medical floor. Awake and alert in no acute distress. Maintaining good O2 saturations in the 90s on 2 L/m per nasal cannula, he's been afebrile. Blood culture reveals no growth. No further hemoptysis. Congested cough this morning with clear sputum. He remains on bronchodilators, Tessalon Perles, antibiotics in the form of Zosyn and Levaquin. Remains on Xarelto. The patient is seen today 08/07/2019 in follow-up on the regular medical floor. He is currently resting comfortably in bed. Awake and alert in no acute distress. He has had a rare blood-tinged sputum but no significant hemoptysis. He is maintaining good O2 saturations in the 90s on 2 L/m per nasal cannula. Afebrile. Hemodynamically stable. Blood cultures reveal no growth to date. Chest x-ray reveals persistent abnormal increased density in the right upper lobe. Interstitium is thickened. Abnormal soft tissue extends along the paratracheal location, right hilar region. No evidence of pneumothorax or pleural effusion. There is some eventration the right hemidiaphragm slightly elevated. Patient has a known history of metastatic non-small cell lung carcinoma with possible interstitial spread of tumor. Pneumonia not completely excluded. He is continued on DuoNeb inhalations, Pulmicort inhalations, antibiotics in the form of Zosyn and Levaquin. Anticoagulated with Xarelto. Patient was reevaluated today on 08/08/2019 he is comfortable, continues to have some slightly blood-tinged sputum, less shortness of breath, no chest pain, continues to have intermittent episodes of cough. A be started on radiation therapy as per radiation oncology on the case. Remains on DuoNeb updrafts, Pulmicort, antibiotics, and remains on Xarelto. Reevaluated today on 08/09/2019. Patient is doing well, continues to have intermittent episodes of cough, slightly blood-tinged sputum, at times some old blood coughed up easily. Overall the patient is feeling better, no shortness of breath, no fever no chills, no chest pain at present. Objective - Vital Signs Vital signs: Vital Signs Temp 97.7 F 08/09/19 12:20 Pulse 84 08/09/19 12:20 Resp 18 08/09/19 12:20 BP 138/71 08/09/19 12:20 Pulse Ox 94 L 08/09/19 12:20 Intake & Output 08/08/19 08/09/19 08/09/19 18:59 06:59 18:59 Intake Total 600 1890 3160 Output Total 1 Balance 599 1890 3160 Intake: Intake, IV Titration 600 1300 1000 Amount Piperacillin-Tazobactam 3 100 100 .375 gm In Sodium Chloride 0.9% 100 ml @ 25 mls/hr IVPB Q8HR [facility] Rx# :[id number] Sodium Chloride 0.9% 1, 600 1200 900 000 ml @ 100 mls/hr IV . Q10H [facility] Rx#:[id number] Oral 590 2160 Output: Urine 1 Other: Voiding Method Bedside Commode Bedside Commode Bedside Commode # Voids 1 1 3 - Exam GENERAL EXAM: Alert, pleasant 79-year-old gentleman, in no form of distress. Very comfortable. HEAD: Normocephalic. EYES: Normal reaction of pupils, equal size. NOSE: Clear with pink turbinates. THROAT: No erythema or exudates. NECK: No masses, no JVD. CHEST: No chest wall deformity. LUNGS: Equal air entry with bilateral scattered rhonchi. CVS: S1 and S2 normal with no audible murmur, regular rhythm. ABDOMEN: No hepatosplenomegaly, normal bowel sounds, no guarding or rigidity. SKIN: No rashes CENTRAL NERVOUS SYSTEM: Alert oriented 3 no gross focal deficit. EXTREMITIES: No clubbing, edema or cyanosis. Psychiatric: Normal mood affect and normal mental status examination. - Labs CBC & Chem 7: 08/09/19 11:05 08/08/19 07:22 Labs: Abnormal Lab Results - Last 24 Hours (Table) 08/09/19 Range/Units 11:05 WBC 11.0 H (3.8-10.6) k/uL Neutrophils # 10.2 H (1.3-7.7) k/uL Lymphocytes # 0.3 L (1.0-4.8) k/uL Microbiology - Last 24 Hours (Table) 08/04/19 23:30 Blood Culture - Preliminary Blood No Growth after 96 hours 08/04/19 23:00 Blood Culture - Preliminary Blood No Growth after 96 hours Assessment and Plan Assessment: 1 Hemoptysis in a patient recently admitted for acute pulmonary embolism involving the left lung with secondary shortness of breath causing further worsening in his chronic dyspnea and further decompensation in his overall pulmonary status. The patient is likely hypercoagulable secondary to his underlying malignancy. Recently started on Xarelto. Continue Xarelto for now. 2 Adenocarcinoma of the lung, recent diagnosis, treatment has not been initiated 3 Acute hypoxic respiratory failure currently on 2 L of oxygen by nasal cannula 4 COPD 5 Hyperlipidemia 6 Prostate cancer 7 Ex-smoker Recommendation: Continue Xarelto Continue antibiotics Continue bronchodilators Continue steroids Patient was started on chemo and radiation therapy. Overall prognosis remains extremely poor and guarded. Mostly because this is a fairly advanced stage of non-small cell lung cancer. Time with Patient: Less than 30
[2019-08-09] MEDS: FOLIC ACID 1 MG TAB PO SCH (15:32)
[2019-08-09] MEDS: SCOPOLAMINE 1.5MG/72HR PATCH TRANSDERM SCH (16:33)
--- NOTE | 2019-08-09 19:37 | P.PN ---
Subjective Progress Note Date: 08/09/19 The patient is fairly comfortable at rest. However he still has coughing episodes during which time he gets more short of breath and anxious. He complains of chest pressure and discomfort on coughing. No history of recurrent hemoptysis. No history of fever/chills/nausea/vomiting. Swallowing is kyle ntained. Objective - Vital Signs Vital signs: Vital Signs Temp 97.7 F 08/09/19 12:20 Pulse 90 08/09/19 16:35 Resp 18 08/09/19 16:35 BP 138/71 08/09/19 12:20 Pulse Ox 95 08/09/19 16:24 Intake & Output 08/09/19 08/09/19 08/10/19 06:59 18:59 06:59 Intake Total 1890 4420 Output Total 1 Balance 1890 4419 Intake: Intake, IV Titration 1300 1000 Amount Piperacillin-Tazobactam 3 100 100 .375 gm In Sodium Chloride 0.9% 100 ml @ 25 mls/hr IVPB Q8HR [facility] Rx# :[id number] Sodium Chloride 0.9% 1, 1200 900 000 ml @ 100 mls/hr IV . Q10H [facility] Rx#:[id number] Oral 590 3420 Output: Urine 1 Other: Voiding Method Bedside Commode Toilet Bedside Commode # Voids 1 3 - Constitutional General appearance: Present: no acute distress - EENT Eyes: Present: EOMI ENT: Present: hearing grossly normal, normal oropharynx - Respiratory Respiratory: right: diminished - Cardiovascular Rhythm: regular Heart sounds: normal: S1, S2 - Gastrointestinal General gastrointestinal: Present: soft - Integumentary Integumentary: Present: normal - Neurologic Neurologic: Present: CNII-XII intact - Musculoskeletal Musculoskeletal: Present: generalized weakness, strength equal bilaterally - Psychiatric Psychiatric: Present: A&O x's 3 - Labs CBC & Chem 7: 08/09/19 11:05 08/08/19 07:22 Labs: Abnormal Lab Results - Last 24 Hours (Table) 08/09/19 Range/Units 11:05 WBC 11.0 H (3.8-10.6) k/uL Neutrophils # 10.2 H (1.3-7.7) k/uL Lymphocytes # 0.3 L (1.0-4.8) k/uL Microbiology - Last 24 Hours (Table) 08/04/19 23:30 Blood Culture - Preliminary Blood No Growth after 96 hours 08/04/19 23:00 Blood Culture - Preliminary Blood No Growth after 96 hours Assessment and Plan (1) Cough Narrative/Plan: This is related to tumor effect on the airways. The patient is on multiple medications for symptom control including Tessalon, Robitussin, inhaled and systemic steroids. Cough is overall improved, but the patient is still troubled by the same. Continue current aggressive symptom management. Patient has been started on chemotherapy as well as radiation which will hopefully improve symptoms in the long-term Current Visit: Yes Status: Acute Priority: High Code(s): R05 - COUGH SNOMED Code(s): 55402144 (2) Hemoptysis Narrative/Plan: This is due to the patient's cough, and anticoagulation. However the amount was quite minor, with hemoglobin remaining stable. This has not recurred. Continue anticoagulation Current Visit: Yes Status: Resolved Priority: Medium Code(s): R04.2 - HEMOPTYSIS SNOMED Code(s): 08730025 (3) Metastatic non-small cell lung cancer Narrative/Plan: The patient has been started on palliative radiation which he will receive for a short course. Due to progressive symptoms, and anticipated rehabilitation at discharge, it was felt that his systemic treatment should not be delayed. He was thus started on chemotherapy, with carboplatin and Alimta. So far he has tolerated treatment well. Continue to monitor. Continue folic acid. Biomarker testing is pending, but will likely not change first-line treatment Current Visit: No Status: Acute Priority: High Code(s): C34.90 - MALIGNANT NEOPLASM OF UNSP PART OF UNSP BRONCHUS OR LUNG SNOMED Code(s): 858167592 (4) Pulmonary embolism on left Narrative/Plan: On anticoagulation. Patient will need indefinite anticoagulation as long as he tolerates it well Current Visit: No Status: Acute Priority: High Code(s): I26.99 - OTHER PULMONARY EMBOLISM WITHOUT ACUTE COR PULMONALE SNOMED Code(s): 77409368
--- NOTE | 2019-08-09 21:45 | P.PN ---
Progress Note - Text Progress Note Date: 08/09/19 Chief Complaint: short of breath history of presenting complaint: This is a pleasant 79-year-old patient of Dr. Jacinto Hermosillo. Was admitted here in in early July. Had a bronchoscopy. For lung mass. 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 patient was admitted to the hospital from July 31 through August 03. diagnosed with acute pulmonary embolism.discharge on Xarelto.plan was to patient to improve from this acute event then come back for treatment of the lung cancer. Patient returns with increasing shortness of breath some wheezing. No cough. No production. No fever no chills. Appetite is not very good. Gets is the short winded. Tired. Patient was at [facility] for above days. Admitted with-acute COPD exacerbation, postobstructive pneumonia, acute respiratory failure. Started on chemotherapy and radiation treatment on July 08 Today-sitting up in a chair. Tired. Decreased oral intake. Slight cough. Review of systems: Was done for constitutional, cardiovascular, GI, pulmonary. relevant finding as above Active Medications Acetaminophen (Tylenol Tab) 650 mg PO Q6HR PRN PRN Reason: Mild Pain or Fever > 100.5 Albuterol/Ipratropium (Duoneb 0.5 Mg-3 Mg/3 Ml Soln) 3 ml INHALATION RT-Q4H [facility] Last Admin: 08/09/19 19:43 Dose: 3 ml Documented by: Alprazolam (Xanax) 0.5 mg PO TID [facility] Last Admin: 08/09/19 15:31 Dose: 0.5 mg Documented by: Benzonatate (Tessalon Perles) 200 mg PO TID [facility] Last Admin: 08/09/19 15:31 Dose: 200 mg Documented by: Bisacodyl (Dulcolax) 10 mg RECTAL DAILY PRN PRN Reason: Constipation Budesonide (Pulmicort) 1 mg INHALATION RT-BID [facility] Last Admin: 08/09/19 19:43 Dose: 1 mg Documented by: Citalopram Hydrobromide (Celexa) 20 mg PO DAILY@0800 [facility] Last Admin: 08/09/19 08:32 Dose: 20 mg Documented by: Dronabinol (Marinol) 2.5 mg PO AC-BID [facility] Last Admin: 08/09/19 16:30 Dose: 2.5 mg Documented by: Folic Acid (Folic Acid) 1 mg PO DAILY@1700 [facility] Last Admin: 08/09/19 15:32 Dose: 1 mg Documented by: Guaifenesin/Codeine Phosphate (Robitussin Ac) 10 ml PO Q6H PRN PRN Reason: Cough Last Admin: 08/08/19 11:12 Dose: 10 ml Documented by: Sodium Chloride (Saline 0.9%) 1,000 mls @ 100 mls/hr IV .Q10H [facility] Last Admin: 08/09/19 13:16 Dose: Not Given Documented by: Piperacillin Sod/Tazobactam (Sod 3.375 gm/ Sodium Chloride) 100 mls @ 25 mls/hr IVPB Q8HR [facility] Stop: 08/15/19 08:01 Last Admin: 08/09/19 15:30 Dose: 25 mls/hr Documented by: Levofloxacin (Levaquin) 750 mg PO 2300 [facility] Last Admin: 08/08/19 21:09 Dose: 750 mg Documented by: Loratadine (Claritin) 10 mg PO DAILY [facility] Last Admin: 08/09/19 08:26 Dose: 10 mg Documented by: Magnesium Hydroxide (Milk Of Magnesia) 2,400 mg PO DAILY PRN PRN Reason: Constipation Miscellaneous Information (Pneumonia Protocol Utilized) 1 each PO ONCE PRN PRN Reason: Per Protocol Morphine Sulfate (Morphine Sulfate (Inj)) 4 mg IVP Q6HR PRN PRN Reason: Pain Last Admin: 08/08/19 11:12 Dose: 4 mg Documented by: Pantoprazole Sodium (Protonix) 40 mg PO DAILY@0700 [facility] Last Admin: 08/09/19 08:26 Dose: 40 mg Documented by: Prednisone () 60 mg PO DAILY [facility] Last Admin: 08/09/19 08:28 Dose: 60 mg Documented by: Rivaroxaban (Xarelto) 15 mg PO BID@0800,1700 [facility] Last Admin: 08/09/19 16:30 Dose: 15 mg Documented by: Scopolamine (Transderm-Scop 1.5mg/72hr Patch) 1 patch TRANSDERM Q72H [facility] Last Admin: 08/09/19 16:33 Dose: 1 patch Documented by: Sodium Bicarbonate () 5 ml PO 5XD [facility] Last Admin: 08/09/19 20:49 Dose: 5 ml Documented by: Physical examination: VITAL SIGNS: 97.7-84-18-138/71-94% on 2 L GENERAL: Sitting up in a chair, tired awake EYES: Pupils equal. Conjunctiva normal. HEENT: External appearance of nose and ears normal, oral cavity grossly normal. Decreased hearing NECK: JVD not raised; masses not palpable. HEART: First and second heart sounds are normal; no edema. LUNGS: Respiratory rate increased, decreased breath sounds , prolonged expiration. Occasional wheezing ABDOMEN: Soft, nontender, liver spleen not palpable, no masses palpable. PSYCH: Alert and oriented x3; mood and affect-anxious. 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 Diffuse his interstitial changes in the right lung. Small bilateral pleural effusion adenopathy in the mediastinum present. Thrombus in the distal left main pulmonary artery extending into the secondary and tertiary branches of the left upper and left lower lobes. Assessment: -Suspect right upper lobe, collapse from underlying malignancy -Started on chemotherapy and radiation treatment for the lung cancer -Possible postobstructive pneumonia, POA -Acute pulmonary embolism, and the distal left main pulmonary artery extending into the secondary and tertiary branches, on Xarelto, diagnosed on July 31 -Poorly differentiated adenocarcinoma of the lung,- for radiation and chemotherapy, to be started as per oncology and radiation oncology -Acute COPD exacerbation in an ex-smoker, POA, slow to respond -Troponin leak from acute PE. No evidence of acute coronary syndrome. Plan: Continue current medication treatment plan. We'll DC the Zosyn 3 the patient on by mouth Levaquin. Other medications to continue. Prognosis guarded.
[2019-08-09] MEDS: LEVOFLOXACIN 750 MG TAB PO SCH (22:16)
[2019-08-10] MEDS: IPRATROPIUM-ALBUTEROL 3 ML NEB INHALATION SCH ×6 (00:23→19:18)
[2019-08-10] MEDS: SALT AND SODA MOUTHWASH 1,000 ML PO SCH ×5 (04:23→23:48)
[2019-08-10] MEDS: predniSONE 20 MG TAB PO SCH (07:48)
[2019-08-10] MEDS: ALPRAZolam 0.5 MG TAB PO SCH ×3 (07:48→20:11)
[2019-08-10] MEDS: PANTOPRAZOLE 40 MG TABLET PO SCH (07:49)
[2019-08-10] MEDS: CITALOPRAM HYDROBROMIDE 20 MG TAB PO SCH (07:49)
[2019-08-10] MEDS: BUDESONIDE 1 MG/2 ML NEBU INHALATION SCH ×2 (07:51→19:18)
[2019-08-10] MEDS: RIVAROXABAN 15 MG TAB PO SCH ×2 (07:56→16:30)
[2019-08-10] MEDS: BENZONATATE 100 MG CAP PO SCH ×3 (07:57→20:11)
[2019-08-10] MEDS: LORATADINE 10 MG TAB PO SCH (07:57)
[2019-08-10] MEDS: DRONABINOL 2.5 MG CAP PO SCH ×2 (07:57→16:30)
[2019-08-10] MEDS: SODIUM CHLORIDE 0.9% 1,000 ML IV SCH ×2 (07:58→23:52)
[2019-08-10] MEDS ORDERED: methylPREDNISolone SOD SUCCI 125 MG/2 ML VIAL IV STA (08:18)
[2019-08-10] MEDS ORDERED: FUROSEMIDE 10 MG/ML 4 ML VIAL IV STA (08:18)
--- NOTE | 2019-08-10 08:39 | XR ---
EXAMINATION TYPE: XR chest 1V portable DATE OF EXAM: 08/10/2019 COMPARISON: Prior chest x-ray 08/07/2019 HISTORY: Shortness of breath TECHNIQUE: Single frontal view of the chest is obtained. FINDINGS: There is no significant interval change. IMPRESSION: Stable exam. Findings consistent with underlying lung cancer, difficult to exclude pneum onia. Cardiomegaly and pericardial effusion. Abnormal prominent interstitium.
[2019-08-10] MEDS: guaiFENesin-Coden 100-10MG/5ML 10 ML CUP PO PRN (09:00)
[2019-08-10 09:01] LABS: ALT 26 U/L (4-49); AST 30 U/L (17-59); African American GFR (CKD) >90 (>60 ml/min/1.73 sqM); Albumin 2.7 g/dL (3.5-5.0); Alkaline Phosphatase 65 U/L (38-126); Anion Gap 5 mmol/L; Blood Urea Nitrogen 20 mg/dL (9-20); Calcium 8.4 mg/dL (8.4-10.2); Carbon Dioxide 26 mmol/L (22-30); Chloride 107 mmol/L (98-107); Glucose 86 mg/dL (74-99); Non-African American GFR(CKD) 87 (>60 ml/min/1.73 sqM); Potassium 3.8 mmol/L (3.5-5.1); Sodium 138 mmol/L (137-145); Total Bilirubin 0.9 mg/dL (0.2-1.3); Total Protein 5.1 g/dL (6.3-8.2)
[2019-08-10 09:03] LABS: Basophils % (A) 0 %; Eosinophils # (A) 0.1 k/uL (0-0.7); Eosinophils % (A) 1 %; HCT 42.5 % (39.0-53.0); HGB 14.1 gm/dL (13.0-17.5); Lymphocytes # (A) 0.5 k/uL (1.0-4.8); Lymphocytes % (A) 4 %; MCH 33.3 pg (25.0-35.0); MCHC 33.1 g/dL (31.0-37.0); MCV 100.8 fL (80.0-100.0); Mean Platelet Volume 7.5; Monocytes # (A) 0.3 k/uL (0-1.0); Monocytes % (A) 2 %; Neutrophils # (A) 10.5 k/uL (1.3-7.7); Neutrophils % (A) 92 %; Platelet Count 312 k/uL (150-450); RBC 4.22 m/uL (4.30-5.90); RDW 13.3 % (11.5-15.5); WBC 11.4 k/uL (3.8-10.6)
--- NOTE | 2019-08-10 12:41 | P.PN ---
Subjective Progress Note Date: 08/10/19 Principal diagnosis: Hemoptysis A very [id number] male patient who got recently diagnosed with stage IV adenocarcinoma of the lung. We saw him in consultation approximately 3 weeks ago here in the hospital. He has a right upper lobe mass in addition to bilateral supraclavicular lymphadenopathy and mediastinal lymphadenopathy. Further workup with a biopsy of the right upper lobe confirmed the diagnosis of adenocarcinoma. PET scan indicated metastatic disease. MRI of the brain was negative. The patient was being worked up by oncology and he has not initiated his treatment yet and he was being considered for immunotherapy. He had been readmitted and discharged on 08/03/2018 for worsening shortness of breath and was found to have acute pulmonary emboli and discharged on Xarelto. He was discharged to an extended care facility. He was brought back here again yesterday to 08/04/2019 with episodes of hemoptysis. He is seen today in consultation on the regular medical floor. He is awake and alert in no acute distress. He states he had 2 or 3 episodes of hemoptysis about the size of a quarter bright red blood. This morning he's only had some dark old blood. He coughed well we were in the room in his sputum is clear. History of x-ray reveals evidence of bilateral lobe consolidation. Volume loss in the right lung and shift trachea towards the right makes it impossible to exclude underlying mass and increased interstitial changes in the short. Represents either interstitial edema or atypical pneumonia. He is more dyspneic on minimal exertion. Loose productive cough. White count 6.8. Hemoglobin 14.6. INR 1.4. Sodium 133. Creatinine 0.98. Troponin 0.050. ProBNP 716. He is currently afebrile. Maintaining O2 saturation in the mid 90s on 2 L/m per nasal cannula. Hemodynamically stable. The patient is seen today 08/06/2019 in follow-up on the regular medical floor. Awake and alert in no acute distress. Maintaining good O2 saturations in the 90s on 2 L/m per nasal cannula, he's been afebrile. Blood culture reveals no growth. No further hemoptysis. Congested cough this morning with clear sputum. He remains on bronchodilators, Tessalon Perles, antibiotics in the form of Zosyn and Levaquin. Remains on Xarelto. The patient is seen today 08/07/2019 in follow-up on the regular medical floor. He is currently resting comfortably in bed. Awake and alert in no acute distress. He has had a rare blood-tinged sputum but no significant hemoptysis. He is maintaining good O2 saturations in the 90s on 2 L/m per nasal cannula. Afebrile. Hemodynamically stable. Blood cultures reveal no growth to date. Chest x-ray reveals persistent abnormal increased density in the right upper lobe. Interstitium is thickened. Abnormal soft tissue extends along the paratracheal location, right hilar region. No evidence of pneumothorax or pleural effusion. There is some eventration the right hemidiaphragm slightly elevated. Patient has a known history of metastatic non-small cell lung carcinoma with possible interstitial spread of tumor. Pneumonia not completely excluded. He is continued on DuoNeb inhalations, Pulmicort inhalations, antibiotics in the form of Zosyn and Levaquin. Anticoagulated with Xarelto. Patient was reevaluated today on 08/08/2019 he is comfortable, continues to have some slightly blood-tinged sputum, less shortness of breath, no chest pain, continues to have intermittent episodes of cough. A be started on radiation therapy as per radiation oncology on the case. Remains on DuoNeb updrafts, Pulm icort, antibiotics, and remains on Xarelto. Reevaluated today on 08/09/2019. Patient is doing well, continues to have intermittent episodes of cough, slightly blood-tinged sputum, at times some old blood coughed up easily. Overall the patient is feeling better, no shortness of breath, no fever no chills, no chest pain at present. The patient is seen today 08/10/2019 in follow-up on the regular medical floor. He is currently sitting up in a chair at the bedside. Awake and alert in no acute distress. He continues with intermittent cough. No hemoptysis. Maintaining good O2 saturations in the mid 90s on 3 L/m per nasal cannula. He's been afebrile. Hemodynamically stable. He is less anxious and utilizing Xanax as needed. He is continued on bronchodilators, Pulmicort inhalations, Tessalon Perles, oral prednisone. Antibiotics in form of Levaquin. He is on Marinol and protein supplements. He is currently receiving radiation treatments and has been initiated on carboplatin and Alimta. Objective - Vital Signs Vital signs: Vital Signs Temp 97.4 F L 08/10/19 12:13 Pulse 100 08/10/19 12:13 Resp 24 08/10/19 12:13 BP 109/75 08/10/19 12:13 Pulse Ox 97 08/10/19 12:13 Intake & Output 08/09/19 08/10/19 08/10/19 18:59 06:59 18:59 Intake Total 4420 590 Output Total 1 Balance 4419 590 Weight 72.575 kg Intake: Intake, IV Titration 1000 Amount Piperacillin-Tazobactam 3 100 .375 gm In Sodium Chloride 0.9% 100 ml @ 25 mls/hr IVPB Q8HR [facility] Rx# :[id number] Sodium Chloride 0.9% 1, 900 000 ml @ 100 mls/hr IV . Q10H [facility] Rx#:[id number] Oral 3420 590 Output: Urine 1 Other: Voiding Method Toilet Toilet Bedside Commode Bedside Commode # Voids 3 2 - Exam GENERAL EXAM: Alert, pleasant 79-year-old gentleman, on 3 L nasal cannula, comfo rtable in no apparent distress. HEAD: Normocephalic. EYES: Normal reaction of pupils, equal size. NOSE: Clear with pink turbinates. THROAT: No erythema or exudates. NECK: No masses, no JVD. CHEST: No chest wall deformity. LUNGS: Equal air entry with bilateral scattered rhonchi, more so on the right. CVS: S1 and S2 normal with no audible murmur, regular rhythm. ABDOMEN: No hepatosplenomegaly, normal bowel sounds, no guarding or rigidity. SPINE: No scoliosis or deformity SKIN: No rashes CENTRAL NERVOUS SYSTEM: No focal deficits, tone is normal in all 4 extremities. EXTREMITIES: There is no peripheral edema. No clubbing, no cyanosis. Peripheral pulses are intact. - Labs CBC & Chem 7: 08/10/19 08:22 08/10/19 08:22 Labs: Abnormal Lab Results - Last 24 Hours (Table) 08/10/19 08/10/19 Range/Units 08:22 08:22 WBC 11.4 H (3.8-10.6) k/uL RBC 4.22 L (4.30-5.90) m/uL MCV 100.8 H (80.0-100.0) fL Neutrophils # 10.5 H (1.3-7.7) k/uL Lymphocytes # 0.5 L (1.0-4.8) k/uL Total Protein 5.1 L (6.3-8.2) g/dL Albumin 2.7 L (3.5-5.0) g/dL Microbiology - Last 24 Hours (Table) 08/04/19 23:30 Blood Culture - Preliminary Blood No Growth after 120 hours 08/04/19 23:00 Blood Culture - Preliminary Blood No Growth after 120 hours Assessment and Plan Assessment: 1 Hemoptysis in a patient recently admitted for acute pulmonary embolism involving the left lung with secondary shortness of breath causing further worsening in his chronic dyspnea and further decompensation in his overall pulmonary status. The patient is likely hypercoagulable secondary to his underlying malignancy. Recently started on Xarelto. 2 Adenocarcinoma of the lung, recent diagnosis, now has been initiated on radiation and chemotherapy 3 Acute hypoxic respiratory failure currently on 3 L of oxygen by nasal cannula 4 COPD 5 Hyperlipidemia 6 Prostate cancer 7 Ex-smoker Plan The patient was seen and evaluated by . Chest x-ray and labs reviewed. He has been initiated on radiation treatments along with chemotherapy. Remains on Xarelto. Remains on antibiotics and bronchodilators. We'll continue to fo llow. I, the cosigning physician, performed a history & physical examination of the patient. Lungs sounds bilateral scattered rhonci, more so on the right. Maintaining good O2 saturations in the 90s on 2L/min per nasal canula. I discussed the assessment and plan of care with my nurse practitioner, Nely Guan. I attest to the above note as dictated by her.
[2019-08-10] MEDS: FOLIC ACID 1 MG TAB PO SCH (16:30)
--- NOTE | 2019-08-10 21:14 | P.PN ---
Progress Note - Text Progress Note Date: 08/10/19 Chief Complaint: short of breath history of presenting complaint: This is a pleasant 79-year-old patient of Dr. Jacinto Hermosillo. Was admitted here in in early July. Had a bronchoscopy. For lung mass. 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 patient was admitted to the hospital from July 31 through August 03. diagnosed with acute pulmonary embolism.discharge on Xarelto.plan was to patient to improve from this acute event then come back for treatment of the lung cancer. Patient returns with increasing shortness of breath some wheezing. No cough. No production. No fever no chills. Appetite is not very good. Gets is the short winded. Tired. Patient was at [facility] for above days. Admitted with-acute COPD exacerbation, postobstructive pneumonia, acute respiratory failure. Started on chemotherapy and radiation treatment on July 08 Today-saw the patient this morning. More short of breath. Radiation treatment was canceled today. Not good appetite. Sister and son at the bedside. Sitting up in a chair. Rather anxious also. Review of systems: Was done for constitutional, cardiovascular, GI, pulmonary. relevant finding as above Active Medications Acetaminophen (Tylenol Tab) 650 mg PO Q6HR PRN PRN Reason: Mild Pain or Fever > 100.5 Last Admin: 08/10/19 14:50 Dose: 650 mg Documented by: Albuterol/Ipratropium (Duoneb 0.5 Mg-3 Mg/3 Ml Soln) 3 ml INHALATION RT-Q4H [facility] [place] Last Admin: 08/10/19 19:18 Dose: 3 ml Documented by: Alprazolam (Xanax) 0.5 mg PO TID [facility] [place] Last Admin: 08/10/19 20:11 Dose: 0.5 mg Documented by: Benzonatate (Tessalon Perles) 200 mg PO TID [facility] [place] Last Admin: 08/10/19 20:11 Dose: 200 mg Documented by: Bisacodyl (Dulcolax) 10 mg RECTAL DAILY PRN PRN Reason: Constipation Budesonide (Pulmicort) 1 mg INHALATION RT-BID [facility] [place] Last Admin: 08/10/19 19:18 Dose: 1 mg Documented by: Citalopram Hydrobromide (Celexa) 20 mg PO DAILY@0800 [facility] [place] Last Admin: 02/07/20 07:49 Dose: 20 mg Documented by: Dronabinol (Marinol) 2.5 mg PO AC-BID [facility] [place] Last Admin: 08/10/19 16:30 Dose: 2.5 mg Documented by: Folic Acid (Folic Acid) 1 mg PO DAILY@1700 [facility] [place] Last Admin: 08/10/19 16:30 Dose: 1 mg Documented by: Guaifenesin/Codeine Phosphate (Robitussin Ac) 10 ml PO Q6H PRN PRN Reason: Cough Last Admin: 08/10/19 09:00 Dose: 10 ml Documented by: Sodium Chloride (Saline 0.9%) 1,000 mls @ 100 mls/hr IV .Q10H [facility] [place] Last Admin: 08/10/19 07:58 Dose: Not Given Documented by: Levofloxacin (Levaquin) 750 mg PO 2300 [facility] [place] Last Admin: 08/09/19 22:16 Dose: 750 mg Documented by: Loratadine (Claritin) 10 mg PO DAILY [facility] [place] Last Admin: 08/10/19 07:57 Dose: 10 mg Documented by: Magnesium Hydroxide (Milk Of Magnesia) 2,400 mg PO DAILY PRN PRN Reason: Constipation Miscellaneous Information (Pneumonia Protocol Utilized) 1 each PO ONCE PRN PRN Reason: Per Protocol Morphine Sulfate (Morphine Sulfate (Inj)) 4 mg IVP Q6HR PRN PRN Reason: Pain Last Admin: 08/08/19 11:12 Dose: 4 mg Documented by: Pantoprazole Sodium (Protonix) 40 mg PO DAILY@0700 [facility] [place] Last Admin: 08/10/19 07:49 Dose: 40 mg Documented by: Prednisone () 60 mg PO DAILY [facility] [place] Last Admin: 08/10/19 07:48 Dose: 60 mg Documented by: Rivaroxaban (Xarelto) 15 mg PO BID@0800,1700 [facility] [place] Last Admin: 08/10/19 16:30 Dose: 15 mg Documented by: Scopolamine (Transderm-Scop 1.5mg/72hr Patch) 1 patch TRANSDERM Q72H [facility] [place] Last Admin: 08/09/19 16:33 Dose: 1 patch Documented by: Sodium Bicarbonate () 5 ml PO 5XD [facility] [place] Last Admin: 08/10/19 20:11 Dose: 5 ml Documented by: Physical examination: VITAL SIGNS: 97.2-159-15-109/75-97% on 3 L GENERAL: Sitting up in a chair, tired, more short of breath EYES: Pupils equal. Conjunctiva normal. HEENT: External appearance of nose and ears normal, oral cavity grossly normal. Decreased hearing NECK: JVD not raised; masses not palpable. HEART: First and second heart sounds are normal; no edema. LUNGS: Respiratory rate more increased, decreased breath sounds , prolonged expiration. Occasional wheezing ABDOMEN: Soft, nontender, liver spleen not palpable, no masses palpable. PSYCH: Alert and oriented x3; mood and affect-very anxious. 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 Diffuse his interstitial changes in the right lung. Small bilateral pleural effusion adenopathy in the mediastinum present. Thrombus in the distal left main pulmonary artery extending into the secondary and tertiary branches of the left upper and left lower lobes. Assessment: -Suspect right upper lobe, collapse from underlying malignancy -Started on chemotherapy and radiation treatment for the lung cancer, radiation and today -Possible postobstructive pneumonia, POA -Acute pulmonary embolism, and the distal left main pulmonary artery extending into the secondary and tertiary branches, on Xarelto, diagnosed on July 31 -Poorly differentiated adenocarcinoma of the lung,- for radiation and chemotherapy, to be started as per oncology and radiation oncology -Acute COPD exacerbation in an ex-smoker, POA, slow to respond -Troponin leak from acute PE. No evidence of acute coronary syndrome. Plan: Continue current treatment plan. Discussed with Dr. Wayne Lechuga from radiation. He will evaluate the patient today. Other medication treatment pressures to continue. Care was discussed with the patient's family the bedside. Follow with oncology.
[2019-08-10] MEDS: LEVOFLOXACIN 750 MG TAB PO SCH (23:09)
[2019-08-11] MEDS: IPRATROPIUM-ALBUTEROL 3 ML NEB INHALATION SCH ×6 (01:14→19:46)
--- NOTE | 2019-08-11 01:41 | P.PN ---
Subjective Progress Note Date: 08/10/19 The pt was c/o increased SOB earlier today. This has improved to baseline. No recurrence of hemoptysis, No f/c/mouth sores/diarrhea. he is able to ambulate with a walker Objective - Vital Signs Vital signs: Vital Signs Temp 97.8 F 08/10/19 21:00 Pulse 88 08/11/19 01:15 Resp 20 08/10/19 21:00 BP 130/84 08/10/19 21:00 Pulse Ox 95 08/11/19 01:15 Intake & Output 08/10/19 08/10/19 08/11/19 06:59 18:59 06:59 Intake Total 590 2640 Output Total 1 1 Balance 590 2639 -1 Weight 72.575 kg Intake: Intake, IV Titration 600 Amount Sodium Chloride 0.9% 1, 600 000 ml @ 100 mls/hr IV . Q10H [facility] Rx#:[id number] Oral 590 2040 Output: Urine 1 1 Other: Voiding Method Toilet Toilet Toilet Bedside Commode Bedside Commode Bedside Commode # Voids 2 7 1 - Constitutional General appearance: Present: no acute distress - EENT Eyes: Present: EOMI ENT: Present: hearing grossly normal, normal oropharynx - Respiratory Respiratory: bilateral: diminished - Cardiovascular Rhythm: regular Heart sounds: normal: S1, S2 - Gastrointestinal General gastrointestinal: Present: normal bowel sounds, soft - Integumentary Integumentary: Present: normal - Neurologic Neurologic: Present: CNII-XII intact - Musculoskeletal Musculoskeletal: Present: generalized weakness, strength equal bilaterally - Psychiatric Psychiatric: Present: A&O x's 3, appropriate affect - Labs CBC & Chem 7: 08/10/19 08:22 08/10/19 08:22 Labs: Abnormal Lab Results - Last 24 Hours (Table) 08/10/19 08/10/19 Range/Units 08:22 08:22 WBC 11.4 H (3.8-10.6) k/uL RBC 4.22 L (4.30-5.90) m/uL MCV 100.8 H (80.0-100.0) fL Neutrophils # 10.5 H (1.3-7.7) k/uL Lymphocytes # 0.5 L (1.0-4.8) k/uL Total Protein 5.1 L (6.3-8.2) g/dL Albumin 2.7 L (3.5-5.0) g/dL Microbiology - Last 24 Hours (Table) 08/04/19 23:30 Blood Culture - Preliminary Blood No Growth after 120 hours 08/04/19 23:00 Blood Culture - Preliminary Blood No Growth after 120 hours Assessment and Plan (1) Cough Narrative/Plan: On multiple meds for the same. D/W pt and family that improvement will likely be gradual as effect of RT and chemo develops. Continue current medication regimen. Current Visit: Yes Status: Acute Priority: High Code(s): R05 - COUGH SNOMED Code(s): 24940102 (2) Hemoptysis Narrative/Plan: No recurrence. Hgb is stable. Ok to continue AC Current Visit: Yes Status: Resolved Priority: Medium Code(s): R04.2 - HEMOPTYSIS SNOMED Code(s): 04751869 (3) Metastatic non-small cell lung cancer Narrative/Plan: S/p C 1 of carbo/alimta on 08/08/19. He has also started RT. RT was held today due to SOB. Continue short course of RT to primary tumor for palliation. Next chemo due on 08/29/19. Possibly add keytruda with C 2 Current Visit: No Status: Acute Priority: High Code(s): C34.90 - MALIGNANT NEOPLASM OF UNSP PART OF UNSP BRONCHUS OR LUNG SNOMED Code(s): 304833667 (4) Pulmonary embolism on left Narrative/Plan: Continue Xarelto Current Visit: No Status: Acute Priority: High Code(s): I26.99 - OTHER PULMONARY EMBOLISM WITHOUT ACUTE COR PULMONALE SNOMED Code(s): 68368392
[2019-08-11] MEDS: SALT AND SODA MOUTHWASH 1,000 ML PO SCH ×5 (04:52→22:36)
[2019-08-11] MEDS: BUDESONIDE 1 MG/2 ML NEBU INHALATION SCH ×2 (07:36→19:46)
[2019-08-11] MEDS: DRONABINOL 2.5 MG CAP PO SCH ×2 (08:01→18:31)
[2019-08-11] MEDS: ALPRAZolam 0.5 MG TAB PO SCH ×3 (08:01→22:34)
[2019-08-11] MEDS: PANTOPRAZOLE 40 MG TABLET PO SCH (08:02)
[2019-08-11] MEDS: BENZONATATE 100 MG CAP PO SCH ×3 (08:02→22:34)
[2019-08-11] MEDS: RIVAROXABAN 15 MG TAB PO SCH ×2 (08:02→18:31)
[2019-08-11] MEDS: predniSONE 20 MG TAB PO SCH (08:02)
[2019-08-11] MEDS: LORATADINE 10 MG TAB PO SCH (08:02)
[2019-08-11] MEDS: CITALOPRAM HYDROBROMIDE 20 MG TAB PO SCH (08:03)
[2019-08-11 08:29] LABS: Basophils % (A) 0 %; Eosinophils % (A) 0 %; HGB 13.5 gm/dL (13.0-17.5); Lymphocytes # (A) 0.3 k/uL (1.0-4.8); Lymphocytes % (A) 2 %; MCH 32.2 pg (25.0-35.0); MCHC 32.2 g/dL (31.0-37.0); MCV 99.8 fL (80.0-100.0); Mean Platelet Volume 7.6; Monocytes # (A) 0.3 k/uL (0-1.0); Monocytes % (A) 3 %; Neutrophils # (A) 12.8 k/uL (1.3-7.7); Neutrophils % (A) 95 %; Platelet Count 252 k/uL (150-450); RBC 4.21 m/uL (4.30-5.90); RDW 13.3 % (11.5-15.5); WBC 13.5 k/uL (3.8-10.6)
--- NOTE | 2019-08-11 14:55 | P.PN ---
Subjective Progress Note Date: 08/11/19 Principal diagnosis: Stage IV non-small cell lung cancer. A very [id number] male patient who got recently diagnosed with stage IV adenocarcinoma of the lung. We saw him in consultation approximately 3 weeks ago here in the hospital. He has a right upper lobe mass in addition to bilateral supraclavicular lymphadenopathy and mediastinal lymphadenopathy. Further workup with a biopsy of the right upper lobe confirmed the diagnosis of adenocarcinoma. PET scan indicated metastatic disease. MRI of the brain was negative. The patient was being worked up by oncology and he has not initiated his treatment yet and he was being considered for immunotherapy. He had been readmitted and discharged on 08/03/2018 for worsening shortness of breath and was found to have acute pulmonary emboli and discharged on Xarelto. He was discharged to an extended care facility. He was brought back here again yesterday to 08/04/2019 with episodes of hemoptysis. He is seen today in consultation on the regular medical floor. He is awake and alert in no acute distress. He states he had 2 or 3 episodes of hemoptysis about the size of a quarter bright red blood. This morning he's only had some dark old blood. He coughed well we were in the room in his sputum is clear. History of x-ray reveals evidence of bilateral lobe consolidation. Volume loss in the right lung and shift trachea towards the right makes it impossible to exclude underlying mass and increased interstitial changes in the short. Represents either interstitial edema or atypical pneumonia. He is more dyspneic on minimal exertion. Loose productive cough. White count 6.8. Hemoglobin 14.6. INR 1.4. Sodium 133. Creatinine 0.98. Troponin 0.050. ProBNP 716. He is currently afebrile. Maintaining O2 saturation in the mid 90s on 2 L/m per nasal cannula. Hemodynamically stable. The patient is seen today 08/06/2019 in follow-up on the regular medical floor. Awake and alert in no acute distress. Maintaining good O2 saturations in the 90s on 2 L/m per nasal cannula, he's been afebrile. Blood culture reveals no growth. No further hemoptysis. Congested cough this morning with clear sputum. He remains on bronchodilators, Tessalon Perles, antibiotics in the form of Zosyn and Levaquin. Remains on Xarelto. The patient is seen today 08/07/2019 in follow-up on the regular medical floor. He is currently resting comfortably in bed. Awake and alert in no acute distress. He has had a rare blood-tinged sputum but no significant hemoptysis. He is maintaining good O2 saturations in the 90s on 2 L/m per nasal cannula. Afebrile. Hemodynamically stable. Blood cultures reveal no growth to date. Chest x-ray reveals persistent abnormal increased density in the right upper lobe. Interstitium is thickened. Abnormal soft tissue extends along the paratracheal location, right hilar region. No evidence of pneumothorax or pleural effusion. There is some eventration the right hemidiaphragm slightly elevated. Patient has a known history of metastatic non-small cell lung carcinoma with possible interstitial spread of tumor. Pneumonia not completely excluded. He is continued on DuoNeb inhalations, Pulmicort inhalations, antibiotics in the form of Zosyn and Levaquin. Anticoagulated with Xarelto. Patient was reevaluated today on 08/08/2019 he is comfortable, continues to have some slightly blood-tinged sputum, less shortness of breath, no chest pain, continues to have intermittent episodes of cough. A be started on radiation therapy as per radiation oncology on the case. Remains on DuoNeb updrafts, Pulmicort, antibiotics, and remains on Xarelto. Reevaluated today on 08/09/2019. Patient is doing well, continues to have intermittent episodes of cough, slightly blood-tinged sputum, at times some old blood coughed up easily. Overall the patient is feeling better, no shortness of breath, no fever no chills, no chest pain at present. The patient is seen today 08/10/2019 in follow-up on the regular medical floor. He is currently sitting up in a chair at the bedside. Awake and alert in no acute distress. He continues with intermittent cough. No hemoptysis. Maintaining good O2 saturations in the mid 90s on 3 L/m per nasal cannula. He's been afebrile. Hemodynamically stable. He is less anxious and utilizing Xanax as needed. He is continued on bronchodilators, Pulmicort inhalations, Tessalon Perles, oral prednisone. Antibiotics in form of Levaquin. He is on Marinol and protein supplements. He is currently receiving radiation treatments and has been initiated on carboplatin and Alimta. Reevaluated today on 08/11/2019, less shortness of breath, no further episodes of hemoptysis, no significant pain. Patient seems to be forgetful, but overall he is doing better. Remains on 3 L nasal cannula. Remains on bronchodilators and on oral prednisone as well as antibiotics in the form of Levaquin. Objective - Vital Signs Vital signs: Vital Signs Temp 97.3 F L 08/11/19 11:44 Pulse 93 08/11/19 11:44 Resp 19 08/11/19 11:44 BP 126/65 08/11/19 11:44 Pulse Ox 95 08/11/19 11:44 Intake & Output 08/10/19 08/11/19 08/11/19 18:59 06:59 18:59 Intake Total 2640 Output Total 1 1 Balance 2639 -1 Weight 72.575 kg Intake: Intake, IV Titration 600 Amount Sodium Chloride 0.9% 1, 600 000 ml @ 100 mls/hr IV . Q10H [facility] Rx#:[id number] Oral 2039 Output: Urine 1 1 Other: Voiding Method Toilet Toilet Toilet Bedside Commode Bedside Commode Bedside Commode # Voids 7 1 - Exam GENERAL EXAM: Alert, pleasant 79-year-old gentleman, in no form of distress. V james comfortable. HEAD: Normocephalic. EYES: Normal reaction of pupils, equal size. NOSE: Clear with pink turbinates. THROAT: No erythema or exudates. NECK: No masses, no JVD. CHEST: No chest wall deformity. LUNGS: Equal air entry with bilateral scattered rhonchi. CVS: S1 and S2 normal with no audible murmur, regular rhythm. ABDOMEN: No hepatosplenomegaly, normal bowel sounds, no guarding or rigidity. SKIN: No rashes CENTRAL NERVOUS SYSTEM: Alert oriented 3 no gross focal deficit. EXTREMITIES: No clubbing, 1+ bipedal edema, no cyanosis. Psychiatric: Normal mood affect and normal mental status examination. - Labs CBC & Chem 7: 08/11/19 06:54 08/10/19 08:22 Labs: Abnormal Lab Results - Last 24 Hours (Table) 08/11/19 Range/Units 06:54 WBC 13.5 H (3.8-10.6) k/uL RBC 4.21 L (4.30-5.90) m/uL Neutrophils # 12.8 H (1.3-7.7) k/uL Lymphocytes # 0.3 L (1.0-4.8) k/uL Microbiology - Last 24 Hours (Table) 08/04/19 23:30 Blood Culture - Final Blood No Growth after 144 hours 08/04/19 23:00 Blood Culture - Final Blood No Growth after 144 hours Assessment and Plan Assessment: 1 Hemoptysis in a patient recently admitted for acute pulmonary embolism involving the left lung with secondary shortness of breath causing further worsening in his chronic dyspnea and further decompensation in his overall pulmonary status. The patient is likely hypercoagulable secondary to his underlying malignancy. Recently started on Xarelto. Continue Xarelto for now. 2 Adenocarcinoma of the lung, recent diagnosis, treatment has not been initiated 3 Acute hypoxic respiratory failure currently on 2 L of oxygen by nasal cannula 4 COPD 5 Hyperlipidemia 6 Prostate cancer 7 Ex-smoker Recommendation: Continue Xarelto Continue antibiotics Continue bronchodilators Continue steroids Continue chemo and radiation therapy Overall prognosis remains extremely poor and guarded. We'll continue to follow. Time with Patient: Less than 30
--- NOTE | 2019-08-11 16:37 | ECHOF ---
Referral Reason:CXR / cardiomegaly and pericardial effusion. MEASUREMENTS -------- HEIGHT: 172.7 cm WEIGHT: 72.6 kg BP: 139/57 RAP: 5.00 mmHg RVSP: 28.65 mmHg FINDINGS -------- Sinus rhythm. Limited Study Overall left ventricular systolic function is normal with, an EF between 60 - 65 %. Mild tricuspid regurgitation present. Right ventricular systolic pressure is normal at < 35 mmHg. There is a small, generalized pericardial effusion present. CONCLUSIONS -------- 1. Sinus rhythm. 2. Limited Study 3. Overall left ventricular systolic function is normal with, an EF between 60 - 65 %. 4. Mild tricuspid regurgitation present. 5. Right ventricular systolic pressure is normal at < 35 mmHg. 6. There is a small, generalized pericardial effusion present. [employer] WORKER: Lynsey Bronson RDCS
[2019-08-11] MEDS: FOLIC ACID 1 MG TAB PO SCH (18:31)
--- NOTE | 2019-08-11 22:21 | P.PN ---
Progress Note - Text Progress Note Date: 08/11/19 Chief Complaint: short of breath history of presenting complaint: This is a pleasant 79-year-old patient of Dr. Jacinto Hermosillo. Was admitted here in in early July. Had a bronchoscopy. For lung mass. 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 patient was admitted to the hospital from July 31 through August 03. diagnosed with acute pulmonary embolism.discharge on Xarelto.plan was to patient to improve from this acute event then come back for treatment of the lung cancer. Patient returns with increasing shortness of breath some wheezing. No cough. No production. No fever no chills. Appetite is not very good. Gets is the short winded. Tired. Patient was at [facility] for above days. Admitted with-acute COPD exacerbation, postobstructive pneumonia, acute respiratory failure. Started on chemotherapy and radiation treatment on July 08 Today-feels rather weak and tired. Tachypneic. Not much of an appetite. Daughter is present. Cough or short of breath. Review of systems: Was done for constitutional, cardiovascular, GI, pulmonary. relevant finding as above Active Medications Acetaminophen (Tylenol Tab) 650 mg PO Q6HR PRN PRN Reason: Mild Pain or Fever > 100.5 Last Admin: 08/10/19 14:50 Dose: 650 mg Documented by: Albuterol/Ipratropium (Duoneb 0.5 Mg-3 Mg/3 Ml Soln) 3 ml INHALATION RT-Q4H [facility] Last Admin: 08/11/19 19:46 Dose: 3 ml Documented by: Alprazolam (Xanax) 0.5 mg PO TID [facility] Last Admin: 08/11/19 18:31 Dose: 0.5 mg Documented by: Benzonatate (Tessalon Perles) 200 mg PO TID [facility] Last Admin: 08/11/19 18:31 Dose: 200 mg Documented by: Bisacodyl (Dulcolax) 10 mg RECTAL DAILY PRN PRN Reason: Constipation Budesonide (Pulmicort) 1 mg INHALATION RT-BID [facility] Last Admin: 08/11/19 19:46 Dose: 1 mg Documented by: Citalopram Hydrobromide (Celexa) 20 mg PO DAILY@0800 [facility] Last Admin: 08/11/19 08:03 Dose: 20 mg Documented by: Dronabinol (Marinol) 2.5 mg PO AC-BID [facility] Last Admin: 08/11/19 18:31 Dose: 2.5 mg Documented by: Folic Acid (Folic Acid) 1 mg PO DAILY@1700 [facility] Last Admin: 08/11/19 18:31 Dose: 1 mg Documented by: Guaifenesin/Codeine Phosphate (Robitussin Ac) 10 ml PO Q6H PRN PRN Reason: Cough Last Admin: 08/10/19 09:00 Dose: 10 ml Documented by: Sodium Chloride (Saline 0.9%) 1,000 mls @ 100 mls/hr IV .Q10H [facility] Last Admin: 08/10/19 23:52 Dose: Not Given Documented by: Levofloxacin (Levaquin) 750 mg PO 2300 [facility] Last Admin: 08/10/19 23:09 Dose: 750 mg Documented by: Loratadine (Claritin) 10 mg PO DAILY [facility] Last Admin: 08/11/19 08:02 Dose: 10 mg Documented by: Magnesium Hydroxide (Milk Of Magnesia) 2,400 mg PO DAILY PRN PRN Reason: Constipation Miscellaneous Information (Pneumonia Protocol Utilized) 1 each PO ONCE PRN PRN Reason: Per Protocol Morphine Sulfate (Morphine Sulfate (Inj)) 4 mg IVP Q6HR PRN PRN Reason: Pain Last Admin: 08/08/19 11:12 Dose: 4 mg Documented by: Pantoprazole Sodium (Protonix) 40 mg PO DAILY@0700 [facility] Last Admin: 08/11/19 08:02 Dose: 40 mg Documented by: Prednisone () 60 mg PO DAILY [facility] Last Admin: 08/11/19 08:02 Dose: 60 mg Documented by: Rivaroxaban (Xarelto) 15 mg PO BID@0800,1700 [facility] Last Admin: 08/11/19 18:31 Dose: 15 mg Documented by: Scopolamine (Transderm-Scop 1.5mg/72hr Patch) 1 patch TRANSDERM Q72H [facility] Last Admin: 08/09/19 16:33 Dose: 1 patch Documented by: Sodium Bicarbonate () 5 ml PO 5XD [facility] Last Admin: 08/11/19 18:32 Dose: Not Given Documented by: Physical examination: VITAL SIGNS: 97.3-93-19-126/65-95% on 3 L GENERAL: Propped up in bed, tired short of breath EYES: Pupils equal. Conjunctiva normal. HEENT: External appearance of nose and ears normal, oral cavity grossly normal. Decreased hearing NECK: JVD not raised; masses not palpable. HEART: First and second heart sounds are normal; no edema. LUNGS: Respiratory rate increased increased, decreased breath sounds , prolonged expiration. ABDOMEN: Soft, nontender, liver spleen not palpable, no masses palpable. PSYCH: Alert and oriented x3; mood and affect-very anxious. 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 Diffuse his interstitial changes in the right lung. Small bilateral pleural effusion adenopathy in the mediastinum present. Thrombus in the distal left main pulmonary artery extending into the secondary and tertiary branches of the left upper and left lower lobes. Assessment: -Suspect right upper lobe, collapse from underlying malignancy -Started on chemotherapy and radiation treatment for the lung cancer, radiation and today -Possible postobstructive pneumonia, POA -Acute pulmonary embolism, and the distal left main pulmonary artery extending into the secondary and tertiary branches, on Xarelto, diagnosed on July 31 -Poorly differentiated adenocarcinoma of the lung,- for radiation and chemotherapy, to be started as per oncology and radiation oncology -Acute COPD exacerbation in an ex-smoker, POA, slow to respond -Troponin leak from acute PE. No evidence of acute coronary syndrome. Plan: Continue current medication treatment plan. Care discussed with the patient da ughter the bedside. Encouraged to increase oral intake is small's portion spreadout
[2019-08-11] MEDS: LEVOFLOXACIN 750 MG TAB PO SCH (22:34)
[2019-08-12] MEDS: IPRATROPIUM-ALBUTEROL 3 ML NEB INHALATION SCH ×7 (01:33→23:08)
[2019-08-12] MEDS: ALPRAZolam 0.5 MG TAB PO SCH ×3 (04:22→20:17)
[2019-08-12] MEDS: SODIUM CHLORIDE 0.9% 1,000 ML IV SCH ×5 (04:49→20:11)
[2019-08-12] MEDS: SALT AND SODA MOUTHWASH 1,000 ML PO SCH ×5 (04:49→23:21)
[2019-08-12] MEDS: BUDESONIDE 1 MG/2 ML NEBU INHALATION SCH ×2 (07:37→19:14)
[2019-08-12 07:39] LABS: Basophils % (A) 0 %; Eosinophils # (A) 0.1 k/uL (0-0.7); Eosinophils % (A) 1 %; HCT 41.4 % (39.0-53.0); HGB 13.6 gm/dL (13.0-17.5); Lymphocytes # (A) 0.5 k/uL (1.0-4.8); Lymphocytes % (A) 5 %; MCH 33.1 pg (25.0-35.0); MCHC 32.8 g/dL (31.0-37.0); MCV 100.9 fL (80.0-100.0); Macrocytosis Slight; Mean Platelet Volume 7.6; Monocytes # (A) 0.1 k/uL (0-1.0); Monocytes % (A) 1 %; Neutrophils # (A) 9.6 k/uL (1.3-7.7); Neutrophils % (A) 94 %; Platelet Count 242 k/uL (150-450); RBC 4.11 m/uL (4.30-5.90); RDW 13.4 % (11.5-15.5); WBC 10.2 k/uL (3.8-10.6)
[2019-08-12] MEDS: CITALOPRAM HYDROBROMIDE 20 MG TAB PO SCH (08:49)
[2019-08-12] MEDS: LORATADINE 10 MG TAB PO SCH (08:49)
[2019-08-12] MEDS: DRONABINOL 2.5 MG CAP PO SCH ×2 (08:49→17:37)
[2019-08-12] MEDS: predniSONE 20 MG TAB PO SCH (08:49)
[2019-08-12] MEDS: PANTOPRAZOLE 40 MG TABLET PO SCH (08:49)
[2019-08-12] MEDS: RIVAROXABAN 15 MG TAB PO SCH ×2 (08:50→20:17)
[2019-08-12] MEDS: BENZONATATE 100 MG CAP PO SCH ×3 (08:53→20:17)
[2019-08-12] MEDS: guaiFENesin-Coden 100-10MG/5ML 10 ML CUP PO PRN (09:49)
[2019-08-12] MEDS: MORPHINE SULFATE 4 MG/ML SYRINGE IVP PRN ×2 (10:13→15:14)
--- NOTE | 2019-08-12 13:26 | P.PN ---
Subjective Progress Note Date: 08/12/19 Principal diagnosis: Hemoptysis A very [id number] male patient who got recently diagnosed with stage IV adenocarcinoma of the lung. We saw him in consultation approximately 3 weeks ago here in the hospital. He has a right upper lobe mass in addition to bilateral supraclavicular lymphadenopathy and mediastinal lymphadenopathy. Further workup with a biopsy of the right upper lobe confirmed the diagnosis of adenocarcinoma. PET scan indicated metastatic disease. MRI of the brain was negative. The patient was being worked up by oncology and he has not initiated his treatment yet and he was being considered for immunotherapy. He had been readmitted and discharged on 08/03/2018 for worsening shortness of breath and was found to have acute pulmonary emboli and discharged on Xarelto. He was discharged to an extended care facility. He was brought back here again yesterday to 08/04/2019 with episodes of hemoptysis. He is seen today in consultation on the regular medical floor. He is awake and alert in no acute distress. He states he had 2 or 3 episodes of hemoptysis about the size of a quarter bright red blood. This morning he's only had some dark old blood. He coughed well we were in the room in his sputum is clear. History of x-ray reveals evidence of bilateral lobe consolidation. Volume loss in the right lung and shift trachea towards the right makes it impossible to exclude underlying mass and increased interstitial changes in the short. Represents either interstitial edema or atypical pneumonia. He is more dyspneic on minimal exertion. Loose productive cough. White count 6.8. Hemoglobin 14.6. INR 1.4. Sodium 133. Creatinine 0.98. Troponin 0.050. ProBNP 716. He is currently afebrile. Maintaining O2 saturation in the mid 90s on 2 L/m per nasal cannula. Hemodynamically stable. The patient is seen today 08/06/2019 in follow-up on the regular medical floor. Awake and alert in no acute distress. Maintaining good O2 saturations in the 90s on 2 L/m per nasal cannula, he's been afebrile. Blood culture reveals no growth. No further hemoptysis. Congested cough this morning with clear sputum. He remains on bronchodilators, Tessalon Perles, antibiotics in the form of Zosyn and Levaquin. Remains on Xarelto. The patient is seen today 08/07/2019 in follow-up on the regular medical floor. He is currently resting comfortably in bed. Awake and alert in no acute distress. He has had a rare blood-tinged sputum but no significant hemoptysis. He is maintaining good O2 saturations in the 90s on 2 L/m per nasal cannula. Afebrile. Hemodynamically stable. Blood cultures reveal no growth to date. Chest x-ray reveals persistent abnormal increased density in the right upper lobe. Interstitium is thickened. Abnormal soft tissue extends along the paratracheal location, right hilar region. No evidence of pneumothorax or pleural effusion. There is some eventration the right hemidiaphragm slightly elevated. Patient has a known history of metastatic non-small cell lung carcinoma with possible interstitial spread of tumor. Pneumonia not completely excluded. He is continued on DuoNeb inhalations, Pulmicort inhalations, antibiotics in the form of Zosyn and Levaquin. Anticoagulated with Xarelto. Patient was reevaluated today on 08/08/2019 he is comfortable, continues to have some slightly blood-tinged sputum, less shortness of breath, no chest pain, continues to have intermittent episodes of cough. A be started on radiation therapy as per radiation oncology on the case. Remains on DuoNeb updrafts, Pulm icort, antibiotics, and remains on Xarelto. Reevaluated today on 08/09/2019. Patient is doing well, continues to have intermittent episodes of cough, slightly blood-tinged sputum, at times some old blood coughed up easily. Overall the patient is feeling better, no shortness of breath, no fever no chills, no chest pain at present. The patient is seen today 08/10/2019 in follow-up on the regular medical floor. He is currently sitting up in a chair at the bedside. Awake and alert in no acute distress. He continues with intermittent cough. No hemoptysis. Maintaining good O2 saturations in the mid 90s on 3 L/m per nasal cannula. He's been afebrile. Hemodynamically stable. He is less anxious and utilizing Xanax as needed. He is continued on bronchodilators, Pulmicort inhalations, Tessalon Perles, oral prednisone. Antibiotics in form of Levaquin. He is on Marinol and protein supplements. He is currently receiving radiation treatments and has been initiated on carboplatin and Alimta. Reevaluated today on 08/11/2019, less shortness of breath, no further episodes of hemoptysis, no significant pain. Patient seems to be forgetful, but overall he is doing better. Remains on 3 L nasal cannula. Remains on bronchodilators and on oral prednisone as well as antibiotics in the form of Levaquin. The patient is seen today 08/12/2019 in follow-up on the regular medical floor. He is currently resting fairly comfortably in bed. Awake and alert in no acute distress. He did require some morphine for pain control. The patient did have issues with increased work of breathing early this morning and was placed on the airflow high flow oxygen device at 50 L/m and 33% FiO2. No worsening shortness of breath, cough or congestion at this time. O2 saturations staying in the 90s. Objective - Vital Signs Vital signs: Vital Signs Temp 98.3 F 08/12/19 12:51 Pulse 95 08/12/19 12:51 Resp 19 08/12/19 12:51 BP 131/78 08/12/19 12:51 Pulse Ox 93 L 08/12/19 12:51 Intake & Output 08/11/19 08/12/19 08/12/19 18:59 06:59 18:59 Intake Total 1000 590 Output Total 1 Balance 1000 589 Intake: Intake, IV Titration 400 Amount Sodium Chloride 0.9% 1, 400 000 ml @ 100 mls/hr IV . [facility]10H [facility] Rx#:[id number] Oral 600 590 Output: Urine 1 Other: Voiding Method Toilet Toilet Bedside Commode Bedside Commode # Voids 3 2 - Exam GENERAL EXAM: Alert, pleasant 79-year-old gentleman, on AirVo high flow oxygen, comfortable in no apparent distress. HEAD: Normocephalic. EYES: Normal reaction of pupils, equal size. NOSE: Clear with pink turbinates. THROAT: No erythema or exudates. NECK: No masses, no JVD. CHEST: No chest wall deformity. LUNGS: Equal air entry with bilateral scattered rhonchi, more so on the right. CVS: S1 and S2 normal with no audible murmur, regular rhythm. ABDOMEN: No hepatosplenomegaly, normal bowel sounds, no guarding or rigidity. SPINE: No scoliosis or deformity SKIN: No rashes CENTRAL NERVOUS SYSTEM: No focal deficits, tone is normal in all 4 extremities. EXTREMITIES: There is no peripheral edema. No clubbing, no cyanosis. Peripheral pulses are intact. - Labs CBC & Chem 7: 08/12/19 06:43 08/10/19 08:22 Labs: Abnormal Lab Results - Last 24 Hours (Table) 08/12/19 Range/Units 06:43 RBC 4.11 L (4.30-5.90) m/uL MCV 100.9 H (80.0-100.0) fL Neutrophils # 9.6 H (1.3-7.7) k/uL Lymphocytes # 0.5 L (1.0-4.8) k/uL Assessment and Plan Assessment: 1 Hemoptysis in a patient recently admitted for acute pulmonary embolism in volving the left lung with secondary shortness of breath causing further worsening in his chronic dyspnea and further decompensation in his overall pulmonary status. The patient is likely hypercoagulable secondary to his underlying malignancy. Recently started on Xarelto. 2 Adenocarcinoma of the lung, recent diagnosis, now has been initiated on radiation and chemotherapy 3 Acute hypoxic respiratory failure currently requiring AirVo high flow oxygen at 50 L and 33% FiO2 4 COPD 5 Hyperlipidemia 6 Prostate cancer 7 Ex-smoker Plan The patient was seen and evaluated by . The patient now requires AirVo high flow oxygen at 50 L and 33% FiO2. He has been initiated on radiation tr eatments along with chemotherapy. Remains on Xarelto. Remains on antibiotics, prednisone and bronchodilators. We'll continue to follow. I, the cosigning physician, performed a history & physical examination of the patient. Lungs sounds bilateral scattered rhonci, more so on the right. Maintaining good O2 saturations in the 90s on 2L/min per nasal canula. I discussed the assessment and plan of care with my nurse practitioner, Nely Guan. I attest to the above note as dictated by her.
[2019-08-12] MEDS: FOLIC ACID 1 MG TAB PO SCH (17:56)
--- NOTE | 2019-08-12 19:30 | P.PN ---
Subjective Progress Note Date: 08/11/19 The pt appeared to be in NAD at the time of evaluation. He did appear somewhat anxious. Coughing episodes are most prominent in the AM, and cause most distress. No f/c/n/v/hemoptysis Objective - Vital Signs Vital signs: Vital Signs Temp 98.3 F 08/12/19 12:51 Pulse 96 08/12/19 15:52 Resp 19 08/12/19 12:51 BP 131/78 08/12/19 12:51 Pulse Ox 93 L 08/12/19 12:51 Intake & Output 08/12/19 08/12/19 08/13/19 06:59 18:59 06:59 Intake Total 590 1000 Output Total 1 Balance 589 1000 Intake: Intake, IV Titration 400 Amount Sodium Chloride 0.9% 1, 400 000 ml @ 100 mls/hr IV . Q10H [facility] Rx#:[id number] Oral 590 600 Output: Urine 1 Other: Voiding Method Toilet Bedside Commode Bedside Commode Diaper # Voids 2 - Constitutional General appearance: Present: no acute distress - EENT Eyes: Present: EOMI ENT: Present: hearing grossly normal, normal oropharynx - Respiratory Respiratory: right: diminished (upper) - Cardiovascular Rhythm: regular Heart sounds: normal: S1, S2 - Gastrointestinal General gastrointestinal: Present: normal bowel sounds, soft - Integumentary Integumentary: Present: normal - Neurologic Neurologic: Present: CNII-XII intact - Musculoskeletal Musculoskeletal: Present: generalized weakness, strength equal bilaterally - Psychiatric Psychiatric: Present: A&O x's 3, appropriate affect - Labs CBC & Chem 7: 08/12/19 06:43 08/10/19 08:22 Labs: Abnormal Lab Results - Last 24 Hours (Table) 08/12/19 Range/Units 06:43 RBC 4.11 L (4.30-5.90) m/uL MCV 100.9 H (80.0-100.0) fL Neutrophils # 9.6 H (1.3-7.7) k/uL Lymphocytes # 0.5 L (1.0-4.8) k/uL Assessment and Plan (1) Cough Narrative/Plan: Most prominent in the AM, and continues to be the main concern symptom hogan. The pt also has marked anxiety during episodes. He was again reassured that his O2 sats are actually mostly maintained during these episodes. This is expected to improve as RT and chemo start taking effect, but this is not expected to be immediate. Continue ongoing symptomatic treatment, with multiple meds Current Visit: Yes Status: Acute Priority: High Code(s): R05 - COUGH SNOMED Code(s): 98360618 (2) Hemoptysis Narrative/Plan: No recurrence. Continue AC Current Visit: Yes Status: Resolved Priority: Medium Code(s): R04.2 - HEMOPTYSIS SNOMED Code(s): 42472733 (3) Metastatic non-small cell lung cancer Narrative/Plan: The pt is a candidate for systemic treatment and RT, with a more aggressive approach than for typical stage 4 disease due to limited area of mets on PET scan. S/p C 1 of Carbo/Alimta. He will hopefully resume palliative RT on 08/13/19. Tolerance has been good so far. Continue to monitor for treatment related AE's Current Visit: No Status: Acute Priority: High Code(s): C34.90 - MALIGNANT NEOPLASM OF UNSP PART OF UNSP BRONCHUS OR LUNG SNOMED Code(s): 311576308 (4) Pulmonary embolism on left Narrative/Plan: On anticaogulation with Xarelto Current Visit: No Status: Acute Priority: High Code(s): I26.99 - OTHER PULMONARY EMBOLISM WITHOUT ACUTE COR PULMONALE SNOMED Code(s): 35497219
[2019-08-12] MEDS: SCOPOLAMINE 1.5MG/72HR PATCH TRANSDERM SCH (20:17)
--- NOTE | 2019-08-12 22:00 | P.PN ---
Progress Note - Text Progress Note Date: 08/12/19 Chief Complaint: short of breath history of presenting complaint: This is a pleasant 79-year-old patient of Dr. Jacinto Hermosillo. Was admitted here in in early July. Had a bronchoscopy. For lung mass. 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 patient was admitted to the hospital from July 31 through August 03. diagnosed with acute pulmonary embolism.discharge on Xarelto.plan was to patient to improve from this acute event then come back for treatment of the lung cancer. Patient returns with increasing shortness of breath some wheezing. No cough. No production. No fever no chills. Appetite is not very good. Gets is the short winded. Tired. Patient was at [facility] for above days. Admitted with-acute COPD exacerbation, postobstructive pneumonia, acute respiratory failure. Started on chemotherapy and radiation treatment on July 08 Today-continues to feel tired. Tachypneic. Limited oral intake. Daughter by the bedside. Anxious Review of systems: Was done for constitutional, cardiovascular, GI, pulmonary. relevant finding as above Active Medications Acetaminophen (Tylenol Tab) 650 mg PO Q6HR PRN PRN Reason: Mild Pain or Fever > 100.5 Last Admin: 08/10/19 14:50 Dose: 650 mg Documented by: Albuterol/Ipratropium (Duoneb 0.5 Mg-3 Mg/3 Ml Soln) 3 ml INHALATION RT-Q4H [facility] Last Admin: 08/12/19 19:14 Dose: 3 ml Documented by: Alprazolam (Xanax) 0.5 mg PO QID [facility] Last Admin: 08/12/19 20:17 Dose: 0.5 mg Documented by: Benzonatate (Tessalon Perles) 200 mg PO TID [facility] Last Admin: 08/12/19 20:17 Dose: 200 mg Documented by: Bisacodyl (Dulcolax) 10 mg RECTAL DAILY PRN PRN Reason: Constipation Budesonide (Pulmicort) 1 mg INHALATION RT-BID [facility] Last Admin: 08/12/19 19:14 Dose: 1 mg Documented by: Citalopram Hydrobromide (Celexa) 20 mg PO DAILY@0800 [facility] Last Admin: 08/12/19 08:49 Dose: 20 mg Documented by: Dronabinol (Marinol) 2.5 mg PO AC-BID [facility] Last Admin: 08/12/19 17:37 Dose: 2.5 mg Documented by: Folic Acid (Folic Acid) 1 mg PO DAILY@1700 [facility] Last Admin: 08/12/19 17:56 Dose: Not Given Documented by: Guaifenesin/Codeine Phosphate (Robitussin Ac) 10 ml PO Q6H PRN PRN Reason: Cough Last Admin: 08/12/19 09:49 Dose: 10 ml Documented by: Sodium Chloride (Saline 0.9%) 1,000 mls @ 100 mls/hr IV .Q10H [facility] Last Admin: 08/12/19 20:11 Dose: Not Given Documented by: Levofloxacin (Levaquin) 750 mg PO 2300 [facility] Last Admin: 08/11/19 22:34 Dose: 750 mg Documented by: Loratadine (Claritin) 10 mg PO DAILY [facility] Last Admin: 08/12/19 08:49 Dose: 10 mg Documented by: Magnesium Hydroxide (Milk Of Magnesia) 2,400 mg PO DAILY PRN PRN Reason: Constipation Miscellaneous Information (Pneumonia Protocol Utilized) 1 each PO ONCE PRN PRN Reason: Per Protocol Morphine Sulfate (Morphine Sulfate (Inj)) 4 mg IVP Q6HR PRN PRN Reason: Pain Last Admin: 08/12/19 15:14 Dose: 4 mg Documented by: Pantoprazole Sodium (Protonix) 40 mg PO DAILY@0700 [facility] Last Admin: 08/12/19 08:49 Dose: 40 mg Documented by: Prednisone () 60 mg PO DAILY [facility] Last Admin: 08/12/19 08:49 Dose: 60 mg Documented by: Rivaroxaban (Xarelto) 15 mg PO BID@0800,1700 [facility] Last Admin: 08/12/19 20:17 Dose: 15 mg Documented by: Scopolamine (Transderm-Scop 1.5mg/72hr Patch) 1 patch TRANSDERM Q72H [facility] Last Admin: 08/12/19 20:17 Dose: 1 patch Documented by: Sodium Bicarbonate () 5 ml PO 5XD [facility] Last Admin: 08/12/19 20:11 Dose: Not Given Documented by: Physical examination: VITAL SIGNS: 98.3-95-19-131/70-93% on high flow nasal cannula GENERAL: Propped up in bed, tired short of breath EYES: Pupils equal. Conjunctiva normal. HEENT: External appearance of nose and ears normal, oral cavity grossly normal. Decreased hearing NECK: JVD not raised; masses not palpable. HEART: First and second heart sounds are normal; no edema. LUNGS: Respiratory rate increased increased, decreased breath sounds , prolonged expiration. ABDOMEN: Soft, nontender, liver spleen not palpable, no masses palpable. PSYCH: Alert and oriented x3; mood and affect-very anxious. LYMPHATICS: supraclavicular lymph nodes palpable on both sides INVESTIGATIONS, reviewed in the clinical context: White count 13.5 hemoglobin 13.5 Previous testing EKG tracing personally reviewed by me-normal sinus rhythm Chest x-ray film personally reviewed by me-mass in the right upper lobe, suspect collapse of the right upper lobe with elevation of the right diaphragm 2-D echo-EF 55-60%, right ventricular pressures normal CT angios a chest-encasing the main bronchi of the right and narrowing the right middle lobe bronchus. Diffuse his interstitial changes in the right lung. Small bilateral pleural effusion adenopathy in the mediastinum present. Thrombus in the distal left main pulmonary artery extending into the secondary and tertiary branches of the left upper and left lower lobes. Assessment: -Suspect right upper lobe, collapse from underlying malignancy -Started on chemotherapy and radiation treatment for the lung cancer, -Possible postobstructive pneumonia, POA -Acute pulmonary embolism, and the distal left main pulmonary artery extending into the secondary and tertiary branches, on Xarelto, diagnosed on July 31 -Poorly differentiated adenocarcinoma of the lung,- for radiation and chemotherapy, to be started as per oncology and radiation oncology -Acute COPD exacerbation in an ex-smoker, POA, -Troponin leak from acute PE. No evidence of acute coronary syndrome. -Anxiety-uncontrolled Plan: We will DC Celexa and replaced with Paxil given the significant amount of anxiety. Other medications to continue. Oral intake still limited
[2019-08-12] MEDS: LEVOFLOXACIN 750 MG TAB PO SCH (23:21)
[2019-08-12] MEDS: PARoxetine 20 MG TAB PO SCH (23:21)
[2019-08-13] MEDS: IPRATROPIUM-ALBUTEROL 3 ML NEB INHALATION SCH ×5 (03:02→19:11)
[2019-08-13] MEDS: SALT AND SODA MOUTHWASH 1,000 ML PO SCH ×4 (05:13→19:44)
[2019-08-13] MEDS: BUDESONIDE 1 MG/2 ML NEBU INHALATION SCH ×2 (07:00→19:11)
[2019-08-13] MEDS: ALPRAZolam 0.5 MG TAB PO SCH ×4 (07:36→21:52)
[2019-08-13] MEDS: PANTOPRAZOLE 40 MG TABLET PO SCH (07:36)
[2019-08-13] MEDS: predniSONE 20 MG TAB PO SCH (07:36)
[2019-08-13] MEDS: SODIUM CHLORIDE 0.9% 1,000 ML IV SCH ×3 (07:36→19:47)
[2019-08-13] MEDS: RIVAROXABAN 15 MG TAB PO SCH ×2 (07:36→17:49)
[2019-08-13] MEDS: DRONABINOL 2.5 MG CAP PO SCH ×3 (07:36→16:35)
[2019-08-13] MEDS: PARoxetine 20 MG TAB PO SCH (07:36)
[2019-08-13] MEDS ORDERED: METOCLOPRAMIDE 5 MG/ML 2 ML VIAL IVP PRN ×2 (08:57→08:58)
[2019-08-13] MEDS: ONDANSETRON 4 MG/2 ML VIAL IVP PRN (09:06)
[2019-08-13] MEDS: MORPHINE SULFATE 4 MG/ML SYRINGE IVP PRN (10:14)
--- NOTE | 2019-08-13 13:33 | P.PN ---
Subjective Progress Note Date: 08/13/19 Principal diagnosis: Hemoptysis A very [id number] male patient who got recently diagnosed with stage IV adenocarcinoma of the lung. We saw him in consultation approximately 3 weeks ago here in the hospital. He has a right upper lobe mass in addition to bilateral supraclavicular lymphadenopathy and mediastinal lymphadenopathy. Further workup with a biopsy of the right upper lobe confirmed the diagnosis of adenocarcinoma. PET scan indicated metastatic disease. MRI of the brain was negative. The patient was being worked up by oncology and he has not initiated his treatment yet and he was being considered for immunotherapy. He had been readmitted and discharged on 08/03/2018 for worsening shortness of breath and was found to have acute pulmonary emboli and discharged on Xarelto. He was discharged to an extended care facility. He was brought back here again yesterday to 08/04/2019 with episodes of hemoptysis. He is seen today in consultation on the regular medical floor. He is awake and alert in no acute distress. He states he had 2 or 3 episodes of hemoptysis about the size of a quarter bright red blood. This morning he's only had some dark old blood. He coughed well we were in the room in his sputum is clear. History of x-ray reveals evidence of bilateral lobe consolidation. Volume loss in the right lung and shift trachea towards the right makes it impossible to exclude underlying mass and increased interstitial changes in the short. Represents either interstitial edema or atypical pneumonia. He is more dyspneic on minimal exertion. Loose productive cough. White count 6.8. Hemoglobin 14.6. INR 1.4. Sodium 133. Creatinine 0.98. Troponin 0.050. ProBNP 716. He is currently afebrile. Maintaining O2 saturation in the mid 90s on 2 L/m per nasal cannula. Hemodynamically stable. The patient is seen today 08/06/2019 in follow-up on the regular medical floor. Awake and alert in no acute distress. Maintaining good O2 saturations in the 90s on 2 L/m per nasal cannula, he's been afebrile. Blood culture reveals no growth. No further hemoptysis. Congested cough this morning with clear sputum. He remains on bronchodilators, Tessalon Perles, antibiotics in the form of Zosyn and Levaquin. Remains on Xarelto. The patient is seen today 08/07/2019 in follow-up on the regular medical floor. He is currently resting comfortably in bed. Awake and alert in no acute distress. He has had a rare blood-tinged sputum but no significant hemoptysis. He is maintaining good O2 saturations in the 90s on 2 L/m per nasal cannula. Afebrile. Hemodynamically stable. Blood cultures reveal no growth to date. Chest x-ray reveals persistent abnormal increased density in the right upper lobe. Interstitium is thickened. Abnormal soft tissue extends along the paratracheal location, right hilar region. No evidence of pneumothorax or pleural effusion. There is some eventration the right hemidiaphragm slightly elevated. Patient has a known history of metastatic non-small cell lung carcinoma with possible interstitial spread of tumor. Pneumonia not completely excluded. He is continued on DuoNeb inhalations, Pulmicort inhalations, antibiotics in the form of Zosyn and Levaquin. Anticoagulated with Xarelto. Patient was reevaluated today on 08/08/2019 he is comfortable, continues to have some slightly blood-tinged sputum, less shortness of breath, no chest pain, continues to have intermittent episodes of cough. A be started on radiation therapy as per radiation oncology on the case. Remains on DuoNeb updrafts, Pulm icort, antibiotics, and remains on Xarelto. Reevaluated today on 08/09/2019. Patient is doing well, continues to have intermittent episodes of cough, slightly blood-tinged sputum, at times some old blood coughed up easily. Overall the patient is feeling better, no shortness of breath, no fever no chills, no chest pain at present. The patient is seen today 08/10/2019 in follow-up on the regular medical floor. He is currently sitting up in a chair at the bedside. Awake and alert in no acute distress. He continues with intermittent cough. No hemoptysis. Maintaining good O2 saturations in the mid 90s on 3 L/m per nasal cannula. He's been afebrile. Hemodynamically stable. He is less anxious and utilizing Xanax as needed. He is continued on bronchodilators, Pulmicort inhalations, Tessalon Perles, oral prednisone. Antibiotics in form of Levaquin. He is on Marinol and protein supplements. He is currently receiving radiation treatments and has been initiated on carboplatin and Alimta. Reevaluated today on 08/11/2019, less shortness of breath, no further episodes of hemoptysis, no significant pain. Patient seems to be forgetful, but overall he is doing better. Remains on 3 L nasal cannula. Remains on bronchodilators and on oral prednisone as well as antibiotics in the form of Levaquin. The patient is seen today 08/12/2019 in follow-up on the regular medical floor. He is currently resting fairly comfortably in bed. Awake and alert in no acute distress. He did require some morphine for pain control. The patient did have issues with increased work of breathing early this morning and was placed on the airflow high flow oxygen device at 50 L/m and 33% FiO2. No worsening shortness of breath, cough or congestion at this time. O2 saturations staying in the 90s. The patient is seen today for every 2019 in follow-up on the regular medical floor. He is currently resting in bed. He did undergo radiation treatment earlier this morning. He is still requiring high flow oxygen via the AirVo device currently at 50 L and 34% FiO2. Still remains with a loose nonproductive cough. He is afebrile. Hemodynamically stable. Objective - Vital Signs Vital signs: Vital Signs Temp 97.6 F 08/13/19 12:03 Pulse 91 08/13/19 12:03 Resp 17 08/13/19 12:03 BP 134/81 08/13/19 12:03 Pulse Ox 93 L 08/13/19 12:03 Intake & Output 08/12/19 08/13/19 08/13/19 18:59 06:59 18:59 Intake Total 1000 1320 240 Output Total 1150 Balance 1000 170 240 Weight 72.575 kg Intake: Intake, IV Titration 400 1200 Amount Sodium Chloride 0.9% 1, 400 1200 000 ml @ 100 mls/hr IV . Q10H [facility] Rx#:[id number] Oral 600 120 240 Output: Urine 1150 Other: Voiding Method Bedside Commode Indwelling Catheter Indwelling Catheter Diaper - Exam GENERAL EXAM: Alert, weak, pleasant 79-year-old gentleman, on AirVo high flow oxygen, comfortable in no apparent distress. HEAD: Normocephalic. EYES: Normal reaction of pupils, equal size. NOSE: Clear with pink turbinates. THROAT: No erythema or exudates. NECK: No masses, no JVD. CHEST: No chest wall deformity. LUNGS: Equal air entry with bilateral scattered rhonchi, more so on the right. CVS: S1 and S2 normal with no audible murmur, regular rhythm. ABDOMEN: No hepatosplenomegaly, normal bowel sounds, no guarding or rigidity. SPINE: No scoliosis or deformity SKIN: No rashes CENTRAL NERVOUS SYSTEM: No focal deficits, tone is normal in all 4 extremities. EXTREMITIES: There is no peripheral edema. No clubbing, no cyanosis. Peripheral pulses are intact. - Labs CBC & Chem 7: 08/12/19 06:43 08/10/19 08:22 Assessment and Plan Assessment: 1 Hemoptysis in a patient recently admitted for acute pulmonary embolism involving the left lung with secondary shortness of breath causing further worsening in his chronic dyspnea and further decompensation in his overall p ulmonary status. The patient is likely hypercoagulable secondary to his underlying malignancy. Recently started on Xarelto. 2 Adenocarcinoma of the lung, recent diagnosis, now has been initiated on r adiation and chemotherapy 3 Acute hypoxic respiratory failure currently requiring AirVo high flow oxygen at 50 L and 34% FiO2 4 COPD 5 Hyperlipidemia 6 Prostate cancer 7 Ex-smoker Plan The patient was seen and evaluated by Dr. Ruffin. He did update the patient's daughter who is at the bedside. Remains on AirVo high flow oxygen at 50 L and 34% FiO2. He has been initiated on radiation treatments along with chemotherapy. We will repeat a chest x-ray in the morning. Overall prognosis remains quite guarded and poor. We'll continue to follow. I, the cosigning physician, performed a history & physical examination of the patient. Lungs sounds bilateral scattered rhonci, more so on the right. Maintaining good O2 saturations in the 90s on high flow oxygen via AirVo at 50 L and 34% FiO2. I discussed the assessment and plan of care with my nurse practitioner, Nely Guan. I attest to the above note as dictated by her.
[2019-08-13] MEDS: FOLIC ACID 1 MG TAB PO SCH (16:35)
--- NOTE | 2019-08-13 17:12 | P.PN ---
Subjective Progress Note Date: 08/13/19 Principal diagnosis: Intractable cough from NSCLC In f/u today pt looks much more at ease, he feels calmer, he is not struggling to breathe as much, cough is a little less. He states feeling a little better, no recent hemoptysis. Objective - Vital Signs Vital signs: Vital Signs Temp 97.2 F L 08/13/19 05:00 Pulse 88 08/13/19 07:15 Resp 18 08/13/19 05:00 BP 134/76 08/13/19 05:00 Pulse Ox 92 L 08/13/19 07:01 Intake & Output 08/12/19 08/13/19 08/13/19 18:59 06:59 18:59 Intake Total 1000 1320 Output Total 1150 Balance 1000 170 Intake: Intake, IV Titration 400 1200 Amount Sodium Chloride 0.9% 1, 400 1200 000 ml @ 100 mls/hr IV . Q10H [facility] Rx#:[id number] Oral 600 120 Output: Urine 1150 Other: Voiding Method Bedside Commode Indwelling Catheter Diaper - Constitutional General appearance: Present: average body habitus, cooperative, mild distress - EENT EENT Comment(s): dry mouth Eyes: Present: anicteric sclerae, EOMI ENT: Present: hearing grossly normal - Respiratory Respiratory: right: diminished, left: other (nearly absent breath sounds) - Cardiovascular Rhythm: regular Heart sounds: normal: S1, S2 Abnormal Heart Sounds: Absent: systolic murmur, diastolic murmur, rub, S3 Gallop, S4 Gallop, click, other - Peripheral edema leg Peripheral Edema: bilateral: None - Gastrointestinal General gastrointestinal: Present: normal bowel sounds, soft - Neurologic Neurologic: Present: CNII-XII intact - Musculoskeletal Musculoskeletal: Present: generalized weakness - Psychiatric Psychiatric Comment(s): anxious Psychiatric: Present: A&O x's 3, intact judgment & insight - Labs CBC & Chem 7: 08/12/19 06:43 08/10/19 08:22 Assessment and Plan (1) Cough Narrative/Plan: Anti-tussives ordered. Medications to decrease secretions ordered. Steroids initiated, tapered down today, not sure they are helping much. Cough is less frequent, episodes do not last as long, family notes the same Current Visit: Yes Status: Acute Priority: High Code(s): R05 - COUGH SNOMED Code(s): 17972354 (2) Hemoptysis Current Visit: Yes Status: Resolved Priority: Medium Code(s): R04.2 - HEMOPTYSIS SNOMED Code(s): 88021070 (3) Metastatic non-small cell lung cancer Narrative/Plan: PET scan on 07/22/19 impression was large right hilar pulmonary neoplasm, abnormal thoracic adenopathy, supraclavicular, lower paraesophageal and upper abdominal retroperitoneal adenopathy. Pending biomarker report Patient's case was reviewed by [facility] thoracic tumor board. Chemotherapy with carbo/alimta started last . He completed XRT course last week. Reviewed with patient and his daughter at the bedside the importance of maintaining fluid intake, encouraging mobility and self-care. Most patients will have several days of feeling general malaise that starts about 3 days after chemotherapy, which is timeframe he is in right now. Patient is encouraged to do what he can. Cont supportive care. Antiemetics ordered. Current Visit: No Status: Acute Priority: High Code(s): C34.90 - MALIGNANT NEOPLASM OF UNSP PART OF UNSP BRONCHUS OR LUNG SNOMED Code(s): 717316361 Plan: Appetite stimulant ordered-not sure if effective Salt and soda for oral care Anxiety meds prescribed ATC, oral and IV options as pt is having nausea from chemo
--- NOTE | 2019-08-13 18:20 | P.PN ---
Progress Note - Text Progress Note Date: 08/13/19 Chief Complaint: short of breath history of presenting complaint: This is a pleasant 79-year-old patient of Dr. Jacinto Hermosillo. Was admitted here in in early July. Had a bronchoscopy. For lung mass. 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 patient was admitted to the hospital from July 31 through August 03. diagnosed with acute pulmonary embolism.discharge on Xarelto.plan was to patient to improve from this acute event then come back for treatment of the lung cancer. Patient returns with increasing shortness of breath some wheezing. No cough. No production. No fever no chills. Appetite is not very good. Gets is the short winded. Tired. Patient was at [facility] for above days. Admitted with-acute COPD exacerbation, postobstructive pneumonia, acute respiratory failure. Started on chemotherapy and radiation treatment on July 08 Today-testing up in bed. On high flow oxygen. 15 L and 34%. Daughter the bedside. And sister. Not eating much. Short of breath Review of systems: Was done for constitutional, cardiovascular, GI, pulmonary. relevant finding as above Active Medications Acetaminophen (Tylenol Tab) 650 mg PO Q6HR PRN PRN Reason: Mild Pain or Fever > 100.5 Last Admin: 08/10/19 14:50 Dose: 650 mg Documented by: Albuterol/Ipratropium (Duoneb 0.5 Mg-3 Mg/3 Ml Soln) 3 ml INHALATION RT-Q4H [facility] Last Admin: 08/13/19 15:06 Dose: 3 ml Documented by: Alprazolam (Xanax) 0.5 mg PO QID [facility] Last Admin: 08/13/19 16:35 Dose: Not Given Documented by: Bisacodyl (Dulcolax) 10 mg RECTAL DAILY PRN PRN Reason: Constipation Budesonide (Pulmicort) 1 mg INHALATION RT-BID [facility] Last Admin: 08/13/19 07:00 Dose: 1 mg Documented by: Dronabinol (Marinol) 2.5 mg PO AC-BID [facility] Last Admin: 08/13/19 16:35 Dose: Not Given Documented by: Folic Acid (Folic Acid) 1 mg PO DAILY@1700 [facility] Last Admin: 08/13/19 16:35 Dose: Not Given Documented by: Guaifenesin/Codeine Phosphate (Robitussin Ac) 10 ml PO Q6H PRN PRN Reason: Cough Last Admin: 08/12/19 09:49 Dose: 10 ml Documented by: Sodium Chloride (Saline 0.9%) 1,000 mls @ 100 mls/hr IV .Q10H [facility] Last Admin: 08/13/19 16:35 Dose: Not Given Documented by: Levofloxacin (Levaquin) 750 mg PO 2300 [facility] Last Admin: 08/12/19 23:21 Dose: Not Given Documented by: Lorazepam (Ativan) 1 mg IV Q6HR PRN PRN Reason: Anxiety Magnesium Hydroxide (Milk Of Magnesia) 2,400 mg PO DAILY PRN PRN Reason: Constipation Metoclopramide HCl (Reglan) 5 mg IVP Q8HR PRN PRN Reason: MILD Nausea And Vomiting Metoclopramide HCl (Reglan) 10 mg IVP Q8HR PRN PRN Reason: MODERATE TO SEVERE Nausea Miscellaneous Information (Pneumonia Protocol Utilized) 1 each PO ONCE PRN PRN Reason: Per Protocol Morphine Sulfate (Morphine Sulfate (Inj)) 4 mg IVP Q6HR PRN PRN Reason: Pain Last Admin: 08/13/19 10:14 Dose: 4 mg Documented by: Ondansetron HCl (Zofran) 4 mg IVP Q4HR PRN PRN Reason: N/V if reglan not working Last Admin: 08/13/19 09:06 Dose: 4 mg Documented by: Pantoprazole Sodium (Protonix) 40 mg PO DAILY@0700 [facility] Last Admin: 08/13/19 07:36 Dose: 40 mg Documented by: Paroxetine HCl (Paxil) 20 mg PO DAILY [facility] Last Admin: 08/13/19 07:36 Dose: 20 mg Documented by: Prednisone () 40 mg PO DAILY [facility] Rivaroxaban (Xarelto) 15 mg PO BID@0800,1700 [facility] Last Admin: 08/13/19 17:49 Dose: 15 mg Documented by: Scopolamine (Transderm-Scop 1.5mg/72hr Patch) 1 patch TRANSDERM Q72H [facility] Last Admin: 08/12/19 20:17 Dose: 1 patch Documented by: Sodium Bicarbonate () 5 ml PO 5XD [facility] Last Admin: 08/13/19 16:25 Dose: 5 ml Documented by: Physical examination: VITAL SIGNS: 97.6-91-17-134/81, 93% on 15 L high flow FiO2 34% GENERAL: Propped up in bed, tired short of breath EYES: Pupils equal. Conjunctiva normal. HEENT: External appearance of nose and ears normal, oral cavity grossly normal. Decreased hearing NECK: JVD not raised; masses not palpable. HEART: First and second heart sounds are normal; no edema. LUNGS: Respiratory rate increased increased, decreased breath sounds , prolonged expiration. ABDOMEN: Soft, nontender, liver spleen not palpable, no masses palpable. PSYCH: Alert and oriented x3; mood and affect and tired. LYMPHATICS: supraclavicular lymph nodes palpable on both sides INVESTIGATIONS, reviewed in the clinical context: White count 10.2 hemoglobin 13.6 Previous testing EKG tracing personally reviewed by me-normal sinus rhythm Chest x-ray film personally reviewed by me-mass in the right upper lobe, suspect collapse of the right upper lobe with elevation of the right diaphragm 2-D echo-EF 55-60%, right ventricular pressures normal CT angios a chest-encasing the main bronchi of the right and narrowing the right middle lobe bronchus. Diffuse his interstitial changes in the right lung. Small bilateral pleural effusion adenopathy in the mediastinum present. Thrombus in the distal left main pulmonary artery extending into the secondary and tertiary branches of the left upper and left lower lobes. Protocol calcitonin 7.66 albumin 2.7 Assessment: -Suspect right upper lobe, collapse from underlying malignancy -Started on chemotherapy and radiation treatment for the lung cancer, -Possible postobstructive pneumonia, POA -Acute pulmonary embolism, and the distal left main pulmonary artery extending into the secondary and tertiary branches, on Xarelto, diagnosed on July 31 -Poorly differentiated adenocarcinoma of the lung,- for radiation and chemotherapy, to be started as per oncology and radiation oncology -Acute COPD exacerbation in an ex-smoker, POA, -Troponin leak from acute PE. No evidence of acute coronary syndrome. -Anxiety-uncontrolled -Mild protein calorie malnutrition from decreased oral intake Plan: Care was discussed with the patient and daughter the bedside. Continue current medications. Continue with high flow oxygen. Patient status post chemo and radiation treatment. Follow with oncology.
[2019-08-13] MEDS: LEVOFLOXACIN 750 MG TAB PO SCH (21:52)
[2019-08-14] MEDS: LORazepam 2 MG/ML INJ IV PRN ×3 (00:10→22:37)
[2019-08-14] MEDS: SALT AND SODA MOUTHWASH 1,000 ML PO SCH ×5 (00:10→19:24)
[2019-08-14] MEDS: IPRATROPIUM-ALBUTEROL 3 ML NEB INHALATION SCH ×6 (01:41→19:00)
[2019-08-14] MEDS: BUDESONIDE 1 MG/2 ML NEBU INHALATION SCH ×2 (07:29→19:00)
[2019-08-14] MEDS: ONDANSETRON 4 MG/2 ML VIAL IVP PRN ×2 (08:34→15:47)
[2019-08-14] MEDS: ALPRAZolam 0.5 MG TAB PO SCH (08:36)
[2019-08-14] MEDS: DRONABINOL 2.5 MG CAP PO SCH ×2 (08:36→15:46)
[2019-08-14] MEDS: predniSONE 20 MG TAB PO SCH (08:36)
[2019-08-14] MEDS: PARoxetine 20 MG TAB PO SCH (08:36)
[2019-08-14] MEDS: PANTOPRAZOLE 40 MG TABLET PO SCH (08:36)
[2019-08-14 08:41] LABS: Basophils % (A) 0 %; Eosinophils % (A) 1 %; HGB 13.5 gm/dL (13.0-17.5); Lymphocytes # (A) 0.2 k/uL (1.0-4.8); Lymphocytes % (A) 10 %; MCH 32.3 pg (25.0-35.0); MCHC 32.2 g/dL (31.0-37.0); MCV 100.3 fL (80.0-100.0); Mean Platelet Volume 7.4; Monocytes % (A) 2 %; Neutrophils # (A) 1.4 k/uL (1.3-7.7); Neutrophils % (A) 86 %; Platelet Count 139 k/uL (150-450); RBC 4.18 m/uL (4.30-5.90); RDW 13.2 % (11.5-15.5); WBC 1.7 k/uL (3.8-10.6)
[2019-08-14 08:53] LABS: ALT 19 U/L (4-49); AST 29 U/L (17-59); African American GFR (CKD) >90 (>60 ml/min/1.73 sqM); Albumin 2.4 g/dL (3.5-5.0); Alkaline Phosphatase 53 U/L (38-126); Anion Gap 6 mmol/L; Blood Urea Nitrogen 28 mg/dL (9-20); Calcium 7.9 mg/dL (8.4-10.2); Carbon Dioxide 26 mmol/L (22-30); Chloride 102 mmol/L (98-107); Glucose 81 mg/dL (74-99); Non-African American GFR(CKD) >90 (>60 ml/min/1.73 sqM); Potassium 4.1 mmol/L (3.5-5.1); Sodium 134 mmol/L (137-145); Total Bilirubin 1.4 mg/dL (0.2-1.3); Total Protein 4.6 g/dL (6.3-8.2)
--- NOTE | 2019-08-14 08:56 | XR ---
EXAMINATION TYPE: XR chest 1V portable DATE OF EXAM: 08/14/2019 COMPARISON: Prior chest x-ray 08/10/2019 HISTORY: Lung cancer TECHNIQUE: Single frontal view of the chest is obtained. FINDINGS: Interval atelectatic changes in the right upper lobe. No other significant interval change . IMPRESSION: Findings compatible with patient's history of lung cancer.
--- NOTE | 2019-08-14 09:01 | P.PN ---
Subjective Progress Note Date: 08/14/19 On exam the patient was not in any acute distress. However he was sleepy and lethargic and slightly difficult to arouse. On waking up and moving around in bed, he did develop some cough. No fever or chills. Objective - Vital Signs Vital signs: Vital Signs Temp 98.5 F 08/14/19 05:00 Pulse 96 08/14/19 07:40 Resp 24 08/14/19 05:00 BP 144/87 08/14/19 05:00 Pulse Ox 95 08/14/19 07:24 Intake & Output 08/13/19 08/14/19 08/14/19 18:59 06:59 18:59 Intake Total 1640 1440 Output Total 1200 850 Balance 440 590 Weight 72.575 kg Intake: Intake, IV Titration 800 1200 Amount Sodium Chloride 0.9% 1, 800 1200 000 ml @ 100 mls/hr IV . Q10H [facility] Rx#:[id number] Oral 840 240 Output: Urine 1200 850 Other: Voiding Method Indwelling Catheter Indwelling Catheter # Voids 2 - Constitutional General appearance: Present: no acute distress - EENT Eyes: Present: EOMI ENT: Present: hearing grossly normal, normal oropharynx - Respiratory Respiratory: right: diminished, rhonchi - Cardiovascular Rhythm: regular Heart sounds: normal: S1, S2 - Gastrointestinal General gastrointestinal: Present: normal bowel sounds, soft - Integumentary Integumentary: Present: normal - Neurologic Neurologic: Present: CNII-XII intact - Musculoskeletal Musculoskeletal: Present: generalized weakness, strength equal bilaterally - Psychiatric Psychiatric Comment(s): As per HPI - Labs CBC & Chem 7: 08/14/19 08:17 08/14/19 08:17 Labs: Abnormal Lab Results - Last 24 Hours (Table) 08/14/19 08/14/19 Range/Units 08:17 08:17 WBC 1.7 L (3.8-10.6) k/uL RBC 4.18 L (4.30-5.90) m/uL MCV 100.3 H (80.0-100.0) fL Plt Count 139 L (150-450) k/uL Lymphocytes # 0.2 L (1.0-4.8) k/uL Sodium 134 L (137-145) mmol/L BUN 28 H (9-20) mg/dL Calcium 7.9 L (8.4-10.2) mg/dL Total Bilirubin 1.4 H (0.2-1.3) mg/dL Total Protein 4.6 L (6.3-8.2) g/dL Albumin 2.4 L (3.5-5.0) g/dL Assessment and Plan (1) Acute and chronic respiratory failure Narrative/Plan: The patient had developed increased hypoxia over the last couple of days, requiring high flow oxygen. Previously, while he would complain of subjective respiratory distress during his coughing spells, his oxygen saturation actually did not drop too much. Chest x-ray was performed this morning and images personally reviewed. On my evaluation, there appeared to be possibility of increased opacity in the right upper lobe. Physical exam also had corresponding findings. - Case was therefore discussed with the pulmonary service to see if they could assess the patient for possible mucous plugging causing acute obstruction in the right upper lobe. Another possibility could be a new right upper lobe pneumonia. They will assess the patient for further recommendations. - Continue oxygen, prednisone, an antibiotic. Current Visit: Yes Status: Acute Code(s): J96.20 - ACUTE AND CHR RESP FAILURE, UNSP W HYPOXIA OR HYPERCAPNIA SNOMED Code(s): 47171364 (2) Cough Narrative/Plan: This appears to be overall improved, though the patient still has significant spells. He is on multiple antitussives, as well as scopolamine patch to reduce upper airway secretions Current Visit: Yes Status: Acute Priority: High Code(s): R05 - COUGH SNOMED Code(s): 03955706 (3) Metastatic non-small cell lung cancer Narrative/Plan: Status post cycle 1 of chemotherapy. The patient is continuing palliative radiation to the right upper lobe lesion Current Visit: No Status: Acute Priority: High Code(s): C34.90 - MALIGNANT NEOPLASM OF UNSP PART OF UNSP BRONCHUS OR LUNG SNOMED Code(s): 193010058 (4) Pulmonary embolism on left Narrative/Plan: Continuing on Xarelto. No evidence of any unusual bleeding. Current Visit: No Status: Acute Priority: High Code(s): I26.99 - OTHER PULMONARY EMBOLISM WITHOUT ACUTE COR PULMONALE SNOMED Code(s): 79997686 Plan: The patient has significant issues with anxiety. He is on IV Ativan. Hold Xanax while on IV Ativan. He is also on morphine and scopolamine. We may have to review and adjust his medication as the patient does appear to be somewhat more lethargic and sleepy.
[2019-08-14] MEDS: RIVAROXABAN 15 MG TAB PO SCH ×2 (10:11→17:31)
--- NOTE | 2019-08-14 10:46 | P.PN ---
Subjective Progress Note Date: 08/14/19 Principal diagnosis: Hemoptysis A very [id number] male patient who got recently diagnosed with stage IV adenocarcinoma of the lung. We saw him in consultation approximately 3 weeks ago here in the hospital. He has a right upper lobe mass in addition to bilateral supraclavicular lymphadenopathy and mediastinal lymphadenopathy. Further workup with a biopsy of the right upper lobe confirmed the diagnosis of adenocarcinoma. PET scan indicated metastatic disease. MRI of the brain was negative. The patient was being worked up by oncology and he has not initiated his treatment yet and he was being considered for immunotherapy. He had been readmitted and discharged on 08/03/2018 for worsening shortness of breath and was found to have acute pulmonary emboli and discharged on Xarelto. He was discharged to an extended care facility. He was brought back here again yesterday to 08/04/2019 with episodes of hemoptysis. He is seen today in consultation on the regular medical floor. He is awake and alert in no acute distress. He states he had 2 or 3 episodes of hemoptysis about the size of a quarter bright red blood. This morning he's only had some dark old blood. He coughed well we were in the room in his sputum is clear. History of x-ray reveals evidence of bilateral lobe consolidation. Volume loss in the right lung and shift trachea towards the right makes it impossible to exclude underlying mass and increased interstitial changes in the short. Represents either interstitial edema or atypical pneumonia. He is more dyspneic on minimal exertion. Loose productive cough. White count 6.8. Hemoglobin 14.6. INR 1.4. Sodium 133. Creatinine 0.98. Troponin 0.050. ProBNP 716. He is currently afebrile. Maintaining O2 saturation in the mid 90s on 2 L/m per nasal cannula. Hemodynamically stable. The patient is seen today 08/06/2019 in follow-up on the regular medical floor. Awake and alert in no acute distress. Maintaining good O2 saturations in the 90s on 2 L/m per nasal cannula, he's been afebrile. Blood culture reveals no growth. No further hemoptysis. Congested cough this morning with clear sputum. He remains on bronchodilators, Tessalon Perles, antibiotics in the form of Zosyn and Levaquin. Remains on Xarelto. The patient is seen today 08/07/2019 in follow-up on the regular medical floor. He is currently resting comfortably in bed. Awake and alert in no acute distress. He has had a rare blood-tinged sputum but no significant hemoptysis. He is maintaining good O2 saturations in the 90s on 2 L/m per nasal cannula. Afebrile. Hemodynamically stable. Blood cultures reveal no growth to date. Chest x-ray reveals persistent abnormal increased density in the right upper lobe. Interstitium is thickened. Abnormal soft tissue extends along the paratracheal location, right hilar region. No evidence of pneumothorax or pleural effusion. There is some eventration the right hemidiaphragm slightly elevated. Patient has a known history of metastatic non-small cell lung carcinoma with possible interstitial spread of tumor. Pneumonia not completely excluded. He is continued on DuoNeb inhalations, Pulmicort inhalations, antibiotics in the form of Zosyn and Levaquin. Anticoagulated with Xarelto. Patient was reevaluated today on 08/08/2019 he is comfortable, continues to have some slightly blood-tinged sputum, less shortness of breath, no chest pain, continues to have intermittent episodes of cough. A be started on radiation therapy as per radiation oncology on the case. Remains on DuoNeb updrafts, Pulm icort, antibiotics, and remains on Xarelto. Reevaluated today on 08/09/2019. Patient is doing well, continues to have intermittent episodes of cough, slightly blood-tinged sputum, at times some old blood coughed up easily. Overall the patient is feeling better, no shortness of breath, no fever no chills, no chest pain at present. The patient is seen today 08/10/2019 in follow-up on the regular medical floor. He is currently sitting up in a chair at the bedside. Awake and alert in no acute distress. He continues with intermittent cough. No hemoptysis. Maintaining good O2 saturations in the mid 90s on 3 L/m per nasal cannula. He's been afebrile. Hemodynamically stable. He is less anxious and utilizing Xanax as needed. He is continued on bronchodilators, Pulmicort inhalations, Tessalon Perles, oral prednisone. Antibiotics in form of Levaquin. He is on Marinol and protein supplements. He is currently receiving radiation treatments and has been initiated on carboplatin and Alimta. Reevaluated today on 08/11/2019, less shortness of breath, no further episodes of hemoptysis, no significant pain. Patient seems to be forgetful, but overall he is doing better. Remains on 3 L nasal cannula. Remains on bronchodilators and on oral prednisone as well as antibiotics in the form of Levaquin. The patient is seen today 08/12/2019 in follow-up on the regular medical floor. He is currently resting fairly comfortably in bed. Awake and alert in no acute distress. He did require some morphine for pain control. The patient did have issues with increased work of breathing early this morning and was placed on the airflow high flow oxygen device at 50 L/m and 33% FiO2. No worsening shortness of breath, cough or congestion at this time. O2 saturations staying in the 90s. The patient is seen today for every 2019 in follow-up on the regular medical floor. He is currently resting in bed. He did undergo radiation treatment earlier this morning. He is still requiring high flow oxygen via the AirVo device currently at 50 L and 34% FiO2. Still remains with a loose nonproductive cough. He is afebrile. Hemodynamically stable. The patient is seen today 08/14/2019 in follow-up on the regular medical floor. He is quite weak. His cough is weak. He remains on the AirVo at 50 L and 34% FiO2. Today's chest x-ray shows worsening airspace disease in the right upper lobe. White count 1.7. Hemoglobin 13.5. Platelet count 139,000. Sodium 134. Potassium 4.1. Creatinine 0.68. He did receive carboplatin and Alimta back on 08/08/2019. He is still receiving radiation treatments. The cultures reveal no growth. He is still receiving Ativan for anxiety. Remains on Xarelto. Objective - Vital Signs Vital signs: Vital Signs Temp 98.5 F 08/14/19 05:00 Pulse 96 08/14/19 07:40 Resp 24 08/14/19 05:00 BP 144/87 08/14/19 05:00 Pulse Ox 95 08/14/19 07:24 Intake & Output 08/13/19 08/14/19 08/14/19 18:59 06:59 18:59 Intake Total 1640 1440 Output Total 1200 850 Balance 440 590 Weight 72.575 kg Intake: Intake, IV Titration 800 1200 Amount Sodium Chloride 0.9% 1, 800 1200 000 ml @ 100 mls/hr IV . Q10H ON [facility] Rx#:[id number] Oral 840 240 Output: Urine 1200 850 Other: Voiding Method Indwelling Catheter Indwelling Catheter # Voids 2 - Exam GENERAL EXAM: Arousable, weak, pleasant 79-year-old gentleman, on AirVo high flow oxygen. HEAD: Normocephalic. EYES: Normal reaction of pupils, equal size. NOSE: Clear with pink turbinates. THROAT: No erythema or exudates. NECK: No masses, no JVD. CHEST: No chest wall deformity. LUNGS: Equal air entry with bilateral scattered rhonchi, more so on the right. CVS: S1 and S2 normal with no audible murmur, regular rhythm. ABDOMEN: No hepatosplenomegaly, normal bowel sounds, no guarding or rigidity. SPINE: No scoliosis or deformity SKIN: No rashes CENTRAL NERVOUS SYSTEM: No focal deficits, tone is normal in all 4 extremities. EXTREMITIES: There is no peripheral edema. No clubbing, no cyanosis. Peripheral pulses are intact. - Labs CBC & Chem 7: 08/14/19 08:17 08/14/19 08:17 Labs: Abnormal Lab Results - Last 24 Hours (Table) 08/14/19 08/14/19 Range/Units 08:17 08:17 WBC 1.7 L (3.8-10.6) k/uL RBC 4.18 L (4.30-5.90) m/uL MCV 100.3 H (80.0-100.0) fL Plt Count 139 L (150-450) k/uL Lymphocytes # 0.2 L (1.0-4.8) k/uL Sodium 134 L (137-145) mmol/L BUN 28 H (9-20) mg/dL Calcium 7.9 L (8.4-10.2) mg/dL Total Bilirubin 1.4 H (0.2-1.3) mg/dL Total Protein 4.6 L (6.3-8.2) g/dL Albumin 2.4 L (3.5-5.0) g/dL Assessment and Plan Assessment: 1 Hemoptysis in a patient recently admitted for acute pulmonary embolism involving the left lung with secondary shortness of breath causing further worsening in his chronic dyspnea and further decompensation in his overall pulmonary status. The patient is likely hypercoagulable secondary to his underlying malignancy. Recently started on Xarelto. 2 Adenocarcinoma of the lung, recent diagnosis, has been initiated on radiation and chemotherapy x 1 on 08/08/2019 with carboplatin and Alimta 3 Acute hypoxic respiratory failure currently requiring AirVo high flow oxygen at 50 L and 34% FiO2 secondary to worsening right upper lobe opacity with known right upper lobe metastatic non-small cell lung cancer. Possible postobstructive pneumonia. Possible lymphatic involvement. 4 COPD 5 Hyperlipidemia 6 Prostate cancer 7 Ex-smoker Plan The patient was seen and evaluated by Dr. Ruffin. He did speak to the patient's daughter on the phone today at length. The patient is quite weak. Very weak cough. Unable to expectorate any sputum. Remains on AirVo high flow oxygen at 50 L and 34% FiO2. We'll attempt chest physiotherapy to try to open that right upper lobe. The patient is too weak and too hypoxic to undergo bronchoscopy at this time. Overall prognosis remains quite guarded and poor. Hospice/comfort care is being considered. The family will let us know. We'll continue to follow and make further recommendations based on his clinical status per. I, the cosigning physician, performed a history & physical examination of the patient. Lungs sounds bilateral scattered rhonchi, more so on the right. Maintaining good O2 saturations in the 90s on high flow oxygen via AirVo at 50 L and 34% FiO2. I discussed the assessment and plan of care with my nurse practitioner, Nely Guan. I attest to the above note as dictated by her.
[2019-08-14] MEDS: FOLIC ACID 1 MG TAB PO SCH (15:46)
[2019-08-14] MEDS: SODIUM CHLORIDE 0.9% 1,000 ML IV SCH (15:47)
--- NOTE | 2019-08-14 18:49 | P.PN ---
Progress Note - Text Progress Note Date: 08/14/19 Chief Complaint: short of breath history of presenting complaint: This is a pleasant 79-year-old patient of Dr. Jacinto Hermosillo. Was admitted here in in early July. Had a bronchoscopy. For lung mass. 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 patient was admitted to the hospital from July 31 through August 03. diagnosed with acute pulmonary embolism.discharge on Xarelto.plan was to patient to improve from this acute event then come back for treatment of the lung cancer. Patient returns with increasing shortness of breath some wheezing. No cough. No production. No fever no chills. Appetite is not very good. Gets is the short winded. Tired. Patient was at [facility] for above days. Admitted with-acute COPD exacerbation, postobstructive pneumonia, acute respiratory failure. Started on chemotherapy and radiation treatment on July 08 Today-. Remains on high flow oxygen. Minimal oral intake. Tired. Family members have been present Review of systems: Was done for constitutional, cardiovascular, GI, pulmonary. relevant finding as above Active Medications Acetaminophen (Tylenol Tab) 650 mg PO Q6HR PRN PRN Reason: Mild Pain or Fever > 100.5 Last Admin: 08/10/19 14:50 Dose: 650 mg Documented by: Albuterol/Ipratropium (Duoneb 0.5 Mg-3 Mg/3 Ml Soln) 3 ml INHALATION RT-Q4H [facility] Last Admin: 08/14/19 15:57 Dose: 3 ml Documented by: Bisacodyl (Dulcolax) 10 mg RECTAL DAILY PRN PRN Reason: Constipation Budesonide (Pulmicort) 1 mg INHALATION RT-BID [facility] Last Admin: 08/14/19 07:29 Dose: 1 mg Documented by: Dronabinol (Marinol) 2.5 mg PO AC-BID [facility] Last Admin: 08/14/19 15:46 Dose: Not Given Documented by: Folic Acid (Folic Acid) 1 mg PO DAILY@1700 [facility] Last Admin: 08/14/19 15:46 Dose: Not Given Documented by: Guaifenesin/Codeine Phosphate (Robitussin Ac) 10 ml PO Q6H PRN PRN Reason: Cough Last Admin: 08/12/19 09:49 Dose: 10 ml Documented by: Sodium Chloride (Saline 0.9%) 1,000 mls @ 100 mls/hr IV .Q10H [facility] Last Admin: 08/14/19 15:47 Dose: 100 mls/hr Documented by: Lorazepam (Ativan) 1 mg IV Q6HR PRN PRN Reason: Anxiety Last Admin: 08/14/19 08:29 Dose: 1 mg Documented by: Magnesium Hydroxide (Milk Of Magnesia) 2,400 mg PO DAILY PRN PRN Reason: Constipation Metoclopramide HCl (Reglan) 5 mg IVP Q8HR PRN PRN Reason: MILD Nausea And Vomiting Metoclopramide HCl (Reglan) 10 mg IVP Q8HR PRN PRN Reason: MODERATE TO SEVERE Nausea Miscellaneous Information (Pneumonia Protocol Utilized) 1 each PO ONCE PRN PRN Reason: Per Protocol Morphine Sulfate (Morphine Sulfate (Inj)) 3 mg IVP Q6HR PRN PRN Reason: Pain Ondansetron HCl (Zofran) 4 mg IVP Q4HR PRN PRN Reason: N/V if reglan not working Last Admin: 08/14/19 15:47 Dose: 4 mg Documented by: Pantoprazole Sodium (Protonix) 40 mg PO DAILY@0700 [facility] Last Admin: 08/14/19 08:36 Dose: Not Given Documented by: Paroxetine HCl (Paxil) 20 mg PO DAILY [facility] Last Admin: 08/14/19 08:36 Dose: Not Given Documented by: Prednisone () 40 mg PO DAILY [facility] Last Admin: 08/14/19 08:36 Dose: Not Given Documented by: Rivaroxaban (Xarelto) 15 mg PO BID@0800,1700 [facility] Last Admin: 08/14/19 17:31 Dose: 15 mg Documented by: Scopolamine (Transderm-Scop 1.5mg/72hr Patch) 1 patch TRANSDERM Q72H [facility] Last Admin: 08/12/19 20:17 Dose: 1 patch Documented by: Sodium Bicarbonate () 5 ml PO 5XD [facility] Last Admin: 08/14/19 15:46 Dose: Not Given Documented by: Physical examination: VITAL SIGNS: 98.4-90-20-142/87-94% on 15 L high flow GENERAL: Propped up in bed, tired short of breath EYES: Pupils equal. Conjunctiva normal. HEENT: External appearance of nose and ears normal, oral cavity grossly normal. Decreased hearing NECK: JVD not raised; masses not palpable. HEART: First and second heart sounds are normal; no edema. LUNGS: Respiratory rate increased increased, decreased breath sounds , prolonged expiration. ABDOMEN: Soft, nontender, liver spleen not palpable, no masses palpable. PSYCH: Tired but able to answer questions. LYMPHATICS: supraclavicular lymph nodes palpable on both sides INVESTIGATIONS, reviewed in the clinical context: White count 1.7 hemoglobin 13.5 platelets 139 potassium 4.1 crit 0.68 Previous testing EKG tracing personally reviewed by me-normal sinus rhythm Chest x-ray film personally reviewed by me-mass in the right upper lobe, suspect collapse of the right upper lobe with elevation of the right diaphragm 2-D echo-EF 55-60%, right ventricular pressures normal CT angios a chest-encasing the main bronchi of the right and narrowing the right middle lobe bronchus. Diffuse his interstitial changes in the right lung. Small bilateral pleural effusion adenopathy in the mediastinum present. Thrombus in the distal left main pulmonary artery extending into the secondary and tertiary branches of the left upper and left lower lobes. Protocol calcitonin 7.66 albumin 2.7 Assessment: -Suspect right upper lobe, collapse from underlying malignancy -Acute hypoxic respiratory failure multifactorial not improving, and high flow 50 L AIRVO -Started on chemotherapy and radiation treatment for the lung cancer, -Possible postobstructive pneumonia, POA -Acute pulmonary embolism, and the distal left main pulmonary artery extending into the secondary and tertiary branches, on Xarelto, diagnosed on July 31 -Poorly differentiated adenocarcinoma of the lung,- for radiation and chemotherapy, to be started as per oncology and radiation oncology -Acute COPD exacerbation in an ex-smoker, POA, -Troponin leak from acute PE. No evidence of acute coronary syndrome. -Anxiety-uncontrolled -Mild protein calorie malnutrition from decreased oral intake -Bicytopenia from chemotherapy Plan: Dr. Peguero from oncology called earlier today. She felt the patient will benefit from possible bronchoscopy and there is mucus plugging and patient may benefit from chemotherapy. Dr. Ruffin the pulmonologists opinion sides leading towards hospice. Dr. Peguero spoke to the son earlier today to see if family and patient would like to get transferred to outside facility and get a possible bronchoscopy done and also get a second opinion. Patient's daughter will be coming later today. Advanced care planning: -I had a meeting with the entire family including the son and daughter son-in-law and patient's sister. Patient's care was discussed in detail. They all understand. Guarded prognosis. Pros and cons about transferred to surgery systems discussed That is expressed patient's wish that he did not want to be intubated. also felt that is a possibility that the patient gets transferred is a possibility getting intubated enRoute given that he is on the high flow oxygen. Family members did ask many questions us at length and answered several questions. At this point they have decided to wait tomorrow morning and will discuss this further tonight. Total time spent today was 1 hour 15 minutes
[2019-08-15] MEDS: SALT AND SODA MOUTHWASH 1,000 ML PO SCH ×5 (00:50→20:56)
[2019-08-15] MEDS: SODIUM CHLORIDE 0.9% 1,000 ML IV SCH ×3 (00:52→20:56)
[2019-08-15] MEDS: IPRATROPIUM-ALBUTEROL 3 ML NEB INHALATION SCH ×6 (00:53→19:29)
[2019-08-15] MEDS: MORPHINE SULFATE 4 MG/ML SYRINGE IVP PRN (01:42)
[2019-08-15 07:48] LABS: Basophils % (A) 0 %; Eosinophils # (A) 0.1 k/uL (0-0.7); Eosinophils % (A) 2 %; HCT 38.8 % (39.0-53.0); HGB 13.2 gm/dL (13.0-17.5); Lymphocytes # (A) 0.3 k/uL (1.0-4.8); Lymphocytes % (A) 10 %; MCH 33.7 pg (25.0-35.0); MCV 99.1 fL (80.0-100.0); Mean Platelet Volume 7.6; Monocytes # (A) 0.1 k/uL (0-1.0); Monocytes % (A) 3 %; Neutrophils # (A) 2.2 k/uL (1.3-7.7); Neutrophils % (A) 84 %; Platelet Count 132 k/uL (150-450); RBC 3.92 m/uL (4.30-5.90); RDW 13.2 % (11.5-15.5); WBC 2.6 k/uL (3.8-10.6)
[2019-08-15 07:54] LABS: ALT 17 U/L (4-49); AST 34 U/L (17-59); African American GFR (CKD) >90 (>60 ml/min/1.73 sqM); Albumin 2.3 g/dL (3.5-5.0); Alkaline Phosphatase 48 U/L (38-126); Anion Gap 7 mmol/L; Blood Urea Nitrogen 26 mg/dL (9-20); Calcium 7.7 mg/dL (8.4-10.2); Carbon Dioxide 24 mmol/L (22-30); Chloride 103 mmol/L (98-107); Glucose 75 mg/dL (74-99); Non-African American GFR(CKD) >90 (>60 ml/min/1.73 sqM); Potassium 4.2 mmol/L (3.5-5.1); Sodium 134 mmol/L (137-145); Total Bilirubin 1.4 mg/dL (0.2-1.3); Total Protein 4.5 g/dL (6.3-8.2)
[2019-08-15] MEDS: BUDESONIDE 1 MG/2 ML NEBU INHALATION SCH ×2 (08:59→19:29)
[2019-08-15] MEDS: PANTOPRAZOLE 40 MG TABLET PO SCH (10:34)
[2019-08-15] MEDS: PARoxetine 20 MG TAB PO SCH (10:34)
[2019-08-15] MEDS: DRONABINOL 2.5 MG CAP PO SCH ×2 (10:34→17:03)
--- NOTE | 2019-08-15 15:03 | P.PN ---
Subjective Progress Note Date: 08/15/19 Principal diagnosis: Hemoptysis A very [id number] male patient who got recently diagnosed with stage IV adenocarcinoma of the lung. We saw him in consultation approximately 3 weeks ago here in the hospital. He has a right upper lobe mass in addition to bilateral supraclavicular lymphadenopathy and mediastinal lymphadenopathy. Further workup with a biopsy of the right upper lobe confirmed the diagnosis of adenocarcinoma. PET scan indicated metastatic disease. MRI of the brain was negative. The patient was being worked up by oncology and he has not initiated his treatment yet and he was being considered for immunotherapy. He had been readmitted and discharged on 08/03/2018 for worsening shortness of breath and was found to have acute pulmonary emboli and discharged on Xarelto. He was discharged to an extended care facility. He was brought back here again yesterday to 08/04/2019 with episodes of hemoptysis. He is seen today in consultation on the regular medical floor. He is awake and alert in no acute distress. He states he had 2 or 3 episodes of hemoptysis about the size of a quarter bright red blood. This morning he's only had some dark old blood. He coughed well we were in the room in his sputum is clear. History of x-ray reveals evidence of bilateral lobe consolidation. Volume loss in the right lung and shift trachea towards the right makes it impossible to exclude underlying mass and increased interstitial changes in the short. Represents either interstitial edema or atypical pneumonia. He is more dyspneic on minimal exertion. Loose productive cough. White count 6.8. Hemoglobin 14.6. INR 1.4. Sodium 133. Creatinine 0.98. Troponin 0.050. ProBNP 716. He is currently afebrile. Maintaining O2 saturation in the mid 90s on 2 L/m per nasal cannula. Hemodynamically stable. The patient is seen today 08/06/2019 in follow-up on the regular medical floor. Awake and alert in no acute distress. Maintaining good O2 saturations in the 90s on 2 L/m per nasal cannula, he's been afebrile. Blood culture reveals no growth. No further hemoptysis. Congested cough this morning with clear sputum. He remains on bronchodilators, Tessalon Perles, antibiotics in the form of Zosyn and Levaquin. Remains on Xarelto. The patient is seen today 08/07/2019 in follow-up on the regular medical floor. He is currently resting comfortably in bed. Awake and alert in no acute distress. He has had a rare blood-tinged sputum but no significant hemoptysis. He is maintaining good O2 saturations in the 90s on 2 L/m per nasal cannula. Afebrile. Hemodynamically stable. Blood cultures reveal no growth to date. Chest x-ray reveals persistent abnormal increased density in the right upper lobe. Interstitium is thickened. Abnormal soft tissue extends along the paratracheal location, right hilar region. No evidence of pneumothorax or pleural effusion. There is some eventration the right hemidiaphragm slightly elevated. Patient has a known history of metastatic non-small cell lung carcinoma with possible interstitial spread of tumor. Pneumonia not completely excluded. He is continued on DuoNeb inhalations, Pulmicort inhalations, antibiotics in the form of Zosyn and Levaquin. Anticoagulated with Xarelto. Patient was reevaluated today on 08/08/2019 he is comfortable, continues to have some slightly blood-tinged sputum, less shortness of breath, no chest pain, continues to have intermittent episodes of cough. A be started on radiation therapy as per radiation oncology on the case. Remains on DuoNeb updrafts, Pulm icort, antibiotics, and remains on Xarelto. Reevaluated today on 08/09/2019. Patient is doing well, continues to have intermittent episodes of cough, slightly blood-tinged sputum, at times some old blood coughed up easily. Overall the patient is feeling better, no shortness of breath, no fever no chills, no chest pain at present. The patient is seen today 08/10/2019 in follow-up on the regular medical floor. He is currently sitting up in a chair at the bedside. Awake and alert in no acute distress. He continues with intermittent cough. No hemoptysis. Maintaining good O2 saturations in the mid 90s on 3 L/m per nasal cannula. He's been afebrile. Hemodynamically stable. He is less anxious and utilizing Xanax as needed. He is continued on bronchodilators, Pulmicort inhalations, Tessalon Perles, oral prednisone. Antibiotics in form of Levaquin. He is on Marinol and protein supplements. He is currently receiving radiation treatments and has been initiated on carboplatin and Alimta. Reevaluated today on 08/11/2019, less shortness of breath, no further episodes of hemoptysis, no significant pain. Patient seems to be forgetful, but overall he is doing better. Remains on 3 L nasal cannula. Remains on bronchodilators and on oral prednisone as well as antibiotics in the form of Levaquin. The patient is seen today 08/12/2019 in follow-up on the regular medical floor. He is currently resting fairly comfortably in bed. Awake and alert in no acute distress. He did require some morphine for pain control. The patient did have issues with increased work of breathing early this morning and was placed on the airflow high flow oxygen device at 50 L/m and 33% FiO2. No worsening shortness of breath, cough or congestion at this time. O2 saturations staying in the 90s. The patient is seen today for every 2019 in follow-up on the regular medical floor. He is currently resting in bed. He did undergo radiation treatment earlier this morning. He is still requiring high flow oxygen via the AirVo device currently at 50 L and 34% FiO2. Still remains with a loose nonproductive cough. He is afebrile. Hemodynamically stable. The patient is seen today 08/14/2019 in follow-up on the regular medical floor. He is quite weak. His cough is weak. He remains on the AirVo at 50 L and 34% FiO2. Today's chest x-ray shows worsening airspace disease in the right upper lobe. White count 1.7. Hemoglobin 13.5. Platelet count 139,000. Sodium 134. Potassium 4.1. Creatinine 0.68. He did receive carboplatin and Alimta back on 08/08/2019. He is still receiving radiation treatments. The cultures reveal no growth. He is still receiving Ativan for anxiety. Remains on Xarelto. On 08/15/2019 patient seen in follow-up on medical oncology floor. Very lethargic on today's exam, mildly dyspneic at rest, remains on high flow oxygen Airvo likely at 50 L and FiO2 of 33%. Pulse ox is 93%, afebrile, hemodynamically patient is stable, patient seems very frail, weak and dyspneic. Today's labs have been reviewed, showing liquid silk on 2.6, hemoglobin of 13.2, serum sodium is 134, and the rest of electrolytes are within normal limits, B1 is 26 and creatinine 0.62. No family at the bedside today, Dr. Ruffin did have a lengthy conversation with the daughter and the son yesterday and the day before. Prognosis from pulmonary perspective is poor. Patient is still receiving radiation treatments. However his overall functional status and oxygenation remained poor. His cough is quite weak, we ordered chest physiotherapy to try to open up the right upper lobe. Patient is too high risk for bronchoscopy with BAL. He remains on supportive treatment at this time, with breathing treatments, antibiotics. The family did make the patient DO NOT RESUSCITATE and were told that they are considering palliative care, but has not made final decisions yet Objective - Vital Signs Vital signs: Vital Signs Temp 97.8 F 08/15/19 12:09 Pulse 58 L 08/15/19 12:09 Resp 21 08/15/19 12:09 BP 160/96 08/15/19 12:09 Pulse Ox 93 L 08/15/19 12:09 Intake & Output 08/14/19 08/15/19 08/15/19 18:59 06:59 18:59 Intake Total 720 1440 Output Total 1400 750 Balance -680 690 Intake: Intake, IV Titration 1200 Amount Sodium Chloride 0.9% 1, 1200 000 ml @ 100 mls/hr IV . Q10H [facility] Rx#:[id number] Oral 720 240 Output: Urine 1400 750 Uretheral (Galvin) 700 750 Other: Voiding Method Indwelling Catheter Indwelling Catheter Indwelling Catheter - Exam GENERAL EXAM: Arousable, weak, pleasant 79-year-old gentleman, on AirVo high flow oxygen. HEAD: Normocephalic. EYES: Normal reaction of pupils, equal size. NOSE: Clear with pink turbinates. THROAT: No erythema or exudates. NECK: No masses, no JVD. CHEST: No chest wall deformity. LUNGS: Equal air entry with bilateral scattered rhonchi, more so on the right. CVS: S1 and S2 normal with no audible murmur, regular rhythm. ABDOMEN: No hepatosplenomegaly, normal bowel sounds, no guarding or rigidity. SPINE: No scoliosis or deformity SKIN: No rashes CENTRAL NERVOUS SYSTEM: No focal deficits, tone is normal in all 4 extremities. EXTREMITIES: There is no peripheral edema. No clubbing, no cyanosis. Peripheral pulses are intact. - Labs CBC & Chem 7: 08/15/19 06:53 08/15/19 06:53 Labs: Abnormal Lab Results - Last 24 Hours (Table) 08/15/19 08/15/19 Range/Units 06:53 06:53 WBC 2.6 L (3.8-10.6) k/uL RBC 3.92 L (4.30-5.90) m/uL Hct 38.8 L (39.0-53.0) % Plt Count 132 L (150-450) k/uL Lymphocytes # 0.3 L (1.0-4.8) k/uL Sodium 134 L (137-145) mmol/L BUN 26 H (9-20) mg/dL Creatinine 0.62 L (0.66-1.25) mg/dL Calcium 7.7 L (8.4-10.2) mg/dL Total Bilirubin 1.4 H (0.2-1.3) mg/dL Total Protein 4.5 L (6.3-8.2) g/dL Albumin 2.3 L (3.5-5.0) g/dL Assessment and Plan Plan: Assessment: 1 Hemoptysis in a patient recently admitted for acute pulmonary embolism involving the left lung with secondary shortness of breath causing further wors ening in his chronic dyspnea and further decompensation in his overall pulmonary status. The patient is likely hypercoagulable secondary to his underlying malignancy. Recently started on Xarelto. 2 Adenocarcinoma of the lung, recent diagnosis, has been initiated on radiation and chemotherapy x 1 on 08/08/2019 with carboplatin and Alimta 3 Acute hypoxic respiratory failure currently requiring AirVo high flow oxygen at 50 L and 34% FiO2 secondary to worsening right upper lobe opacity with known right upper lobe metastatic non-small cell lung cancer. Possible postobstructive pneumonia. Possible lymphatic involvement. 4 COPD 5 Hyperlipidemia 6 Prostate cancer 7 Ex-smoker Plan: Continue current supportive medical treatment, chest physiotherapy if the patient is able tolerated breathing treatments, antibiotics. Patient's overall condition is quite weak, and debilitating patient has a very weak cough, and is unable to effectively mobilize secretions. Overall prognosis is quite guarded. Patient is too high risk for bronchoscopy for risk of acute desaturation and intubation and placement on mechanical ventilator. Patient is DO NOT RESUSCITATE, family is considering palliative care however has not made following decisions, we'll continue supportive treatment I performed a history & physical examination of the patient and discussed their management with my nurse practitioner, Gunjan Benson. I reviewed the nurse practitioner's note and agree with the documented findings and plan of care. Lung sounds are positive for diminished breath sounds. The findings and the imp ression was discussed with the patient. I attest to the documentation by the nurse practitioner. Time with Patient: Less than 30
[2019-08-15] MEDS: LORazepam 2 MG/ML INJ IV PRN (16:17)
--- NOTE | 2019-08-15 16:19 | P.PN ---
Subjective Progress Note Date: 08/15/19 Principal diagnosis: Intractable cough from NSCLC In f/u today pt is on high flow oxygen, he opens his eyes to loud voice and touch, otherwise falls quickly back to sleep. His sisters at the bedside Objective - Vital Signs Vital signs: Vital Signs Temp 97.8 F 08/15/19 12:09 Pulse 104 H 08/15/19 15:43 Resp 22 08/15/19 15:43 BP 160/96 08/15/19 12:09 Pulse Ox 93 L 08/15/19 15:27 Intake & Output 08/14/19 08/15/19 08/15/19 18:59 06:59 18:59 Intake Total 720 1440 800 Output Total 1400 750 Balance -680 690 800 Intake: Intake, IV Titration 1200 800 Amount Sodium Chloride 0.9% 1, 1200 800 000 ml @ 100 mls/hr IV . Q10H [facility] Rx#:[id number] Oral 720 240 Output: Urine 1400 750 Uretheral (Galvin) 700 750 Other: Voiding Method Indwelling Catheter Indwelling Catheter Indwelling Catheter - Constitutional General appearance: Present: no acute distress, thin - EENT ENT: Present: hearing grossly normal - Respiratory Respiratory: right: diminished, bilateral: rhonchi - Cardiovascular Heart sounds: normal: S1, S2 - Gastrointestinal General gastrointestinal: Present: normal bowel sounds, soft - Musculoskeletal Musculoskeletal: Present: generalized weakness - Labs CBC & Chem 7: 08/15/19 06:53 08/15/19 06:53 Labs: Abnormal Lab Results - Last 24 Hours (Table) 08/15/19 08/15/19 Range/Units 06:53 06:53 WBC 2.6 L (3.8-10.6) k/uL RBC 3.92 L (4.30-5.90) m/uL Hct 38.8 L (39.0-53.0) % Plt Count 132 L (150-450) k/uL Lymphocytes # 0.3 L (1.0-4.8) k/uL Sodium 134 L (137-145) mmol/L BUN 26 H (9-20) mg/dL Creatinine 0.62 L (0.66-1.25) mg/dL Calcium 7.7 L (8.4-10.2) mg/dL Total Bilirubin 1.4 H (0.2-1.3) mg/dL Total Protein 4.5 L (6.3-8.2) g/dL Albumin 2.3 L (3.5-5.0) g/dL Assessment and Plan (1) Cough Narrative/Plan: continue medications as ordered. Patient's cough is less intense at this time. Current Visit: Yes Status: Acute Priority: High Code(s): R05 - COUGH SNOMED Code(s): 99797995 (2) Hemoptysis Current Visit: Yes Status: Resolved Priority: Medium Code(s): R04.2 - HEMOPTYSIS SNOMED Code(s): 00961257 (3) Metastatic non-small cell lung cancer Narrative/Plan: PET scan on 07/22/19 impression was large right hilar pulmonary neoplasm, abnormal thoracic adenopathy, supraclavicular, lower paraesophageal and upper abdominal retroperitoneal adenopathy. no actionable mutations on biomarker report Patient's case was reviewed by [facility] thoracic tumor board. Chemotherapy with carbo/alimta 1st cycle 08/09/19. He completed XRT course last week. Cont supportive care. Antiemetics ordered. Current Visit: No Status: Acute Priority: High Code(s): C34.90 - MALIGNANT NEOPLASM OF UNSP PART OF UNSP BRONCHUS OR LUNG SNOMED Code(s): 420808661 Plan: Appetite stimulant ordered-not sure if effective Salt and soda for oral care Anxiety meds prescribed ATC, oral and IV options as pt is having nausea from chemo Dr. Peguero discussed the case with Internal Medicine. Dr. Peguero met extensively with patient's son yesterday. I reviewed this info with pt sister at bedside. Patient and family were deciding whether to be transferred to a tertiary care facility versus comfort care. Awaiting their decision. Time with Patient: Greater than 30
[2019-08-15] MEDS: FOLIC ACID 1 MG TAB PO SCH (17:03)
[2019-08-15] MEDS: RIVAROXABAN 15 MG TAB PO SCH ×2 (19:06→20:55)
[2019-08-15] MEDS: predniSONE 20 MG TAB PO SCH (19:07)
[2019-08-15] MEDS: SCOPOLAMINE 1.5MG/72HR PATCH TRANSDERM SCH (20:55)
--- NOTE | 2019-08-15 23:31 | P.PN ---
Progress Note - Text Progress Note Date: 08/15/19 Chief Complaint: short of breath history of presenting complaint: This is a pleasant 79-year-old patient of Dr. Jacinto Hermosillo. Was admitted here in in early July. Had a bronchoscopy. For lung mass. 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 patient was admitted to the hospital from July 31 through August 03. diagnosed with acute pulmonary embolism.discharge on Xarelto.plan was to patient to improve from this acute event then come back for treatment of the lung cancer. Patient returns with increasing shortness of breath some wheezing. No cough. No production. No fever no chills. Appetite is not very good. Gets is the short winded. Tired. Patient was at [facility] for above days. Admitted with-acute COPD exacerbation, postobstructive pneumonia, acute respiratory failure. Started on chemotherapy and radiation treatment on July 08. Had a family meeting on August 14 following discussion with from oncology. He suggested the patient to be transferred to outside facility for a possible bronchoscopy and if there is a mucous block and patient may be candidate for further treatment. Dr. Jackson from pulmonary had spoken with the family earlier and he felt the patient should be comfort measures. I held a meeting with the family members looked at all the pros and cons for them. Family could not reach a decision in terms of patient getting transferred out or hospice. Wanted some more time to decide. Today-. Remains on high flow oxygen. Tired. Does respond. Sister the bedside. Minimal oral intake Review of systems: Was done for constitutional, cardiovascular, GI, pulmonary. relevant finding as above Active Medications Acetaminophen (Tylenol Tab) 650 mg PO Q6HR PRN PRN Reason: Mild Pain or Fever > 100.5 Last Admin: 08/10/19 14:50 Dose: 650 mg Documented by: Albuterol/Ipratropium (Duoneb 0.5 Mg-3 Mg/3 Ml Soln) 3 ml INHALATION RT-Q4H [facility] Last Admin: 08/15/19 19:29 Dose: 3 ml Documented by: Bisacodyl (Dulcolax) 10 mg RECTAL DAILY PRN PRN Reason: Constipation Budesonide (Pulmicort) 1 mg INHALATION RT-BID [facility] Last Admin: 08/15/19 19:29 Dose: 1 mg Documented by: Dronabinol (Marinol) 2.5 mg PO AC-BID [facility] Last Admin: 08/15/19 17:03 Dose: Not Given Documented by: Folic Acid (Folic Acid) 1 mg PO DAILY@1700 [facility] Last Admin: 08/15/19 17:03 Dose: Not Given Documented by: Guaifenesin/Codeine Phosphate (Robitussin Ac) 10 ml PO Q6H PRN PRN Reason: Cough Last Admin: 08/12/19 09:49 Dose: 10 ml Documented by: Sodium Chloride (Saline 0.9%) 1,000 mls @ 100 mls/hr IV .Q10H [facility] Last Admin: 08/15/19 20:56 Dose: 100 mls/hr Documented by: Lorazepam (Ativan) 1 mg IV Q6HR PRN PRN Reason: Anxiety Last Admin: 08/15/19 16:17 Dose: 1 mg Documented by: Magnesium Hydroxide (Milk Of Magnesia) 2,400 mg PO DAILY PRN PRN Reason: Constipation Metoclopramide HCl (Reglan) 5 mg IVP Q8HR PRN PRN Reason: MILD Nausea And Vomiting Metoclopramide HCl (Reglan) 10 mg IVP Q8HR PRN PRN Reason: MODERATE TO SEVERE Nausea Miscellaneous Information (Pneumonia Protocol Utilized) 1 each PO ONCE PRN PRN Reason: Per Protocol Morphine Sulfate (Morphine Sulfate (Inj)) 3 mg IVP Q6HR PRN PRN Reason: Pain Last Admin: 08/15/19 01:42 Dose: 3 mg Documented by: Ondansetron HCl (Zofran) 4 mg IVP Q4HR PRN PRN Reason: N/V if reglan not working Last Admin: 08/14/19 15:47 Dose: 4 mg Documented by: Pantoprazole Sodium (Protonix) 40 mg PO DAILY@0700 [facility] Last Admin: 08/15/19 10:34 Dose: Not Given Documented by: Paroxetine HCl (Paxil) 20 mg PO DAILY [facility] Last Admin: 08/15/19 10:34 Dose: Not Given Documented by: Prednisone () 40 mg PO DAILY [facility] Last Admin: 08/15/19 19:07 Dose: Not Given Documented by: Rivaroxaban (Xarelto) 15 mg PO BID@0800,1700 [facility] Last Admin: 08/15/19 20:55 Dose: 15 mg Documented by: Scopolamine (Transderm-Scop 1.5mg/72hr Patch) 1 patch TRANSDERM Q72H [facility] Last Admin: 08/15/19 20:55 Dose: 1 patch Documented by: Sodium Bicarbonate () 5 ml PO 5XD [facility] Last Admin: 08/15/19 20:56 Dose: Not Given Documented by: Physical examination: VITAL SIGNS: 97.4, 17, 96/65, 95% GENERAL: Propped up in bed, tired short of breath, lethargic but arousable EYES: Pupils equal. Conjunctiva normal. HEENT: External appearance of nose and ears normal, oral cavity grossly normal. Decreased hearing NECK: JVD not raised; masses not palpable. HEART: First and second heart sounds are normal; no edema. LUNGS: Respiratory rate increased increased, decreased breath sounds , prolonged expiration. ABDOMEN: Soft, nontender, liver spleen not palpable, no masses palpable. PSYCH: Tired and lethargic, but able to answer questions. LYMPHATICS: supraclavicular lymph nodes palpable on both sides INVESTIGATIONS, reviewed in the clinical context: White count 2.6 hemoglobin 13.2 potassium 4.2 creatinine 0.62 Previous testing EKG tracing personally reviewed by me-normal sinus rhythm Chest x-ray film personally reviewed by me-mass in the right upper lobe, suspect collapse of the right upper lobe with elevation of the right diaphragm 2-D echo-EF 55-60%, right ventricular pressures normal CT angios a chest-encasing the main bronchi of the right and narrowing the right middle lobe bronchus. Diffuse his interstitial changes in the right lung. Small bilateral pleural effusion adenopathy in the mediastinum present. Thrombus in the distal left main pulmonary artery extending into the secondary and tertiary branches of the left upper and left lower lobes. Protocol calcitonin 7.66 albumin 2.7 Assessment: -Suspect right upper lobe, collapse from underlying malignancy -Acute hypoxic respiratory failure multifactorial not improving, and high flow 50 L AIRVO -Started on chemotherapy and radiation treatment for the lung cancer, -Possible postobstructive pneumonia, POA -Acute pulmonary embolism, and the distal left main pulmonary artery extending into the secondary and tertiary branches, on Xarelto, diagnosed on July 31 -Poorly differentiated adenocarcinoma of the lung,- for radiation and ch emotherapy, to be started as per oncology and radiation oncology -Acute COPD exacerbation in an ex-smoker, POA, -Troponin leak from acute PE. No evidence of acute coronary syndrome. -Anxiety-uncontrolled -Mild protein calorie malnutrition from decreased oral intake -Bicytopenia from chemotherapy Plan: Spoke to the patient's sister the bedside. Other family members will be coming in to the son and daughter later today. Did also spoke to Andrés the social sciences professor. Awaiting a decision terms of being transferred out versus hospice. Late in the evening family to us for hospice. It seems patient not qualifying for GIP. Family wishes to take the patient home as soon as arrangements are made to total time spent today was about 40 minutes with over 25 minutes of discussion.
[2019-08-16] MEDS: IPRATROPIUM-ALBUTEROL 3 ML NEB INHALATION SCH ×5 (01:03→15:56)
[2019-08-16] MEDS: LORazepam 2 MG/ML INJ IV PRN ×3 (03:05→17:08)
[2019-08-16] MEDS: SALT AND SODA MOUTHWASH 1,000 ML PO SCH ×4 (03:07→16:59)
[2019-08-16 05:36] VITALS: BP 154/92; RESP 22; TEMP 98
[2019-08-16] MEDS: SODIUM CHLORIDE 0.9% 1,000 ML IV SCH ×2 (06:01→15:54)
[2019-08-16] MEDS: BUDESONIDE 1 MG/2 ML NEBU INHALATION SCH (07:23)
[2019-08-16 07:51] LABS: Basophils % (A) 0 %; Eosinophils % (A) 1 %; HGB 13.4 gm/dL (13.0-17.5); Lymphocytes # (A) 0.2 k/uL (1.0-4.8); Lymphocytes % (A) 7 %; MCH 33.1 pg (25.0-35.0); MCHC 33.5 g/dL (31.0-37.0); MCV 98.9 fL (80.0-100.0); Mean Platelet Volume 7.8; Monocytes # (A) 0.1 k/uL (0-1.0); Monocytes % (A) 4 %; Neutrophils # (A) 3.2 k/uL (1.3-7.7); Neutrophils % (A) 88 %; Platelet Count 104 k/uL (150-450); RBC 4.04 m/uL (4.30-5.90); RDW 13.1 % (11.5-15.5); WBC 3.6 k/uL (3.8-10.6)
[2019-08-16 07:58] LABS: ALT 16 U/L (4-49); AST 29 U/L (17-59); African American GFR (CKD) >90 (>60 ml/min/1.73 sqM); Albumin 2.3 g/dL (3.5-5.0); Alkaline Phosphatase 64 U/L (38-126); Anion Gap 8 mmol/L; Blood Urea Nitrogen 21 mg/dL (9-20); Calcium 7.7 mg/dL (8.4-10.2); Carbon Dioxide 24 mmol/L (22-30); Chloride 103 mmol/L (98-107); Glucose 80 mg/dL (74-99); Non-African American GFR(CKD) >90 (>60 ml/min/1.73 sqM); Potassium 3.7 mmol/L (3.5-5.1); Sodium 135 mmol/L (137-145); Total Bilirubin 1.3 mg/dL (0.2-1.3); Total Protein 4.2 g/dL (6.3-8.2)
[2019-08-16] MEDS: RIVAROXABAN 15 MG TAB PO SCH ×2 (08:26→17:11)
[2019-08-16] MEDS: PARoxetine 20 MG TAB PO SCH (08:26)
[2019-08-16] MEDS: predniSONE 20 MG TAB PO SCH (08:26)
[2019-08-16] MEDS: DRONABINOL 2.5 MG CAP PO SCH ×2 (08:26→17:11)
[2019-08-16] MEDS: PANTOPRAZOLE 40 MG TABLET PO SCH (08:26)
[2019-08-16] MEDS: MORPHINE SULFATE 4 MG/ML SYRINGE IVP PRN ×2 (09:26→15:52)
[2019-08-16 11:13] VITALS: PULSE 105
--- NOTE | 2019-08-16 14:38 | P.PN ---
Subjective Progress Note Date: 08/16/19 Principal diagnosis: Hemoptysis A very [id number] male patient who got recently diagnosed with stage IV adenocarcinoma of the lung. We saw him in consultation approximately 3 weeks ago here in the hospital. He has a right upper lobe mass in addition to bilateral supraclavicular lymphadenopathy and mediastinal lymphadenopathy. Further workup with a biopsy of the right upper lobe confirmed the diagnosis of adenocarcinoma. PET scan indicated metastatic disease. MRI of the brain was negative. The patient was being worked up by oncology and he has not initiated his treatment yet and he was being considered for immunotherapy. He had been readmitted and discharged on 08/03/2018 for worsening shortness of breath and was found to have acute pulmonary emboli and discharged on Xarelto. He was discharged to an extended care facility. He was brought back here again yesterday to 08/04/2019 with episodes of hemoptysis. He is seen today in consultation on the regular medical floor. He is awake and alert in no acute distress. He states he had 2 or 3 episodes of hemoptysis about the size of a quarter bright red blood. This morning he's only had some dark old blood. He coughed well we were in the room in his sputum is clear. History of x-ray reveals evidence of bilateral lobe consolidation. Volume loss in the right lung and shift trachea towards the right makes it impossible to exclude underlying mass and increased interstitial changes in the short. Represents either interstitial edema or atypical pneumonia. He is more dyspneic on minimal exertion. Loose productive cough. White count 6.8. Hemoglobin 14.6. INR 1.4. Sodium 133. Creatinine 0.98. Troponin 0.050. ProBNP 716. He is currently afebrile. Maintaining O2 saturation in the mid 90s on 2 L/m per nasal cannula. Hemodynamically stable. The patient is seen today 08/06/2019 in follow-up on the regular medical floor. Awake and alert in no acute distress. Maintaining good O2 saturations in the 90s on 2 L/m per nasal cannula, he's been afebrile. Blood culture reveals no growth. No further hemoptysis. Congested cough this morning with clear sputum. He remains on bronchodilators, Tessalon Perles, antibiotics in the form of Zosyn and Levaquin. Remains on Xarelto. The patient is seen today 08/07/2019 in follow-up on the regular medical floor. He is currently resting comfortably in bed. Awake and alert in no acute distress. He has had a rare blood-tinged sputum but no significant hemoptysis. He is maintaining good O2 saturations in the 90s on 2 L/m per nasal cannula. Afebrile. Hemodynamically stable. Blood cultures reveal no growth to date. Chest x-ray reveals persistent abnormal increased density in the right upper lobe. Interstitium is thickened. Abnormal soft tissue extends along the paratracheal location, right hilar region. No evidence of pneumothorax or pleural effusion. There is some eventration the right hemidiaphragm slightly elevated. Patient has a known history of metastatic non-small cell lung carcinoma with possible interstitial spread of tumor. Pneumonia not completely excluded. He is continued on DuoNeb inhalations, Pulmicort inhalations, antibiotics in the form of Zosyn and Levaquin. Anticoagulated with Xarelto. Patient was reevaluated today on 08/08/2019 he is comfortable, continues to have some slightly blood-tinged sputum, less shortness of breath, no chest pain, continues to have intermittent episodes of cough. A be started on radiation therapy as per radiation oncology on the case. Remains on DuoNeb updrafts, Pulm icort, antibiotics, and remains on Xarelto. Reevaluated today on 08/09/2019. Patient is doing well, continues to have intermittent episodes of cough, slightly blood-tinged sputum, at times some old blood coughed up easily. Overall the patient is feeling better, no shortness of breath, no fever no chills, no chest pain at present. The patient is seen today 08/10/2019 in follow-up on the regular medical floor. He is currently sitting up in a chair at the bedside. Awake and alert in no acute distress. He continues with intermittent cough. No hemoptysis. Maintaining good O2 saturations in the mid 90s on 3 L/m per nasal cannula. He's been afebrile. Hemodynamically stable. He is less anxious and utilizing Xanax as needed. He is continued on bronchodilators, Pulmicort inhalations, Tessalon Perles, oral prednisone. Antibiotics in form of Levaquin. He is on Marinol and protein supplements. He is currently receiving radiation treatments and has been initiated on carboplatin and Alimta. Reevaluated today on 08/11/2019, less shortness of breath, no further episodes of hemoptysis, no significant pain. Patient seems to be forgetful, but overall he is doing better. Remains on 3 L nasal cannula. Remains on bronchodilators and on oral prednisone as well as antibiotics in the form of Levaquin. The patient is seen today 08/12/2019 in follow-up on the regular medical floor. He is currently resting fairly comfortably in bed. Awake and alert in no acute distress. He did require some morphine for pain control. The patient did have issues with increased work of breathing early this morning and was placed on the airflow high flow oxygen device at 50 L/m and 33% FiO2. No worsening shortness of breath, cough or congestion at this time. O2 saturations staying in the 90s. The patient is seen today for every 2019 in follow-up on the regular medical floor. He is currently resting in bed. He did undergo radiation treatment earlier this morning. He is still requiring high flow oxygen via the AirVo device currently at 50 L and 34% FiO2. Still remains with a loose nonproductive cough. He is afebrile. Hemodynamically stable. The patient is seen today 08/14/2019 in follow-up on the regular medical floor. He is quite weak. His cough is weak. He remains on the AirVo at 50 L and 34% FiO2. Today's chest x-ray shows worsening airspace disease in the right upper lobe. White count 1.7. Hemoglobin 13.5. Platelet count 139,000. Sodium 134. Potassium 4.1. Creatinine 0.68. He did receive carboplatin and Alimta back on 08/08/2019. He is still receiving radiation treatments. The cultures reveal no growth. He is still receiving Ativan for anxiety. Remains on Xarelto. On 08/15/2019 patient seen in follow-up on medical oncology floor. Very lethargic on today's exam, mildly dyspneic at rest, remains on high flow oxygen Airvo likely at 50 L and FiO2 of 33%. Pulse ox is 93%, afebrile, hemodynamically patient is stable, patient seems very frail, weak and dyspneic. Today's labs have been reviewed, showing liquid silk on 2.6, hemoglobin of 13.2, serum sodium is 134, and the rest of electrolytes are within normal limits, B1 is 26 and creatinine 0.62. No family at the bedside today, Dr. Ruffin did have a lengthy conversation with the daughter and the son yesterday and the day before. Prognosis from pulmonary perspective is poor. Patient is still receiving radiation treatments. However his overall functional status and oxygenation remained poor. His cough is quite weak, we ordered chest physiotherapy to try to open up the right upper lobe. Patient is too high risk for bronchoscopy with BAL. He remains on supportive treatment at this time, with breathing treatments, antibiotics. The family did make the patient DO NOT RESUSCITATE and were told that they are considering palliative care, but has not made final decisions yet On 08/16/2019 patient seen in follow-up on medical oncology floor. Note, with minimal responsiveness, remains on high flow Airvo is 50 L/m or FiO2 of 30%, Fio2 53%, afebrile, breathing was very shallow and labored at rest. Today's labs have been reviewed, showing white blood cell, 3.6, hemoglobin of 13.4, sodium is 135, the rest of electrolytes are within normal limits, B1 is 21 creatinine 0.61. Blood cultures have shown no growth. he is very weak, very somnolent, he is refusing care, he is unable to clear any secretions, has a very weak cough. The family is meeting with hospice this afternoon, and they're anticipating transfer to [facility] with hospice tomorrow. Objective - Vital Signs Vital signs: Vital Signs Temp 98 F 08/16/19 05:00 Pulse 105 H 08/16/19 11:13 Resp 22 08/16/19 05:00 BP 154/92 08/16/19 05:00 Pulse Ox 93 L 08/16/19 05:00 Intake & Output 08/15/19 08/16/19 08/16/19 18:59 06:59 18:59 Intake Total 800 900 Output Total 1100 Balance 800 -200 Weight 72.575 kg Intake: Intake, IV Titration 800 800 Amount Sodium Chloride 0.9% 1, 800 800 000 ml @ 100 mls/hr IV . Q10H [facility] Rx#:[id number] Oral 100 Output: Urine 1100 Uretheral (Galvin) 1100 Other: Voiding Method Indwelling Catheter Indwelling Catheter Indwelling Catheter # Bowel Movements 1 - Exam GENERAL EXAM: Arousable, weak, pleasant 79-year-old gentleman, on AirVo high flow oxygen. HEAD: Normocephalic. EYES: Normal reaction of pupils, equal size. NOSE: Clear with pink turbinates. THROAT: No erythema or exudates. NECK: No masses, no JVD. CHEST: No chest wall deformity. LUNGS: Equal air entry with bilateral scattered rhonchi, more so on the right. CVS: S1 and S2 normal with no audible murmur, regular rhythm. ABDOMEN: No hepatosplenomegaly, normal bowel sounds, no guarding or rigidity. SPINE: No scoliosis or deformity SKIN: No rashes CENTRAL NERVOUS SYSTEM: No focal deficits, tone is normal in all 4 extremities. EXTREMITIES: There is no peripheral edema. No clubbing, no cyanosis. Peripheral pulses are intact. - Labs CBC & Chem 7: 08/16/19 06:18 08/16/19 06:18 Labs: Abnormal Lab Results - Last 24 Hours (Table) 08/16/19 08/16/19 Range/Units 06:18 06:18 WBC 3.6 L (3.8-10.6) k/uL RBC 4.04 L (4.30-5.90) m/uL Plt Count 104 L (150-450) k/uL Lymphocytes # 0.2 L (1.0-4.8) k/uL Sodium 135 L (137-145) mmol/L BUN 21 H (9-20) mg/dL Creatinine 0.61 L (0.66-1.25) mg/dL Calcium 7.7 L (8.4-10.2) mg/dL Total Protein 4.2 L (6.3-8.2) g/dL Albumin 2.3 L (3.5-5.0) g/dL Assessment and Plan Plan: Assessment: 1 Hemoptysis in a patient recently admitted for acute pulmonary embolism involving the left lung with secondary shortness of breath causing further worsening in his chronic dyspnea and further decompensation in his overall pulmonary status. The patient is likely hypercoagulable secondary to his underlying malignancy. Recently started on Xarelto. 2 Adenocarcinoma of the lung, recent diagnosis, has been initiated on radiation and chemotherapy x 1 on 08/08/2019 with carboplatin and Alimta 3 Acute hypoxic respiratory failure currently requiring AirVo high flow oxygen at 50 L and 34% FiO2 secondary to worsening right upper lobe opacity with known right upper lobe metastatic non-small cell lung cancer. Possible postobstructive pneumonia. Possible lymphatic involvement. 4 COPD 5 Hyperlipidemia 6 Prostate cancer 7 Ex-smoker Plan: Patient's overall condition continues to decline, patient is very lethargic, still continues on high flow oxygen, has a poor cough, and is unable to effectively mobilize secretions. Patient's family is meeting with hospice this afternoon and they're expected to transfer to [facility] with hospice tomorrow. Pulmonary service will sign off at this time and follow on an as-needed basis. I performed a history & physical examination of the patient and discussed their management with my nurse practitioner, Gunjan Benson. I reviewed the nurse practitioner's note and agree with the documented findings and plan of care. Lung sounds are positive for diminished breath sounds. The findings and the impression was discussed with the patient. I attest to the documentation by the nurse practitioner. Time with Patient: Less than 30
--- NOTE | 2019-08-16 15:03 | P.PN ---
Subjective Progress Note Date: 08/16/19 Principal diagnosis: This is a 79-year-old male who was recently admitted with acute COPD exacerbation, postobstructive pneumonia, and acute respiratory failure and being closely monitored. Pulmonary is following. Patient was receiving treatment of chemotherapy and radiation and being followed by Dr. Peguero during this admission. In follow-up today with a discussion of the family they have opted to discuss hospice is remains on an airvo with extreme shortness of breath and hypoxia. Family states they are meeting this afternoon with the stylist apprentice. Will continue to monitor closely. Objective - Vital Signs Vital signs: Vital Signs Temp 98 F 08/16/19 05:00 Pulse 105 H 08/16/19 11:13 Resp 22 08/16/19 05:00 BP 154/92 08/16/19 05:00 Pulse Ox 93 L 08/16/19 05:00 Intake & Output 08/15/19 08/16/19 08/16/19 18:59 06:59 18:59 Intake Total 800 900 Output Total 1100 Balance 800 -200 Weight 72.575 kg Intake: Intake, IV Titration 800 800 Amount Sodium Chloride 0.9% 1, 800 800 000 ml @ 100 mls/hr IV . Q10H [facility] Rx#:[id number] Oral 100 Output: Urine 1100 Uretheral (Galvin) 1100 Other: Voiding Method Indwelling Catheter Indwelling Catheter Indwelling Catheter # Bowel Movements 1 - Exam VITAL SIGNS: 98F, respirations are 22, pulse is 106, blood pressure is 154/92, oxygen saturation 93% on airvo 50% GENERAL: Propped up in bed, tired, short of breath, lethargic but arousable, restless 108 EYES: Pupils equal. Conjunctiva normal. HEENT: External appearance of nose and ears normal, oral cavity grossly normal. Decreased hearing NECK: JVD not raised; masses not palpable. HEART: Cardio S1, S2 are muffled. LUNGS: Respiratory rate increased increased, decreased breath sounds , prolonged expiration. ABDOMEN: Soft, nontender, liver spleen not palpable, no masses palpable. PSYCH: Tired and lethargic, unresponsive, restless LYMPHATICS: supraclavicular lymph nodes palpable on both sides - Labs CBC & Chem 7: 08/16/19 06:18 08/16/19 06:18 Labs: Abnormal Lab Results - Last 24 Hours (Table) 08/16/19 08/16/19 Range/Units 06:18 06:18 WBC 3.6 L (3.8-10.6) k/uL RBC 4.04 L (4.30-5.90) m/uL Plt Count 104 L (150-450) k/uL Lymphocytes # 0.2 L (1.0-4.8) k/uL Sodium 135 L (137-145) mmol/L BUN 21 H (9-20) mg/dL Creatinine 0.61 L (0.66-1.25) mg/dL Calcium 7.7 L (8.4-10.2) mg/dL Total Protein 4.2 L (6.3-8.2) g/dL Albumin 2.3 L (3.5-5.0) g/dL Assessment and Plan Assessment: -Suspect right upper lobe, collapse from underlying malignancy -Acute hypoxic respiratory failure multifactorial not improving, and high flow 50 L AIRVO -Started on chemotherapy and radiation treatment for the lung cancer, -Possible postobstructive pneumonia, POA -Acute pulmonary embolism, and the distal left main pulmonary artery extending into the secondary and tertiary branches, on Xarelto, diagnosed on July 31 -Poorly differentiated adenocarcinoma of the lung,- for radiation and chemo therapy, to be started as per oncology and radiation oncology -Acute COPD exacerbation in an ex-smoker, POA, -Troponin leak from acute PE. No evidence of acute coronary syndrome. -Anxiety-uncontrolled -Mild protein calorie malnutrition from decreased oral intake -Bicytopenia from chemotherapy Plan: Recommend to continue current medications, management, and symptomatic treatment. Pulmonary is following. Will continue to follow closely. Multiple Family members at the bedside awaiting to speak with hospice today about options of possible GIP or being transferred in to receive hospice care in the outpatient setting at [facility]. Patient currently remains extremely short of breath and anxious and on an airvo with no improvement. Due to multiple complex medical issues prognosis is extremely guarded.
[2019-08-16] MEDS: FOLIC ACID 1 MG TAB PO SCH (17:11)
== END 2019-08-16 17:21 | disposition hospice, inpatient (51) | DRG 180 ==
LOC: EC 21:06 → 5NMEDONC 22:54
PROVIDERS: ADMIT Hospitalist; ATTEND Hospitalist
DX: C34.11 Malignant neoplasm of upper lobe, right bronchus or lung (principal); J18.9 Pneumonia, unspecified organism; I26.99 Other pulmonary embolism without acute cor pulmonale; J96.21 Acute and chronic respiratory failure with hypoxia; J44.0 Chronic obstructive pulmonary disease with (acute) lower respiratory infection; R04.2 Hemoptysis; C77.2 Secondary and unspecified malignant neoplasm of intra-abdominal lymph nodes; J44.1 Chronic obstructive pulmonary disease with (acute) exacerbation; C77.1 Secondary and unspecified malignant neoplasm of intrathoracic lymph nodes; D68.69 Other thrombophilia; C77.0 Secondary and unspecified malignant neoplasm of lymph nodes of head, face and neck; E44.1 Mild protein-calorie malnutrition; Z66 Do not resuscitate; Z51.5 Encounter for palliative care; I50.9 Heart failure, unspecified; D69.59 Other secondary thrombocytopenia; T17.990A Other foreign object in respiratory tract, part unspecified in causing asphyxiation, initial encounter; F41.9 Anxiety disorder, unspecified; E78.5 Hyperlipidemia, unspecified; K21.9 Gastro-esophageal reflux disease without esophagitis; R79.89 Other specified abnormal findings of blood chemistry; Y95 Nosocomial condition; T45.1X5A Adverse effect of antineoplastic and immunosuppressive drugs, initial encounter; Z71.3 Dietary counseling and surveillance; Z79.899 Other long term (current) drug therapy; Z79.01 Long term (current) use of anticoagulants; Z92.3 Personal history of irradiation; Z92.21 Personal history of antineoplastic chemotherapy; Z85.46 Personal history of malignant neoplasm of prostate; Z87.01 Personal history of pneumonia (recurrent); Z96.652 Presence of left artificial knee joint; Z98.890 Other specified postprocedural states; Z87.891 Personal history of nicotine dependence; Z82.49 Family history of ischemic heart disease and other diseases of the circulatory system
CPT/HCPCS: 36415; 71045; 71046; 77280; 77290; 77307; 77334; 77387; 77412; 80053; 83605; 83735; 83880; 84145; 84484; 85025; 85027; 85610; 85730; 87040; 93005; 93306; 94640; 94760; 96361; 96365; 96367; 96375; 99285

== ENCOUNTER 2019-08-16 11:14 | Inpatient (IN) | payer MEDICAID ==
[2019-08-16] MEDS ORDERED: ONDANSETRON 4 MG/2 ML VIAL IVP PRN (11:18)
[2019-08-16] MEDS ORDERED: MORPHINE SULFATE 2 MG/ML SYRINGE IV PRN (11:18)
[2019-08-16] MEDS ORDERED: GLYCOPYRROLATE 0.2 MG/ML 2 ML VIAL IVP PRN (11:18)
[2019-08-16] MEDS ORDERED: ATROPINE OPHTH SOLN 1% 5ML BTL SUBLINGUAL PRN (11:18)
[2019-08-16] MEDS ORDERED: ACETAMINOPHEN SUPPOSITORY 650 MG SUPP RECTAL PRN (11:18)
[2019-08-16] MEDS ORDERED: LORazepam 2 MG/ML INJ IV PRN (11:18)
[2019-08-16] MEDS ORDERED: SCOPOLAMINE 1.5MG/72HR PATCH TRANSDERM SCH (11:30)
[2019-08-16] MEDS: MORPHINE SULFATE (100 MG/2 ML) 100 MG in SODIUM CHLORIDE 0.9% 100 ML IV SCH (18:02)
[2019-08-16] MEDS: IPRATROPIUM-ALBUTEROL 3 ML NEB INHALATION SCH ×2 (18:33→20:21)
[2019-08-16] MEDS ORDERED: BUDESONIDE 1 MG/2 ML NEBU INHALATION SCH (20:00)
[2019-08-17 05:13] VITALS: RESP 12
[2019-08-17] MEDS: MORPHINE SULFATE (100 MG/2 ML) 100 MG in SODIUM CHLORIDE 0.9% 100 ML IV SCH (11:48)
--- NOTE | 2019-08-17 15:45 | P.PN ---
Subjective Progress Note Date: 08/17/19 Principal diagnosis: This is a 79-year-old male who was recently admitted with acute COPD exacerbation, postobstructive pneumonia, and acute respiratory failure and is being closely monitored. Patient's condition continued to deteriorate and family met with hospice. Patient has been transitioned over to hospice inpatient per family's wishes and is following with [facility]. Patient is currently on a morphine drip along with IV Ativan as needed. Multiple family members at the bedside today. Airvo was removed and patient is being maintained on hospice care at this time. Will continue to follow along closely. Objective - Vital Signs Vital signs: Vital Signs Temp Pulse Resp 12 08/17/19 14:54 BP Pulse Ox Intake & Output 08/16/19 08/17/19 08/17/19 18:59 06:59 18:59 Intake Total 24 38.216 Output Total 1200 400 Balance -1176 -361.784 Weight 72.57 kg Intake: Intake, IV Titration 24 38.216 Amount Morphine Sulfate (100 mg/ 24 38.216 2 ml) 100 mg In Sodium Chloride 0.9% 100 ml @ 1 MG/HR 1.02 mls/hr IV . Q24H [facility] Rx#:[id number] Oral 0 0 Output: Urine 1200 400 Other: Voiding Method Indwelling Catheter Indwelling Catheter # Voids 1 1 - Exam Gen: This is a 79-year-old male lying in bed sleeping. Patient has transitioned to hospice care only HEENT: Head is atraumatic, normocephalic. Sclerae is anicteric. NECK: Supple. No JVD. No lymphadenopathy. No thyromegaly. LUNGS: Diminished breath sounds with coarse rhonchi and crackles noted. No intercostal retractions. HEART: S1, S2 are muffled ABDOMEN: Soft. No masses. No tenderness. EXTREMITIES: No pedal edema. No calf tenderness. NEUROLOGICAL: Patient is asleep, presently on a morphine drip and continuing with hospice care measures Assessment and Plan Assessment: Suspect right upper lobe, collapse from underlying malignancy Acute hypoxic respiratory failure, multifactorial with no improvement and deterioration Status post chemotherapy and radiation treatment for lung cancer Possible postobstructive pneumonia, present on admission Acute pulmonary embolism at the distal left main pulmonary artery extending into the secondary and tertiary branches Poorly differentiated adenocarcinoma of the lung Acute COPD exacerbation, present on admission Remote history of nicotine dependence Troponin leak from acute pulmonary embolism with no evidence of acute coronary syndrome Anxiety, uncontrolled Mild protein calorie malnutrition from decreased oral intake Bicytopenia from chemotherapy No code, no CPR, no vent Recommendations and discussion: Recommend to continue with hospice care measures and comfort care. [facility] following closely. Will continue to follow along closely. Due to multiple complex medical issues prognosis is extremely guarded and poor at this time. Further recommendations to follow.
--- NOTE | 2019-08-18 11:02 | DS ---
DISCHARGE SUMMARY DATE OF SERVICE: 08/17/2019 The primary cause is of is poorly differentiated adenocarcinoma of the lung. OTHER DIAGNOSES: 1. Right upper lobe pneumonia collapse or postobstructive pneumonia and lung malignancy. 2. Acute hypoxic respiratory failure, multifactorial. 3. Status post chemotherapy, radiation for lung cancer. 4. Possible postobstructive pneumonia, present on admission. 5. Acute pulmonary embolism and distal pulmonary artery. 6. Poorly deficient carcinoma of the lung. 7. Chronic obstructive pulmonary disease acute exacerbation. 8. Remote history of nicotine dependence. 9. Troponin leak from acute pulmonary embolism. 10.Anxiety. 11.Mild protein calorie malnutrition. 12.Cytopenia. 13.NO CODE, NO CARDIOPULMONARY RESUSCITATION, NO VENTILATOR. HISTORY OF PRESENT ILLNESS: This 79-year-old gentleman with a past medical history of multiple medical problems as mentioned earlier was admitted with COPD acute exacerbation as well as possible postobstructive pneumonia and lung cancer and multiple other medical problems. The patient was treated with bronchodilators and treatment along with Pulmonary. Please refer to the Pulmonary consultation notes for further information. Because of lack of improvement, case was discussed with family at length and the patient and family opted for hospice care and hospice was continued and the patient succumbed to his above mentioned illnesses. The prognosis was extremely guarded throughout the hospital stay. Once again, please refer to the multiple progress notes and consultation notes for further information. MMODL / IJN: [id number] /
== END 2019-08-17 22:38 | disposition expired | DRG 951 ==
LOC: 5NMEDONC 17:23
PROVIDERS: ADMIT Hospitalist; ATTEND Hospitalist
DX: Z51.5 Encounter for palliative care (principal); J18.9 Pneumonia, unspecified organism; J96.01 Acute respiratory failure with hypoxia; I26.99 Other pulmonary embolism without acute cor pulmonale; E44.1 Mild protein-calorie malnutrition; J44.1 Chronic obstructive pulmonary disease with (acute) exacerbation; J44.0 Chronic obstructive pulmonary disease with (acute) lower respiratory infection; C34.90 Malignant neoplasm of unspecified part of unspecified bronchus or lung; Z66 Do not resuscitate; F41.9 Anxiety disorder, unspecified; R79.89 Other specified abnormal findings of blood chemistry; Z87.891 Personal history of nicotine dependence; Z92.3 Personal history of irradiation; Z92.21 Personal history of antineoplastic chemotherapy